=== PATIENT | female | born 1940 | race Caucasian/White ===

== ENCOUNTER 2020-02-11 06:23 | Outpatient (REF) | payer MEDICARE, SELFPAY ==
[2020-02-11 07:10] LABS: MANUAL DIFF FLAG NO
[2020-02-11 07:32] LABS: Alanine Aminotransferase 17 U/L (0-31); Albumin Level 4.1 g/dL (3.5-5.0); Alkaline Phosphatase 75 U/L (39-117); Anion Gap 13 (12-20); Aspartate Amino Transferase 16 U/L (5-31); Bilirubin Total 1.2 mg/dL (0.0-1.0); Blood Urea Nitrogen 16 mg/dL (9-16); Calcium 8.7 mg/dL (8.4-10.2); Carbon Dioxide 24 mmol/L (22-29); Chloride 104 mmol/L (96-108); Cholesterol 198 mg/dL; Estimated Glomerular Filt Rate 49; Glucose Fasting 128 mg/dL (60-99); HDL Cholesterol 39 mg/dL; LDL Cholesterol Calculated 132 mg/dl; Potassium 4.1 mmol/l (3.3-5.1); Sodium 137 mmol/L (135-145); Total Protein 7.1 g/dL (6.5-8.0); Triglycerides 139 mg/dL
[2020-02-11 07:36] LABS: Basophils Percent Auto 0.2 % (0-2); Eosinophils Absolute Auto 0.1 X10*3/uL (0.0-0.4); Eosinophils Percent Auto 0.9 % (0-4); Hematocrit 40.9 % (37-47); Hemoglobin 13.2 g/dl (12.0-16.0); Imm Gran Abs Auto 0.02 X10*3/uL (0.00-0.03); Imm Gran Pct Auto 0.2 % (0.0-0.4); Lymphocytes Absolute Auto 1.9 X10*3/uL (1.2-4.9); Lymphocytes Percent Auto 23.6 % (20-40); Mean Corpuscular HGB Conc 32.3 g/dl (31.0-35.0); Mean Corpuscular Hemoglobin 28.5 pg (27.0-33.0); Mean Corpuscular Volume 88.3 fL (80-98); Mean Platelet Volume 10.4 fL (9.4-12.3); Monocytes Absolute Auto 0.6 X10*3/uL (0.1-1.2); Monocytes Percent Auto 7.6 % (2-11); Neutrophils Absolute Auto 5.5 X10*3/uL (2.0-8.3); Neutrophils Percent Auto 67.5 % (45-73); Platelet Count 263 X10*3/uL (160-400); Red Blood Count 4.63 X10*6/uL (4.20-5.50); White Blood Count 8.2 X10*3/uL (4.8-10.8)
[2020-02-11 07:53] LABS: T4 Thyroxine 8.3 ug/dL (4.5-12.0); Thyroid Stimulating Hormone 0.67 mIU/mL (0.32-4.0); Vitamin D 25-OH Total 23.2 ng/mL (>30)
[2020-02-11 13:48] LABS: Folate 3.3 ng/mL (> or = 4.0); Vitamin B12 254 pg/mL (200-900)
== END 2020-02-11 06:24 | disposition home or self-care (01) ==
LOC: HO.LAB 06:23
PROVIDERS: PCP Internal Medicine; Visit Provider Internal Medicine
DX: E66.9 Obesity, unspecified (principal); K21.9 Gastro-esophageal reflux disease without esophagitis; I10 Essential (primary) hypertension; M91.0 Juvenile osteochondrosis of pelvis; F41.9 Anxiety disorder, unspecified
CPT/HCPCS: 36415; 80053; 80061; 82306; 82607; 82746; 84436; 84443; 85025

== ENCOUNTER 2020-04-08 07:52 | Outpatient (REF) | payer MEDICARE, SELFPAY ==
--- NOTE | 2020-04-08 10:06 | MHC.AU.P13 ---
Adult Audiological Evaluation Date of Visit: 04/08/20 Clinical Auditor Used: Not Applicable Reason for Appointment: Audiologic re-evaluation due to increasing hearing difficulties. Does patient feel they have a hearing loss?: Yes If Yes, Which Ear?: Both Ears When Was Hearing Difficulty First Noticed?: Several years ago; however, increasing difficulty over the past 2 years Has hearing been tested previously?: Yes Previous Hearing Test Results: Previous test results are not available for review today. Estephania reports hearing aids were recommended at that time; however, she was not ready to try amplification. Hearing Handicap Inventory HHIE SCORE: 22 Based on HHIE score, patient has: Mild to moderate perceived hearing handicap Ear History: Family History of Hearing Loss?: Yes: Brother Blocked/Full Sensation in Ear(s): Intermittently Medical History: Medical History: Headache High Blood Pressure Otoscopy: Right Ear: Unremarkable Left Ear: Unremarkable Tympanometry: Right Ear: Reduced Middle Ear Compliance (Type As) Left Ear: Reduced Middle Ear Compliance (Type As) Otoacoustic Emissions Right Ear Results: Not performed at today's visit. Left Ear Results: Not performed at today's visit. Hearing Evaluation: Transducer(s) Used: Insert Earphones Bone Conduction Method: Conventional Audiometry Stimuli Used: Pure Tones Right Ear: Description of Hearing: Mild sloping to moderately-severe high frequency sensorineural hearing loss Left Ear: Description of Hearing: Mild sloping to moderately-severe high frequency sensorineural hearing loss Speech Recognition Threshold (SRT): Method Used: Monitored Live Voice Stimuli Used: Spondee Words Right Ear: 35 dB HL Left Ear: 35 dB HL Word Discrimination: Method: Recorded Lists Word Lists Used: NU-6 Right Ear: 92% at 75 dB HL Left Ear: 92% at 75 dB HL QuickSIN: Binaural Score: 5 dB SNR Loss, suggesting Estephania experiences a mild degree of difficulty understanding speech with background noise present in this test environment. Comparison: Compared to the most recent evaluation: N/A Recommendations: Recommendations: Audiological re-evaluation in one year. Trial with amplification is recommended. Medical clearance from a physician is required before fitting. Hearing Aid Fitting will be scheduled when all materials arrive. See Hearing Aid Evaluation report for more information. Diagnosis: Primary Diagnosis: H90.3 Bilateral Sensorineural Hearing Loss Services Performed: Services Performed: Comprehensive Audiological Evaluation (CPT 41920) Tympanometry (CPT 72476) Signature: Provider: Ty El, JOSE-A
--- NOTE | 2020-04-08 10:16 | MHC.AU.P13 ---
Hearing Aid Evaluation- Binaural Date of Visit: 04/08/20 Resource Paraprofessional Used: Not Applicable Description of Hearing: Bilateral mild sloping to moderately-severe sensorineural hearing loss. Summary: Discussed appropriate style of hearing aids for patient's loss and the levels of technology available. Patient would like to try rechargeable [id number] ear style with basic technology. I recommend getting canal lock slim tips. Took impressions of both ears without complication Hearing Instrument Selection: Right Ear: Detective Narcotics And Vice: Phonak Model: Audeo P 50-R Battery Size: Rechargeable Color: Silver Scales Shipping Weigher: 2 Medium Type of Mold: Canal Lock Slim Tip Left Ear: Detective Narcotics And Vice: Phonak Model: Audeo P 50-R Battery Size: Rechargeable Color: Silver Scales Shipping Weigher: 2 Medium Type of Mold: Canal Lock Slim Tip Recommendations: Recommendations: Medical Clearance electronically sent to Dr. Duff Diagnosis Code(s): Primary Diagnosis: H90.3 Bilateral Sensorineural Hearing Loss Services Performed: Hearing Aid Evaluation and Earmold Impressions: Signature: Provider: Ty El, JOSE-A
--- NOTE | 2020-04-08 10:33 | MHC.AU.MED ---
Medical Clearance for Hearing Instrumentation Date: 04/08/20 Patient Name: Estephania Brito Date of : 1940 Dear Jacinda Duff MD, We have seen your patient on 04/08/20 and have determined that they are a candidate for amplification (See accompanying report). Specifically, they would benefit from: Hearing aid use in both ears There is a statute that addresses Medical Evaluation Requirements prior to fitting a patient with a hearing aid. According to [place] statute 265 CMR:6.03(1), (a) General. Except as provided in 265 CMR 6.03(1)(b), a tag clerk shall not sell a hearing aid unless the prospective user has presented to the tag clerk a written statement signed by a licensed physician that states that the patient's hearing loss has been medically evaluated and the patient may be considered a candidate for a hearing aid. The medical evaluation must have taken place within the preceding six months. Please note: Due to the [place] Statute referenced above, we cannot accept a signature other than that of a licensed physician. CAMERA MECHANIC and PA signatures cannot be accepted. I am in agreement with the above recommendation. There is no medical contraindication for hearing instrumentation. Physician Signature Date Physician Name (Printed)
== END 2020-04-08 07:53 | disposition home or self-care (01) ==
LOC: HO.SH 07:52
PROVIDERS: PCP Internal Medicine; Referring Provider Internal Medicine; Visit Provider Internal Medicine
DX: H90.3 Sensorineural hearing loss, bilateral (principal)
CPT/HCPCS: 92557; 92567

== ENCOUNTER 2020-04-27 12:29 | Outpatient (REF) | payer SELFPAY | END 2020-04-27 12:30 | disposition home or self-care (01) | LOC: HO.HAP 12:29 | PROVIDERS: Visit Provider Internal Medicine | DX: Z46.1 Encounter for fitting and adjustment of hearing aid (principal); H90.3 Sensorineural hearing loss, bilateral | CPT/HCPCS: V5261; V5299 ==

== ENCOUNTER 2020-05-11 11:38 | Outpatient (REF) | payer SELFPAY | END 2020-05-11 11:39 | disposition home or self-care (01) | LOC: HO.HAP 11:38 | PROVIDERS: Visit Provider Internal Medicine | DX: Z13.89 Encounter for screening for other disorder (principal) ==

== ENCOUNTER 2020-05-21 06:52 | Outpatient (REF) | payer MEDICARE, SELFPAY ==
[2020-05-21 07:58] LABS: MANUAL DIFF FLAG NO
[2020-05-21 08:12] LABS: Basophils Percent Auto 0.5 % (0-2); Eosinophils Absolute Auto 0.1 X10*3/uL (0.0-0.4); Eosinophils Percent Auto 1.4 % (0-4); Hematocrit 41.8 % (37-47); Hemoglobin 13.3 g/dl (12.0-16.0); Imm Gran Abs Auto 0.02 X10*3/uL (0.00-0.03); Imm Gran Pct Auto 0.3 % (0.0-0.4); Lymphocytes Absolute Auto 2.5 X10*3/uL (1.2-4.9); Lymphocytes Percent Auto 38.9 % (20-40); Mean Corpuscular HGB Conc 31.8 g/dl (31.0-35.0); Mean Corpuscular Hemoglobin 28.2 pg (27.0-33.0); Mean Corpuscular Volume 88.6 fL (80-98); Monocytes Absolute Auto 0.5 X10*3/uL (0.1-1.2); Monocytes Percent Auto 7.6 % (2-11); Neutrophils Absolute Auto 3.3 X10*3/uL (2.0-8.3); Neutrophils Percent Auto 51.3 % (45-73); Platelet Count 237 X10*3/uL (160-400); Red Blood Count 4.72 X10*6/uL (4.20-5.50); Red Cell Distribution Width 12.9 % (11.0-16.0); White Blood Count 6.4 X10*3/uL (4.8-10.8)
[2020-05-21 08:40] LABS: Alanine Aminotransferase 17 U/L (0-31); Albumin Level 4.2 g/dL (3.5-5.0); Alkaline Phosphatase 77 U/L (39-117); Anion Gap 14 (12-20); Aspartate Amino Transferase 16 U/L (5-31); Bilirubin Total 0.8 mg/dL (0.0-1.0); Blood Urea Nitrogen 24 mg/dL (9-16); Calcium 9.1 mg/dL (8.4-10.2); Carbon Dioxide 24 mmol/L (22-29); Chloride 107 mmol/L (96-108); Cholesterol 198 mg/dL; Estimated Glomerular Filt Rate 48; Glucose Random 103 mg/dL (60-115); HDL Cholesterol 39 mg/dL; LDL Cholesterol Calculated 130 mg/dl; Potassium 4.3 mmol/l (3.3-5.1); Sodium 141 mmol/L (135-145); Total Protein 7.1 g/dL (6.5-8.0); Triglycerides 149 mg/dL
[2020-05-21 08:41] LABS: Estimated Average Glucose 120 mg/dL; Hemoglobin A1c % 5.8 %
[2020-05-21 09:11] LABS: Free T4 (Free Thyroxine) 0.93 ng/dL (0.71-1.85); Thyroid Stimulating Hormone 0.47 uIU/mL (0.32-4.0); Vitamin D 25-OH Total 20.1 ng/mL (>30)
[2020-05-21 10:05] LABS: Folate 6.5 ng/mL (> or = 4.0); Vitamin B12 244 pg/mL (200-900)
== END 2020-05-21 06:53 | disposition home or self-care (01) ==
LOC: HO.LAB 06:52
PROVIDERS: Visit Provider Internal Medicine
DX: I10 Essential (primary) hypertension (principal); R73.02 Impaired glucose tolerance (oral); K21.9 Gastro-esophageal reflux disease without esophagitis; E78.00 Pure hypercholesterolemia, unspecified; E53.8 Deficiency of other specified B group vitamins
CPT/HCPCS: 36415; 80053; 80061; 82306; 82607; 82746; 83036; 84439; 84443; 85025

== ENCOUNTER 2020-07-03 12:29 | Outpatient (REF) | payer SELFPAY | END 2020-07-03 12:30 | disposition home or self-care (01) | LOC: HO.HAP 12:29 | PROVIDERS: Visit Provider Internal Medicine | DX: Z13.89 Encounter for screening for other disorder (principal) ==

== ENCOUNTER 2020-07-16 09:54 | Outpatient (REF) | payer SELFPAY | END 2020-07-16 09:55 | disposition home or self-care (01) | LOC: HO.HAP 09:54 | PROVIDERS: Visit Provider Internal Medicine | DX: Z13.89 Encounter for screening for other disorder (principal) ==

== ENCOUNTER → 2020-07-24 11:06 | Outpatient (BNVA) | payer MEDICARE, SELFPAY | PROVIDERS: PCP Internal Medicine; Visit Provider Student in an Organized Health Care Education/Training Program | DX: M81.0 Age-related osteoporosis without current pathological fracture (principal) | CPT/HCPCS: 96402; 99212; J0897 ==

== ENCOUNTER 2021-01-16 07:22 | Outpatient (REF) | payer MEDICARE, SELFPAY ==
[2021-01-16 07:51] LABS: MANUAL DIFF FLAG NO
[2021-01-16 08:02] LABS: Basophils Percent Auto 0.5 % (0-2); Eosinophils Absolute Auto 0.1 X10*3/uL (0.0-0.4); Hematocrit 41.9 % (37-47); Hemoglobin 13.9 g/dl (12.0-16.0); Imm Gran Abs Auto 0.01 X10*3/uL (0.00-0.03); Imm Gran Pct Auto 0.2 % (0.0-0.4); Lymphocytes Absolute Auto 2.2 X10*3/uL (1.2-4.9); Lymphocytes Percent Auto 37.2 % (20-40); Mean Corpuscular HGB Conc 33.2 g/dl (31.0-35.0); Mean Corpuscular Hemoglobin 28.7 pg (27.0-33.0); Mean Corpuscular Volume 86.6 fL (80-98); Mean Platelet Volume 10.5 fL (9.4-12.3); Monocytes Absolute Auto 0.5 X10*3/uL (0.1-1.2); Monocytes Percent Auto 8.2 % (2-11); Neutrophils Absolute Auto 3.1 X10*3/uL (2.0-8.3); Neutrophils Percent Auto 51.9 % (45-73); Platelet Count 236 X10*3/uL (160-400); Red Blood Count 4.84 X10*6/uL (4.20-5.50); Red Cell Distribution Width 12.7 % (11.0-16.0); White Blood Count 5.9 X10*3/uL (4.8-10.8)
[2021-01-16 08:40] LABS: Vitamin D 25-OH Total 22.3 ng/mL (>30)
[2021-01-16 10:03] LABS: Alanine Aminotransferase 18 U/L (0-31); Albumin Level 4.1 g/dL (3.5-5.0); Alkaline Phosphatase 86 U/L (39-117); Anion Gap 13 (12-20); Aspartate Amino Transferase 16 U/L (5-31); Bilirubin Total 0.5 mg/dL (0.0-1.0); Blood Urea Nitrogen 22 mg/dL (9-16); Calcium 9.2 mg/dL (8.4-10.2); Carbon Dioxide 22 mmol/L (22-29); Chloride 108 mmol/L (96-108); Cholesterol 214 mg/dL; Estimated Glomerular Filt Rate 41; Glucose Random 119 mg/dL (60-115); HDL Cholesterol 40 mg/dL; LDL Cholesterol Calculated 139 mg/dl; Potassium 4.5 mmol/L (3.3-5.1); Sodium 138 mmol/L (135-145); Triglycerides 177 mg/dL
[2021-01-18 04:38] LABS: Vitamin B12 822 pg/mL (200-900)
== END 2021-01-16 07:23 | disposition home or self-care (01) ==
LOC: HO.LAB 07:22
PROVIDERS: PCP Internal Medicine; Visit Provider Internal Medicine
DX: R73.02 Impaired glucose tolerance (oral) (principal); I10 Essential (primary) hypertension; E78.00 Pure hypercholesterolemia, unspecified
CPT/HCPCS: 36415; 80053; 80061; 82306; 82607; 82746; 85025

== ENCOUNTER → 2021-01-21 07:47 | Outpatient (BNVA) | payer MEDICARE, SELFPAY | PROVIDERS: PCP Internal Medicine; Visit Provider Nurse Practitioner Family | DX: M81.0 Age-related osteoporosis without current pathological fracture (principal) | CPT/HCPCS: 96372; 99212; J0897 ==

== ENCOUNTER 2021-02-12 09:27 | Outpatient (REF) | payer MEDICARE, SELFPAY ==
--- NOTE | ~2021-02-12 | MM_ITS ---
EXAMINATION: BONE DENSITOMETRY CLINICAL INDICATION: Age-related osteoporosis without current pathological fracture. COMPARISON: Previous BD dated 12/14/2018 and baseline BD dated 01/27/2004, lumbar spine; 06/09/2008, left hip. TECHNIQUE: Using a [employer] DXA System (software version: 13.1) manufactured by [employer], dual-energy x-ray absorptiometry was performed of the lumbar spine and left hip. The images are of good technical quality. Summary results are attached. FINDINGS: AP SPINE L2-L4 (excluding L1): The data of L1-L4 has been changed to exclude the L1 vertebral body, because degenerative changes at this level may cause overestimation of lumbar spine density. Current: BMD 1.114 g/cm2, Z-score 0.8, T-score -0.7, normal, 6.4% increase from previous, 33.1% increase from baseline (<5% change is not significant). Prior: BMD 1.047 g/cm2. Baseline: BMD 0.837 g/cm2. LEFT FEMUR, NECK: Current: BMD 0.722 g/cm2, Z-score -0.2, T-score -2.3, osteopenia. Prior: BMD 0.694 g/cm2. Baseline: BMD 0.786 g/cm2. LEFT FEMUR, TOTAL: Current: BMD 0.842 g/cm2, Z-score 0.6, T-score -1.3, osteopenia, 8.1% increase from previous, 2.2% increase from baseline (<5% change is not significant). Prior: BMD 0.779 g/cm2. Baseline: BMD 0.824 g/cm2. IDENTIFIED RISK FACTORS: Osteoporosis, height loss. Early menopause, secondary osteoporosis. HISTORY OF FRACTURE: None listed. MEDICATIONS: Calcium supplements or multivitamin, vitamin D, Prolia. MM/XR DEXA axial skeleton IMPRESSION: 1. DIAGNOSIS: Osteopenia based on the lowest T-score value of -2.3 in the femoral neck applying World Health Organization criteria. 2. 10-YEAR FRACTURE RISK PREDICTION, FRAX: Major osteoporotic fracture (clinical spine, forearm, hip or shoulder) 16.4%. Hip fracture 5.5%. 3. Treatment Recommendations: NOF guidelines recommend consideration for treatment in postmenopausal women and men age 50 and older presenting with the following: -A hip or vertebral (clinical or morphometric) fracture. -T-score less than or equal to -2.5 at the femoral neck or spine after appropriate evaluation to exclude secondary causes. -Low bone mass at the hip or spine and a 10-year fracture probability by FRAX of greater than or equal to 3% for hip fracture or greater than or equal to 20% for major osteoporotic fracture based on the [place] adapted WHO algorithm. 4. Other Recommendations: All treatment decisions require clinical judgment and consideration of individual patient factors, including patient preferences, comorbidities, previous drug use, risk factors not captured in the FRAX model (e.g. frailty, falls, vitamin D deficiency, increased bone turnover, interval significant decline in bone density) and possible under or overestimation of fracture risk by FRAX. Additional medical evaluation for secondary cause of low bone mineral density may be appropriate. FUTURE SCAN RECOMMENDATION: People with diagnosed cases of osteoporosis or at high risk for fracture should have regular bone mineral density tests. For patients eligible for Medicare, routine testing is allowed once every 2 years. The testing frequency can be increased to one year for patients who have rapidly progressing disease, those who are receiving or discontinuing medical therapy to restore bone mass, or have additional risk factors.
== END 2021-02-12 09:28 | disposition home or self-care (01) ==
LOC: HO.MAMMO 09:27
PROVIDERS: PCP Internal Medicine; Visit Provider Nurse Practitioner Family
DX: M81.0 Age-related osteoporosis without current pathological fracture (principal); Z78.0 Asymptomatic menopausal state
CPT/HCPCS: 77080

== ENCOUNTER 2021-03-19 09:45 | Outpatient (REF) | payer SELFPAY ==
--- NOTE | 2021-03-19 16:39 | MHC.AU.HFU ---
Hearing Instrument Follow-Up- Binaural Date of Visit: 03/19/21 Right Ear: Classroom Instructional Aide: Phonak Model: Audeo P 50-R Serial Number: [id number] Repair Warranty: 07/13/2023 Loss and Damage Warranty: 07/13/2023 Battery Size: Rechargeable Color: Silver Scales Sock Knitting Machine Operator: #2 Medium Type of Mold: Phonak Canal Lock, [id number], warranty 08/12/2020 Type of Wax Guard: CeruStop Dispensed By: [facility] Date of Fittin04/27/2020 Left Ear: Classroom Instructional Aide: Phonak Model: Audeo P 50-R Serial Number: [id number] Repair Warranty: 07/13/2023 Loss and Damage Warranty: 07/13/2023 Battery Size: Rechargeable Color: Silver Scales Sock Knitting Machine Operator: #2 Medium Type of Mold: Phonak Canal Lock, [id number], warranty 08/12/2020 Type of Wax Guard: CeruStop Dispensed By: [facility] Date of Fittin04/27/2020 Follow-Up Summary: Patient was seen today stating that the left slim tip is too big and hurts her ear. Advised that it is no longer under the remake warranty. Cleaned aids and molds, vacuumed microphones, replaced wax guards in molds and in receivers. Aids are working well. Tried buffing down the left earmold, and accidentally drilled a hole through the left slim tip. Ordering new one at no cost to patient. Recommendations: Recommendations: Patient will be contacted when materials have arrived. Please contact our clinic with any questions or concerns. Diagnosis Code(s): Primary Diagnosis: H90.3 Bilateral Sensorineural Hearing Loss Signature: Provider: Ty Nick, [facility]
== END 2021-03-19 09:46 | disposition home or self-care (01) ==
LOC: HO.HAP 09:45
PROVIDERS: Visit Provider Internal Medicine
DX: Z13.89 Encounter for screening for other disorder (principal)

== ENCOUNTER 2021-04-07 09:05 | Outpatient (REF) | payer SELFPAY | END 2021-04-07 09:06 | disposition home or self-care (01) | LOC: HO.HAP 09:05 | PROVIDERS: Visit Provider Internal Medicine | DX: Z13.89 Encounter for screening for other disorder (principal) ==

== ENCOUNTER 2021-05-04 07:53 | Outpatient (REF) | payer MEDICARE, SELFPAY ==
--- NOTE | 2021-05-04 13:51 | MHC.AU.HFU ---
Hearing Instrument Follow-Up- Binaural Date of Visit: 05/04/21 Right Ear: Mechanical Systems Engineer: Phonak Model: Audeo P 50-R Serial Number: [id number] Repair Warranty: 07/13/2023 Battery Size: Rechargeable Color: Silver Scales Financial Reporting Analyst: #2 Medium Type of Mold: Phonak Canal Lock [id number] warranty 08/12/2020 Type of Wax Guard: CeruStop Dispensed By: [facility] Date of Fittin04/27/2020 Left Ear: Mechanical Systems Engineer: Phonak Model: Audeo P 50-R Serial Number: [id number] Repair Warranty: 07/13/2023 Battery Size: Rechargeable Color: Silver Scales Financial Reporting Analyst: #2 Medium Type of Mold: Phonak Canal Lock [id number] Warranty 07/29/2021 Type of Wax Guard: CeruStop Dispensed By: [facility] Date of Fittin04/27/2020 Follow-Up Summary: Patient reports she tried to clip off the pull cord from the new left slim tip and now it is very sharp, ground down. Also the new left receiver setter wire is too short compared to the right so used heat to stretch to match the right. During the cleaning process, I broke the canal lock off the old right slim tip. Ground down the sharp edges so patient can continue to wear in the meantime. Faxed order for new right slim tip using scan on file. Recommendations:Call patient when remake in. NO CHARGE FOR NEW SLIM TIP IT WAS BROKEN IN OFFICE. Diagnosis Code(s): Primary Diagnosis: H90.3 Bilateral Sensorineural Hearing Loss Signature:Provider: Ty El, [facility]
--- NOTE | 2021-05-05 10:45 | MHC.AU.AHA ---
Adult Audiological Evaluation Date of Visit: 05/04/21 Missile Mechanic Used: Not Applicable Reason for Appointment: Audiologic re-evaluation due to question of change in hearing ability. Previous Hearing Test Results: 04/08/2020 [facility] Mild sloping to moderately-severe sensorineural hearing loss bilaterally with 92% speech understanding for both ears. Ear History: Family History of Hearing Loss?: Yes: Brother Medical History: Medical History: Headache, High Blood Pressure Medication List: Losartan, Metoprolol, Omeprazole. As needed medications Librax, Lorazepam, Ophelia-S Hearing Instrument History- Right Ear: Batch Or Continuous Still Operator: Phonak Model: Audeo P 50-R Serial Number: [id number] Battery Size: Rechargeable Repair Warranty: 07/13/2023 Loss and Damage Warranty: 07/13/2023 Service Plan: Repair and L&D Dispensed By: [facility] Date of Fittin04/27/2020 Hearing Instrument History- Left Ear: Batch Or Continuous Still Operator: EndPlayak Model: Inkblazerseo P 50-R Serial Number: [id number] Battery Size: Rechargeable Warranty: 07/13/2023 Loss and Damage Warranty: 07/13/2023 Service Plan: Repair and L&D Dispensed By: [facility] Date of Fittin04/27/2020 Otoscopy: Right Ear: Unremarkable Left Ear: Unremarkable Tympanometry: Not performed at today's visit as previous testing has indicated normal middle ear function for both ears. Hearing Evaluation: Transducer(s) Used: Insert Earphones Bone Conduction Method: Conventional Audiometry Stimuli Used: Pure Tones Right Ear: Description of Hearing: Mild sloping to moderately-severe sensorineural hearing loss Left Ear: Description of Hearing: Mild sloping to moderately-severe sensorineural hearing loss Speech Recognition Threshold (SRT): Method Used: Monitored Live Voice Stimuli Used: Spondee Words Right Ear: 30 dB HL Left Ear: 30 dB HL Word Discrimination: Method: Recorded Lists Word Lists Used: NU-6 Right Ear: 96% at 70 dB HL Left Ear: 92% at 70 dB HL Comparison: Compared to the most recent evaluation: Hearing is stable for both ears. Recommendations: Audiological re-evaluation in one year. Will send a reminder card. Hearing aid maintenance performed today. During today's hearing aid maintenance, the right slim tip for the hearing aid broke. Ordering a new earmold. When the mold is received, will schedule an appointment. Diagnosis: Primary Diagnosis: H90.3 Bilateral Sensorineural Hearing Loss Services Performed: Comprehensive Audiological Evaluation (CPT 59069) Signature: Provider: Ty El, JOSE-A
== END 2021-05-04 07:54 | disposition home or self-care (01) ==
LOC: HO.SH 07:53
PROVIDERS: Visit Provider Internal Medicine
DX: H90.3 Sensorineural hearing loss, bilateral (principal)
CPT/HCPCS: 92557

== ENCOUNTER 2021-05-17 12:47 | Outpatient (REF) | payer SELFPAY | END 2021-05-17 12:48 | disposition home or self-care (01) | LOC: HO.HAP 12:47 | PROVIDERS: Visit Provider Internal Medicine | DX: Z13.89 Encounter for screening for other disorder (principal) ==

== ENCOUNTER 2021-07-07 11:19 | Outpatient (REF) | payer SELFPAY | END 2021-07-07 11:20 | disposition home or self-care (01) | LOC: HO.HAP 11:19 | PROVIDERS: Visit Provider Internal Medicine | DX: Z13.89 Encounter for screening for other disorder (principal) ==

== ENCOUNTER 2021-07-12 06:53 | Outpatient (REF) | payer MEDICARE, SELFPAY ==
[2021-07-12 08:21] LABS: Alanine Aminotransferase 17 U/L (0-31); Alkaline Phosphatase 75 U/L (39-117); Anion Gap 14 (12-20); Aspartate Amino Transferase 19 U/L (5-31); Bilirubin Total 0.7 mg/dL (0.0-1.0); Blood Urea Nitrogen 27 mg/dL (9-16); Calcium 9.6 mg/dL (8.4-10.2); Carbon Dioxide 25 mmol/L (22-29); Chloride 103 mmol/L (96-108); Estimated Glomerular Filt Rate 42; Glucose Random 122 mg/dL (60-115); Potassium 4.5 mmol/L (3.3-5.1); Sodium 137 mmol/L (135-145); Total Protein 7.3 g/dL (6.5-8.0)
[2021-07-12 08:45] LABS: Vitamin D 25-OH Total 21.9 ng/mL (>30)
== END 2021-07-12 06:54 | disposition home or self-care (01) ==
LOC: HO.LAB 06:53
PROVIDERS: PCP Internal Medicine; Visit Provider Nurse Practitioner Family
DX: M81.0 Age-related osteoporosis without current pathological fracture (principal)
CPT/HCPCS: 36415; 80053; 82306

== ENCOUNTER → 2021-07-21 09:19 | Outpatient (BNVA) | payer OTHER, SELFPAY | PROVIDERS: PCP Internal Medicine; Visit Provider Nurse Practitioner Family | DX: M81.0 Age-related osteoporosis without current pathological fracture (principal) | CPT/HCPCS: 96372 ==

== ENCOUNTER 2021-07-29 13:05 | Outpatient (REF) | payer SELFPAY ==
--- NOTE | 2021-07-29 13:42 | MHC.AU.HFU ---
Hearing Instrument Follow-Up- Binaural Date of Visit: 07/29/21 Right Ear: Imaging Tech: Phonak Model: Audeo P 50-R Serial Number: [id number] Repair Warranty: 07/13/2023 Loss and Damage Warranty: 07/13/2023 Type of Mold: Phonak Canal Lock #[id number] warranty 09/07/2021 Type of Wax Guard: CeruStop Left Ear: Imaging Tech: Phonak Model: Audeo P 50-R Serial Number: [id number] Repair Warranty: 07/13/2023 Loss and Damage Warranty: 07/13/2023 Type of Mold: Phonak Canal Lock #[id number] Warranty 07/29/2021 Type of Wax Guard: CeruStop Follow-Up Summary: The remade right slim tip was placed on the right hearing aid. Patient reports it fits much better and feels secure. She also reports that this morning the left hearing aid started beeping randomly. She put it back in the charger operator helper and has not tried it since. The hearing aid was not beeping when I turned it on. Routine maintenance performed on the left instrument and it appears to be amplifying as expected. In the charger operator helper, flakes of dry skin were noted on the contacts. This may have been preventing it from getting a full charge, and she may have been hearing the low battery tones. The charger operator helper was cleaned. If the problem persists, patient will let us know. Recommendations: Hearing instrument follow-up or maintenance as needed. In the process of removing the old, broken slim tip the right disbursement clerk was damaged. A new size 2M disbursement clerk from stock was placed on the hearing aid. A replacement disbursement clerk for stock was ordered. Diagnosis Code(s): Primary Diagnosis: H90.3 Bilateral Sensorineural Hearing Loss Signature: Provider: Ty Bronson, JOSE-A
== END 2021-07-29 13:06 | disposition home or self-care (01) ==
LOC: HO.HAP 13:05
PROVIDERS: Visit Provider Internal Medicine
DX: Z13.89 Encounter for screening for other disorder (principal)

== ENCOUNTER 2021-08-04 13:14 | Outpatient (REF) | payer SELFPAY | END 2021-08-04 13:15 | disposition home or self-care (01) | LOC: HO.HAP 13:14 | PROVIDERS: Visit Provider Internal Medicine | DX: Z13.89 Encounter for screening for other disorder (principal) ==

== ENCOUNTER 2022-01-24 08:34 | Outpatient (REF) | payer OTHER, SELFPAY ==
[2022-01-24 09:49] LABS: Alanine Aminotransferase 19 U/L (0-31); Albumin Level 4.2 g/dL (3.5-5.0); Alkaline Phosphatase 77 U/L (39-117); Anion Gap 18 (12-20); Aspartate Amino Transferase 19 U/L (5-31); Bilirubin Total 0.7 mg/dL (0.0-1.0); Blood Urea Nitrogen 29 mg/dL (9-16); Calcium 9.6 mg/dL (8.4-10.2); Carbon Dioxide 22 mmol/L (22-29); Chloride 105 mmol/L (96-108); Estimated Glomerular Filt Rate 38; Glucose Random 110 mg/dL (60-115); Potassium 4.3 mmol/L (3.3-5.1); Sodium 141 mmol/L (135-145); Total Protein 7.1 g/dL (6.5-8.0)
[2022-01-24 10:00] LABS: Vitamin D 25-OH Total 23.8 ng/mL (>30)
== END 2022-01-24 08:35 | disposition home or self-care (01) ==
LOC: HO.LAB 08:34
PROVIDERS: PCP Internal Medicine; Visit Provider Nurse Practitioner Family
DX: M81.0 Age-related osteoporosis without current pathological fracture (principal); F41.9 Anxiety disorder, unspecified; Z79.899 Other long term (current) drug therapy
CPT/HCPCS: 36415; 80053; 82306; 96372; J0897

== ENCOUNTER 2022-06-13 06:42 | Outpatient (REF) | payer OTHER, SELFPAY ==
[2022-06-13 06:51] LABS: MANUAL DIFF FLAG NO
[2022-06-13 07:48] LABS: Basophils Percent Auto 0.7 % (0-2); Eosinophils Absolute Auto 0.1 X10*3/uL (0.0-0.4); Eosinophils Percent Auto 2.1 % (0-4); Hematocrit 42.3 % (37.0-47.0); Hemoglobin 13.8 g/dl (12.0-16.0); Imm Gran Abs Auto 0.01 X10*3/uL (0.00-0.03); Imm Gran Pct Auto 0.2 % (0.0-0.4); Lymphocytes Absolute Auto 2.5 X10*3/uL (1.2-4.9); Lymphocytes Percent Auto 42.1 % (20-40); Mean Corpuscular HGB Conc 32.6 g/dl (31.0-35.0); Mean Corpuscular Hemoglobin 28.8 pg (27.0-33.0); Mean Corpuscular Volume 88.1 fL (80.0-98.0); Mean Platelet Volume 10.5 fL (9.4-12.3); Monocytes Absolute Auto 0.5 X10*3/uL (0.1-1.2); Monocytes Percent Auto 8.9 % (2-11); Neutrophils Absolute Auto 2.7 x10*3/uL (2.0-8.3); Platelet Count 232 X10*3/uL (160-400); Red Cell Distribution Width 12.4 % (11.0-16.0); White Blood Count 5.8 X10*3/uL (4.8-10.8)
[2022-06-13 08:00] LABS: Estimated Average Glucose 114 mg/dL; Hemoglobin A1c % 5.6 %
[2022-06-13 08:38] LABS: Alanine Aminotransferase 18 U/L (0-31); Alkaline Phosphatase 65 U/L (39-117); Anion Gap 13 (12-20); Aspartate Amino Transferase 21 U/L (5-31); Bilirubin Total 0.9 mg/dL (0.0-1.0); Blood Urea Nitrogen 17 mg/dL (9-16); Calcium 9.2 mg/dL (8.4-10.2); Carbon Dioxide 25 mmol/L (22-29); Chloride 108 mmol/L (96-108); Cholesterol 207 mg/dL; Estimated Glomerular Filt Rate 51; Glucose Random 107 mg/dL (60-115); HDL Cholesterol 44 mg/dL; LDL Cholesterol Calculated 129 mg/dl; Potassium 4.2 mmol/L (3.3-5.1); Sodium 142 mmol/L (135-145); Total Protein 6.7 g/dL (6.5-8.0); Triglycerides 170 mg/dL
[2022-06-13 08:54] LABS: Folate 8.4 ng/mL (> or = 4.0); Free T4 (Free Thyroxine) 0.96 ng/dL (0.71-1.85); Thyroid Stimulating Hormone 0.68 uIU/mL (0.32-4.0); Vitamin B12 1235 pg/mL (200-900)
== END 2022-06-13 06:43 | disposition home or self-care (01) ==
LOC: HO.LAB 06:42
PROVIDERS: PCP Internal Medicine; Visit Provider Internal Medicine
DX: E78.00 Pure hypercholesterolemia, unspecified (principal); I10 Essential (primary) hypertension; R73.02 Impaired glucose tolerance (oral)
CPT/HCPCS: 36415; 80053; 80061; 82607; 82746; 83036; 84439; 84443; 85025

== ENCOUNTER 2022-07-19 07:34 | Outpatient (REF) | payer OTHER, SELFPAY ==
[2022-07-19 09:28] LABS: Alanine Aminotransferase 14 U/L (0-31); Albumin Level 3.8 g/dL (3.5-5.0); Alkaline Phosphatase 70 U/L (39-117); Anion Gap 12 (12-20); Aspartate Amino Transferase 16 U/L (5-31); Bilirubin Total 0.8 mg/dL (0.0-1.0); Blood Urea Nitrogen 23 mg/dL (9-16); Calcium 9.1 mg/dL (8.4-10.2); Carbon Dioxide 23 mmol/L (22-29); Chloride 108 mmol/L (96-108); Estimated Glomerular Filt Rate 43; Glucose Random 115 mg/dL (60-115); Potassium 4.1 mmol/L (3.3-5.1); Sodium 139 mmol/L (135-145); Total Protein 6.6 g/dL (6.5-8.0)
== END 2022-07-19 07:35 | disposition home or self-care (01) ==
LOC: HO.LAB 07:34
PROVIDERS: PCP Internal Medicine; Visit Provider Nurse Practitioner Family
DX: M81.0 Age-related osteoporosis without current pathological fracture (principal)
CPT/HCPCS: 36415; 80053; 82306

== ENCOUNTER → 2022-07-26 09:13 | Outpatient (BNVA) | payer OTHER, SELFPAY | PROVIDERS: PCP Internal Medicine; Visit Provider Nurse Practitioner Family | DX: M81.0 Age-related osteoporosis without current pathological fracture (principal) | CPT/HCPCS: 96372; J0897 ==

== ENCOUNTER 2022-08-24 09:33 | Outpatient (REF) | payer OTHER, SELFPAY | END 2022-08-24 09:34 | disposition home or self-care (01) | LOC: HO.SH 09:33 | PROVIDERS: Visit Provider Internal Medicine | DX: H90.3 Sensorineural hearing loss, bilateral (principal) | CPT/HCPCS: 92557; 92567 ==

== ENCOUNTER 2022-09-20 08:55 | Outpatient (REF) | payer SELFPAY | END 2022-09-20 08:56 | disposition home or self-care (01) | LOC: HO.HAP 08:55 | PROVIDERS: Visit Provider Internal Medicine | DX: Z13.89 Encounter for screening for other disorder (principal) ==

== ENCOUNTER 2022-10-17 09:55 | Outpatient (REF) | payer SELFPAY | END 2022-10-17 09:56 | disposition home or self-care (01) | LOC: HO.HAP 09:55 | PROVIDERS: Visit Provider Internal Medicine | DX: Z13.89 Encounter for screening for other disorder (principal) ==

== ENCOUNTER 2022-12-05 08:31 | Outpatient (REF) | payer SELFPAY | END 2022-12-05 08:32 | disposition home or self-care (01) | LOC: HO.HAP 08:31 | PROVIDERS: Visit Provider Internal Medicine | DX: Z13.89 Encounter for screening for other disorder (principal) ==

== ENCOUNTER 2023-01-20 08:18 | Outpatient (AMB) | payer OTHER, SELFPAY ==
--- NOTE | 2023-01-20 08:27 | MHC.PC.OV ---
Vital Signs 01/20/23 08:28 Height 5 ft Weight 156 lb BMI 30.5 BP 122/68 Blood Pressure Location Lt brachial Position Sitting Pulse 77 Pulse Source Pulse Oximeter Pulse Oximetry (%) 96 Oxygen Delivery Method Room Air Intake Visit Reasons: 3mth f/u Allergies lansoprazole [From PREVACID] Allergy (Intermediate, Verified 01/20/23 08:28) VOMITING morphine [MORPHINE] Allergy (Intermediate, Verified 01/20/23 08:28) AGITATION risedronate sodium [From ACTONEL] Allergy (Intermediate, Verified 01/20/23 08:28) DYSPNEA alendronate sodium [From Fosamax] Allergy (Mild, Verified 01/20/23 08:28) NAUSEA,SOB azithromycin [AZITHROMYCIN] Allergy (Mild, Verified 01/20/23 08:28) NAUSEA/HEADACHE Penicillins Allergy (Mild, Verified 01/20/23 08:28) RASH amlodipine Allergy (Unknown, Verified 01/20/23 08:28) Unknown Bifidobacterium infantis [Align] Allergy (Unknown, Verified 01/20/23 08:28) Unknown cetirizine [From ZYRTEC] Allergy (Unknown, Verified 01/20/23 08:28) UNKNOWN cyanocobalamin (vitamin B12) Allergy (Unknown, Verified 01/20/23 08:28) Unknown enalapril [ENALAPRIL] Allergy (Unknown, Verified 01/20/23 08:28) ABD PAIN, VERY NAUSEOUS, nausea fexofenadine [From MAC] Allergy (Unknown, Verified 01/20/23 08:28) UNKNOWN folic acid Allergy (Unknown, Verified 01/20/23 08:28) unk hydralazine Allergy (Unknown, Verified 01/20/23 08:28) nausea hydrochlorothiazide Allergy (Unknown, Verified 01/20/23 08:28) dry mouth latex [Latex] Allergy (Unknown, Verified 01/20/23 08:28) RASH loratadine [Claritin] Allergy (Unknown, Verified 01/20/23 08:28) Unknown metoclopramide [From REGLAN] Allergy (Unknown, Verified 01/20/23 08:28) JITTERY mometasone furoate [From NASONEX] Allergy (Unknown, Verified 01/20/23 08:28) UNKNOWN montelukast [Singulair] Allergy (Unknown, Verified 01/20/23 08:28) Unknown pantoprazole [From PROTONIX] Allergy (Unknown, Verified 01/20/23 08:28) UNKNOWN penicillin V Allergy (Unknown, Verified 01/20/23 08:28) Unknown polyethylene glycol 3350 [Miralax] Allergy (Unknown, Verified 01/20/23 08:28) Unknown pseudoephedrine [From SUDAFED] Allergy (Unknown, Verified 01/20/23 08:28) HYPER ranitidine [From ZANTAC] Allergy (Unknown, Verified 01/20/23 08:28) UNKNOWN thiamine (vitamin B1) Allergy (Unknown, Verified 01/20/23 08:28) Unknown ascorbic acid [From PreserVision AREDS-2] Adverse Reaction (Intermediate, Unverified 01/20/23 08:44) Constipation copper [From PreserVision AREDS-2] Adverse Reaction (Intermediate, Unverified 01/20/23 08:44) Constipation lutein [From PreserVision AREDS-2] Adverse Reaction (Intermediate, Unverified 01/20/23 08:44) Constipation vitamin E acetate (dl-alpha tocopheryl) [From PreserVision AREDS-2] Adverse Reaction (Intermediate, Unverified 01/20/23 08:44) Constipation zeaxanthin [From PreserVision AREDS-2] Adverse Reaction (Intermediate, Unverified 01/20/23 08:44) Constipation zinc oxide [From PreserVision AREDS-2] Adverse Reaction (Intermediate, Unverified 01/20/23 08:44) Constipation ergocalciferol (vitamin D2) [From CALCIUM CITRATE WITH D] Adverse Reaction (Mild, Verified 01/20/23 08:28) CONSTIPATION Mac-D 12 Hour Allergy (Unknown, Uncoded 01/20/23 08:28) Unknown Calcium Citrate + D Allergy (Unknown, Uncoded 01/20/23 08:28) Unknown Folic + B12 Allergy (Unknown, Uncoded 01/20/23 08:28) Unknown latex Allergy (Unknown, Uncoded 01/20/23 08:28) unknown From CALCIUM CITRATE WITH D Adverse Reaction (Mild, Uncoded 01/20/23 08:28) CONSTIPATION Tobacco use date assessed: 10/05/22 Fall risk assessment: No Falls in past year Last assessed Fall Risk: 01/20/23 Dental Screening Dental Screen Date: 01/20/23 Did you have a dental visit in the last 12 months?: No Did you have a dental problem in the last 6 months where you did not have access to dental care?: No Was dental information given to patient?: No HPI 3mth f/u HPI Details 82-year-old obese female with GERD hypercholesterolemia impaired glucose tolerance hypertension osteoporosis and generalized anxiety disorder last seen in September 2022. got constipated with preservision. tea causes gas for her. 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 Had a long discussion with the patient on needing to eat better. [facility] Medical History Carcinoid tumor Closed left arm fracture Degenerative disc disease, lumbar GERD (gastroesophageal reflux disease) Hypercholesterolemia Hypertension Impaired glucose tolerance Irritable bowel syndrome Obesity (BMI 30-39.9) Osteoporosis Peripheral vascular disease Tubular adenoma of colon Vitamin D deficiency Surgical History H/O ventral hernia repair History of surgical procedure on eye proper using laser Status post left breast lumpectomy Family History (Updated 01/20/23 @ 08:29 by Siobhan Valdivia CMA) Father Diabetes Stroke Mother Pancreatic cancer Social History Housing: House Alcohol intake: former Patient Tobacco Use Status: Never used Tobacco e-Cigarette/Vaping Use: Never Used Second Hand Smoke Exposure: No service: No Current occupational status: retired Cognitive needs: No Hearing needs: Yes Vision needs: Yes Questionnaire PHQ-9 Over the last 2 weeks, how often have you been bothered by any of the following problems? 1. Little interest or pleasure in doing things: not at all 2. Feeling down, depressed, or hopeless: not at all 3. Trouble falling or staying asleep, or sleeping too much: not at all 4. Feeling tired or having little energy: not at all 5. Poor appetite or overeating: not at all 6. Feeling bad about yourself - or that you are a failure or have let yourself or your family down: not at all 7. Trouble concentrating on things, such as reading the newspaper or watching television: not at all 8. Moving or speaking so slowly that other people could have noticed. Or the opposite - being so fidgety or restless that you have been moving around a lot more than usual: not at all 9. Thoughts that you would be better off or of hurting yourself in some way: not at all Total score: 0 Depression Screening Interpretation: Negative Source: Developed by Drs. Tyler Parsons, Grace Greene, David Altman and colleagues, with an educational ina from [employer]. Thrive Questionnaire Date Thrive assessed: 06/21/22 AUDIT C Alcohol Use Questionnaire (AUDIT-C) 1. How often do you have a drink containing alcohol?: Never 3. How often do you have six or more drinks on one occasion?: Never Total Score: 0 KATHIE-7 AMB Questionnaire KATHIE-7 Date KATHIE - 7 assessed: 06/21/22 Source: Developed by Drs. Tyler Parsons, Grace Greene, David Altman and colleagues, with an educational ina from [employer]. Physical exam (Primary Care) Vital Signs: Last Vital Signs Pulse 77 01/20/23 08:28 BP 122/68 01/20/23 08:28 Pulse Ox 96 01/20/23 08:28 Oxygen Delivery Method Room Air 01/20/23 08:28 BMI result Body Mass Index 30.5 Tobacco/Smoking Status: Tobacco use Status Tobacco use date assessed 10/05/22 01/20/23 08:36 Patient Tobacco Use Status Never used Tobacco 01/20/23 08:36 e-Cigarette/Vaping Use Never Used 01/20/23 08:36 PHQ-9: PHQ-9 Score PHQ-9: Total score 0 01/20/23 08:36 Depression Screening Interpretation: Negative Thrive Assessment: Date of Thrive Assessment Date Thrive assessed 06/21/22 01/20/23 08:36 Const General: alert; No acute distress Eyes Conjunctivae: conjunctivae normal Resp Auscultation: clear to auscultation bilaterally Cardio Rate: regular rate Rhythm: regular rhythm GI Inspection: Yes normal to inspection Extrem General: Yes normal to inspection and No edema Assessment and Plan Assessment & Plan (1) GERD (gastroesophageal reflux disease): Comment: Hiatal hernia Dr. Correa history of H pylori Code(s): K21.9 - Gastro-esophageal reflux disease without esophagitis Qualifiers: Esophagitis presence: without esophagitis Qualified Code(s): K21.9 - Gastro-esophageal reflux disease without esophagitis Plan: Avoid the foods that causes that usually spicy foods, tomato products, juices, coffee, soda and foods that your sensitive to. After eating do not lie down, allow 3-4 hours before in lie down. And keep the head of bed above 30 degrees to avoid the acid from going up. Presently on omeprazole. Discussed with the patient on the need to choose the foods that she is eating. She cannot be eating fast foods most of the time. (2) Hypercholesterolemia: Code(s): E78.00 - Pure hypercholesterolemia, unspecified Plan: Avoid fried foods, chicken skin, eggs, butter margarine, pastries and meat. Be it pork or beef they have a lot of cholesterol June 2022 last blood work and within normal limits (3) Impaired glucose tolerance: Code(s): R73.02 - Impaired glucose tolerance (oral) Plan: Decrease the amount of carbohydrate intake, pasta, bread, rice and potatoes are all sugar and that is aside from all the sweet stuff, remember that fruits are good but they are Sweet also. (4) Obesity (BMI 30-39.9): Code(s): E66.9 - Obesity, unspecified Plan: Diet and exercise (5) Hypertension: Code(s): I10 - Essential (primary) hypertension Qualifiers: Hypertension type: essential hypertension Qualified Code(s): I10 - Essential (primary) hypertension Plan: Continue with blood pressure medication. Decrease salt intake and exercise patient takes losartan 100 mg once a day metoprolol 12.5 mg once a day (6) Osteoporosis: Comment: Salvatore- [id number] 5 year course. Prolia- ordered October 2016-patient did not start due to her concern for side effects. Prolia started June 2019 to present. Code(s): M81.0 - Age-related osteoporosis without current pathological fracture Qualifiers: Osteoporosis type: age-related Presence of current pathological fracture: without current pathological fracture Qualified Code(s): M81.0 - Age-related osteoporosis without current pathological fracture Plan: Presently on Prolia. Due for bone density in January (7) Generalized anxiety disorder: Code(s): F41.1 - Generalized anxiety disorder Plan: Continue with present medication as needed Coding Level of Care Code Est Pt Level 4 (93395) Diagnoses Gastroesophageal reflux disease without esophagitis K21.9 Esophagitis presence: without esophagitis Hypercholesterolemia E78.00 Impaired glucose tolerance R73.02 Obesity (BMI 30-39.9) E66.9 Essential hypertension I10 Hypertension type: essential hypertension Age-related osteoporosis without current pathological fracture M81.0 Osteoporosis type: age-related Presence of current pathological fracture: without current pathological fracture Generalized anxiety disorder F41.1
[2023-01-20 08:28] VITALS: BP 122/68; PULSE 77; O2SAT 96; BMI 30.5
== END 2023-01-20 08:55 | disposition home or self-care (01) ==
PROVIDERS: PCP Internal Medicine; Visit Provider Internal Medicine
DX: K21.9 Gastro-esophageal reflux disease without esophagitis (principal); I10 Essential (primary) hypertension; Z68.30 Body mass index [BMI] 30.0-30.9, adult; E78.00 Pure hypercholesterolemia, unspecified; R73.02 Impaired glucose tolerance (oral); E66.9 Obesity, unspecified; M81.0 Age-related osteoporosis without current pathological fracture; F41.1 Generalized anxiety disorder
CPT/HCPCS: 99214

== ENCOUNTER 2023-01-25 07:11 | Outpatient (REF) | payer OTHER, SELFPAY ==
[2023-01-25 11:58] LABS: Anion Gap 12 (12-20); Blood Urea Nitrogen 20 mg/dL (9-16); Calcium 9.2 mg/dL (8.4-10.2); Carbon Dioxide 24 mmol/L (22-29); Chloride 109 mmol/L (96-108); Estimated Glomerular Filt Rate 48; Glucose Random 141 mg/dL (60-115); Potassium 3.9 mmol/L (3.3-5.1); Sodium 141 mmol/L (135-145)
[2023-01-29 15:38] LABS: Vitamin D 25-OH, D2 19 ng/mL; Vitamin D 25-OH, D3 13 ng/mL; Vitamin D 25-OH, Total 32 ng/mL (30-100)
== END 2023-01-25 07:12 | disposition home or self-care (01) ==
LOC: HO.HMGCLDS 07:11
PROVIDERS: PCP Internal Medicine; Visit Provider Student in an Organized Health Care Education/Training Program
DX: E55.9 Vitamin D deficiency, unspecified (principal); M81.0 Age-related osteoporosis without current pathological fracture
CPT/HCPCS: 36415; 80048; 82306

== ENCOUNTER 2023-01-27 08:05 | Outpatient (AMB) | payer OTHER, SELFPAY ==
[2023-01-27 08:07] VITALS: BP 110/80; PULSE 60; TEMP 36.3; O2SAT 96; BMI 30.5
--- NOTE | 2023-01-27 08:07 | MHC.OFFVIS ---
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 Allergies lansoprazole [From PREVACID] Allergy (Intermediate, Verified 01/27/23 08:07) VOMITING morphine [MORPHINE] Allergy (Intermediate, Verified 01/27/23 08:07) AGITATION risedronate sodium [From ACTONEL] Allergy (Intermediate, Verified 01/27/23 08:07) DYSPNEA alendronate sodium [From Fosamax] Allergy (Mild, Verified 01/27/23 08:07) NAUSEA,SOB azithromycin [AZITHROMYCIN] Allergy (Mild, Verified 01/27/23 08:07) NAUSEA/HEADACHE Penicillins Allergy (Mild, Verified 01/27/23 08:07) RASH amlodipine Allergy (Unknown, Verified 01/27/23 08:07) Unknown Bifidobacterium infantis [Align] Allergy (Unknown, Verified 01/27/23 08:07) Unknown cetirizine [From ZYRTEC] Allergy (Unknown, Verified 01/27/23 08:07) UNKNOWN cyanocobalamin (vitamin B12) Allergy (Unknown, Verified 01/27/23 08:07) Unknown enalapril [ENALAPRIL] Allergy (Unknown, Verified 01/27/23 08:07) ABD PAIN, VERY NAUSEOUS, nausea fexofenadine [From MAC] Allergy (Unknown, Verified 01/27/23 08:07) UNKNOWN folic acid Allergy (Unknown, Verified 01/27/23 08:07) unk hydralazine Allergy (Unknown, Verified 01/27/23 08:07) nausea hydrochlorothiazide Allergy (Unknown, Verified 01/27/23 08:07) dry mouth latex [Latex] Allergy (Unknown, Verified 01/27/23 08:07) RASH loratadine [Claritin] Allergy (Unknown, Verified 01/27/23 08:07) Unknown metoclopramide [From REGLAN] Allergy (Unknown, Verified 01/27/23 08:07) JITTERY mometasone furoate [From NASONEX] Allergy (Unknown, Verified 01/27/23 08:07) UNKNOWN montelukast [Singulair] Allergy (Unknown, Verified 01/27/23 08:07) Unknown pantoprazole [From PROTONIX] Allergy (Unknown, Verified 01/27/23 08:07) UNKNOWN penicillin V Allergy (Unknown, Verified 01/27/23 08:07) Unknown polyethylene glycol 3350 [Miralax] Allergy (Unknown, Verified 01/27/23 08:07) Unknown pseudoephedrine [From SUDAFED] Allergy (Unknown, Verified 01/27/23 08:07) HYPER ranitidine [From ZANTAC] Allergy (Unknown, Verified 01/27/23 08:07) UNKNOWN thiamine (vitamin B1) Allergy (Unknown, Verified 01/27/23 08:07) Unknown ascorbic acid [From PreserVision AREDS-2] Adverse Reaction (Intermediate, Unverified 01/27/23 08:07) Constipation copper [From PreserVision AREDS-2] Adverse Reaction (Intermediate, Unverified 01/27/23 08:07) Constipation lutein [From PreserVision AREDS-2] Adverse Reaction (Intermediate, Unverified 01/27/23 08:07) Constipation vitamin E acetate (dl-alpha tocopheryl) [From PreserVision AREDS-2] Adverse Reaction (Intermediate, Unverified 01/27/23 08:07) Constipation zeaxanthin [From PreserVision AREDS-2] Adverse Reaction (Intermediate, Unverified 01/27/23 08:07) Constipation zinc oxide [From PreserVision AREDS-2] Adverse Reaction (Intermediate, Unverified 01/27/23 08:07) Constipation ergocalciferol (vitamin D2) [From CALCIUM CITRATE WITH D] Adverse Reaction (Mild, Verified 01/27/23 08:07) CONSTIPATION Mac-D 12 Hour Allergy (Unknown, Uncoded 01/27/23 08:07) Unknown Calcium Citrate + D Allergy (Unknown, Uncoded 01/27/23 08:07) Unknown Folic + B12 Allergy (Unknown, Uncoded 01/27/23 08:07) Unknown latex Allergy (Unknown, Uncoded 01/27/23 08:07) unknown From CALCIUM CITRATE WITH D Adverse Reaction (Mild, Uncoded 01/27/23 08:07) CONSTIPATION Medication List - Last Reconciled 01/27/23 by Donald Su MD chlordiazepoxide-clidinium 5-2.5 mg (Librax (with clidinium)) 1 cap PO .QD PRN denosumab (Prolia) 60 mg subcut [id number] docusate sodium (Colace) 100 mg PO DAILY ergocalciferol (vitamin D2) 1,250 mcg PO .Qmonth lorazepam 1 mg PO DAILY PRN 90 days losartan 100 mg PO DAILY metoprolol succinate ER 12.5 mg (1/2 x 25 mg) PO DAILY omeprazole 20 mg PO DAILY promethazine 12.5 mg PO TID PRN vitamin B complex (B Complex-Vitamin B12 tablet) 1 tab PO DAILY HPI HPI Comments History of Present Illness Details [id number] presents for follow-up of Osteoporosis and Prolia injection. Last seen by Kathe Pedraza 07/21 Continues on Prolia and tolerating this without issue. Patient reports that she continues to feel well. Patient states that she has been having pain on the lateral aspect of her left foot especially when she is in her recliner, it resolves after taking a few steps. She reports slightly low vitamin D, for which she is taking vitamin-D 2 once a month. She did not tolerate daily vitamin-D supplementation due to constipation. [facility] Medical History Vitamin D deficiency Tubular adenoma of colon Closed left arm fracture Carcinoid tumor Hypertension Osteoporosis Irritable bowel syndrome Obesity (BMI 30-39.9) Impaired glucose tolerance Hypercholesterolemia GERD (gastroesophageal reflux disease) Degenerative disc disease, lumbar Peripheral vascular disease Surgical History History of surgical procedure on eye proper using laser H/O ventral hernia repair Status post left breast lumpectomy Family History Father Diabetes Stroke Mother Pancreatic cancer Social History Housing: House Alcohol intake: former Patient Tobacco Use Status: Never used Tobacco e-Cigarette/Vaping Use: Never Used Second Hand Smoke Exposure: No service: No Current occupational status: retired Cognitive needs: No Hearing needs: Yes Vision needs: Yes Review of Systems [facility] [place] Reports arthralgias Physical Exam Vital Signs: Last Vital Signs Temp 97.3 F 01/27/23 08:07 Pulse 60 01/27/23 08:07 BP 110/80 01/27/23 08:07 Pulse Ox 96 01/27/23 08:07 Oxygen Delivery Method Room Air 01/27/23 08:07 BMI result Body Mass Index 30.5 Const General: cooperative, healthy appearing and comfortable Nutritional Appearance: overweight Orientation/consciousness: patient oriented x3 Limitations: no limitations HEENT Head: Yes normocephalic and Yes atraumatic Mouth: moist mucous membranes Resp Effort & Inspection: normal respiratory effort and able to speak in complete sentences Auscultation: clear to auscultation bilaterally Cardio Rate: regular rate Rhythm: regular rhythm Heart sounds: S1 normal heart sound present GI Palpation (GI): Soft to palpation Skin General skin exam: no rashes or lesions noted Neuro General: patient oriented x3 Extrem Other: Mild osteoarthritic changes of both hands with no active synovitis No erythema, tenderness or swelling in the left foot or ankle Mild tenderness inferolateral to the right lateral malleolus normal range of motion of both feet Assessment & Plan Assessment & Plan (1) Osteoporosis: Comment: Salvatore- [id number] 5 year course. Prolia- ordered October 2016-patient did not start due to her concern for side effects. Prolia started June 2019 to present. Code(s): M81.0 - Age-related osteoporosis without current pathological fracture Qualifiers: Osteoporosis type: age-related Presence of current pathological fracture: without current pathological fracture Qualified Code(s): M81.0 - Age-related osteoporosis without current pathological fracture Plan: DEXA 02/12/2021: AP spine L2-L4 T-score -0.7, normal, 6.4% increase from previous, 33.1% increase from baseline; left femur neck T-score -2.3, osteopenia; left femur total, T-score -1.3 osteopenia, 8.1% increase from previous, 2.2% increase from baseline. Patient continues on Prolia and is tolerating this well. She received her injection in the office today which she tolerated well. Follow up in 6 months with CMP and vitamin D prior. Continue vitamin-D supplement. She is unable to tolerate daily vitamin D, she gets constipated. She takes the monthly 44254 units. Next DEXA scan is due next month. Plan I spent 15 minutes reviewing patient's chart, evaluating patient, ordering diagnostic workup, counseling patient and documenting in the chart Orders: Orders Basic Metabolic Panel 6 Months M81.0 - Age-related osteoporosis without current pathological fracture Vitamin D 25-OH (D2 and D3) 6 Months E55.9 - Vitamin D deficiency, unspecified Coding Level of Care Code Est Pt Level 3 (60280) Diagnoses Age-related osteoporosis without current pathological fracture M81.0 Osteoporosis type: age-related Presence of current pathological fracture: without current pathological fracture
== END 2023-01-27 08:36 | disposition home or self-care (01) ==
PROVIDERS: PCP Internal Medicine; Visit Provider Student in an Organized Health Care Education/Training Program
DX: M81.0 Age-related osteoporosis without current pathological fracture (principal)
CPT/HCPCS: 99213

== ENCOUNTER → 2023-01-27 08:05 | Outpatient (BNVA) | payer OTHER, SELFPAY | PROVIDERS: PCP Internal Medicine; Visit Provider Student in an Organized Health Care Education/Training Program ==

== ENCOUNTER 2023-02-21 07:51 | Outpatient (REF) | payer OTHER, SELFPAY ==
--- NOTE | ~2023-02-21 | MM_ITS ---
EXAMINATION: BONE DENSITOMETRY CLINICAL INDICATION: Age-related osteoporosis without current pathological fracture. COMPARISON: Previous BD dated 02/12/2021 and baseline BD dated 06/09/2008. TECHNIQUE: Using a [employer] DXA System (software version: 13.1) manufactured by [employer], dual-energy x-ray absorptiometry was performed of the lumbar spine and left hip. The images are of good technical quality. Summary results are attached. FINDINGS: LEFT FEMUR, NECK: Current: BMD 0.724 g/cm2, Z-score 0.0, T-score -2.3, osteopenia. Prior: BMD 0.722 g/cm2. Baseline: BMD 0.786 g/cm2. LEFT FEMUR, TOTAL: Current: BMD 0.831 g/cm2, Z-score 0.7, T-score -1.4, osteopenia, 1.3% decrease from previous, 0.8% increase from baseline (<5% change is not significant). Prior: BMD 0.842 g/cm2. Baseline: BMD 0.824 g/cm2. AP SPINE L1-L4: Current: BMD 1.200 g/cm2, Z-score 1.9, T-score 0.2, normal, 5.0% increase from previous, 39.5% increase from baseline (<5% change is not significant). Prior: BMD 1.143 g/cm2. Baseline: BMD 0.860 g/cm2. IDENTIFIED RISK FACTORS: Menopause, height loss, osteoporosis, parental hip fracture. HISTORY OF FRACTURE: Humerus. MEDICATIONS: Calcium supplements or multivitamin, vitamin D, Prolia. MM/XR DEXA axial skeleton IMPRESSION: 1. DIAGNOSIS: Osteopenia based on the lowest T-score value of -2.3 in the femoral neck applying World Health Organization criteria. 2. 10-YEAR FRACTURE RISK PREDICTION, FRAX: According to the guidelines, FRAX calculation should only be performed on patients in the osteopenia bone density category. Therefore, FRAX was not performed on this patient. 3. Treatment Recommendations: NOF guidelines recommend consideration for treatment in postmenopausal women and men age 50 and older presenting with the following: -A hip or vertebral (clinical or morphometric) fracture. -T-score less than or equal to -2.5 at the femoral neck or spine after appropriate evaluation to exclude secondary causes. -Low bone mass at the hip or spine and a 10-year fracture probability by FRAX of greater than or equal to 3% for hip fracture or greater than or equal to 20% for major osteoporotic fracture based on the [place] adapted WHO algorithm. 4. Other Recommendations: All treatment decisions require clinical judgment and consideration of individual patient factors, including patient preferences, comorbidities, previous drug use, risk factors not captured in the FRAX model (e.g. frailty, falls, vitamin D deficiency, increased bone turnover, interval significant decline in bone density) and possible under or overestimation of fracture risk by FRAX. Additional medical evaluation for secondary cause of low bone mineral density may be appropriate. FUTURE SCAN RECOMMENDATION: People with diagnosed cases of osteoporosis or at high risk for fracture should have regular bone mineral density tests. For patients eligible for Medicare, routine testing is allowed once every 2 years. The testing frequency can be increased to one year for patients who have rapidly progressing disease, those who are receiving or discontinuing medical therapy to restore bone mass, or have additional risk factors.
== END 2023-02-21 07:52 | disposition home or self-care (01) ==
LOC: HO.MAMMO 07:51
PROVIDERS: PCP Internal Medicine; Visit Provider Student in an Organized Health Care Education/Training Program
DX: Z13.820 Encounter for screening for osteoporosis (principal); Z78.0 Asymptomatic menopausal state; M81.0 Age-related osteoporosis without current pathological fracture
CPT/HCPCS: 77080

== ENCOUNTER 2023-05-04 08:22 | Outpatient (AMB) | payer MEDICARE, SELFPAY ==
--- NOTE | 2023-05-04 08:31 | MHC.PC.OV ---
Vital Signs 05/04/23 Height 5 ft Weight 160 lb 0.2 oz BMI 31.2 BP 142/80 H Blood Pressure Location Lt brachial Position Sitting Pulse 57 Pulse Source Pulse Oximeter Pulse Oximetry (%) 98 Oxygen Delivery Method Room Air Intake Visit Reasons: 3 Months F/U -HTN, gerd, Allergies lansoprazole [From PREVACID] Allergy (Intermediate, Verified 05/04/23:) VOMITING morphine [MORPHINE] Allergy (Intermediate, Verified 05/04/23) AGITATION risedronate sodium [From ACTONEL] Allergy (Intermediate, Verified 05/04/23) DYSPNEA alendronate sodium [From Fosamax] Allergy (Mild, Verified 05/04/23:) NAUSEA,SOB azithromycin [AZITHROMYCIN] Allergy (Mild, Verified 05/04/23) NAUSEA/HEADACHE Penicillins Allergy (Mild, Verified 05/04/23) RASH amlodipine Allergy (Unknown, Verified 05/04/23) Unknown Bifidobacterium infantis [Align] Allergy (Unknown, Verified 05/04/23) Unknown cetirizine [From ZYRTEC] Allergy (Unknown, Verified 05/04/23) UNKNOWN cyanocobalamin (vitamin B12) Allergy (Unknown, Verified 05/04/23) Unknown enalapril [ENALAPRIL] Allergy (Unknown, Verified 05/04/23) ABD PAIN, VERY NAUSEOUS, nausea fexofenadine [From MAC] Allergy (Unknown, Verified 05/04/23:) UNKNOWN folic acid Allergy (Unknown, Verified 05/04/23) unk hydralazine Allergy (Unknown, Verified 05/04/23) nausea hydrochlorothiazide Allergy (Unknown, Verified 05/04/23) dry mouth latex [Latex] Allergy (Unknown, Verified 05/04/23) RASH loratadine [Claritin] Allergy (Unknown, Verified 05/04/23) Unknown metoclopramide [From REGLAN] Allergy (Unknown, Verified 05/04/23) JITTERY mometasone furoate [From NASONEX] Allergy (Unknown, Verified 05/04/23) UNKNOWN montelukast [Singulair] Allergy (Unknown, Verified 05/04/23 08:33) Unknown pantoprazole [From PROTONIX] Allergy (Unknown, Verified 05/04/23 08:33) UNKNOWN penicillin V Allergy (Unknown, Verified 05/04/23 08:33) Unknown polyethylene glycol 3350 [Miralax] Allergy (Unknown, Verified 05/04/23 08:33) Unknown pseudoephedrine [From SUDAFED] Allergy (Unknown, Verified 05/04/23 08:33) HYPER ranitidine [From ZANTAC] Allergy (Unknown, Verified 05/04/23 08:33) UNKNOWN thiamine (vitamin B1) Allergy (Unknown, Verified 05/04/23 08:33) Unknown ascorbic acid [From PreserVision AREDS-2] Adverse Reaction (Intermediate, Verified 05/04/23 08:33) Constipation copper [From PreserVision AREDS-2] Adverse Reaction (Intermediate, Verified 05/04/23 08:33) Constipation lutein [From PreserVision AREDS-2] Adverse Reaction (Intermediate, Verified 05/04/23 08:33) Constipation vitamin E acetate (dl-alpha tocopheryl) [From PreserVision AREDS-2] Adverse Reaction (Intermediate, Verified 05/04/23 08:33) Constipation zeaxanthin [From PreserVision AREDS-2] Adverse Reaction (Intermediate, Verified 05/04/23 08:33) Constipation zinc oxide [From PreserVision AREDS-2] Adverse Reaction (Intermediate, Verified 05/04/23 08:33) Constipation ergocalciferol (vitamin D2) [From CALCIUM CITRATE WITH D] Adverse Reaction (Mild, Verified 05/04/23 08:33) CONSTIPATION Mac-D 12 Hour Allergy (Unknown, Uncoded 05/04/23 08:33) Unknown Calcium Citrate + D Allergy (Unknown, Uncoded 05/04/23 08:33) Unknown Folic + B12 Allergy (Unknown, Uncoded 05/04/23 08:33) Unknown latex Allergy (Unknown, Uncoded 05/04/23 08:33) unknown From CALCIUM CITRATE WITH D Adverse Reaction (Mild, Uncoded 05/04/23 08:33) CONSTIPATION Medication List - Last Reconciled 05/04/23 by Jacinda Rooney PoMD chlordiazepoxide-clidinium 5-2.5 mg (Librax (with clidinium)) 1 cap PO .QD PRN denosumab (Prolia) 60 mg subcut [id number] docusate sodium (Colace) 100 mg PO DAILY ergocalciferol (vitamin D2) 1,250 mcg PO .Qmonth lorazepam 1 mg PO DAILY PRN 90 days losartan 100 mg PO DAILY metoprolol succinate ER 12.5 mg (1/2 x 25 mg) PO DAILY omeprazole 20 mg PO DAILY promethazine 12.5 mg PO TID PRN vitamin B complex (B Complex-Vitamin B12 tablet) 1 tab PO DAILY Tobacco use date assessed: 05/04/23 Fall risk assessment: No Falls in past year Last assessed Fall Risk: 05/04/23 Dental Screening Dental Screen Date: 05/04/23 Did you have a dental visit in the last 12 months?: No Did you have a dental problem in the last 6 months where you did not have access to dental care?: No HPI 3 Months F/U -HTN, gerd, HPI Details 83-year-old obese female with history of GERD hypercholesterolemia impaired glucose tolerance hypertension and generalized anxiety disorder last seen in December 2022.. Patient just had some bone density January 2023 showing osteopenia with the left femur no significant change spine 5% increase. Patient is on Prolia and follows up with Rheumatology January 2025. still constipation but does not eat vegetables discussed about being gassy- may use simethicone. [facility] Medical History Vitamin D deficiency Tubular adenoma of colon Closed left arm fracture Carcinoid tumor Hypertension Osteoporosis Irritable bowel syndrome Obesity (BMI 30-39.9) Impaired glucose tolerance Hypercholesterolemia GERD (gastroesophageal reflux disease) Degenerative disc disease, lumbar Peripheral vascular disease Surgical History History of surgical procedure on eye proper using laser H/O ventral hernia repair Status post left breast lumpectomy Family History Father Diabetes Stroke Mother Pancreatic cancer Social History Housing: House Alcohol intake: former Patient Tobacco Use Status: Never used Tobacco e-Cigarette/Vaping Use: Never Used Second Hand Smoke Exposure: No service: No Current occupational status: retired Cognitive needs: No Hearing needs: Yes Vision needs: Yes Questionnaire PHQ-9 Over the last 2 weeks, how often have you been bothered by any of the following problems? 1. Little interest or pleasure in doing things: not at all 2. Feeling down, depressed, or hopeless: not at all 3. Trouble falling or staying asleep, or sleeping too much: not at all 4. Feeling tired or having little energy: not at all 5. Poor appetite or overeating: not at all 6. Feeling bad about yourself - or that you are a failure or have let yourself or your family down: not at all 7. Trouble concentrating on things, such as reading the newspaper or watching television: not at all 8. Moving or speaking so slowly that other people could have noticed. Or the opposite - being so fidgety or restless that you have been moving around a lot more than usual: not at all 9. Thoughts that you would be better off or of hurting yourself in some way: not at all Total score: 0 Depression Screening Interpretation: Negative Depression Screening Done: Yes Source: Developed by Drs. Tyler Parosns, Grace Greene, David Altman and colleagues, with an educational ina from [email or web address]. Thrive Questionnaire Date Thrive assessed: 06/21/22 AUDIT C Alcohol Use Questionnaire (AUDIT-C) 1. How often do you have a drink containing alcohol?: Never 3. How often do you have six or more drinks on one occasion?: Never Total Score: 0 KATHIE-7 AMB Questionnaire KATHIE-7 Date KATHIE - 7 assessed: 05/04/23 Source: Developed by Drs. Tyler Parsons, Grace Greene, David Altman and colleagues, with an educational ina from [email or web address]. Physical exam (Primary Care) Vital Signs: Last Vital Signs Pulse 57 05/04/23 08:33 BP 142/80 H 05/04/23 08:33 Pulse Ox 98 05/04/23 08:33 Oxygen Delivery Method Room Air 05/04/23 08:33 BMI result Body Mass Index 31.2 Tobacco/Smoking Status: Tobacco use Status Tobacco use date assessed 05/04/23 05/04/23 08:40 Patient Tobacco Use Status Never used Tobacco 05/04/23 08:31 e-Cigarette/Vaping Use Never Used 05/04/23 08:31 PHQ-9: PHQ-9 Score PHQ-9: Total score 0 05/04/23 08:40 Depression Screening Interpretation: Negative Thrive Assessment: Date of Thrive Assessment Date Thrive assessed 06/21/22 05/04/23 08:31 Const General: alert; No acute distress Eyes Conjunctivae: conjunctivae normal Resp Auscultation: clear to auscultation bilaterally Cardio Rate: regular rate Rhythm: regular rhythm GI Inspection: Yes normal to inspection Extrem General: Yes normal to inspection and No edema Results AMB Hemoglobin A1c AMB Hemoglobin A1c 6.5 % Last Edit by ALVARADO Roland on 05/04/23 08:45 Assessment and Plan Assessment & Plan (1) Hypercholesterolemia: Code(s): E78.00 - Pure hypercholesterolemia, unspecified Plan: Avoid fried foods, chicken skin, eggs, butter margarine, pastries and meat. Be it pork or beef they have a lot of cholesterol LDL goal of less than 130 and triglyceride of less than 150 patient on diet control (2) Impaired glucose tolerance: Code(s): R73.02 - Impaired glucose tolerance (oral) Plan: Decrease the amount of carbohydrate intake, pasta, bread, rice and potatoes are all sugar and that is aside from all the sweet stuff, remember that fruits are good but they are Sweet also. (3) Obesity (BMI 30-39.9): Code(s): E66.9 - Obesity, unspecified Plan: Diet and exercise (4) Hypertension: Code(s): I10 - Essential (primary) hypertension Qualifiers: Hypertension type: essential hypertension Qualified Code(s): I10 - Essential (primary) hypertension Plan: Continue with blood pressure medication. Decrease salt intake and exercise presently on losartan 100 mg once a day metoprolol 12.5 mg once a day (5) GERD (gastroesophageal reflux disease): Comment: Hiatal hernia Dr. Correa history of H pylori Code(s): K21.9 - Gastro-esophageal reflux disease without esophagitis Qualifiers: Esophagitis presence: without esophagitis Qualified Code(s): K21.9 - Gastro-esophageal reflux disease without esophagitis Plan: Avoid the foods that causes that usually spicy foods, tomato products, juices, coffee, soda and foods that your sensitive to. After eating do not lie down, allow 3-4 hours before in lie down. And keep the head of bed above 30 degrees to avoid the acid from going up. On omeprazole (6) Osteoporosis: Comment: Salvatore- [id number] 5 year course. Prolia- ordered October 2016-patient did not start due to her concern for side effects. Prolia started June 2019 to present. Bone density January 2023 osteopenia^ Code(s): M81.0 - Age-related osteoporosis without current pathological fracture Qualifiers: Osteoporosis type: age-related Presence of current pathological fracture: without current pathological fracture Qualified Code(s): M81.0 - Age-related osteoporosis without current pathological fracture Plan: January 2023 osteopenia on Prolia (7) Generalized anxiety disorder: Code(s): F41.1 - Generalized anxiety disorder Plan: Stable on present medication as needed (8) Constipation: Code(s): K59.00 - Constipation, unspecified Plan: Three rules for constipation 1. Diet need to have a high fiber diet less of meat 2. Increase oral fluids 3. Exercise discussed about fiber discussed about laxatives discussed about fluid (9) Type 2 diabetes mellitus with hyperglycemia: Comment: Dr. Dietrich Code(s): E11.65 - Type 2 diabetes mellitus with hyperglycemia Plan: Decrease the amount of carbohydrate intake, pasta, bread, rice and potatoes are all sugar and that is aside from all the sweet stuff, remember that fruits are good but they are Sweet also. Hemoglobin A1c goal of less than 6.5 patient is presently 6.5 discussed about the diagnosis discussed about diet. Patient has indiscriminate eating discussed about sweets discussed about carbohydrates patient will be seeing assistant store manager trainee yearly blood work requested for next month Orders: Orders Lipid Panel 1 Month E78.00 - Pure hypercholesterolemia, unspecified, R73.02 - Impaired glucose tolerance (oral) AMB Hemoglobin A1c Today Z13.9 - Encounter for screening, unspecified Hemoglobin A1c 1 Month R73.02 - Impaired glucose tolerance (oral) Complete Blood Count Auto Diff 1 Month R73.02 - Impaired glucose tolerance (oral) Comprehensive Met. Panel 1 Month R73.02 - Impaired glucose tolerance (oral) Thyroid Stimulating Hormone 1 Month R73.02 - Impaired glucose tolerance (oral) Free T4 (Free Thyroxine) 1 Month R73.02 - Impaired glucose tolerance (oral) Vitamin B12 and Folate 1 Month R73.02 - Impaired glucose tolerance (oral) Vitamin D 25-OH Total 1 Month M81.0 - Age-related osteoporosis without current pathological fracture Medications: Refilled chlordiazepoxide-clidinium 5-2.5 mg (Librax (with clidinium)) 1 cap PO .QD PRN 90 caps 1RF anxiety F41.1 - Generalized anxiety disorder lorazepam 1 mg PO DAILY 90 days PRN 90 tabs 1RF anxiety F41.9 - Anxiety disorder, unspecified Coding Level of Care Code Est Pt Level 4 (05687) Diagnoses Hypercholesterolemia E78.00 Impaired glucose tolerance R73.02 Obesity (BMI 30-39.9) E66.9 Essential hypertension I10 Hypertension type: essential hypertension Gastroesophageal reflux disease without esophagitis K21.9 Esophagitis presence: without esophagitis Age-related osteoporosis without current pathological fracture M81.0 Osteoporosis type: age-related Presence of current pathological fracture: without current pathological fracture Generalized anxiety disorder F41.1 Constipation K59.00 Type 2 diabetes mellitus with hyperglycemia E11.65
[2023-05-04 08:33] VITALS: BP 142/80; PULSE 57; O2SAT 98; BMI 31.2
== END 2023-05-04 09:06 | disposition home or self-care (01) ==
PROVIDERS: PCP Internal Medicine; Visit Provider Internal Medicine
DX: E78.00 Pure hypercholesterolemia, unspecified (principal); I10 Essential (primary) hypertension; E11.65 Type 2 diabetes mellitus with hyperglycemia; K21.9 Gastro-esophageal reflux disease without esophagitis; M81.0 Age-related osteoporosis without current pathological fracture; F41.1 Generalized anxiety disorder; K59.00 Constipation, unspecified
CPT/HCPCS: 83036; 99214

== ENCOUNTER 2023-06-02 07:51 | Outpatient (REF) | payer SELFPAY ==
--- NOTE | 2023-06-02 10:42 | MHC.AU.HA3 ---
Hearing Instrument Follow-Up- Binaural Date of Visit: 06/02/23 Right Ear: Jairon, Model, Color, Serial Number: Nilda Williamsono P 50-R SN: [id number] Color: Silver Scales Livestock Trader Repair Warranty: 07/13/2023 Livestock Trader Loss and Damage Warranty: 07/13/2023 [facility] Service Plan: 07/13/2023 Battery Size: Rechargeable Sustainability Officer/Slim Tube: 2M Earmold/Dome/CShell/SlimTip:Phonak Acrylic Canal lock slim tip SN: [id number] Rosalinda: 09/07/2021 Type of Wax Guard: CeruStop Dispensed By: [facility] Date of Fittin04/27/2020 Left Ear: Jairon, Model, Color, Serial Number: Nilda Odomeo P 50-R SN: [id number] Color: Silver Scales Livestock Trader Repair Warranty: 07/13/2023 Livestock Trader Loss and Damage Warranty: 07/13/2023 [facility] Service Plan: 07/13/2023 Battery Size: Rechargeable Sustainability Officer/Slim Tube: 2M Earmold/Dome/CShell/SlimTip: Phonak Acrylic Canal lock slim tip SN: [id number] Rosalinda: 07/29/2021 Type of Wax Guard: CeruStop Dispensed By: [facility] Date of Fittin04/27/2020 Follow-Up Summary: Estephania wanted to send her hearing aids to [email or web address] for full clean and check prior to warranty expiring as recommended at her last hearing test. Programmed loaners. Cleaned slim tip ear molds and transferred to [employer]. Sent Estephania's hearing aids to [email or web address]. Estephania reported she thought her left gauge checker was too short as the hearing aid was recently falling off her ear when she bent over. However, new, same size gauge checker (2M) on [place] fit better, per Estephania, and fit looks appropriate. Would not recommend longer gauge checker as hearing aid would not fit snuggly behind pinna. Estephania also reported a perceived change in hearing - she will request doctor's order for updated hearing test. Discussed end of warranty and that future visits will incur [id number]. Estephania purchased one package of wax guards. Provided 4 extra wax guards as Estephania reported her previous pack were missing a few. Recommendations: Patient will be contacted when materials have arrived. Recommendations (Other): Will need to schedule appointment for lemon picker to transfer ear molds back to hearing aids. Diagnosis Code(s): Primary Diagnosis: H90.3 Bilateral Sensorineural Hearing Loss Signature: Provider: Charlene Bauer, CCC-A
== END 2023-06-02 07:52 | disposition home or self-care (01) ==
LOC: HO.HAP 07:51
PROVIDERS: Visit Provider Internal Medicine
DX: Z46.1 Encounter for fitting and adjustment of hearing aid (principal); H90.3 Sensorineural hearing loss, bilateral
CPT/HCPCS: V5267

== ENCOUNTER 2023-06-15 09:05 | Outpatient (REF) | payer SELFPAY ==
--- NOTE | 2023-06-15 09:36 | MHC.AU.HA3 ---
Hearing Instrument Follow-Up- Binaural Date of Visit: 06/15/23 Right Ear: Make, Model, Color, Serial Number: Phongabby Odomeo P 50-R SN: [id number] Color: Silver Scales Flaker Tender Repair Warranty: 07/13/2023 Flaker Tender Loss and Damage Warranty: 07/13/2023 [facility] Service Plan: 07/13/2023 Battery Size: Rechargeable Air Bag Stripper/Slim Tube: 2M Earmold/Dome/CShell/SlimTip:Phonak Acrylic Canal lock slim tip SN: [id number] Rosalinda: 09/07/2021 Type of Wax Guard: CeruStop Dispensed By: [facility] Date of Fittin04/27/2020 Left Ear: Make, Model, Color, Serial Number: Nilda Odomeo P 50-R SN: [id number] Color: Silver Scales Flaker Tender Repair Warranty: 07/13/2023 Flaker Tender Loss and Damage Warranty: 07/13/2023 [facility] Service Plan: 07/13/2023 Battery Size: Rechargeable Air Bag Stripper/Slim Tube: 2M Earmold/Dome/CShell/SlimTip: Phonak Acrylic Canal lock slim tip SN: [id number] Rosalinda: 07/29/2021 Type of Wax Guard: CeruStop Dispensed By: [facility] Date of Fittin04/27/2020 Follow-Up Summary: Returned loaners and picked up her hearing aids back from [employer]. Swapped molds from loaners to her hearing aids. Listening check positive. Recommendations: Recommendations: Hearing instrument follow-up or maintenance as needed. Diagnosis Code(s): Primary Diagnosis: H90.3 Bilateral Sensorineural Hearing Loss Signature: Provider: Charlene Burns, CCC-A
== END 2023-06-15 09:06 | disposition home or self-care (01) ==
LOC: HO.HAP 09:05
PROVIDERS: Visit Provider Internal Medicine
DX: Z13.89 Encounter for screening for other disorder (principal)

== ENCOUNTER 2023-07-24 07:05 | Outpatient (REF) | payer OTHER, SELFPAY ==
[2023-07-24 11:18] LABS: MANUAL DIFF FLAG NO
[2023-07-24 11:27] LABS: Basophils Percent Auto 0.8 % (0-2); Eosinophils Absolute Auto 0.1 X10*3/uL (0.0-0.4); Eosinophils Percent Auto 1.8 % (0-4); Hemoglobin 13.6 g/dl (12.0-16.0); Imm Gran Abs Auto 0.01 X10*3/uL (0.00-0.03); Imm Gran Pct Auto 0.2 % (0.0-0.4); Lymphocytes Absolute Auto 1.9 X10*3/uL (1.2-4.9); Lymphocytes Percent Auto 37.9 % (20-40); Mean Corpuscular HGB Conc 32.4 g/dl (31.0-35.0); Mean Corpuscular Hemoglobin 29.2 pg (27.0-33.0); Mean Corpuscular Volume 90.1 fL (80.0-98.0); Mean Platelet Volume 10.9 fL (9.4-12.3); Monocytes Absolute Auto 0.4 X10*3/uL (0.1-1.2); Monocytes Percent Auto 7.4 % (2-11); Neutrophils Absolute Auto 2.5 x10*3/uL (2.0-8.3); Neutrophils Percent Auto 51.9 % (45-73); Platelet Count 224 X10*3/uL (160-400); Red Blood Count 4.66 X10*6/uL (4.20-5.50); Red Cell Distribution Width 12.8 % (11.0-16.0); White Blood Count 4.9 X10*3/uL (4.8-10.8)
[2023-07-24 11:34] LABS: Estimated Average Glucose 111 mg/dL; Hemoglobin A1C 124.6956 umol/L; Hemoglobin A1c % 5.5 % (<6.0)
[2023-07-24 13:21] LABS: Alanine Aminotransferase 15 U/L (0-31); Albumin Level 3.9 g/dL (3.5-5.0); Alkaline Phosphatase 61 U/L (39-117); Anion Gap 11 (12-20); Aspartate Amino Transferase 20 U/L (5-31); Bilirubin Total 0.7 mg/dL (0.0-1.0); Blood Urea Nitrogen 22 mg/dL (9-16); Calcium 9.3 mg/dL (8.4-10.2); Carbon Dioxide 22 mmol/L (22-29); Chloride 109 mmol/L (96-108); Cholesterol 178 mg/dL (<200); Estimated Glomerular Filt Rate 52; Free T4 (Free Thyroxine) 0.96 ng/dL (0.71-1.85); Glucose Random 101 mg/dL (60-115); HDL Cholesterol 35 mg/dL (>40); LDL Cholesterol Calculated 114 mg/dL (<100); Potassium 3.9 mmol/L (3.3-5.1); Sodium 138 mmol/L (135-145); Thyroid Stimulating Hormone 0.59 uIU/mL (0.32-4.0); Triglycerides 149 mg/dL (<150); Vitamin D 25-OH Total 26.7 ng/mL (>30)
[2023-07-24 17:22] LABS: Vitamin B12 1710 pg/mL (200-900)
[2023-07-28 11:32] LABS: Vitamin D 25-OH, D2 29 ng/mL; Vitamin D 25-OH, D3 13 ng/mL; Vitamin D 25-OH, Total 42 ng/mL (30-100)
== END 2023-07-24 07:06 | disposition home or self-care (01) ==
LOC: HO.HMGCLDS 07:05
PROVIDERS: PCP Internal Medicine; Referring Provider Student in an Organized Health Care Education/Training Program; Visit Provider Internal Medicine
DX: R73.02 Impaired glucose tolerance (oral) (principal); E78.00 Pure hypercholesterolemia, unspecified; E55.9 Vitamin D deficiency, unspecified; M81.0 Age-related osteoporosis without current pathological fracture
CPT/HCPCS: 36415; 80053; 80061; 82306; 82607; 82746; 83036; 84439; 84443; 85025

== ENCOUNTER 2023-07-27 08:00 | Outpatient (AMB) | payer OTHER, SELFPAY ==
--- NOTE | 2023-07-27 08:10 | MHC.OFFVIS ---
Intake Vital Signs 07/27/23 08:12 Height 5 ft Weight 149 lb 7.574 oz BMI 29.2 BP 122/62 Blood Pressure Location Rt brachial Position Sitting Pulse 49 L Pulse Source Pulse Oximeter Pulse Oximetry (%) 96 Oxygen Delivery Method Room Air Intake Visit Reasons: osteoporosis/Prolia/ CONFIRMED Intake Note: Patient last seen 01/27/23 presents today for follow up and Prolia injection. 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 Accompanied by: Self / Same As Patient Allergies lansoprazole [From PREVACID] Allergy (Intermediate, Verified 07/27/23 08:17) VOMITING morphine [MORPHINE] Allergy (Intermediate, Verified 07/27/23 08:17) AGITATION risedronate sodium [From ACTONEL] Allergy (Intermediate, Verified 07/27/23 08:17) DYSPNEA alendronate sodium [From Fosamax] Allergy (Mild, Verified 07/27/23 08:17) NAUSEA,SOB azithromycin [AZITHROMYCIN] Allergy (Mild, Verified 07/27/23 08:17) NAUSEA/HEADACHE Penicillins Allergy (Mild, Verified 07/27/23 08:17) RASH amlodipine Allergy (Unknown, Verified 07/27/23 08:17) Unknown Bifidobacterium infantis [Align] Allergy (Unknown, Verified 07/27/23 08:17) Unknown cetirizine [From ZYRTEC] Allergy (Unknown, Verified 07/27/23 08:17) UNKNOWN cyanocobalamin (vitamin B12) Allergy (Unknown, Verified 07/27/23 08:17) Unknown enalapril [ENALAPRIL] Allergy (Unknown, Verified 07/27/23 08:17) ABD PAIN, VERY NAUSEOUS, nausea fexofenadine [From MAC] Allergy (Unknown, Verified 07/27/23 08:17) UNKNOWN folic acid Allergy (Unknown, Verified 07/27/23 08:17) unk hydralazine Allergy (Unknown, Verified 07/27/23 08:17) nausea hydrochlorothiazide Allergy (Unknown, Verified 07/27/23 08:17) dry mouth latex [Latex] Allergy (Unknown, Verified 07/27/23 08:17) RASH loratadine [Claritin] Allergy (Unknown, Verified 07/27/23 08:17) Unknown metoclopramide [From REGLAN] Allergy (Unknown, Verified 07/27/23 08:17) JITTERY mometasone furoate [From NASONEX] Allergy (Unknown, Verified 07/27/23 08:17) UNKNOWN montelukast [Singulair] Allergy (Unknown, Verified 07/27/23 08:17) Unknown pantoprazole [From PROTONIX] Allergy (Unknown, Verified 07/27/23 08:17) UNKNOWN penicillin V Allergy (Unknown, Verified 07/27/23 08:17) Unknown polyethylene glycol 3350 [Miralax] Allergy (Unknown, Verified 07/27/23 08:17) Unknown pseudoephedrine [From SUDAFED] Allergy (Unknown, Verified 07/27/23 08:17) HYPER ranitidine [From ZANTAC] Allergy (Unknown, Verified 07/27/23 08:17) UNKNOWN thiamine (vitamin B1) Allergy (Unknown, Verified 07/27/23 08:17) Unknown ascorbic acid [From PreserVision AREDS-2] Adverse Reaction (Intermediate, Verified 07/27/23 08:17) Constipation copper [From PreserVision AREDS-2] Adverse Reaction (Intermediate, Verified 07/27/23 08:17) Constipation lutein [From PreserVision AREDS-2] Adverse Reaction (Intermediate, Verified 07/27/23 08:17) Constipation vitamin E acetate (dl-alpha tocopheryl) [From PreserVision AREDS-2] Adverse Reaction (Intermediate, Verified 07/27/23 08:17) Constipation zeaxanthin [From PreserVision AREDS-2] Adverse Reaction (Intermediate, Verified 07/27/23 08:17) Constipation zinc oxide [From PreserVision AREDS-2] Adverse Reaction (Intermediate, Verified 07/27/23 08:17) Constipation ergocalciferol (vitamin D2) [From CALCIUM CITRATE WITH D] Adverse Reaction (Mild, Verified 07/27/23 08:17) CONSTIPATION Mac-D 12 Hour Allergy (Unknown, Uncoded 07/27/23 08:17) Unknown Calcium Citrate + D Allergy (Unknown, Uncoded 07/27/23 08:17) Unknown Folic + B12 Allergy (Unknown, Uncoded 07/27/23 08:17) Unknown latex Allergy (Unknown, Uncoded 07/27/23 08:17) unknown From CALCIUM CITRATE WITH D Adverse Reaction (Mild, Uncoded 07/27/23 08:17) CONSTIPATION Medication List - Last Reconciled 07/27/23 by Donald Su MD chlordiazepoxide-clidinium 5-2.5 mg (Librax (with clidinium)) 1 cap PO .QD PRN denosumab (Prolia) 60 mg subcut [id number] docusate sodium (Colace) 100 mg PO DAILY ergocalciferol (vitamin D2) 1,250 mcg PO .Qmonth lorazepam 1 mg PO DAILY PRN 90 days losartan 100 mg PO DAILY metoprolol succinate ER 12.5 mg (1/2 x 25 mg) PO DAILY omeprazole 20 mg PO DAILY promethazine 12.5 mg PO TID PRN vitamin B complex (B Complex-Vitamin B12 tablet) 1 tab PO DAILY HPI HPI Comments History of Present Illness Details 82yoF presents for follow-up of Osteoporosis and Prolia injection. She was last seen 12/2022 Continues on Prolia and tolerating this without issue. Patient reports that she continues to feel well overall. States that she gets intermittent left knee pain with activity. As well as pain in her left leg, a pulling sensation, she gets intermittent pain in her left big toe, sometimes wakes her up from sleep. She takes 2 Tylenol as needed for her knee pain and sometimes rubs Voltaren gel [facility] Medical History (Updated 07/27/23 @ 08:36 by Donald Su MD) Macular degeneration Vitamin D deficiency Tubular adenoma of colon Closed left arm fracture Carcinoid tumor Hypertension Osteoporosis Irritable bowel syndrome Obesity (BMI 30-39.9) Impaired glucose tolerance Hypercholesterolemia GERD (gastroesophageal reflux disease) Degenerative disc disease, lumbar Peripheral vascular disease Surgical History History of surgical procedure on eye proper using laser H/O ventral hernia repair Status post left breast lumpectomy Family History Father Diabetes Stroke Mother Pancreatic cancer Social History Housing: House Alcohol intake: former Patient Tobacco Use Status: Never used Tobacco e-Cigarette/Vaping Use: Never Used Second Hand Smoke Exposure: No service: No Current occupational status: retired Cognitive needs: No Hearing needs: Yes Vision needs: Yes Review of Systems Musc Reports arthralgias and Reports stiffness Physical Exam Vital Signs: Last Vital Signs Pulse 49 L 07/27/23 08:12 BP 122/62 07/27/23 08:12 Pulse Ox 96 07/27/23 08:12 Oxygen Delivery Method Room Air 07/27/23 08:12 BMI result Body Mass Index 29.2 Const General: cooperative, healthy appearing and comfortable Nutritional Appearance: overweight Orientation/consciousness: patient oriented x3 Limitations: no limitations HEENT Head: Yes normocephalic and Yes atraumatic Mouth: moist mucous membranes Resp Effort & Inspection: normal respiratory effort and able to speak in complete sentences Cardio Rate: regular rate Rhythm: regular rhythm Skin General skin exam: no rashes or lesions noted Neuro General: patient oriented x3 Extrem Other: Mild osteoarthritic changes of both hands with no active synovitis Mild left knee warmth and pain with full flexion and extension Office Meds Prolia 60 mg/mL subcutaneous syringe Performing Provider: Donald Su MD Performing Location: [facility] [place] Rheumatology Administered by: Donald Su MD on 07/27/23 08:33 Dose Route Admin Location Dispensed Lot Number Expiration Date [facility] [employer] 60 mg subcut Left arm 1 mL [id number] 10/28/25 93670-438-95 AMGEN Assessment & Plan Assessment & Plan (1) Osteoporosis: Comment: Salvatore- [id number] 5 year course. Prolia- ordered October 2016-patient did not start due to her concern for side effects. Prolia started June 2019 to present. Bone density January 2023 osteopenia^ Code(s): M81.0 - Age-related osteoporosis without current pathological fracture Qualifiers: Osteoporosis type: age-related Presence of current pathological fracture: without current pathological fracture Qualified Code(s): M81.0 - Age-related osteoporosis without current pathological fracture Plan: DEXA 02/12/2021: AP spine L2-L4 T-score -0.7, normal, 6.4% increase from previous, 33.1% increase from baseline; left femur neck T-score -2.3, osteopenia; left femur total, T-score -1.3 osteopenia, 8.1% increase from previous, 2.2% increase from baseline. Left femur neck T-score-2.3?,Left femur total T-score minus 1.4 1.3% decrease from previous L-spine T-score 0.2 5% increase from previous Patient continues on Prolia and is tolerating this well. She received her injection in the office today which she tolerated well. Follow up in 6 months with CMP and vitamin D prior. Continue vitamin-D supplement. She is unable to tolerate daily vitamin D, she gets constipated. She takes the monthly 58051 units. Plan to repeat DEXA in the fall of 2024 (2) Osteoarthritis of left knee: Code(s): M17.12 - Unilateral primary osteoarthritis, left knee Qualifiers: Osteoarthritis type: primary Qualified Code(s): M17.12 - Unilateral primary osteoarthritis, left knee Plan: Symptoms are minimal, can continue to use Tylenol as needed or Voltaren gel Plan I spent 25 minutes reviewing patient's chart, evaluating patient, ordering diagnostic workup, counseling patient and documenting in the chart Orders: Orders AMB Denosumab Injection Practice Supplied Today M81.0 - Age-related osteoporosis without current pathological fracture Comprehensive Met. Panel 6 Months M81.0 - Age-related osteoporosis without current pathological fracture Vitamin D 25-OH (D2 and D3) 6 Months E55.9 - Vitamin D deficiency, unspecified Coding Level of Care Code Est Pt Level 4 (74355) Diagnoses Age-related osteoporosis without current pathological fracture M81.0 Osteoporosis type: age-related Presence of current pathological fracture: without current pathological fracture Primary osteoarthritis of left knee M17.12 Osteoarthritis type: primary
[2023-07-27 08:12] VITALS: BP 122/62; PULSE 49; O2SAT 96; BMI 29.2
== END 2023-07-27 08:31 | disposition home or self-care (01) ==
PROVIDERS: PCP Internal Medicine; Visit Provider Student in an Organized Health Care Education/Training Program
DX: M81.0 Age-related osteoporosis without current pathological fracture (principal); M17.12 Unilateral primary osteoarthritis, left knee
CPT/HCPCS: 99214

== ENCOUNTER → 2023-07-27 08:00 | Outpatient (BNVA) | payer OTHER, SELFPAY | PROVIDERS: PCP Internal Medicine; Visit Provider Student in an Organized Health Care Education/Training Program | DX: M81.0 Age-related osteoporosis without current pathological fracture (principal); M17.12 Unilateral primary osteoarthritis, left knee; E55.9 Vitamin D deficiency, unspecified; Z51.81 Encounter for therapeutic drug level monitoring; Z79.899 Other long term (current) drug therapy | CPT/HCPCS: 96372; J0897 ==

== ENCOUNTER 2023-08-08 08:30 | Outpatient (AMB) | payer OTHER, SELFPAY ==
--- NOTE | 2023-08-08 08:32 | MHC.PC.OV ---
Vital Signs 08/08/23 08:33 Height 5 ft Weight 149 lb BMI 29.1 BP 130/68 Blood Pressure Location Lt brachial Position Sitting Pulse 64 Pulse Source Pulse Oximeter Pulse Oximetry (%) 97 Oxygen Delivery Method Room Air Intake Visit Reasons: HTN , gerd diabetes mellitus Allergies lansoprazole [From PREVACID] Allergy (Intermediate, Verified 08/08/23 08:33) VOMITING morphine [MORPHINE] Allergy (Intermediate, Verified 08/08/23 08:33) AGITATION risedronate sodium [From ACTONEL] Allergy (Intermediate, Verified 08/08/23 08:33) DYSPNEA alendronate sodium [From Fosamax] Allergy (Mild, Verified 08/08/23 08:33) NAUSEA,SOB azithromycin [AZITHROMYCIN] Allergy (Mild, Verified 08/08/23 08:) NAUSEA/HEADACHE Penicillins Allergy (Mild, Verified 08/08/23 08:33) RASH amlodipine Allergy (Unknown, Verified 08/08/23 08:33) Unknown Bifidobacterium infantis [Align] Allergy (Unknown, Verified 08/08/23 08:) Unknown cetirizine [From ZYRTEC] Allergy (Unknown, Verified 08/08/23 08:) UNKNOWN cyanocobalamin (vitamin B12) Allergy (Unknown, Verified 08/08/23 08:33) Unknown enalapril [ENALAPRIL] Allergy (Unknown, Verified 08/08/23 08:) ABD PAIN, VERY NAUSEOUS, nausea fexofenadine [From MAC] Allergy (Unknown, Verified 08/08/23 08:33) UNKNOWN folic acid Allergy (Unknown, Verified 08/08/23 08:33) unk hydralazine Allergy (Unknown, Verified 08/08/23 08:33) nausea hydrochlorothiazide Allergy (Unknown, Verified 08/08/23 08:33) dry mouth latex [Latex] Allergy (Unknown, Verified 08/08/23 08:33) RASH loratadine [Claritin] Allergy (Unknown, Verified 08/08/23 08:) Unknown metoclopramide [From REGLAN] Allergy (Unknown, Verified 08/08/23 08:33) JITTERY mometasone furoate [From NASONEX] Allergy (Unknown, Verified 08/08/23 08:33) UNKNOWN montelukast [Singulair] Allergy (Unknown, Verified 08/08/23 08:33) Unknown pantoprazole [From PROTONIX] Allergy (Unknown, Verified 08/08/23 08:33) UNKNOWN penicillin V Allergy (Unknown, Verified 08/08/23 08:33) Unknown polyethylene glycol 3350 [Miralax] Allergy (Unknown, Verified 08/08/23 08:33) Unknown pseudoephedrine [From SUDAFED] Allergy (Unknown, Verified 08/08/23 08:33) HYPER ranitidine [From ZANTAC] Allergy (Unknown, Verified 08/08/23 08:33) UNKNOWN thiamine (vitamin B1) Allergy (Unknown, Verified 08/08/23 08:33) Unknown ascorbic acid [From PreserVision AREDS-2] Adverse Reaction (Intermediate, Verified 08/08/23 08:33) Constipation copper [From PreserVision AREDS-2] Adverse Reaction (Intermediate, Verified 08/08/23 08:33) Constipation lutein [From PreserVision AREDS-2] Adverse Reaction (Intermediate, Verified 08/08/23 08:33) Constipation vitamin E acetate (dl-alpha tocopheryl) [From PreserVision AREDS-2] Adverse Reaction (Intermediate, Verified 08/08/23 08:33) Constipation zeaxanthin [From PreserVision AREDS-2] Adverse Reaction (Intermediate, Verified 08/08/23 08:33) Constipation zinc oxide [From PreserVision AREDS-2] Adverse Reaction (Intermediate, Verified 08/08/23 08:33) Constipation ergocalciferol (vitamin D2) [From CALCIUM CITRATE WITH D] Adverse Reaction (Mild, Verified 08/08/23 08:33) CONSTIPATION Mac-D 12 Hour Allergy (Unknown, Uncoded 08/08/23 08:33) Unknown Calcium Citrate + D Allergy (Unknown, Uncoded 08/08/23 08:33) Unknown Folic + B12 Allergy (Unknown, Uncoded 08/08/23 08:33) Unknown latex Allergy (Unknown, Uncoded 08/08/23 08:33) unknown From CALCIUM CITRATE WITH D Adverse Reaction (Mild, Uncoded 08/08/23 08:33) CONSTIPATION Medication List - Last Reconciled 08/08/23 by Jacinda Duff MD chlordiazepoxide-clidinium 5-2.5 mg (Librax (with clidinium)) 1 cap PO .QD PRN denosumab (Prolia) 60 mg subcut [id number] docusate sodium (Colace) 100 mg PO DAILY ergocalciferol (vitamin D2) 1,250 mcg PO .Qmonth lorazepam 1 mg PO DAILY PRN 90 days losartan 100 mg PO DAILY metoprolol succinate ER 12.5 mg (1/2 x 25 mg) PO DAILY omeprazole 20 mg PO DAILY promethazine 12.5 mg PO TID PRN vitamin B complex (B Complex-Vitamin B12 tablet) 1 tab PO DAILY Tobacco use date assessed: 08/08/23 Fall risk assessment: No Falls in past year Last assessed Fall Risk: 08/08/23 Dental Screening Dental Screen Date: 08/08/23 Did you have a dental visit in the last 12 months?: No Did you have a dental problem in the last 6 months where you did not have access to dental care?: No Was dental information given to patient?: No HPI HTN , gerd diabetes mellitus HPI Details 83-year-old overweight female with a history of hypercholesterolemia diabetes mellitus hypertension GERD generalized anxiety disorder osteoporosis last seen in May 2023. Review of the notes has seen Rheumatology for the osteoporosis and on Prolia injection(Boniva 2008 to 2013) Prolia started 2019. Patient had blood work done in June 2023. [facility] Medical History (Updated 08/08/23 @ 09:07 by Jacinda Duff MD) Impaired glucose tolerance Macular degeneration Vitamin D deficiency Tubular adenoma of colon Closed left arm fracture Carcinoid tumor Hypertension Osteoporosis Irritable bowel syndrome Obesity (BMI 30-39.9) Hypercholesterolemia GERD (gastroesophageal reflux disease) Degenerative disc disease, lumbar Peripheral vascular disease Surgical History History of surgical procedure on eye proper using laser H/O ventral hernia repair Status post left breast lumpectomy Family History Father Diabetes Stroke Mother Pancreatic cancer Social History Housing: House Alcohol intake: former Patient Tobacco Use Status: Never used Tobacco e-Cigarette/Vaping Use: Never Used Second Hand Smoke Exposure: No service: No Current occupational status: retired Cognitive needs: No Hearing needs: Yes Vision needs: Yes Questionnaire PHQ-9 Over the last 2 weeks, how often have you been bothered by any of the following problems? 1. Little interest or pleasure in doing things: not at all 2. Feeling down, depressed, or hopeless: not at all 3. Trouble falling or staying asleep, or sleeping too much: not at all 4. Feeling tired or having little energy: not at all 5. Poor appetite or overeating: not at all 6. Feeling bad about yourself - or that you are a failure or have let yourself or your family down: not at all 7. Trouble concentrating on things, such as reading the newspaper or watching television: not at all 8. Moving or speaking so slowly that other people could have noticed. Or the opposite - being so fidgety or restless that you have been moving around a lot more than usual: not at all 9. Thoughts that you would be better off or of hurting yourself in some way: not at all Total score: 0 Depression Screening Interpretation: Negative Depression Screening Done: Yes Source: Developed by Drs. Tyler Parsons, Grace Greene, David Altman and colleagues, with an educational ina from [employer]. Thrive Questionnaire Date Thrive assessed: 08/08/23 I am a: Patient What is your living situation today?: I have a steady place to live Within the past 12 months, did the food you bought not last and you didn't have the money to get more?: Never true Within the past 12 months, did you worry whether your food would run out before you got money to buy more?: Never true Do you have trouble paying for medicines?: No Do you have trouble getting transportation to medical appointments?: No Do you have trouble paying your heating and electricity bill?: No Do you have trouble taking care of your child, family member or friend?: No Do you have trouble with day-to-day activities such as bathing, preparing meals, shopping, managing finances, etc.?: No Are you currently unemployed and looking for a job?: No Are you interested in more education?: No Currently or been in a relationship where the following occur: no concerns reported THRIVE Score: 0 AUDIT C Alcohol Use Questionnaire (AUDIT-C) 1. How often do you have a drink containing alcohol?: Never 3. How often do you have six or more drinks on one occasion?: Never Total Score: 0 KATHIE-7 AMB Questionnaire KATHIE-7 Date KATHIE - 7 assessed: 08/08/23 Feeling nervous, anxious, or on edge: 0 = Not at all Not being able to stop or control worryin = Not at all Worrying too much about different things: 0 = Not at all Trouble relaxin = Not at all Being so restless that it is hard to sit still: 0 = Not at all Becoming easily annoyed or irritable: 0 = Not at all Feeling afraid as if something awful might happen: 0 = Not at all Total KATHIE-7 score (0-4 normal; 5-9 mild; 10-14 moderate; 15-21 severe): 0 Source: Developed by Drs. Tyler Parsons, Grace Greene, David Altman and colleagues, with an educational ina from [employer]. Physical exam (Primary Care) Vital Signs: Last Vital Signs Pulse 64 08/08/23 08:33 BP 130/68 08/08/23 08:33 Pulse Ox 97 08/08/23 08:33 Oxygen Delivery Method Room Air 08/08/23 08:33 BMI result Body Mass Index 29.1 Tobacco/Smoking Status: Tobacco use Status Tobacco use date assessed 08/08/23 08/08/23 08:41 Patient Tobacco Use Status Never used Tobacco 08/08/23 08:35 e-Cigarette/Vaping Use Never Used 08/08/23 08:35 PHQ-9: PHQ-9 Score PHQ-9: Total score 0 08/08/23 08:35 Depression Screening Interpretation: Negative Thrive Assessment: Date of Thrive Assessment Date Thrive assessed 08/08/23 08/08/23 08:35 Currently or been in a relationship where the following occur: no concerns reported Const General: alert; No acute distress Eyes Conjunctivae: conjunctivae normal Resp Auscultation: clear to auscultation bilaterally Cardio Rate: regular rate Rhythm: regular rhythm GI Inspection: Yes normal to inspection Extrem General: Yes normal to inspection and No edema Assessment and Plan Assessment & Plan (1) Type 2 diabetes mellitus with hyperglycemia: Comment: Dr. iDetrich Code(s): E11.65 - Type 2 diabetes mellitus with hyperglycemia Plan: Decrease the amount of carbohydrate intake, pasta, bread, rice and potatoes are all sugar and that is aside from all the sweet stuff, remember that fruits are good but they are Sweet also. Hemoglobin A1c goal of less than 7.0. Patient on diet control. (2) Hypertension: Code(s): I10 - Essential (primary) hypertension Qualifiers: Hypertension type: essential hypertension Qualified Code(s): I10 - Essential (primary) hypertension Plan: Continue with blood pressure medication. Decrease salt intake and exercise on metoprolol 12.5 mg once a day losartan 100 mg once a day (3) Hypercholesterolemia: Code(s): E78.00 - Pure hypercholesterolemia, unspecified Plan: Avoid fried foods, chicken skin, eggs, butter margarine, pastries and meat. Be it pork or beef they have a lot of cholesterol presently not on any medication has multiple allergies LDL goal of less than 100 and triglyceride of less than 150. (4) GERD (gastroesophageal reflux disease): Comment: Hiatal hernia Dr. Correa history of H pylori Code(s): K21.9 - Gastro-esophageal reflux disease without esophagitis Qualifiers: Esophagitis presence: without esophagitis Qualified Code(s): K21.9 - Gastro-esophageal reflux disease without esophagitis Plan: Avoid the foods that causes that usually spicy foods, tomato products, juices, coffee, soda and foods that your sensitive to. After eating do not lie down, allow 3-4 hours before in lie down. And keep the head of bed above 30 degrees to avoid the acid from going up. (5) Osteoporosis: Comment: Salvatore- [id number] 5 year course. Prolia- ordered October 2016-patient did not start due to her concern for side effects. Prolia started June 2019 to present. Bone density January 2023 osteopenia^ Code(s): M81.0 - Age-related osteoporosis without current pathological fracture Qualifiers: Osteoporosis type: age-related Presence of current pathological fracture: without current pathological fracture Qualified Code(s): M81.0 - Age-related osteoporosis without current pathological fracture Plan: Patient is followed up by Rheumatology on Prolia and last bone density January 2023 better (6) Generalized anxiety disorder: Code(s): F41.1 - Generalized anxiety disorder Plan: Continue with medications on lorazepam and chlordiazepoxide p.r.n. (7) Macular degeneration: Comment: Dr. Parra Code(s): H35.30 - Unspecified macular degeneration Plan: Seeing Dr. Parra and advised a clinical trial Medications: Refilled lorazepam 1 mg PO DAILY 90 days PRN 90 tabs 1RF anxiety F41.9 - Anxiety disorder, unspecified Coding Level of Care Code Est Pt Level 4 (83455) Diagnoses Type 2 diabetes mellitus with hyperglycemia E11.65 Essential hypertension I10 Hypertension type: essential hypertension Hypercholesterolemia E78.00 Gastroesophageal reflux disease without esophagitis K21.9 Esophagitis presence: without esophagitis Age-related osteoporosis without current pathological fracture M81.0 Osteoporosis type: age-related Presence of current pathological fracture: without current pathological fracture Generalized anxiety disorder F41.1 Macular degeneration H35.30
[2023-08-08 08:33] VITALS: BP 130/68; PULSE 64; O2SAT 97; BMI 29.1
== END 2023-08-08 09:22 | disposition home or self-care (01) ==
PROVIDERS: PCP Internal Medicine; Visit Provider Internal Medicine
DX: E11.65 Type 2 diabetes mellitus with hyperglycemia (principal); I10 Essential (primary) hypertension; E78.00 Pure hypercholesterolemia, unspecified; K21.9 Gastro-esophageal reflux disease without esophagitis; M81.0 Age-related osteoporosis without current pathological fracture; F41.1 Generalized anxiety disorder; H35.30 Unspecified macular degeneration
CPT/HCPCS: 99214

== ENCOUNTER 2023-08-14 14:19 | Outpatient (AMB) | payer OTHER, SELFPAY ==
--- NOTE | 2023-08-14 14:37 | AM.OFFWIN_ITS ---
Intake Vital Signs 08/14/23 14:40 Height 5 ft Weight 149 lb BMI 29.1 BP 132/80 Blood Pressure Location Lt brachial Position Sitting Pulse 68 Pulse Source Pulse Oximeter Temp 98.4 F Temp Source Oral Pulse Oximetry (%) 97 Intake Visit Reasons: EP sinus infection (lobby) Intake Note: pt is here for c/o possible sinus infection, diarrhea Patient Tobacco Use Status: Never used Tobacco Allergies lansoprazole [From PREVACID] Allergy (Intermediate, Verified 08/14/23 14:40) VOMITING morphine [MORPHINE] Allergy (Intermediate, Verified 08/14/23 14:40) AGITATION risedronate sodium [From ACTONEL] Allergy (Intermediate, Verified 08/14/23 14:40) DYSPNEA alendronate sodium [From Fosamax] Allergy (Mild, Verified 08/14/23 14:40) NAUSEA,SOB azithromycin [AZITHROMYCIN] Allergy (Mild, Verified 08/14/23 14:40) NAUSEA/HEADACHE Penicillins Allergy (Mild, Verified 08/14/23 14:40) RASH amlodipine Allergy (Unknown, Verified 08/14/23 14:40) Unknown Bifidobacterium infantis [Align] Allergy (Unknown, Verified 08/14/23 14:40) Unknown cetirizine [From ZYRTEC] Allergy (Unknown, Verified 08/14/23 14:40) UNKNOWN cyanocobalamin (vitamin B12) Allergy (Unknown, Verified 08/14/23 14:40) Unknown enalapril [ENALAPRIL] Allergy (Unknown, Verified 08/14/23 14:40) ABD PAIN, VERY NAUSEOUS, nausea fexofenadine [From MAC] Allergy (Unknown, Verified 08/14/23 14:40) UNKNOWN folic acid Allergy (Unknown, Verified 08/14/23 14:40) unk hydralazine Allergy (Unknown, Verified 08/14/23 14:40) nausea hydrochlorothiazide Allergy (Unknown, Verified 08/14/23 14:40) dry mouth latex [Latex] Allergy (Unknown, Verified 08/14/23 14:40) RASH loratadine [Claritin] Allergy (Unknown, Verified 08/14/23 14:40) Unknown metoclopramide [From REGLAN] Allergy (Unknown, Verified 08/14/23 14:40) JITTERY mometasone furoate [From NASONEX] Allergy (Unknown, Verified 08/14/23 14:40) UNKNOWN montelukast [Singulair] Allergy (Unknown, Verified 08/14/23 14:40) Unknown pantoprazole [From PROTONIX] Allergy (Unknown, Verified 08/14/23 14:40) UNKNOWN penicillin V Allergy (Unknown, Verified 08/14/23 14:40) Unknown polyethylene glycol 3350 [Miralax] Allergy (Unknown, Verified 08/14/23 14:40) Unknown pseudoephedrine [From SUDAFED] Allergy (Unknown, Verified 08/14/23 14:40) HYPER ranitidine [From ZANTAC] Allergy (Unknown, Verified 08/14/23 14:40) UNKNOWN thiamine (vitamin B1) Allergy (Unknown, Verified 08/14/23 14:40) Unknown ascorbic acid [From PreserVision AREDS-2] Adverse Reaction (Intermediate, Verified 08/14/23 14:40) Constipation copper [From PreserVision AREDS-2] Adverse Reaction (Intermediate, Verified 08/14/23 14:40) Constipation lutein [From PreserVision AREDS-2] Adverse Reaction (Intermediate, Verified 08/14/23 14:40) Constipation vitamin E acetate (dl-alpha tocopheryl) [From PreserVision AREDS-2] Adverse Reaction (Intermediate, Verified 08/14/23 14:40) Constipation zeaxanthin [From PreserVision AREDS-2] Adverse Reaction (Intermediate, Verified 08/14/23 14:40) Constipation zinc oxide [From PreserVision AREDS-2] Adverse Reaction (Intermediate, Verified 08/14/23 14:40) Constipation ergocalciferol (vitamin D2) [From CALCIUM CITRATE WITH D] Adverse Reaction (Mild, Verified 08/14/23 14:40) CONSTIPATION Mac-D 12 Hour Allergy (Unknown, Uncoded 08/08/23 08:33) Unknown Calcium Citrate + D Allergy (Unknown, Uncoded 08/08/23 08:33) Unknown Folic + B12 Allergy (Unknown, Uncoded 08/08/23 08:33) Unknown latex Allergy (Unknown, Uncoded 08/08/23 08:33) unknown From CALCIUM CITRATE WITH D Adverse Reaction (Mild, Uncoded 08/08/23 08:33) CONSTIPATION Do you need a note to return to daycare/school/sports/work: No HPI HPI Comments History of Present Illness Details 83 y/o female patient who presents to [facility] with c/o URI symptoms that started Monday. Denies fevers, chills, nausea but endorses diarrhea. [facility] Medical History (Updated 08/08/23 @ 09:07 by Jacinda Duff MD) Impaired glucose tolerance Macular degeneration Vitamin D deficiency Tubular adenoma of colon Closed left arm fracture Carcinoid tumor Hypertension Osteoporosis Irritable bowel syndrome Obesity (BMI 30-39.9) Hypercholesterolemia GERD (gastroesophageal reflux disease) Degenerative disc disease, lumbar Peripheral vascular disease Surgical History History of surgical procedure on eye proper using laser H/O ventral hernia repair Status post left breast lumpectomy Family History Father Diabetes Stroke Mother Pancreatic cancer Social History Housing: House Alcohol intake: former Patient Tobacco Use Status: Never used Tobacco e-Cigarette/Vaping Use: Never Used Second Hand Smoke Exposure: No service: No Current occupational status: retired Cognitive needs: No Hearing needs: Yes Vision needs: Yes Review of Systems Const All systems reviewed & are unremarkable except as noted in HPI and below Physical Exam Vital Signs: Last Vital Signs Temp 98.4 F 08/14/23 14:40 Pulse 68 08/14/23 14:40 BP 132/80 08/14/23 14:40 Pulse Ox 97 08/14/23 14:40 BMI result Body Mass Index 29.1 Const General: comfortable and no acute distress Orientation/consciousness: patient oriented x3 HEENT Head: Yes normocephalic Ears: external ears normal and TM abnormal bulging and with fluid behind the TM bilateral; not bullous, not dull, not with effusion, not erythematous, not perforated and not retracted General nose exam: No nasal discharge present and Abnormal mucous membranes and turbinates present pale Face and sinus: Yes sinus tenderness Mouth: moist mucous membranes Throat: Yes posterior oropharynx normal and Yes uvula midline Resp Effort & Inspection: normal respiratory effort and able to speak in complete sentences Auscultation: clear to auscultation bilaterally, no crackles, no rales, no rhonchi and no wheezes Cardio Rate: regular rate Rhythm: regular rhythm Neuro General: patient oriented x3 Assessment & Plan Assessment & Plan (1) Cough in adult: Code(s): R05.9 - Cough, unspecified Plan: - OTC cough remedies - Warm fluids with honey (2) Upper respiratory infection: Code(s): J06.9 - Acute upper respiratory infection, unspecified Qualifiers: URI type: unspecified viral URI Qualified Code(s): J06.9 - Acute upper respiratory infection, unspecified Plan: SARs Orders: Orders SARS-CoV2/FLU/RSV Today J06.9 - Acute upper respiratory infection, unspecified, R05.9 - Cough, unspecified Coding Level of Care Code Est Pt Level 3 (41939) Diagnoses Cough in adult R05.9 Viral upper respiratory tract infection J06.9 URI type: unspecified viral URI Time Spent (min) 15
[2023-08-14 14:40] VITALS: BP 132/80; PULSE 68; TEMP 36.9; O2SAT 97; BMI 29.1
== END 2023-08-14 15:09 | disposition home or self-care (01) ==
PROVIDERS: PCP Internal Medicine; Visit Provider Nurse Practitioner Family
DX: R05.9 Cough, unspecified (principal); J06.9 Acute upper respiratory infection, unspecified
CPT/HCPCS: 99213

== ENCOUNTER 2023-08-14 15:00 | Outpatient (REF) | payer OTHER, SELFPAY ==
[2023-08-14 16:40] LABS: Influenza A PCR NEGATIVE (Negative); Influenza B PCR NEGATIVE (Negative); Resp Syncy Virus RNA Qual PCR NEGATIVE (Negative); SARS COV2 PCR INHOUSE NEGATIVE (Negative)
== END 2023-08-14 15:01 | disposition home or self-care (01) ==
LOC: HO.LAB 15:00
PROVIDERS: Visit Provider Nurse Practitioner Family
DX: Z11.52 Encounter for screening for COVID-19 (principal); J06.9 Acute upper respiratory infection, unspecified; R05.9 Cough, unspecified
CPT/HCPCS: 0241U

== ENCOUNTER 2023-10-30 09:30 | Outpatient (REF) | payer SELFPAY | END 2023-10-30 09:31 | disposition home or self-care (01) | LOC: HO.HAP 09:30 | PROVIDERS: Visit Provider Internal Medicine | DX: Z46.1 Encounter for fitting and adjustment of hearing aid (principal); H90.3 Sensorineural hearing loss, bilateral | CPT/HCPCS: V5267 ==

== ENCOUNTER 2023-12-04 06:08 | Outpatient (REF) | payer OTHER, SELFPAY ==
[2023-12-04 10:09] LABS: MANUAL DIFF FLAG NO
[2023-12-04 10:15] LABS: Basophils Percent Auto 0.8 % (0-2); Eosinophils Absolute Auto 0.1 X10*3/uL (0.0-0.4); Eosinophils Percent Auto 2.1 % (0-4); Hematocrit 42.5 % (37.0-47.0); Hemoglobin 13.9 g/dl (12.0-16.0); Imm Gran Abs Auto 0.04 X10*3/uL (0.00-0.03); Imm Gran Pct Auto 0.8 % (0.0-0.4); Lymphocytes Absolute Auto 1.9 X10*3/uL (1.2-4.9); Mean Corpuscular HGB Conc 32.7 g/dl (31.0-35.0); Mean Corpuscular Hemoglobin 28.9 pg (27.0-33.0); Mean Corpuscular Volume 88.4 fL (80.0-98.0); Mean Platelet Volume 10.9 fL (9.4-12.3); Monocytes Absolute Auto 0.5 X10*3/uL (0.1-1.2); Monocytes Percent Auto 9.2 % (2-11); Neutrophils Absolute Auto 2.3 x10*3/uL (2.0-8.3); Neutrophils Percent Auto 48.1 % (45-73); Platelet Count 212 X10*3/uL (160-400); Red Blood Count 4.81 X10*6/uL (4.20-5.50); Red Cell Distribution Width 13.1 % (11.0-16.0); White Blood Count 4.9 X10*3/uL (4.8-10.8)
[2023-12-04 10:50] LABS: Alanine Aminotransferase 14 U/L (0-31); Alkaline Phosphatase 58 U/L (39-117); Anion Gap 12 (12-20); Aspartate Amino Transferase 18 U/L (5-31); Bilirubin Total 0.8 mg/dL (0.0-1.0); Blood Urea Nitrogen 25 mg/dL (9-16); Calcium 9.7 mg/dL (8.4-10.2); Carbon Dioxide 25 mmol/L (22-29); Chloride 106 mmol/L (96-108); Cholesterol 197 mg/dL (<200); Estimated Average Glucose 108 mg/dL; Estimated Glomerular Filt Rate 46; Glucose Random 108 mg/dL (60-115); HDL Cholesterol 40 mg/dL (>40); Hemoglobin A1c % 5.4 % (<6.0); LDL Cholesterol Calculated 123 mg/dL (<100); Potassium 4.3 mmol/L (3.3-5.1); Sodium 139 mmol/L (135-145); Total Protein 7.1 g/dL (6.5-8.0); Triglycerides 173 mg/dL (<150)
== END 2023-12-04 06:09 | disposition home or self-care (01) ==
LOC: HO.HMGCLDS 06:08
PROVIDERS: PCP Internal Medicine; Visit Provider Internal Medicine
DX: E78.00 Pure hypercholesterolemia, unspecified (principal); E11.65 Type 2 diabetes mellitus with hyperglycemia
CPT/HCPCS: 36415; 80053; 80061; 83036; 85025

== ENCOUNTER 2023-12-04 08:46 | Outpatient (REF) | payer SELFPAY | END 2023-12-04 08:47 | disposition home or self-care (01) | LOC: HO.HAP 08:46 | PROVIDERS: Visit Provider Internal Medicine | DX: Z46.1 Encounter for fitting and adjustment of hearing aid (principal) | CPT/HCPCS: 92593 ==

== ENCOUNTER 2023-12-21 08:32 | Outpatient (AMB) | payer OTHER, SELFPAY ==
[2023-12-21 08:49] VITALS: BP 132/78; PULSE 59; O2SAT 97; BMI 27.9
--- NOTE | 2023-12-21 08:49 | A.OFFPC_ITS ---
Vital Signs 12/21/23 08:49 Height 5 ft Weight 143 lb BMI 27.9 BP 132/78 Blood Pressure Location Lt brachial Position Sitting Pulse 59 Pulse Source Pulse Oximeter Pulse Oximetry (%) 97 Oxygen Delivery Method Room Air Intake Visit Reasons: 3 Month F/U Allergies lansoprazole [From PREVACID] Allergy (Intermediate, Verified 12/21/23 08:49) VOMITING morphine [MORPHINE] Allergy (Intermediate, Verified 12/21/23 08:49) AGITATION risedronate sodium [From ACTONEL] Allergy (Intermediate, Verified 12/21/23 08:49) DYSPNEA alendronate sodium [From Fosamax] Allergy (Mild, Verified 12/21/23 08:49) NAUSEA,SOB azithromycin [AZITHROMYCIN] Allergy (Mild, Verified 12/21/23 08:49) NAUSEA/HEADACHE Penicillins Allergy (Mild, Verified 12/21/23 08:49) RASH amlodipine Allergy (Unknown, Verified 12/21/23 08:49) Unknown Bifidobacterium infantis [Align] Allergy (Unknown, Verified 12/21/23 08:49) Unknown cetirizine [From ZYRTEC] Allergy (Unknown, Verified 12/21/23 08:49) UNKNOWN cyanocobalamin (vitamin B12) Allergy (Unknown, Verified 12/21/23 08:49) Unknown enalapril [ENALAPRIL] Allergy (Unknown, Verified 12/21/23 08:49) ABD PAIN, VERY NAUSEOUS, nausea fexofenadine [From MAC] Allergy (Unknown, Verified 12/21/23 08:49) UNKNOWN folic acid Allergy (Unknown, Verified 12/21/23 08:49) unk hydralazine Allergy (Unknown, Verified 12/21/23 08:49) nausea hydrochlorothiazide Allergy (Unknown, Verified 12/21/23 08:49) dry mouth latex [Latex] Allergy (Unknown, Verified 12/21/23 08:49) RASH loratadine [Claritin] Allergy (Unknown, Verified 12/21/23 08:49) Unknown metoclopramide [From REGLAN] Allergy (Unknown, Verified 12/21/23 08:49) JITTERY mometasone furoate [From NASONEX] Allergy (Unknown, Verified 12/21/23 08:49) UNKNOWN montelukast [Singulair] Allergy (Unknown, Verified 12/21/23 08:49) Unknown pantoprazole [From PROTONIX] Allergy (Unknown, Verified 12/21/23 08:49) UNKNOWN penicillin V Allergy (Unknown, Verified 12/21/23 08:49) Unknown polyethylene glycol 3350 [Miralax] Allergy (Unknown, Verified 12/21/23 08:49) Unknown pseudoephedrine [From SUDAFED] Allergy (Unknown, Verified 12/21/23 08:49) HYPER ranitidine [From ZANTAC] Allergy (Unknown, Verified 12/21/23 08:49) UNKNOWN thiamine (vitamin B1) Allergy (Unknown, Verified 12/21/23 08:49) Unknown ascorbic acid [From PreserVision AREDS-2] Adverse Reaction (Intermediate, Verified 12/21/23 08:49) Constipation copper [From PreserVision AREDS-2] Adverse Reaction (Intermediate, Verified 12/21/23 08:49) Constipation lutein [From PreserVision AREDS-2] Adverse Reaction (Intermediate, Verified 12/21/23 08:49) Constipation vitamin E acetate (dl-alpha tocopheryl) [From PreserVision AREDS-2] Adverse Reaction (Intermediate, Verified 12/21/23 08:49) Constipation zeaxanthin [From PreserVision AREDS-2] Adverse Reaction (Intermediate, Verified 12/21/23 08:49) Constipation zinc oxide [From PreserVision AREDS-2] Adverse Reaction (Intermediate, Verified 12/21/23 08:49) Constipation ergocalciferol (vitamin D2) [From CALCIUM CITRATE WITH D] Adverse Reaction (Mild, Verified 12/21/23 08:49) CONSTIPATION Mac-D 12 Hour Allergy (Unknown, Uncoded 12/21/23 08:49) Unknown Calcium Citrate + D Allergy (Unknown, Uncoded 12/21/23 08:49) Unknown Folic + B12 Allergy (Unknown, Uncoded 12/21/23 08:49) Unknown latex Allergy (Unknown, Uncoded 12/21/23 08:49) unknown From CALCIUM CITRATE WITH D Adverse Reaction (Mild, Uncoded 12/21/23 08:49) CONSTIPATION Tobacco use date assessed: 08/08/23 Fall risk assessment: No Falls in past year Last assessed Fall Risk: 12/21/23 Dental Screening Dental Screen Date: 08/08/23 HPI 3 Month F/U HPI Details 83-year-old overweight female with contr olled diabetes mellitus(noted 6 lb weight loss) hypertension hypercholesterolemia GERD generalized anxiety disorder coming in for follow-up. Last seen in 08/19/2023. lost weight had diarrhea, better now but has gas [facility] Medical History (Updated 08/08/23 @ 09:07 by Jacinda Duff MD) Impaired glucose tolerance Macular degeneration Vitamin D deficiency Tubular adenoma of colon Closed left arm fracture Carcinoid tumor Hypertension Osteoporosis Irritable bowel syndrome Obesity (BMI 30-39.9) Hypercholesterolemia GERD (gastroesophageal reflux disease) Degenerative disc disease, lumbar Peripheral vascular disease Surgical History History of surgical procedure on eye proper using laser H/O ventral hernia repair Status post left breast lumpectomy Family History Father Diabetes Stroke Mother Pancreatic cancer Social History Housing: House Alcohol intake: former Patient Tobacco Use Status: Never used Tobacco Tobacco use type: Cigarette e-Cigarette/Vaping Use: Never Used Second Hand Smoke Exposure: No service: No Current occupational status: retired Cognitive needs: No Hearing needs: Yes Vision needs: Yes Questionnaire PHQ-9 Over the last 2 weeks, how often have you been bothered by any of the following problems? 1. Little interest or pleasure in doing things: not at all 2. Feeling down, depressed, or hopeless: not at all 3. Trouble falling or staying asleep, or sleeping too much: not at all 4. Feeling tired or having little energy: not at all 5. Poor appetite or overeating: not at all 6. Feeling bad about yourself - or that you are a failure or have let yourself or your family down: not at all 7. Trouble concentrating on things, such as reading the newspaper or watching television: not at all 8. Moving or speaking so slowly that other people could have noticed. Or the o pposite - being so fidgety or restless that you have been moving around a lot more than usual: not at all 9. Thoughts that you would be better off or of hurting yourself in some way: not at all Total score: 0 Depression Screening Interpretation: Negative Depression Screening Done: Yes Source: Developed by Drs. Tyler Parsons, Grace Greene, David Altman and colleagues, with an educational ina from [email or web address] Thrive Questionnaire Date Thrive assessed: 08/08/23 AUDIT C Alcohol Use Questionnaire (AUDIT-C) 1. How often do you have a drink containing alcohol?: Never 3. How often do you have six or more drinks on one occasion?: Never Total Score: 0 KATHIE-7 AMB Questionnaire KATHIE-7 Date KATHIE - 7 assessed: 08/08/23 Source: Developed by Drs. Tyler Parsons, Grace Greene, David Altman and colleagues, with an educational ina from [email or web address] Physical exam (Primary Care) Vital Signs: Last Vital Signs Pulse 59 12/21/23 08:49 BP 132/78 12/21/23 08:49 Pulse Ox 97 12/21/23 08:49 Oxygen Delivery Method Room Air 12/21/23 08:49 BMI result Body Mass Index 27.9 Tobacco/Smoking Status: Tobacco use Status Tobacco use date assessed 08/08/23 12/21/23 08:55 Patient Tobacco Use Status Never used Tobacco 12/21/23 08:55 Tobacco use type Cigarette 12/21/23 08:55 e-Cigarette/Vaping Use Never Used 12/21/23 08:55 PHQ-9: PHQ-9 Score PHQ-9: Total score 0 12/21/23 08:55 Depression Screening Interpretation: Negative Thrive Assessment: Date of Thrive Assessment Date Thrive assessed 08/08/23 12/21/23 08:55 Const General: alert; No acute distress Eyes Conjunctivae: conjunctivae normal Resp Auscultation: clear to auscultation bilaterally Cardio Rate: regular rate Rhythm: regular rhythm GI Inspection: Yes normal to inspection Extrem General: Yes normal to inspection and No edema Assessment and Plan Assessment & Plan (1) Type 2 diabetes mellitus with hyperglycemia: Comment: Dr. Dietrich Code(s): E11.65 - Type 2 diabetes mellitus with hyperglycemia Plan: Decrease the amount of carbohydrate intake, pasta, bread, rice and potatoes are all sugar and that is aside from all the sweet stuff, remember that fruits are good but they are Sweet also. Hemoglobin A1c goal of less than 7.0 patient is on diet control (2) Hypercholesterolemia: Code(s): E78.00 - Pure hypercholesterolemia, unspecified Plan: Avoid fried foods, chicken skin, eggs, butter margarine, pastries and meat. Be it pork or beef they have a lot of cholesterol LDL goal of less than 100 and triglyceride of less than 150 patient not on any cholesterol medication discussed about eggs decrease decline cholesterol med (3) Obesity (BMI 30-39.9): Code(s): E66.9 - Obesity, unspecified Plan: Diet and exercise (4) Hypertension: Code(s): I10 - Essential (primary) hypertension Qualifiers: Hypertension type: essential hypertension Qualified Code(s): I10 - Es sential (primary) hypertension Plan: Continue with blood pressure medication. Decrease salt intake and exercise on metoprolol 12.5 mg once a day losartan 100 mg once a day (5) GERD (gastroesophageal reflux disease): Comment: Hiatal hernia Dr. Correa history of H pylori Code(s): K21.9 - Gastro-esophageal reflux disease without esophagitis Qualifiers: Esophagitis presence: without esophagitis Qualified Code(s): K21.9 - Gastro-esophageal reflux disease without esophagitis Plan: Avoid the foods that causes that usually spicy foods, tomato products, juices, coffee, soda and foods that your sensitive to. After eating do not lie down, allow 3-4 hours before in lie down. And keep the head of bed above 30 degrees to avoid the acid from going up. (6) Generalized anxiety disorder: Code(s): F41.1 - Generalized anxiety disorder Plan: continue with med (7) Macular degeneration: Comment: Dr. Parra Code(s): H35.30 - Unspecified macular degeneration Plan: seeing Dr. Parra Coding Level of Care Code Est Pt Level 4 (24416) Diagnoses Type 2 diabetes mellitus with hyperglycemia E11.65 Hypercholesterolemia E78.00 Obesity (BMI 30-39.9) E66.9 Essential hypertension I10 Hypertension type: essential hypertension Gastroesophageal reflux disease without esophagitis K21.9 Esophagitis presence: without esophagitis Generalized anxiety disorder F41.1 Macular degeneration H35.30
== END 2023-12-21 09:40 | disposition home or self-care (01) ==
PROVIDERS: PCP Internal Medicine; Visit Provider Internal Medicine
DX: E11.65 Type 2 diabetes mellitus with hyperglycemia (principal); E78.00 Pure hypercholesterolemia, unspecified; E66.9 Obesity, unspecified; Z68.27 Body mass index [BMI] 27.0-27.9, adult; I10 Essential (primary) hypertension; K21.9 Gastro-esophageal reflux disease without esophagitis; F41.1 Generalized anxiety disorder; H35.30 Unspecified macular degeneration
CPT/HCPCS: 99214

== ENCOUNTER 2024-01-11 09:05 | Outpatient (REF) | payer OTHER, SELFPAY ==
[2024-01-11 10:37] LABS: Albumin Level 3.9 g/dL (3.5-5.0); Anion Gap 13 (12-20); Aspartate Amino Transferase 20 U/L (5-31); Blood Urea Nitrogen 24 mg/dL (9-16); Chloride 106 mmol/L (96-108); Glucose Random 103 mg/dL (60-115)
[2024-01-11 11:24] LABS: Alanine Aminotransferase 12 U/L (0-31); Alkaline Phosphatase 59 U/L (39-117); Bilirubin Total 0.7 mg/dL (0.0-1.0); Calcium 9.4 mg/dL (8.4-10.2); Carbon Dioxide 23 mmol/L (22-29); Estimated Glomerular Filt Rate 43; Potassium 4.1 mmol/L (3.3-5.1); Sodium 138 mmol/L (135-145); Total Protein 7.1 g/dL (6.5-8.0)
[2024-01-15 17:29] LABS: Vitamin D 25-OH, D2 22 ng/mL; Vitamin D 25-OH, D3 11 ng/mL; Vitamin D 25-OH, Total 33 ng/mL (30-100)
== END 2024-01-11 09:06 | disposition home or self-care (01) ==
LOC: HO.HMGCLDS 09:05
PROVIDERS: PCP Internal Medicine; Visit Provider Student in an Organized Health Care Education/Training Program
DX: M81.0 Age-related osteoporosis without current pathological fracture (principal); E55.9 Vitamin D deficiency, unspecified
CPT/HCPCS: 36415; 80053; 82306

== ENCOUNTER 2024-01-29 07:32 | Outpatient (AMB) | payer OTHER, SELFPAY ==
--- NOTE | 2024-01-29 07:37 | MHC.OFFVIS ---
Vital Signs 01/29/24 07:40 Height 5 ft Weight 143 lb 11.862 oz BMI 28.1 BP 120/62 Blood Pressure Location Rt brachial Position Sitting Pulse 68 Pulse Source Pulse Oximeter Pulse Oximetry (%) 96 Oxygen Delivery Method Room Air Intake Visit Reasons: Osteoporosis/prolia in Intake Note: Patient presents for Osteoporosis. Allergies lansoprazole [From PREVACID] Allergy (Intermediate, Verified 01/29/24 07:38) VOMITING morphine [MORPHINE] Allergy (Intermediate, Verified 01/29/24 07:38) AGITATION risedronate sodium [From ACTONEL] Allergy (Intermediate, Verified 01/29/24 07:38) DYSPNEA alendronate sodium [From Fosamax] Allergy (Mild, Verified 01/29/24 07:38) NAUSEA,SOB azithromycin [AZITHROMYCIN] Allergy (Mild, Verified 01/29/24 07:38) NAUSEA/HEADACHE Penicillins Allergy (Mild, Verified 01/29/24 07:38) RASH amlodipine Allergy (Unknown, Verified 01/29/24 07:38) Unknown Bifidobacterium infantis [Align] Allergy (Unknown, Verified 01/29/24 07:38) Unknown cetirizine [From ZYRTEC] Allergy (Unknown, Verified 01/29/24 07:38) UNKNOWN cyanocobalamin (vitamin B12) Allergy (Unknown, Verified 01/29/24 07:38) Unknown enalapril [ENALAPRIL] Allergy (Unknown, Verified 01/29/24 07:38) ABD PAIN, VERY NAUSEOUS, nausea fexofenadine [From MAC] Allergy (Unknown, Verified 01/29/24 07:38) UNKNOWN folic acid Allergy (Unknown, Verified 01/29/24 07:38) unk hydralazine Allergy (Unknown, Verified 01/29/24 07:38) nausea hydrochlorothiazide Allergy (Unknown, Verified 01/29/24 07:38) dry mouth latex [Latex] Allergy (Unknown, Verified 01/29/24 07:38) RASH loratadine [Claritin] Allergy (Unknown, Verified 01/29/24 07:38) Unknown metoclopramide [From REGLAN] Allergy (Unknown, Verified 01/29/24 07:38) JITTERY mometasone furoate [From NASONEX] Allergy (Unknown, Verified 01/29/24 07:38) UNKNOWN montelukast [Singulair] Allergy (Unknown, Verified 01/29/24 07:38) Unknown pantoprazole [From PROTONIX] Allergy (Unknown, Verified 01/29/24 07:38) UNKNOWN penicillin V Allergy (Unknown, Verified 01/29/24 07:38) Unknown polyethylene glycol 3350 [Miralax] Allergy (Unknown, Verified 01/29/24 07:38) Unknown pseudoephedrine [From SUDAFED] Allergy (Unknown, Verified 01/29/24 07:38) HYPER ranitidine [From ZANTAC] Allergy (Unknown, Verified 01/29/24 07:38) UNKNOWN thiamine (vitamin B1) Allergy (Unknown, Verified 01/29/24 07:38) Unknown ascorbic acid [From PreserVision AREDS-2] Adverse Reaction (Intermediate, Verified 01/29/24 07:38) Constipation copper [From PreserVision AREDS-2] Adverse Reaction (Intermediate, Verified 01/29/24 07:38) Constipation lutein [From PreserVision AREDS-2] Adverse Reaction (Intermediate, Verified 01/29/24 07:38) Constipation vitamin E acetate (dl-alpha tocopheryl) [From PreserVision AREDS-2] Adverse Reaction (Intermediate, Verified 01/29/24 07:38) Constipation zeaxanthin [From PreserVision AREDS-2] Adverse Reaction (Intermediate, Verified 01/29/24 07:38) Constipation zinc oxide [From PreserVision AREDS-2] Adverse Reaction (Intermediate, Verified 01/29/24 07:38) Constipation ergocalciferol (vitamin D2) [From CALCIUM CITRATE WITH D] Adverse Reaction (Mild, Verified 01/29/24 07:38) CONSTIPATION Mac-D 12 Hour Allergy (Unknown, Uncoded 12/21/23 08:49) Unknown Calcium Citrate + D Allergy (Unknown, Uncoded 12/21/23 08:49) Unknown Folic + B12 Allergy (Unknown, Uncoded 12/21/23 08:49) Unknown latex Allergy (Unknown, Uncoded 12/21/23 08:49) unknown From CALCIUM CITRATE WITH D Adverse Reaction (Mild, Uncoded 12/21/23 08:49) CONSTIPATION HPI Comments Details: 83yoF presents for follow-up of Osteoporosis and Prolia injection. She was last seen 06/2023 Continues on Prolia and tolerating this without issue. Patient reports that she continues to feel well overall. She was having pain on the outside of her right hip a few days ago and she took Tylenol, the pain went away. Has not had any falls. She walks [employer] twice a week [facility] Medical History Impaired glucose tolerance Macular degeneration Vitamin D deficiency Tubular adenoma of colon Closed left arm fracture Carcinoid tumor Hypertension Osteoporosis Irritable bowel syndrome Obesity (BMI 30-39.9) Hypercholesterolemia GERD (gastroesophageal reflux disease) Degenerative disc disease, lumbar Peripheral vascular disease Surgical History History of surgical procedure on eye proper using laser H/O ventral hernia repair Status post left breast lumpectomy Family History Father Diabetes Stroke Mother Pancreatic cancer Brother Dementia Social History Housing: House Alcohol intake: former Patient Tobacco Use Status: Never used Tobacco Tobacco use type: Cigarette e-Cigarette/Vaping Use: Never Used Second Hand Smoke Exposure: No service: No Current occupational status: retired Cognitive needs: No Hearing needs: Yes Vision needs: Yes Review of Systems Musc Reports arthralgias Physical Exam Vital Signs: Last Vital Signs Pulse 68 01/29/24 07:40 BP 120/62 01/29/24 07:40 Pulse Ox 96 01/29/24 07:40 Oxygen Delivery Method Room Air 01/29/24 07:40 BMI result Body Mass Index 28.1 Const General: cooperative, healthy appearing and comfortable Nutritional Appearance: overweight Orientation/consciousness: patient oriented x3 Limitations: no limitations HEENT Head: Yes normocephalic and Yes atraumatic Resp Effort & Inspection: normal respiratory effort and able to speak in complete sentences Cardio Rate: regular rate Rhythm: regular rhythm Skin General skin exam: no rashes or lesions noted Neuro General: patient oriented x3 Extrem Other: Mild osteoarthritic changes of both hands with no active synovitis Office Meds Prolia 60 mg/mL subcutaneous syringe Performing Provider: Donald Su MD Performing Location: [facility] Administered by: Donald Su MD on 01/29/24 08:03 Dose Route Admin Location Dispensed Lot Number Expiration Date [employer] 60 mg subcut 1 mL [id number] 03/30/26 69561-123-62 [facility] Assessment & Plan Assessment & Plan (1) Osteoporosis: Comment: [facility]- [id number] 5 year course. Prolia- ordered October 2016-patient did not start due to her concern for side effects. Prolia started June 2019 to present. Bone density January 2023 osteopenia Code(s): M81.0 - Age-related osteoporosis without current pathological fracture Category: Medical Qualifiers: Osteoporosis type: age-related Presence of current pathological fracture: without current pathological fracture Qualified Code(s): M81.0 - Age-related osteoporosis without current pathological fracture Plan: Patient continues on Prolia and is tolerating this well. Most recent DEXA showed some improvement in bone density. She received her injection in the office today which she tolerated well. Follow up in 6 months with BMP and vitamin D prior. Her vitamin-D level is suboptimal. The [place] way [place] [address] units once monthly. She gets constipated with any different dosing. Labs before next visit and Prolia injection in 6 months. Plan to repeat DEXA in fall of 2024 Plan I spent 15 minutes reviewing patient's chart, evaluating patient, ordering diagnostic workup, counseling patient and documenting in the chart Orders: Orders Vitamin D 25-OH (D2 and D3) 6 Months Z13.21 - Encounter for screening for nutritional disorder Basic Metabolic Panel 6 Months M81.0 - Age-related osteoporosis without current pathological fracture AMB Denosumab Injection Patient Supplied Today M81.0 - Age-related osteoporosis without current pathological fracture Medications: New Prolia (denosumab) 60 mg subcut ONCE 1 mL 0RF NS M81.0 - Age-related osteoporosis without current pathological fracture Coding Level of Care Code Est Pt Level 3 (60777) Diagnoses Age-related osteoporosis without current pathological fracture M81.0 Osteoporosis type: age-related Presence of current pathological fracture: without current pathological fracture
[2024-01-29 07:40] VITALS: BP 120/62; PULSE 68; O2SAT 96; BMI 28.1
== END 2024-01-29 08:01 | disposition home or self-care (01) ==
PROVIDERS: PCP Internal Medicine; Visit Provider Student in an Organized Health Care Education/Training Program
DX: M81.0 Age-related osteoporosis without current pathological fracture (principal)
CPT/HCPCS: 99213

== ENCOUNTER → 2024-01-29 07:32 | Outpatient (BNVA) | payer OTHER, SELFPAY | PROVIDERS: PCP Internal Medicine; Visit Provider Student in an Organized Health Care Education/Training Program | DX: M81.0 Age-related osteoporosis without current pathological fracture (principal) | CPT/HCPCS: 96372; J0897 ==

== ENCOUNTER 2024-02-23 09:40 | Outpatient (REF) | payer SELFPAY | END 2024-02-23 09:41 | disposition home or self-care (01) | LOC: HO.HAP 09:40 | PROVIDERS: Visit Provider Internal Medicine | DX: Z46.1 Encounter for fitting and adjustment of hearing aid (principal); H90.3 Sensorineural hearing loss, bilateral | CPT/HCPCS: V5267 ==

== ENCOUNTER 2024-03-26 11:16 | Outpatient (AMB) | payer OTHER, SELFPAY ==
[2024-03-26 11:20] VITALS: BP 144/80; PULSE 74; O2SAT 98; BMI 27.5
--- NOTE | 2024-03-26 11:20 | MHC.PC.OV ---
Vital Signs 03/26/24 11:20 03/26/24 11:39 Height 5 ft Weight 141 lb BMI 27.5 BP 144/80 H 130/70 Blood Pressure Location Lt brachial Lt brachial Position Sitting Sitting Pulse 74 Pulse Source Pulse Oximeter Pulse Oximetry (%) 98 Oxygen Delivery Method Room Air Intake Visit Reasons: Annual PE/ follow up 12/21/2023 Allergies lansoprazole [From PREVACID] Allergy (Intermediate, Verified 03/26/24 11:21) VOMITING morphine [MORPHINE] Allergy (Intermediate, Verified 03/26/24 11:21) AGITATION risedronate sodium [From ACTONEL] Allergy (Intermediate, Verified 03/26/24 11:21) DYSPNEA alendronate sodium [From Fosamax] Allergy (Mild, Verified 03/26/24 11:21) NAUSEA,SOB azithromycin [AZITHROMYCIN] Allergy (Mild, Verified 03/26/24 11:21) NAUSEA/HEADACHE Penicillins Allergy (Mild, Verified 03/26/24 11:21) RASH amlodipine Allergy (Unknown, Verified 03/26/24 11:21) Unknown Bifidobacterium infantis [Align] Allergy (Unknown, Verified 03/26/24 11:21) Unknown cetirizine [From ZYRTEC] Allergy (Unknown, Verified 03/26/24 11:21) UNKNOWN cyanocobalamin (vitamin B12) Allergy (Unknown, Verified 03/26/24 11:21) Unknown enalapril [ENALAPRIL] Allergy (Unknown, Verified 03/26/24 11:21) ABD PAIN, VERY NAUSEOUS, nausea fexofenadine [From MAC] Allergy (Unknown, Verified 03/26/24 11:21) UNKNOWN folic acid Allergy (Unknown, Verified 03/26/24 11:21) unk hydralazine Allergy (Unknown, Verified 03/26/24 11:21) nausea hydrochlorothiazide Allergy (Unknown, Verified 03/26/24 11:21) dry mouth latex [Latex] Allergy (Unknown, Verified 03/26/24 11:21) RASH loratadine [Claritin] Allergy (Unknown, Verified 03/26/24 11:21) Unknown metoclopramide [From REGLAN] Allergy (Unknown, Verified 03/26/24 11:21) JITTERY mometasone furoate [From NASONEX] Allergy (Unknown, Verified 03/26/24 11:21) UNKNOWN montelukast [Singulair] Allergy (Unknown, Verified 03/26/24 11:21) Unknown pantoprazole [From PROTONIX] Allergy (Unknown, Verified 03/26/24 11:21) UNKNOWN penicillin V Allergy (Unknown, Verified 03/26/24 11:21) Unknown polyethylene glycol 3350 [Miralax] Allergy (Unknown, Verified 03/26/24 11:21) Unknown pseudoephedrine [From SUDAFED] Allergy (Unknown, Verified 03/26/24 11:21) HYPER ranitidine [From ZANTAC] Allergy (Unknown, Verified 03/26/24 11:21) UNKNOWN thiamine (vitamin B1) Allergy (Unknown, Verified 03/26/24 11:21) Unknown ascorbic acid [From PreserVision AREDS-2] Adverse Reaction (Intermediate, Verified 03/26/24 11:21) Constipation copper [From PreserVision AREDS-2] Adverse Reaction (Intermediate, Verified 03/26/24 11:21) Constipation lutein [From PreserVision AREDS-2] Adverse Reaction (Intermediate, Verified 03/26/24 11:21) Constipation vitamin E acetate (dl-alpha tocopheryl) [From PreserVision AREDS-2] Adverse Reaction (Intermediate, Verified 03/26/24 11:21) Constipation zeaxanthin [From PreserVision AREDS-2] Adverse Reaction (Intermediate, Verified 03/26/24 11:21) Constipation zinc oxide [From PreserVision AREDS-2] Adverse Reaction (Intermediate, Verified 03/26/24 11:21) Constipation ergocalciferol (vitamin D2) [From CALCIUM CITRATE WITH D] Adverse Reaction (Mild, Verified 03/26/24 11:21) CONSTIPATION Mac-D 12 Hour Allergy (Unknown, Uncoded 03/26/24 11:21) Unknown Calcium Citrate + D Allergy (Unknown, Uncoded 03/26/24 11:21) Unknown Folic + B12 Allergy (Unknown, Uncoded 03/26/24 11:21) Unknown latex Allergy (Unknown, Uncoded 03/26/24 11:21) unknown From CALCIUM CITRATE WITH D Adverse Reaction (Mild, Uncoded 03/26/24 11:21) CONSTIPATION Medication List - Last Reconciled 03/26/24 by Jacinda Duff MD chlordiazepoxide-clidinium 5-2.5 mg (Librax (with clidinium)) 1 cap PO .QD PRN denosumab (Prolia) 60 mg subcut [id number] ergocalciferol (vitamin D2) 1,250 mcg PO .Qmonth lorazepam 1 mg PO DAILY PRN 90 days losartan 100 mg PO DAILY metoprolol succinate ER 12.5 mg (1/2 x 25 mg) PO DAILY omeprazole 20 mg PO DAILY promethazine 12.5 mg PO TID PRN sennosides (senna) 8.6 mg PO BEDTIME vitamin B complex (B Complex-Vitamin B12 tablet) 1 tab PO .Q month Tobacco use date assessed: 08/08/23 Fall risk assessment: No Falls in past year Last assessed Fall Risk: 03/26/24 Dental Screening Dental Screen Date: 08/08/23 HPI Annual PE/ follow up 12/21/2023 HPI Details 83-year-old overweight female with controlled diabetes mellitus hypercholesterolemia hypertension GERD generalized anxiety disorder coming in for physical exam last seen in 12/19/2023. Patient is up-to-date with bone density 02/17/2023 and is on Prolia shot. [facility] Medical History Impaired glucose tolerance Macular degeneration Vitamin D deficiency Tubular adenoma of colon Closed left arm fracture Carcinoid tumor Hypertension Osteoporosis Irritable bowel syndrome Obesity (BMI 30-39.9) Hypercholesterolemia GERD (gastroesophageal reflux disease) Degenerative disc disease, lumbar Peripheral vascular disease Surgical History History of surgical procedure on eye proper using laser H/O ventral hernia repair Status post left breast lumpectomy Family History Father Diabetes Stroke Mother Pancreatic cancer Brother Dementia Social History Housing: House Alcohol intake: former Patient Tobacco Use Status: Never used Tobacco Tobacco use type: Cigarette e-Cigarette/Vaping Use: Never Used Second Hand Smoke Exposure: No service: No Current occupational status: retired Cognitive needs: No Hearing needs: Yes Vision needs: Yes Questionnaire PHQ-9 Over the last 2 weeks, how often have you been bothered by any of the following problems? 1. Little interest or pleasure in doing things: not at all 2. Feeling down, depressed, or hopeless: not at all 3. Trouble falling or staying asleep, or sleeping too much: not at all 4. Feeling tired or having little energy: not at all 5. Poor appetite or overeating: not at all 6. Feeling bad about yourself - or that you are a failure or have let yourself or your family down: not at all 7. Trouble concentrating on things, such as reading the newspaper or watching television: not at all 8. Moving or speaking so slowly that other people could have noticed. Or the opposite - being so fidgety or restless that you have been moving around a lot more than usual: not at all 9. Thoughts that you would be better off or of hurting yourself in some way: not at all Total score: 0 Source: Developed by Drs. Tyler Parsons, Grace Greene, David Altman and colleagues, with an educational ina from [employer] Thrive Questionnaire Date Thrive assessed: 08/08/23 I am a: Patient What is your living situation today?: I have a steady place to live Within the past 12 months, did the food you bought not last and you didn't have the money to get more?: Never true Within the past 12 months, did you worry whether your food would run out before you got money to buy more?: Never true Do you have trouble paying for medicines?: No Do you have trouble getting transportation to medical appointments?: No Do you have trouble paying your heating and electricity bill?: No Do you have trouble taking care of your child, family member or friend?: No Do you have trouble with day-to-day activities such as bathing, preparing meals, shopping, managing finances, etc.?: No Are you currently unemployed and looking for a job?: No Are you interested in more education?: No Please select the resources that you would like help with: None Currently or been in a relationship where the following occur: I choose not to answer THRIVE Score: 0 AUDIT C Alcohol Use Questionnaire (AUDIT-C) 1. How often do you have a drink containing alcohol?: Never Total Score: 0 KATHIE-7 AMB Questionnaire KATHIE-7 Date KATHIE - 7 assessed: 08/08/23 Feeling nervous, anxious, or on edge: 0 = Not at all Not being able to stop or control worryin = Not at all Worrying too much about different things: 0 = Not at all Trouble relaxin = Not at all Being so restless that it is hard to sit still: 0 = Not at all Becoming easily annoyed or irritable: 0 = Not at all Feeling afraid as if something awful might happen: 0 = Not at all Total KATHIE-7 score (0-4 normal; 5-9 mild; 10-14 moderate; 15-21 severe): 0 Source: Developed by Drs. Tyler Parsons, Grace Greene, David Altman and colleagues, with an educational ina from [employer] Review of Systems Const Denies poor appetite and Denies weakness Eyes Denies no additional complaints ENT Reports Normal hearing present, Denies dizziness, Denies nasal congestion, Denies tinnitus and Denies sore throat Card Denies chest pain, Denies syncope, Denies rapid heart rate and Denies dyspnea Resp Denies cough and Denies dyspnea GI Denies change in stool character, Reports constipation, Denies diarrhea, Denies nausea and Denies vomiting Denies urinary frequency, Denies difficulty voiding and Denies dysuria Neuro Reports Normal hearing present, Denies confusion, Denies dizziness, Denies syncope and Denies weakness Psych Denies confusion Physical exam (Primary Care) Vital Signs: Last Vital Signs Pulse 74 03/26/24 11:20 BP 130/70 03/26/24 11:39 Pulse Ox 98 03/26/24 11:20 Oxygen Delivery Method Room Air 03/26/24 11:20 BMI result Body Mass Index 27.5 Tobacco/Smoking Status: Tobacco use Status Tobacco use date assessed 08/08/23 03/26/24 11:28 Patient Tobacco Use Status Never used Tobacco 03/26/24 11:28 Tobacco use type Cigarette 03/26/24 11:28 e-Cigarette/Vaping Use Never Used 03/26/24 11:28 PHQ-9: PHQ-9 Score PHQ-9: Total score 0 03/26/24 12:03 Thrive Assessment: Date of Thrive Assessment Date Thrive assessed 08/08/23 03/26/24 11:28 Currently or been in a relationship where the following occur: I choose not to answer Const General: No confusion Orientation/consciousness: No confusion HENMT Head: Yes normocephalic Ears: external ears normal and TM's normal bilaterally Face and sinus: Yes normal facial exam Mouth: moist mucous membranes Throat: Yes tonsils normal Eyes Conjunctivae: conjunctivae normal Pupils: Equal, round and reactive pupils present and Pupil accommodation reflex normal Direct Ophthalmoscopy: normal light reflex Neck Neck: No lymphadenopathy Thyroid: Thyroid normal Chest Chest palpation & inspection: normal inspection of the chest Resp Effort & Inspection: normal respiratory effort and no audible wheezes Auscultation: clear to auscultation bilaterally, no crackles, no wheezes and lung sounds not diminished Cardio Rate: regular rate Rhythm: regular rhythm Peripheral pulses: radial pulses present and dorsalis pedis present GI Palpation (GI): no masses Auscultation: normal bowel sounds and normoactive bowel sounds Rectal Exam - Female: deferred Skin General skin exam: no rashes or lesions noted Rashes: no rashes Neuro General: No confusion Cranial nerves: Yes Equal, round and reactive pupils present and Yes Normal hearing present Cognition (Neuro): normal cognition Gait exam (Neuro): Normal gait present Motor exam (neuro): 5/5 motor strength present throughout Deep tendon reflexes (DTR's): Right brachioradialis reflex intensity grade: 2+, Left brachioradialis reflex intensity grade: 2+, Right patellar reflex intensity grade: 2+ and Left patellar reflex intensity grade: 2+ Extrem General: No edema Results AMB Hemoglobin A1c AMB Hemoglobin A1c 5.5 % Last Edit by Siobhan Valdivia CMA on 03/26/24 11:48 Immunizations tetanus-diphtheria toxoids-Td 2 Lf unit-2 Lf unit/0.5 mL IM suspension Performing Provider: Jacinda Duff MD [facility] Administered by: Siobhan Valdivia CMA on 03/26/24 12:03 Dose Route Admin Location Dispensed Lot Number Expiration Date [employer] 0.5 mL IM Left Deltoid 0.5 mL [id number] 06/10/24 [address]-6 [employer] VIS Given Date VIS Provided VIS Publication Date 03/26/24 Single Vaccine 20 Eligibility Eligibility Date Funding Source Not [facility] Eligible 03/26/24 State funds Results Reviewed Results Reviewed: Laboratory Last Values Hgb A1c (Clinic) 5.5 % (4.0-6.0) 03/26/24 11:48 Coding Level of Care Code Est Pt Prev Care >65y(89803) Diagnoses Annual physical exam Z00.00 Type 2 diabetes mellitus with hyperglycemia, without long-term current use of insulin E11.65 Diabetes mellitus terminal operator insulin use: without alf use Hypercholesterolemia E78.00 Gastroesophageal reflux disease without esophagitis K21.9 Esophagitis presence: without esophagitis Essential hypertension I10 Hypertension type: essential hypertension Age-related osteoporosis without current pathological fracture M81.0 Osteoporosis type: age-related Presence of current pathological fracture: without current pathological fracture Generalized anxiety disorder F41.1 Slow transit constipation K59.01 Constipation type: slow transit constipation Assessment & Plan Assessment & Plan (1) Annual physical exam: Code(s): Z00.00 - Encounter for general adult medical examination without abnormal findings Category: Medical Plan: Patient is advised to eat healthy, keep well hydrated, keep active and have adequate sleep. (2) Type 2 diabetes mellitus with hyperglycemia: Comment: Dr. Dietrich Code(s): E11.65 - Type 2 diabetes mellitus with hyperglycemia Category: Medical Qualifiers: Diabetes mellitus terminal operator insulin use: without terminal operator use Qualified Code(s): E11.65 - Type 2 diabetes mellitus with hyperglycemia Plan: Decrease the amount of carbohydrate intake, pasta, bread, rice and potatoes are all sugar and that is aside from all the sweet stuff, remember that fruits are good but they are Sweet also. Hemoglobin A1c goal of less than 7.0 diet controlled (3) Hypercholesterolemia: Code(s): E78.00 - Pure hypercholesterolemia, unspecified Category: Medical Plan: Avoid fried foods, chicken skin, eggs, butter margarine, pastries and meat. Be it pork or beef they have a lot of cholesterol LDL goal of less than 100 and triglyceride of less than 150. Patient is diet controlled (4) GERD (gastroesophageal reflux disease): Comment: Hiatal hernia Dr. Correa history of H pylori Code(s): K21.9 - Gastro-esophageal reflux disease without esophagitis Category: Medical Qualifiers: Esophagitis presence: without esophagitis Qualified Code(s): K21.9 - Gastro-esophageal reflux disease without esophagitis Plan: Avoid the foods that causes that usually spicy foods, tomato products, juices, coffee, soda and foods that your sensitive to. After eating do not lie down, allow 3-4 hours before in lie down. And keep the head of bed above 30 degrees to avoid the acid from going up. (5) Hypertension: Code(s): I10 - Essential (primary) hypertension Category: Medical Qualifiers: Hypertension type: essential hypertension Qualified Code(s): I10 - Essential (primary) hypertension Plan: Continue with blood pressure medication. Decrease salt intake and exercise on losartan 100 mg once a day metoprolol 12.5 mg once a day (6) Osteoporosis: Comment: Salvatore- [id number] 5 year course. Prolia- ordered October 2016-patient did not start due to her concern for side effects. Prolia started June 2019 to present. Bone density January 2023 osteopenia Code(s): M81.0 - Age-related osteoporosis without current pathological fracture Category: Medical Qualifiers: Osteoporosis type: age-related Presence of current pathological fracture: without current pathological fracture Qualified Code(s): M81.0 - Age-related osteoporosis without current pathological fracture Plan: Patient on Prolia shot follows up with Rheumatology. Up-to-date with bone density. (7) Generalized anxiety disorder: Code(s): F41.1 - Generalized anxiety disorder Category: Medical Plan: Continue with present medication of lorazepam and Librax. (8) Constipation: Code(s): K59.00 - Constipation, unspecified Category: Medical Qualifiers: Constipation type: slow transit constipation Qualified Code(s): K59.01 - Slow transit constipation Plan: Three rules for constipation 1. Diet need to have a high fiber diet less of meat 2. Increase oral fluids 3. Exercise Orders: Orders Comprehensive Met. Panel 6 Months E11.65 - Type 2 diabetes mellitus with hyperglycemia Hemoglobin A1c 6 Months E11.65 - Type 2 diabetes mellitus with hyperglycemia Free T4 (Free Thyroxine) 6 Months E11.65 - Type 2 diabetes mellitus with hyperglycemia Thyroid Stimulating Hormone 6 Months E11.65 - Type 2 diabetes mellitus with hyperglycemia Complete Blood Count Auto Diff 6 Months E11.65 - Type 2 diabetes mellitus with hyperglycemia Creatinine Urine 6 Months E11.65 - Type 2 diabetes mellitus with hyperglycemia Microalbumin, Random (w Creat) 6 Months E11.65 - Type 2 diabetes mellitus with hyperglycemia Vitamin B12 and Folate 6 Months E11.65 - Type 2 diabetes mellitus with hyperglycemia Vitamin D 25-OH Total 6 Months E11.65 - Type 2 diabetes mellitus with hyperglycemia Td State Immunization Today Z23 - Encounter for immunization Medications: Refilled lorazepam 1 mg PO DAILY PRN 90 tabs 1RF anxiety 90 days F41.9 - Anxiety disorder, unspecified
[2024-03-26 11:39] VITALS: BP 130/70
== END 2024-03-26 12:09 | disposition home or self-care (01) ==
PROVIDERS: PCP Internal Medicine; Visit Provider Internal Medicine
DX: Z00.00 Encounter for general adult medical examination without abnormal findings (principal); E11.65 Type 2 diabetes mellitus with hyperglycemia; E78.00 Pure hypercholesterolemia, unspecified; K21.9 Gastro-esophageal reflux disease without esophagitis; I10 Essential (primary) hypertension; M81.0 Age-related osteoporosis without current pathological fracture; F41.1 Generalized anxiety disorder; K59.01 Slow transit constipation; R73.02 Impaired glucose tolerance (oral); Z23 Encounter for immunization

== ENCOUNTER → 2024-03-26 11:16 | Outpatient (BNVA) | payer OTHER, SELFPAY | PROVIDERS: PCP Internal Medicine; Visit Provider Internal Medicine | DX: Z00.00 Encounter for general adult medical examination without abnormal findings (principal); Z23 Encounter for immunization; E11.65 Type 2 diabetes mellitus with hyperglycemia; E78.00 Pure hypercholesterolemia, unspecified; K21.9 Gastro-esophageal reflux disease without esophagitis; I10 Essential (primary) hypertension; M81.0 Age-related osteoporosis without current pathological fracture; F41.1 Generalized anxiety disorder; K59.01 Slow transit constipation; Z79.899 Other long term (current) drug therapy | CPT/HCPCS: 83036; 90471; 90714; 96127 ==

== ENCOUNTER 2024-03-31 08:26 | Emergency (ER) | payer OTHER, SELFPAY ==
--- NOTE | ~2024-03-31 | CT_ITS ---
EXAMINATION: CT HEAD WITHOUT CONTRAST CT CERVICAL SPINE WITHOUT CONTRAST CT FACIAL BONES WITHOUT CONTRAST CLINICAL INFORMATION: Status post fall with head strike. Facial trauma. COMPARISON: CT head 11/23/2018, CT facial bones 07/13/2014 TECHNIQUE: Contiguous axial images are obtained from the skull base to the vertex without intravenous contrast administration. Multidetector volumetric CT imaging of the cervical spine and facial bones is acquired without intravenous contrast administration. Postprocessing is performed at a dedicated workstation. Multiplanar reformatted images are submitted. This CT scan was performed using dose optimization techniques as appropriate to a performed exam including the following: *Automated exposure control *Adjustment of mA and/or kV according to patient size (this includes techniques or standardized protocols for targeted exams were dose is matched to indication/reason for exam; i.e. extremities or head) *Use of iterative reconstruction technique. DLP: 1056 mGy-cm (CT head, CT cervical spine and CT facial bones). FINDINGS: CT HEAD AND FACIAL BONES: There is no evidence of acute intracranial hemorrhage, midline shift or mass effect. Scales to white matter differentiation is well preserved. Moderate size area of low-attenuation is noted in the cortical and subcortical white matter in the right occipital lobe, has appearance of chronic encephalomalacia, likely related to prior vascular insult. The finding is new compared to previous CT scan of 2019. No interval previous head CT scan are available for direct comparison. Recommend clinical correlation and correlation with history of prior infarct. There is moderate cerebral volume loss with proportionate dilatation of the ventricles and cortical sulci. Bilateral periventricular white matter patchy low attenuation changes are noted, likely of chronic microangiopathy. A few small punctate calcifications are again noted in the brainstem. No abnormal extra-axial fluid collection is noted. The patient is status post bilateral lens extraction. The osseous calvarium is intact. Hyperostosis frontalis is noted. Orbital rims, zygomatic arches, nasal bones, nasal septum, maxilla and mandible are intact without evidence of acute fracture. Temporomandibular joint alignments are maintained. Bilateral mastoid air cells and middle ear cavities are well-aerated. Sphenoid sinuses are clear. Mild mucosal thickening is noted in the frontal sinuses. Moderate mucosal thickening is noted in the ethmoid air cells. Mild to moderate mucosal thickening in the right-sided Santos sinus and mild mucosal thickening in the left maxillary sinus. Streaking artifacts from dental amalgam limits evaluation of the surrounding structures. The globes are intact. Patient is status post bilateral lens extraction. Retrobulbar fat is clear. Supraorbital soft tissue swelling/hematoma is noted on the left with mild soft tissue swelling/hematoma over the left nasal region. CT CERVICAL SPINE: The vertebral body heights are maintained. Atlantoaxial and atlantooccipital alignments are maintained. Posterior elements are intact and in normal alignment. There is minimal anterior subluxation at C6-C7 and C7-T1 otherwise vertebral body alignment are maintained. Degenerative changes are noted at the atlantoaxial articulation. Multilevel small anterior endplate osteophytes are noted. There is no evidence of tight central canal or neural foraminal stenosis. No evidence of prevertebral soft tissue swelling. Airway is patent. The visualized lung apices are unremarkable. Asymmetrical enlargement of the right thyroid lobe is noted with a hypodense nodule measuring 1.7 cm anteriorly in the right mid thyroid anteriorly. Additional smaller hypodense right thyroid nodules are suspected as well. CT/CT cervical spine wo IV con IMPRESSION: 1. No evidence of acute intracranial abnormality. Specifically, there is no evidence of acute intracranial hemorrhage or acute fracture of the osseous calvarium. 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 2. No evidence of acute facial bone fracture. Left supraorbital frontal and left nasal soft tissue swelling/hematoma. 3. No evidence of acute fracture or traumatic subluxation in the cervical spine. 4. Asymmetrical enlargement of the right thyroid lobe with a 1.7 cm hypodense nodule in the right mid thyroid anteriorly. Ultrasound correlation may be considered. Electronically signed by: Soin Pastor MD 03/31/2024 10:01 AM PRABHU AREVALO
[2024-03-31 08:33] VITALS: BP 170/96; BP 187/90; PULSE 55; PULSE 60; RESP 16; TEMP 37.1; O2SAT 96; O2SAT 97; BMI 27.5
--- NOTE | 2024-03-31 08:41 | ED.FALL ---
HPI - Fall General Chief Complaint: Fall Stated Complaint: Breana SERRA LAC,TRIP ON STEPS PER EMS Time Seen by Provider: 03/31/24 08:28 Source: patient and EMS Mode of arrival: EMS Limitations: no limitations History of Present Illness ED Provider: Kal Nixon PA-C HPI Narrative: 83 yo female with history of HTN, HLD, anxiety, DM2, osteoporosis, GERD who presents to the ER via EMS for evaluation of trip and fall this morning. She was on her way into a restaurant when she tripped on the stair, fell and hit her face on the cement. No LOC. She is not on anticoagulation. She sustained a laceration over her left eyebrow. Bleeding controlled prior to arrival. No other injuries. She denies chest pain, lightheadedness, dizziness prior to the fall. she denies current headache, neck pain or facial pain. no other injuries. MD complaint: fall Onset (ago): minute(s) Fall from: standing Fall witnessed: yes, by family Place fall occurred: street Loss of consciousness: none Prolonged down time: no Symptoms prior to fall: none Context: tripped/slipped Location of injury: face Associated symptoms (after fall): denies Related Data Home Medications ?Medication ?Instructions ?Recorded ?Confirmed denosumab 60 mg/mL subcutaneous 60 mg subcut [id number] 03/03/20 03/26/24 syringe (Prolia) sennosides 8.6 mg tablet (senna) 8.6 mg PO BEDTIME 12/21/23 03/26/24 vitamin B complex (B 1 tab PO .Q month 03/26/24 03/26/24 Complex-Vitamin B12 tablet) Previous Rx's ?Medication ?Instructions ?Recorded promethazine 12.5 mg tablet 12.5 mg PO TID PRN nausea and 01/04/22 vomiting #20 tabs chlordiazepoxide-clidinium 5 1 cap PO .QD PRN anxiety #90 caps 05/04/23 mg-2.5 mg capsule (Librax (with clidinium)) losartan 100 mg tablet 100 mg PO DAILY #90 tabs 06/26/23 metoprolol succinate 25 mg 12.5 mg (1/2 x 25 mg) PO DAILY #45 08/28/23 tablet,extended release 24 hr tabs omeprazole 20 mg capsule,delayed 20 mg PO DAILY #90 caps 09/11/23 release ergocalciferol (vitamin D2) 1,250 1,250 mcg PO .Qmonth #3 caps 02/26/24 mcg (50,000 unit) capsule lorazepam 1 mg tablet 1 mg PO DAILY PRN anxiety 90 days 03/26/24 #90 tabs Allergies Allergy/AdvReac Type Severity Reaction Status Date / Time lansoprazole [From PREVACID] Allergy Intermediate VOMITING Verified 03/31/24 08:37 morphine [MORPHINE] Allergy Intermediate AGITATION Verified 03/31/24 08:37 risedronate sodium Allergy Intermediate DYSPNEA Verified 03/31/24 08:37 [From ACTONEL] alendronate sodium Allergy Mild NAUSEA,SOB Verified 03/31/24 08:37 [From Fosamax] azithromycin [AZITHROMYCIN] Allergy Mild NAUSEA/HEAD Verified 03/31/24 08:37 ACHE Penicillins Allergy Mild RASH Verified 03/31/24 08:37 amlodipine Allergy Unknown Unknown Verified 03/31/24 08:37 Bifidobacterium infantis Allergy Unknown Unknown Verified 03/31/24 08:37 [Align] cetirizine [From ZYRTEC] Allergy Unknown UNKNOWN Verified 03/31/24 08:37 cyanocobalamin (vitamin B12) Allergy Unknown Unknown Verified 03/31/24 08:37 enalapril [ENALAPRIL] Allergy Unknown ABD PAIN, Verified 03/31/24 08:37 VERY NAUSEOUS, nausea fexofenadine [From MAC] Allergy Unknown UNKNOWN Verified 03/31/24 08:37 folic acid Allergy Unknown unk Verified 03/31/24 08:37 hydralazine Allergy Unknown nausea Verified 03/31/24 08:37 hydrochlorothiazide Allergy Unknown dry mouth Verified 03/31/24 08:37 latex [Latex] Allergy Unknown RASH Verified 03/31/24 08:37 loratadine [Claritin] Allergy Unknown Unknown Verified 03/31/24 08:37 metoclopramide [From REGLAN] Allergy Unknown JITTERY Verified 03/31/24 08:37 mometasone furoate Allergy Unknown UNKNOWN Verified 03/31/24 08:37 [From NASONEX] montelukast [Singulair] Allergy Unknown Unknown Verified 03/31/24 08:37 pantoprazole [From PROTONIX] Allergy Unknown UNKNOWN Verified 03/31/24 08:37 penicillin V Allergy Unknown Unknown Verified 03/31/24 08:37 polyethylene glycol 3350 Allergy Unknown Unknown Verified 03/31/24 08:37 [Miralax] pseudoephedrine Allergy Unknown HYPER Verified 03/31/24 08:37 [From SUDAFED] ranitidine [From ZANTAC] Allergy Unknown UNKNOWN Verified 03/31/24 08:37 thiamine (vitamin B1) Allergy Unknown Unknown Verified 03/31/24 08:37 ascorbic acid AdvReac Intermediate Constipatio Verified 03/31/24 08:37 [From PreserVision AREDS-2] n copper AdvReac Intermediate Constipatio Verified 03/31/24 08:37 [From PreserVision AREDS-2] n lutein AdvReac Intermediate Constipatio Verified 03/31/24 08:37 [From PreserVision AREDS-2] n vitamin E acetate (dl-alpha AdvReac Intermediate Constipatio Verified 03/31/24 08:37 tocopheryl) n [From PreserVision AREDS-2] zeaxanthin AdvReac Intermediate Constipatio Verified 03/31/24 08:37 [From PreserVision AREDS-2] n zinc oxide AdvReac Intermediate Constipatio Verified 03/31/24 08:37 [From PreserVision AREDS-2] n ergocalciferol (vitamin D2) AdvReac Mild CONSTIPATIO Verified 03/31/24 08:37 [From CALCIUM CITRATE WITH D] N Mac-D 12 Hour Allergy Unknown Unknown Uncoded 03/31/24 08:37 Calcium Citrate + D Allergy Unknown Unknown Uncoded 03/31/24 08:37 Folic + B12 Allergy Unknown Unknown Uncoded 03/31/24 08:37 latex Allergy Unknown unknown Uncoded 03/31/24 08:37 From CALCIUM CITRATE WITH D AdvReac Mild CONSTIPATIO Uncoded 03/31/24 08:37 N Review of Systems Review of Systems: Yes all other systems are reviewed and are negative PMFSH Past Medical History Medical History Impaired glucose tolerance Macular degeneration Vitamin D deficiency Tubular adenoma of colon Closed left arm fracture Carcinoid tumor Hypertension Osteoporosis Irritable bowel syndrome Obesity (BMI 30-39.9) Hypercholesterolemia GERD (gastroesophageal reflux disease) Degenerative disc disease, lumbar Peripheral vascular disease Surgical History History of surgical procedure on eye proper using laser H/O ventral hernia repair Status post left breast lumpectomy Family History Family History Father Diabetes Stroke Mother Pancreatic cancer Brother Dementia Social History Social History Housing: House Alcohol intake: former Patient Tobacco Use Status: Never used Tobacco Tobacco use type: Cigarette Smoked in Last 30 Days: No e-Cigarette/Vaping Use: Never Used Second Hand Smoke Exposure: No Use of substances other than those prescribed or required for medical reasons: No Advance Directives: No Advance Directives Information Provided: Yes Do you have a plan to hurt others: No Plan service: No Current occupational status: retired Cognitive needs: No Hearing needs: Yes Vision needs: Yes Physical Exam Vital Signs: Vital Signs: Last Vital Signs Temp 97.8 F 03/31/24 10:33 Pulse 63 03/31/24 10:33 Resp 16 03/31/24 10:33 BP 197/89 H 03/31/24 10:33 Pulse Ox 97 03/31/24 10:33 O2 Del Method Room Air 03/31/24 10:33 BMI result Body Mass Index 27.5 Appearance: Alert. Oriented X3. No acute distress. Head/face: 4cm linear laceration above the left eyebrow with associated swelling, ecchymosis. mild tenderness of the superior orbit Eyes: Pupils equal, round and reactive to light. EOMI, no nystagmus ENT: superficial abrasion to the bridge of the nose. no septal hemataoma.Pharynx normal. No tonsillar swelling or exudate. Neck: Normal inspection. Neck supple. CVS: Normal heart rate and rhythm. Pulses normal. Respiratory: No respiratory distress. Breath sounds normal. Abdomen: Soft and nontender. +BS x4 Skin: Skin warm and dry. Normal skin color. Normal skin turgor. No rashes. Extremities: No lower extremity edema. No joint swelling. Neuro/psych: Oriented X 3. No motor deficit. No sensory deficit. CN II-XII intact. Normal speech and cognition. Medications Administered Discontinued Medications Generic Name Dose Route Start Last Admin Trade Name Freq PRN Reason Stop Dose Admin Lidocaine HCl 5 ml 03/31/24 08:47 03/31/24 09:43 Lidocaine Hcl 1 % Mpf 5 Ml Vial INFILTRATI 03/31/24 08:48 5 ml ONCE ONE Administration Procedures Laceration Laceration 1: Site: face Side (If applicable): left Size (cm): 4 Description: linear Depth: simple, single layer Local Anesthetic: lidocaine 1% Amount of anesthesia used (mL): 3 Pre-repair: wound explored, irrigated extensively and deep structures intact Skin layer closed with: other (prolene) Size (cm): 6-0 Number of sutures: 5 Technique: simple, interrupted Medical Decision Making Medical Decision Making MDM Narrative: 83-year-old female presents to the ER for evaluation of a trip and fall with face strike on cement prior to arrival. No loss of consciousness. She is on anticoagulation. She refused to C-collar. She has no pain. She has a 4 cm laceration above her left eyebrow the or require suture repair. CT scans of her head, facial bones and cervical spine were performed that did show any acute injuries, no head bleed, no facial bone fractures. Five sutures were placed in the laceration with adequate wound approximation. Wound care was discussed with the patient. We discussed head injury precautions. Stable for discharge home with her . Differential Diagnosis Differential Diagnoses: The differential diagnosis associated with the presentation includes Superficial laceration, deep laceration, orbital fracture, subarachnoid hemorrhage/intracranial hemorrhage, skull fracture Admission/Observation Consideration of admission/observation: Escalation of care including admission/observation considered Elderly female with facial trauma, considered observation/admission however workup was unremarkable Independent Interpretation I performed an independent interpretation of an: CT Scan Interpretation: No obvious intracranial bleed Radiology Impression Discussion of test interpretation with radiology: I have reviewed the radiologist's reading. External Record Review External record reviewed: Prior outpatient labs and Prior outpatient radiology Prescription Management I considered prescription management with: Pain Medication Chronic Conditions Patient?s care impacted by: Diabetes Discharge Plan Discharge Clinical Impression: Facial laceration Qualifiers: Encounter type: initial encounter Qualified Code(s): S01.81XA - Laceration without foreign body of other part of head, initial encounter Patient Disposition: Home, Self-Care Instructions: Laceration (DC) Additional Instructions: Your CT scans today did not show any acute injuries. 5 stitches were used to close your wound today You will need your stitches out in 5-7 days. See you doctor for this or come back to the ER and we will remove them. Do not get wet for 24 hours, after that you can briefly wash with soap and water then pat dry. Keep wound clean and dry. If you develop signs of infection including increased pain, swelling, redness or drainage of pus come back to the ER for further evaluation. Prescriptions: No Action promethazine 12.5 mg tablet 12.5 mg PO TID PRN (Reason: nausea and vomiting) Qty: 20 0RF losartan 100 mg tablet 100 mg PO DAILY Qty: 90 2RF metoprolol succinate 25 mg tablet extended release 24 hr 12.5 mg PO DAILY Qty: 45 3RF omeprazole 20 mg capsule,delayed release(DR/EC) 20 mg PO DAILY Qty: 90 3RF ergocalciferol (vitamin D2) 1,250 mcg (50,000 unit) capsule 1,250 mcg PO .Qmonth Qty: 3 3RF Prolia 60 mg/mL syringe 60 mg subcut [id number] chlordiazepoxide-clidinium [Librax (with clidinium)] 5-2.5 mg capsule 1 cap PO .QD PRN (Reason: anxiety) Qty: 90 1RF sennosides [senna] 8.6 mg tablet 8.6 mg PO BEDTIME vitamin B complex [B Complex-Vitamin B12] Tablet 1 tab PO .Q month lorazepam 1 mg tablet 1 mg PO DAILY PRN (Reason: anxiety) 90 Days Qty: 90 1RF Referrals: Po,Jacinda Rooney MD [Primary Care Provider] - Interventions: ED Discharge Assessment Last Done: 03/31/24 10:33 Discharge Date/Time: 03/31/24 10:34 Print Language: Kinyarwanda
[2024-03-31] MEDS: Lidocaine HCl 1 % MPF 5 ML VIAL INFILTRATI (09:43)
[2024-03-31 10:33] VITALS: BP 197/89; PULSE 63; RESP 16; TEMP 36.6; O2SAT 97
== END 2024-03-31 10:34 | disposition home or self-care (01) ==
PROVIDERS: Emergency Provider Emergency Medicine; PCP Internal Medicine
DX: S01.91XA Laceration without foreign body of unspecified part of head, initial encounter (principal); R51.9 Headache, unspecified; I10 Essential (primary) hypertension; E11.9 Type 2 diabetes mellitus without complications; W10.9XXA Fall (on) (from) unspecified stairs and steps, initial encounter; Y93.89 Activity, other specified; Y92.511 Restaurant or cafe as the place of occurrence of the external cause; Y99.8 Other external cause status; Z79.899 Other long term (current) drug therapy
CPT/HCPCS: 12052; 70450; 70486; 72125; 99283; 99284; J2003

== ENCOUNTER 2024-04-09 09:44 | Outpatient (AMB) | payer OTHER, SELFPAY ==
--- NOTE | 2024-04-09 09:45 | MHC.PC.OV ---
Vital Signs 04/09/24 09:47 Height 5 ft Weight 142 lb 6 oz BMI 27.8 BP 134/70 Blood Pressure Location Lt brachial Position Sitting Pulse 55 Pulse Source Pulse Oximeter Pulse Oximetry (%) 98 Oxygen Delivery Method Room Air Intake Visit Reasons: [facility] [place] [facility] 03/31 fall/ stich removal with Aarti Intake Note: Patient is here to follow-up after a visit the emergency department at [facility] [place] on 03/31/24 Senior Staff Accountant Required: No Branch Office Administrator: Not Required per policy Accompanied by: Self / Same As Patient Allergies lansoprazole [From PREVACID] Allergy (Intermediate, Verified 04/09/24 09:47) VOMITING morphine [MORPHINE] Allergy (Intermediate, Verified 04/09/24 09:47) AGITATION risedronate sodium [From ACTONEL] Allergy (Intermediate, Verified 04/09/24 09:47) DYSPNEA alendronate sodium [From Fosamax] Allergy (Mild, Verified 04/09/24 09:47) NAUSEA,SOB azithromycin [AZITHROMYCIN] Allergy (Mild, Verified 04/09/24 09:47) NAUSEA/HEADACHE Penicillins Allergy (Mild, Verified 04/09/24 09:47) RASH amlodipine Allergy (Unknown, Verified 04/09/24 09:47) Unknown Bifidobacterium infantis [Align] Allergy (Unknown, Verified 04/09/24 09:47) Unknown cetirizine [From ZYRTEC] Allergy (Unknown, Verified 04/09/24 09:47) UNKNOWN cyanocobalamin (vitamin B12) Allergy (Unknown, Verified 04/09/24 09:47) Unknown enalapril [ENALAPRIL] Allergy (Unknown, Verified 04/09/24 09:47) ABD PAIN, VERY NAUSEOUS, nausea fexofenadine [From MAC] Allergy (Unknown, Verified 04/09/24 09:47) UNKNOWN folic acid Allergy (Unknown, Verified 04/09/24 09:47) unk hydralazine Allergy (Unknown, Verified 04/09/24:47) nausea hydrochlorothiazide Allergy (Unknown, Verified 04/09/24 09:47) dry mouth latex [Latex] Allergy (Unknown, Verified 04/09/24 09:47) RASH loratadine [Claritin] Allergy (Unknown, Verified 04/09/24 09:47) Unknown metoclopramide [From REGLAN] Allergy (Unknown, Verified 04/09/24 09:47) JITTERY mometasone furoate [From NASONEX] Allergy (Unknown, Verified 04/09/24 09:47) UNKNOWN montelukast [Singulair] Allergy (Unknown, Verified 04/09/24 09:47) Unknown pantoprazole [From PROTONIX] Allergy (Unknown, Verified 04/09/24 09:47) UNKNOWN penicillin V Allergy (Unknown, Verified 04/09/24 09:47) Unknown polyethylene glycol 3350 [Miralax] Allergy (Unknown, Verified 04/09/24 09:47) Unknown pseudoephedrine [From SUDAFED] Allergy (Unknown, Verified 04/09/24 09:47) HYPER ranitidine [From ZANTAC] Allergy (Unknown, Verified 04/09/24:47) UNKNOWN thiamine (vitamin B1) Allergy (Unknown, Verified 04/09/24 09:47) Unknown ascorbic acid [From PreserVision AREDS-2] Adverse Reaction (Intermediate, Verified 04/09/24 09:47) Constipation copper [From PreserVision AREDS-2] Adverse Reaction (Intermediate, Verified 04/09/24 09:47) Constipation lutein [From PreserVision AREDS-2] Adverse Reaction (Intermediate, Verified 04/09/24 09:47) Constipation vitamin E acetate (dl-alpha tocopheryl) [From PreserVision AREDS-2] Adverse Reaction (Intermediate, Verified 04/09/24 09:47) Constipation zeaxanthin [From PreserVision AREDS-2] Adverse Reaction (Intermediate, Verified 04/09/24 09:47) Constipation zinc oxide [From PreserVision AREDS-2] Adverse Reaction (Intermediate, Verified 04/09/24 09:47) Constipation ergocalciferol (vitamin D2) [From CALCIUM CITRATE WITH D] Adverse Reaction (Mild, Verified 04/09/24 09:47) CONSTIPATION Mac-D 12 Hour Allergy (Unknown, Uncoded 04/09/24 09:47) Unknown Calcium Citrate + D Allergy (Unknown, Uncoded 04/09/24 09:47) Unknown Folic + B12 Allergy (Unknown, Uncoded 04/09/24 09:47) Unknown latex Allergy (Unknown, Uncoded 04/09/24 09:47) unknown From CALCIUM CITRATE WITH D Adverse Reaction (Mild, Uncoded 04/09/24 09:47) CONSTIPATION Tobacco use date assessed: 04/09/24 Fall risk assessment: 1 Fall in past year (03/31/24) Last assessed Fall Risk: 04/09/24 Dental Screening Dental Screen Date: 08/08/23 [facility] 03/31 fall/ stich removal with Aarti WALLIS Details 83-year-old female with past medical history uncontrolled diabetes mellitus, hypercholesterolemia, hypertension, GERD, generalized anxiety disorder last seen by Dr. Duff March 2024 coming in for hospital discharge follow up.?In review of the notes, patient was seen in [facility] [place] ED 03/31/2024 after a fall without loss of consciousness.?Patient was found to have 4 cm laceration above her left eyebrow which was repaired with [address] scans of the head, facial bones and cervical spine were normal and patient was discharged home. Patient states she has been doing well since the fall. She denies any headaches, fevers, drainage or redness around the laceration. She does have pain about 4 days after the fall but the pain has subsided. She has no acute concerns today. [facility] Medical History Impaired glucose tolerance Macular degeneration Vitamin D deficiency Tubular adenoma of colon Closed left arm fracture Carcinoid tumor Hypertension Osteoporosis Irritable bowel syndrome Obesity (BMI 30-39.9) Hypercholesterolemia GERD (gastroesophageal reflux disease) Degenerative disc disease, lumbar Peripheral vascular disease Surgical History History of surgical procedure on eye proper using laser H/O ventral hernia repair Status post left breast lumpectomy Family History Father Diabetes Stroke Mother Pancreatic cancer Brother Dementia Social History Housing: House Alcohol intake: former Patient Tobacco Use Status: Never used Tobacco Tobacco use type: Cigarette e-Cigarette/Vaping Use: Never Used Second Hand Smoke Exposure: No service: No Current occupational status: retired Cognitive needs: No Hearing needs: Yes Vision needs: Yes Questionnaire Thrive Questionnaire Date Thrive assessed: 03/26/24 I am a: Patient What is your living situation today?: I have a steady place to live Within the past 12 months, did the food you bought not last and you didn't have the money to get more?: Never true Within the past 12 months, did you worry whether your food would run out before you got money to buy more?: Never true Do you have trouble paying for medicines?: No Do you have trouble getting transportation to medical appointments?: No Do you have trouble paying your heating and electricity bill?: No Do you have trouble taking care of your child, family member or friend?: No Do you have trouble with day-to-day activities such as bathing, preparing meals, shopping, managing finances, etc.?: No Are you currently unemployed and looking for a job?: No Are you interested in more education?: No Please select the resources that you would like help with: None Currently or been in a relationship where the following occur: I choose not to answer THRIVE Score: 0 KATHIE-7 AMB Questionnaire KATHIE-7 Date KATHIE - 7 assessed: 08/08/23 Source: Developed by Drs. Tyler Parsons, Grace Greene, David Altman and colleagues, with an educational ina from [employer]. Review of Systems Const Denies body aches, Denies chills, Denies fever(s), Denies headache(s) and Denies poor appetite Eyes Reports no additional complaints ENT Denies dizziness and Denies headache(s) Card Denies chest pain, Denies lightheadedness and Denies dyspnea Resp Denies cough and Denies dyspnea GI Reports no additional complaints Reports no additional complaints Musc Reports no additional complaints and Denies abnormal gait Skin/Breast Reports system reviewed and no additional complaints, except as documented Neuro Denies abnormal gait, Denies dizziness and Denies headache(s) Psych Reports no additional complaints Physical exam (Primary Care) Tobacco/Smoking Status: Tobacco use Status Tobacco use date assessed 08/08/23 03/26/24 11:28 Patient Tobacco Use Status Never used Tobacco 03/31/24 08:37 Tobacco use type Cigarette 03/26/24 11:28 e-Cigarette/Vaping Use Never Used 03/26/24 11:28 Thrive Assessment: Date of Thrive Assessment Date Thrive assessed 03/26/24 04/09/24 09:44 Currently or been in a relationship where the following occur: I choose not to answer Const General: cooperative, healthy appearing, comfortable and no acute distress Orientation/consciousness: patient oriented x3 HENMT Other: Laceration above the left eyebrow with 5 sutures intact without erythema, drainage or warmth Head: Yes normocephalic Ears: hearing grossly normal bilaterally General nose exam: Normal external nose present Eyes General: appearance normal, both eyes and all related structures Conjunctivae: conjunctivae normal Neck Neck: Yes full ROM and Yes no lymphadenopathy Resp Effort & Inspection: normal respiratory effort Auscultation: clear to auscultation bilaterally, no crackles, no rales, no rhonchi and no wheezes Cardio Rate: regular rate Rhythm: regular rhythm Skin General skin exam: no rashes or lesions noted Neuro General: patient oriented x3 Gait exam (Neuro): Normal gait present Extrem General: Yes normal to inspection, Yes full ROM and No edema Psych Affect: normal affect Attitude: cooperative Insight: Good insight present (Psych) Judgement: Good judgement present (Psych) Coding Level of Care Code Est Pt Level 3 (00099) Diagnoses Facial laceration S01.81XA Encounter type: initial encounter Assessment & Plan Assessment & Plan (1) Facial laceration: Code(s): S01.81XA - Laceration without foreign body of other part of head, initial encounter Category: Medical Qualifiers: Encounter type: initial encounter Qualified Code(s): S01.81XA - Laceration without foreign body of other part of head, initial encounter Plan: Face laceration is well healed at this time edges are well approximated and no evidence of dehiscence. All 5 sutures were removed without complication and patient tolerated the procedure well. She denies any pain at this time. Advised to keep the area clean and if she begins to have itching may use Vaseline sparingly. Reviewed red flag symptoms of infection and when to present for re-evaluation. Plan This note was constructed using voice recognition software. While every effort has been made to ensure accuracy and presser and shaper knitted goods, still areas may have been included sometimes these areas may affect the content or meeting of the given symptoms. Total time spent caring for the patient today was 25 minutes. This includes time spent before the visit reviewing the chart, time spent during the visit, and time spent after the visit and documentation.
[2024-04-09 09:47] VITALS: BP 134/70; PULSE 55; O2SAT 98; BMI 27.8
== END 2024-04-09 10:33 | disposition home or self-care (01) ==
PROVIDERS: PCP Internal Medicine
DX: S01.81XA Laceration without foreign body of other part of head, initial encounter (principal)

== ENCOUNTER 2024-05-09 08:03 | Outpatient (AMB) | payer OTHER, SELFPAY ==
--- NOTE | 2024-05-09 08:14 | MHC.PC.OV ---
Vital Signs 05/09/24 08:15 Height 5 ft Weight 144 lb BMI 28.1 BP 136/72 Blood Pressure Location Lt brachial Position Sitting Pulse 76 Pulse Source Pulse Oximeter Pulse Oximetry (%) 97 Oxygen Delivery Method Room Air Intake Visit Reasons: Tremers Allergies lansoprazole [From PREVACID] Allergy (Intermediate, Verified 05/09/24 08:15) VOMITING morphine [MORPHINE] Allergy (Intermediate, Verified 05/09/24 08:15) AGITATION risedronate sodium [From ACTONEL] Allergy (Intermediate, Verified 05/09/24 08:15) DYSPNEA alendronate sodium [From Fosamax] Allergy (Mild, Verified 05/09/24 08:15) NAUSEA,SOB azithromycin [AZITHROMYCIN] Allergy (Mild, Verified 05/09/24 08:15) NAUSEA/HEADACHE Penicillins Allergy (Mild, Verified 05/09/24 08:15) RASH amlodipine Allergy (Unknown, Verified 05/09/24 08:15) Unknown Bifidobacterium infantis [Align] Allergy (Unknown, Verified 05/09/24 08:15) Unknown cetirizine [From ZYRTEC] Allergy (Unknown, Verified 05/09/24 08:15) UNKNOWN cyanocobalamin (vitamin B12) Allergy (Unknown, Verified 05/09/24 08:15) Unknown enalapril [ENALAPRIL] Allergy (Unknown, Verified 05/09/24 08:15) ABD PAIN, VERY NAUSEOUS, nausea fexofenadine [From MAC] Allergy (Unknown, Verified 05/09/24 08:15) UNKNOWN folic acid Allergy (Unknown, Verified 05/09/24 08:15) unk hydralazine Allergy (Unknown, Verified 05/09/24 08:15) nausea hydrochlorothiazide Allergy (Unknown, Verified 05/09/24 08:15) dry mouth latex [Latex] Allergy (Unknown, Verified 05/09/24 08:15) RASH loratadine [Claritin] Allergy (Unknown, Verified 05/09/24 08:15) Unknown metoclopramide [From REGLAN] Allergy (Unknown, Verified 05/09/24 08:15) JITTERY mometasone furoate [From NASONEX] Allergy (Unknown, Verified 05/09/24 08:15) UNKNOWN montelukast [Singulair] Allergy (Unknown, Verified 05/09/24 08:15) Unknown pantoprazole [From PROTONIX] Allergy (Unknown, Verified 05/09/24 08:15) UNKNOWN penicillin V Allergy (Unknown, Verified 05/09/24 08:15) Unknown polyethylene glycol 3350 [Miralax] Allergy (Unknown, Verified 05/09/24 08:15) Unknown pseudoephedrine [From SUDAFED] Allergy (Unknown, Verified 05/09/24 08:15) HYPER ranitidine [From ZANTAC] Allergy (Unknown, Verified 05/09/24 08:15) UNKNOWN thiamine (vitamin B1) Allergy (Unknown, Verified 05/09/24 08:15) Unknown ascorbic acid [From PreserVision AREDS-2] Adverse Reaction (Intermediate, Verified 05/09/24 08:15) Constipation copper [From PreserVision AREDS-2] Adverse Reaction (Intermediate, Verified 05/09/24 08:15) Constipation lutein [From PreserVision AREDS-2] Adverse Reaction (Intermediate, Verified 05/09/24 08:15) Constipation vitamin E acetate (dl-alpha tocopheryl) [From PreserVision AREDS-2] Adverse Reaction (Intermediate, Verified 05/09/24 08:15) Constipation zeaxanthin [From PreserVision AREDS-2] Adverse Reaction (Intermediate, Verified 05/09/24 08:15) Constipation zinc oxide [From PreserVision AREDS-2] Adverse Reaction (Intermediate, Verified 05/09/24 08:15) Constipation ergocalciferol (vitamin D2) [From CALCIUM CITRATE WITH D] Adverse Reaction (Mild, Verified 05/09/24 08:15) CONSTIPATION Mac-D 12 Hour Allergy (Unknown, Uncoded 05/09/24 08:15) Unknown Calcium Citrate + D Allergy (Unknown, Uncoded 05/09/24 08:15) Unknown Folic + B12 Allergy (Unknown, Uncoded 05/09/24 08:15) Unknown latex Allergy (Unknown, Uncoded 05/09/24 08:15) unknown From CALCIUM CITRATE WITH D Adverse Reaction (Mild, Uncoded 05/09/24 08:15) CONSTIPATION Tobacco use date assessed: 05/09/24 Fall risk assessment: 1 Fall in past year Last assessed Fall Risk: 05/09/24 Dental Screening Dental Screen Date: 05/09/24 Did you have a dental visit in the last 12 months?: Yes Did you have a dental problem in the last 6 months where you did not have access to dental care?: No Was dental information given to patient?: Patient has dentist KADI Lind HPI Details The patient is an 84-year-old female presenting with new-onset tremors and concern about a thyroid nodule. The tremors began towards the end of March, primarily involving the face, including the chin, lips, and jaw. She also experiences tremors in the hands while eating. The patient recalls a fall incident in March at a restaurant where she sustained a laceration on the forehead and received five sutures. She notes shaking that started around that time, which her [id number] observed during lunch. There is a family history of Parkinson?s disease in her grandmother, but the tremors have been identified as essential tremors. She reports a CT scan and bone density test were conducted recently. There is no personal history of prior falls. She questions whether her current Prolia injection for osteoporosis could contribute to symptoms, but this was clarified as unlikely. Her glucose levels have been stable with an A1c of 5.5 in March. She also reports anxiety, which she attributes to her medication schedule and recent family issues. A thyroid nodule was noted on recent imaging, prompting consideration for an ultrasound examination for further evaluation. She has experienced gastrointestinal upset recently, possibly related to diet choices, but not associated with blood in stools. [facility] Medical History Impaired glucose tolerance Macular degeneration Vitamin D deficiency Tubular adenoma of colon Closed left arm fracture Carcinoid tumor Hypertension Osteoporosis Irritable bowel syndrome Obesity (BMI 30-39.9) Hypercholesterolemia GERD (gastroesophageal reflux disease) Degenerative disc disease, lumbar Peripheral vascular disease Surgical History History of surgical procedure on eye proper using laser H/O ventral hernia repair Status post left breast lumpectomy Family History Father Diabetes Stroke Mother Pancreatic cancer Brother Dementia Social History Housing: House Alcohol intake: former Patient Tobacco Use Status: Never used Tobacco Tobacco use type: Cigarette e-Cigarette/Vaping Use: Never Used Second Hand Smoke Exposure: No service: No Current occupational status: retired Cognitive needs: No Hearing needs: Yes Vision needs: Yes Questionnaire PHQ-9 Over the last 2 weeks, how often have you been bothered by any of the following problems? 1. Little interest or pleasure in doing things: not at all 2. Feeling down, depressed, or hopeless: not at all 3. Trouble falling or staying asleep, or sleeping too much: not at all 4. Feeling tired or having little energy: not at all 5. Poor appetite or overeating: not at all 6. Feeling bad about yourself - or that you are a failure or have let yourself or your family down: not at all 7. Trouble concentrating on things, such as reading the newspaper or watching television: not at all 8. Moving or speaking so slowly that other people could have noticed. Or the opposite - being so fidgety or restless that you have been moving around a lot more than usual: not at all 9. Thoughts that you would be better off or of hurting yourself in some way: not at all Total score: 0 Depression Screening Interpretation: Negative Depression Screening Done: Yes [id number] - PHQ-9 Billing: Yes Source: Developed by Drs. Tyler Parsons, Grace Greene, David Altman and colleagues, with an educational ina from [employer]. Thrive Questionnaire Date Thrive assessed: 05/09/24 I am a: Patient What is your living situation today?: I have a steady place to live Within the past 12 months, did the food you bought not last and you didn't have the money to get more?: Never true Within the past 12 months, did you worry whether your food would run out before you got money to buy more?: Never true Do you have trouble paying for medicines?: No Do you have trouble getting transportation to medical appointments?: No Do you have trouble paying your heating and electricity bill?: No Do you have trouble taking care of your child, family member or friend?: No Do you have trouble with day-to-day activities such as bathing, preparing meals, shopping, managing finances, etc.?: No Are you currently unemployed and looking for a job?: No Are you interested in more education?: No Please select the resources that you would like help with: None Currently or been in a relationship where the following occur: I choose not to answer THRIVE Score: 0 AUDIT C Alcohol Use Questionnaire (AUDIT-C) 1. How often do you have a drink containing alcohol?: Never Total Score: 0 KATHIE-7 AMB Questionnaire KATHIE-7 Date KATHIE - 7 assessed: 05/09/24 Feeling nervous, anxious, or on edge: 0 = Not at all Not being able to stop or control worryin = Not at all Worrying too much about different things: 0 = Not at all Trouble relaxin = Not at all Being so restless that it is hard to sit still: 0 = Not at all Becoming easily annoyed or irritable: 0 = Not at all Feeling afraid as if something awful might happen: 0 = Not at all Total KATHIE-7 score (0-4 normal; 5-9 mild; 10-14 moderate; 15-21 severe): 0 Source: Developed by Drs. Tyler Parsosn, Grace Greene, David Altman and colleagues, with an educational ina from [employer]. Physical exam (Primary Care) Vital Signs: Last Vital Signs Pulse 76 05/09/24 08:15 BP 136/72 05/09/24 08:15 Pulse Ox 97 05/09/24 08:15 Oxygen Delivery Method Room Air 05/09/24 08:15 BMI result Body Mass Index 28.1 Tobacco/Smoking Status: Tobacco use Status Tobacco use date assessed 05/09/24 05/09/24 08:29 Patient Tobacco Use Status Never used Tobacco 05/09/24 08:29 Tobacco use type Cigarette 05/09/24 08:29 e-Cigarette/Vaping Use Never Used 05/09/24 08:29 PHQ-9: PHQ-9 Score PHQ-9: Total score 0 05/09/24 08:41 Depression Screening Interpretation: Negative Thrive Assessment: Date of Thrive Assessment Date Thrive assessed 05/09/24 05/09/24 08:29 Currently or been in a relationship where the following occur: I choose not to answer Const General: alert; No acute distress Eyes Conjunctivae: conjunctivae normal Resp Auscultation: clear to auscultation bilaterally Cardio Rate: regular rate Rhythm: regular rhythm GI Inspection: Yes normal to inspection Neuro Other: noted low amplitude tremors cheek , l jaw and hands bilateral, no cogwheeling noted Extrem General: Yes normal to inspection and No edema Coding Level of Care Code Est Pt Level 4 (73695) Complex EM visit Add On G2211 Diagnoses Type 2 diabetes mellitus with hyperglycemia, without long-term current use of insulin E11.65 Diabetes mellitus terminal operations manager insulin use: without senior care use Hypercholesterolemia E78.00 Gastroesophageal reflux disease without esophagitis K21.9 Esophagitis presence: without esophagitis Essential hypertension I10 Hypertension type: essential hypertension Generalized anxiety disorder F41.1 Essential tremor G25.0 Right thyroid nodule E04.1 Additional Codes PHQ-9 - 48877 - PHQ-9 Billing: Yes ([id number]) Assessment & Plan Assessment & Plan (1) Type 2 diabetes mellitus with hyperglycemia: Comment: Dr. iDetrich Code(s): E11.65 - Type 2 diabetes mellitus with hyperglycemia Category: Medical Qualifiers: Diabetes mellitus terminal operations manager insulin use: without terminal operations manager use Qualified Code(s): E11.65 - Type 2 diabetes mellitus with hyperglycemia (2) Hypercholesterolemia: Code(s): E78.00 - Pure hypercholesterolemia, unspecified Category: Medical (3) GERD (gastroesophageal reflux disease): Comment: Hiatal hernia Dr. Correa history of H pylori Code(s): K21.9 - Gastro-esophageal reflux disease without esophagitis Category: Medical Qualifiers: Esophagitis presence: without esophagitis Qualified Code(s): K21.9 - Gastro-esophageal reflux disease without esophagitis (4) Hypertension: Code(s): I10 - Essential (primary) hypertension Category: Medical Qualifiers: Hypertension type: essential hypertension Qualified Code(s): I10 - Essential (primary) hypertension (5) Generalized anxiety disorder: Code(s): F41.1 - Generalized anxiety disorder Category: Medical (6) Essential tremor: Code(s): G25.0 - Essential tremor Category: Medical Plan: no treatment for now (7) Right thyroid nodule: Comment: incidental finding 03/2024 CT scan Code(s): E04.1 - Nontoxic single thyroid nodule Category: Medical Plan: will do US Plan - Continue monitoring essential tremors; consider medication if symptoms become bothersome. - Conduct ultrasound of the thyroid to evaluate the identified nodule for any suspicious features that may require further investigation. - Reinforce adherence to current osteoporosis management with Prolia, ensuring bone density remains monitored. - Manage hyperlipidemia through lifestyle modifications and monitor cholesterol levels; consider pharmacotherapy if levels remain elevated. - Address anxiety with possible modification of current medication regimen; refill or alter prescriptions as appropriate to ensure medication adherence. - Promote hydration and dietary measures to alleviate intestinal discomfort. - encourage maintenance of current A1c levels through balanced diet and regular monitoring of glucose. - Advise caution to prevent further falls, particularly in navigating stairs and using railings when necessary. - Schedule follow-up to reassess tremor management, thyroid evaluation results, and continued care for chronic conditions. Orders: Orders US thyroid Today E04.1 - Nontoxic single thyroid nodule
[2024-05-09 08:15] VITALS: BP 136/72; PULSE 76; O2SAT 97; BMI 28.1
== END 2024-05-09 09:03 | disposition home or self-care (01) ==
PROVIDERS: PCP Internal Medicine; Visit Provider Internal Medicine
DX: E11.65 Type 2 diabetes mellitus with hyperglycemia (principal); E78.00 Pure hypercholesterolemia, unspecified; K21.9 Gastro-esophageal reflux disease without esophagitis; I10 Essential (primary) hypertension; F41.1 Generalized anxiety disorder; G25.0 Essential tremor; E04.1 Nontoxic single thyroid nodule

== ENCOUNTER → 2024-05-09 08:03 | Outpatient (BNVA) | payer OTHER, SELFPAY | PROVIDERS: PCP Internal Medicine; Visit Provider Internal Medicine | DX: E11.65 Type 2 diabetes mellitus with hyperglycemia (principal); E78.00 Pure hypercholesterolemia, unspecified; K21.9 Gastro-esophageal reflux disease without esophagitis; I10 Essential (primary) hypertension; F41.1 Generalized anxiety disorder; G25.0 Essential tremor; E04.1 Nontoxic single thyroid nodule; M81.0 Age-related osteoporosis without current pathological fracture | CPT/HCPCS: 96127 ==

== ENCOUNTER 2024-06-03 07:34 | Outpatient (REF) | payer MEDICARE, SELFPAY | END 2024-06-03 07:35 | disposition home or self-care (01) | LOC: HO.US 07:34 | PROVIDERS: PCP Internal Medicine; Visit Provider Internal Medicine | DX: E04.1 Nontoxic single thyroid nodule (principal) | CPT/HCPCS: 76536 ==

== ENCOUNTER → 2024-06-03 07:36 | Outpatient (BNV) | payer MEDICARE, SELFPAY | PROVIDERS: PCP Internal Medicine; Visit Provider Radiology Diagnostic Radiology | DX: E04.1 Nontoxic single thyroid nodule (principal) | CPT/HCPCS: 76536 ==

== ENCOUNTER 2024-07-22 08:40 | Outpatient (REF) | payer MEDICARE, SELFPAY ==
[2024-07-22 10:42] LABS: Anion Gap 13 (12-20); Blood Urea Nitrogen 22 mg/dL (9-16); Calcium 9.4 mg/dL (8.4-10.2); Carbon Dioxide 22 mmol/L (22-29); Chloride 106 mmol/L (96-108); Estimated Glomerular Filt Rate 41; Glucose Random 100 mg/dL (60-115); Potassium 4.4 mmol/L (3.3-5.1); Sodium 137 mmol/L (135-145)
== END 2024-07-22 08:41 | disposition home or self-care (01) ==
LOC: HO.HMGCLDS 08:40
PROVIDERS: Student in an Organized Health Care Education/Training Program; PCP Internal Medicine; Visit Provider Internal Medicine
DX: Z13.21 Encounter for screening for nutritional disorder (principal); M81.0 Age-related osteoporosis without current pathological fracture
CPT/HCPCS: 36415; 80048; 82306

== ENCOUNTER 2024-07-23 09:39 | Outpatient (REF) | payer SELFPAY | END 2024-07-23 09:40 | disposition home or self-care (01) | LOC: HO.HAP 09:39 | PROVIDERS: Visit Provider Internal Medicine | DX: Z46.1 Encounter for fitting and adjustment of hearing aid (principal) | CPT/HCPCS: V5267 ==

== ENCOUNTER 2024-08-01 07:25 | Outpatient (AMB) | payer MEDICARE, SELFPAY ==
--- NOTE | 2024-08-01 07:34 | A.OFFVIS_ITS ---
Vital Signs 08/01/24 07:40 Height 5 ft Weight 143 lb 8.335 oz BMI 28.0 BP 120/72 Blood Pressure Location Lt brachial Position Sitting Respiration 16 Pulse 54 Pulse Source Pulse Oximeter Pulse Oximetry (%) 98 Oxygen Delivery Method Room Air Intake Visit Reasons: Osteoporosis follow up & Prolia Intake Note: Patient presents today for Osteoporosis and Prolia injection. Allergies lansoprazole [From PREVACID] Allergy (Intermediate, Verified 08/01/24 07:39) VOMITING morphine [MORPHINE] Allergy (Intermediate, Verified 08/01/24 07:39) AGITATION risedronate sodium [From ACTONEL] Allergy (Intermediate, Verified 08/01/24 07:39) DYSPNEA alendronate sodium [From Fosamax] Allergy (Mild, Verified 08/01/24 07:39) NAUSEA,SOB azithromycin [AZITHROMYCIN] Allergy (Mild, Verified 08/01/24 07:39) NAUSEA/HEADACHE Penicillins Allergy (Mild, Verified 08/01/24 07:39) RASH amlodipine Allergy (Unknown, Verified 08/01/24 07:39) Unknown Bifidobacterium infantis [Align] Allergy (Unknown, Verified 08/01/24 07:39) Unknown cetirizine [From ZYRTEC] Allergy (Unknown, Verified 08/01/24 07:39) UNKNOWN cyanocobalamin (vitamin B12) Allergy (Unknown, Verified 08/01/24 07:39) Unknown enalapril [ENALAPRIL] Allergy (Unknown, Verified 08/01/24 07:39) ABD PAIN, VERY NAUSEOUS, nausea fexofenadine [From MAC] Allergy (Unknown, Verified 08/01/24 07:39) UNKNOWN folic acid Allergy (Unknown, Verified 08/01/24 07:39) unk hydralazine Allergy (Unknown, Verified 08/01/24 07:39) nausea hydrochlorothiazide Allergy (Unknown, Verified 08/01/24 07:39) dry mouth latex [Latex] Allergy (Unknown, Verified 08/01/24 07:39) RASH loratadine [Claritin] Allergy (Unknown, Verified 08/01/24 07:39) Unknown metoclopramide [From REGLAN] Allergy (Unknown, Verified 08/01/24 07:39) JITTERY mometasone furoate [From NASONEX] Allergy (Unknown, Verified 08/01/24 07:39) UNKNOWN montelukast [Singulair] Allergy (Unknown, Verified 08/01/24 07:39) Unknown pantoprazole [From PROTONIX] Allergy (Unknown, Verified 08/01/24 07:39) UNKNOWN penicillin V Allergy (Unknown, Verified 08/01/24 07:39) Unknown polyethylene glycol 3350 [Miralax] Allergy (Unknown, Verified 08/01/24 07:39) Unknown pseudoephedrine [From SUDAFED] Allergy (Unknown, Verified 08/01/24 07:39) HYPER ranitidine [From ZANTAC] Allergy (Unknown, Verified 08/01/24 07:39) UNKNOWN thiamine (vitamin B1) Allergy (Unknown, Verified 08/01/24 07:39) Unknown ascorbic acid [From PreserVision AREDS-2] Adverse Reaction (Intermediate, Verified 08/01/24 07:39) Constipation copper [From PreserVision AREDS-2] Adverse Reaction (Intermediate, Verified 08/01/24 07:39) Constipation lutein [From PreserVision AREDS-2] Adverse Reaction (Intermediate, Verified 08/01/24 07:39) Constipation vitamin E acetate (dl-alpha tocopheryl) [From PreserVision AREDS-2] Adverse Reaction (Intermediate, Verified 08/01/24 07:39) Constipation zeaxanthin [From PreserVision AREDS-2] Adverse Reaction (Intermediate, Verified 08/01/24 07:39) Constipation zinc oxide [From PreserVision AREDS-2] Adverse Reaction (Intermediate, Verified 08/01/24 07:39) Constipation ergocalciferol (vitamin D2) [From CALCIUM CITRATE WITH D] Adverse Reaction (Mild, Verified 08/01/24 07:39) CONSTIPATION Mac-D 12 Hour Allergy (Unknown, Uncoded 05/09/24 08:15) Unknown Calcium Citrate + D Allergy (Unknown, Uncoded 05/09/24 08:15) Unknown Folic + B12 Allergy (Unknown, Uncoded 05/09/24 08:15) Unknown latex Allergy (Unknown, Uncoded 05/09/24 08:15) unknown From CALCIUM CITRATE WITH D Adverse Reaction (Mild, Uncoded 05/09/24 08:15) CONSTIPATION Medication List - Last Reconciled 08/01/24 by Melissa Cannon MD chlordiazepoxide-clidinium 5-2.5 mg (Librax (with clidinium)) 1 cap PO .QD PRN denosumab (Prolia) 60 mg subcut [id number] ergocalciferol (vitamin D2) 1,250 mcg PO .Qmonth lorazepam 1 mg PO DAILY PRN 90 days losartan 100 mg PO DAILY metoprolol succinate ER 12.5 mg (1/2 x 25 mg) PO DAILY omeprazole 20 mg PO DAILY promethazine 12.5 mg PO TID PRN sennosides (senna) 8.6 mg PO BEDTIME vitamin B complex (B Complex-Vitamin B12 tablet) 1 tab PO .Q month HPI Comments Details: Patient is an 83 y.o. female with hypertension, diabetes, generalized anxiety disorder, hyperlipidemia, GERD, polyarticular OA and osteoporosis here today for follow up Interval History: Patient last seen 01/29/[address] Su. At that time she received her Prolia injection without issue and was doing well overall despite having some hip pain. Today, She is here for her Prolia injection Doing well overall Her hip pain that she had at the last visit improved on its own Had a mechanical fall with trauma to her head on the stairs requiring 5 stitches but no loss of consciousness Rheumatologic History: Boniva- [id number] 5 year course. Prolia- ordered October 2016-patient did not start due to her concern for side effects. Prolia started June 2019 to present. Bone density January 2023 osteopenia Current Rheumatology Medication(s): Prolia 60mg SC every 6 months Vitamin D 1250mcg every month [facility] Medical History Impaired glucose tolerance Macular degeneration Vitamin D deficiency Tubular adenoma of colon Closed left arm fracture Carcinoid tumor Hypertension Osteoporosis Irritable bowel syndrome Obesity (BMI 30-39.9) Hypercholesterolemia GERD (gastroesophageal reflux disease) Degenerative disc disease, lumbar Peripheral vascular disease Surgical History History of surgical procedure on eye proper using laser H/O ventral hernia repair Status post left breast lumpectomy Family History Father Diabetes Stroke Mother Pancreatic cancer Brother Dementia Social History Housing: House Alcohol intake: former Patient Tobacco Use Status: Never used Tobacco Tobacco use type: Cigarette e-Cigarette/Vaping Use: Never Used Second Hand Smoke Exposure: No service: No Current occupational status: retired Cognitive needs: No Hearing needs: Yes Vision needs: Yes Review of Systems Const Details: Review of Systems Constitutional: Denies fever, chills, weight loss ENT: Denies vision changes, eye pain or eye redness, dental caries, dry mouth GI: Denies nausea, vomiting, diarrhea, abdominal pain, change in BM Pulm: Denies SOB, IVY, hemoptysis, wheezing Cards: Denies chest pain, palpitations Skin: Denies Raynaud's, rash, nail changes, photosensitivity, [employer]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 Well appearing and in no apparent painful distress HEENT Conjunctiva and sclera clear. ?Pupils equal round and reactive to light. ?No lymphadenopathy. ? CHEST/RESPIRATORY SYSTEM Normal respiratory effort and able to speak in complete sentences. ?Clear to auscultation bilaterally. ?No crackles, rales, rhonchi, wheezes heard. CARDIAC SYSTEM Regular rate and rhythm. ?S1 and S2 heard no murmurs. ?Radial pulses intact bilaterally MSK Hands: ?Good environmental health officer strength bilaterally. No deformities noted. ?No synovitis noted to the MCPs, PIPs or DIPs. ?No tenderness to palpation of these joints. Prominent herbeden nodes Wrists: ?Full range of motion at the wrists without pain. ?No tenderness to palpation or synovitis noted to the wrists. Elbows: Full range of motion without pain. No tenderness, weakness, swelling, increased warmth or erythema. Shoulders: Full range of motion without pain. No tenderness, weakness, swelling, increased warmth or erythema. Knees: ?Full range of motion. ?No tenderness, swelling, increased warmth or erythema.?No effusion or crepitations Ankles: Full range of motion. ?bilateral ankle swelling Feet: ?Negative squeeze test. ?No tenderness to palpation or swelling of the MTPs. Tender points:?No tenderness to palpation of the bilateral trapezius, supraspinatus, greater trochanters, anterior costochondral junctions, bilateral gluteal areas, bilateral suboccipital muscle insertions Spine hyperkyphosis SKIN Skin intact without rashes. Results Reviewed Results Reviewed: Laboratory Tests 07/22/24 08:45 Sodium 137 Potassium 4.4 Chloride 106 Carbon Dioxide 22 BUN 22 H Creatinine 1.24 Estimated GFR 41 Calcium 9.4 25-OH Vitamin D Total 44 DEXA 01/2023 FINDINGS: LEFT FEMUR, NECK: Current: BMD 0.724 g/cm2, Z-score 0.0, T-score -2.3, osteopenia. Prior: BMD 0.722 g/cm2. Baseline: BMD 0.786 g/cm2. LEFT FEMUR, TOTAL: Current: BMD 0.831 g/cm2, Z-score 0.7, T-score -1.4, osteopenia, 1.3% decrease from previous, 0.8% increase from baseline (<5% change is not significant). Prior: BMD 0.842 g/cm2. Baseline: BMD 0.824 g/cm2. AP SPINE L1-L4: Current: BMD 1.200 g/cm2, Z-score 1.9, T-score 0.2, normal, 5.0% increase from previous, 39.5% increase from baseline (<5% change is not significant). Prior: BMD 1.143 g/cm2. Baseline: BMD 0.860 g/cm2. Assessment & Plan Assessment & Plan (1) Osteoporosis: Comment: DEXA 01/2023: AP Spine 0.2, Left femur neck -2.3, Left femur total -1.4 DEXA 01/2021: AP Spine -0.7, Left femur neck -2.3, Left femur total -1.3 Boniva- [id number] 5 year course. Prolia- ordered October 2016-patient did not start due to her concern for side effects. Prolia started June 2019 to present. Bone density January 2023 osteopenia Code(s): M81.0 - Age-related osteoporosis without current pathological fracture Category: Medical Qualifiers: Osteoporosis type: age-related Presence of current pathological fracture: without current pathological fracture Qualified Code(s): M81.0 - Age- related osteoporosis without current pathological fracture Plan: #Osteoporosis Patient is an 84 y.o. female with osteoporosis here today for her prolia injection Vitamin D at goal Plan - s/p Prolia injection today - DEXA 01/2025 - RTC 6 months - Labs before visit: CBC, CMP, Vit D (2) Polyarticular osteoarthritis: Code(s): M15.9 - Polyosteoarthritis, unspecified Plan: #Polyarticular OA Patient with ployarticular OA currently stable (3) Encounter for monitoring denosumab therapy: Code(s): Z51.81 - Encounter for therapeutic drug level monitoring; Z79.620 - retirement (current) use of immunosuppressive biologic Plan: #Long-term use of Denosumab Discussed with patient the risks and benefits of denosumab (Prolia) for the management of their osteoporosis Benefits include improved bone density, decreased fracture risk Risks include rapid bone loss if denosumab stopped, osteonecrosis of the jaw especially in patients with poor oral hygiene/diabetes/use of glucocorticoids/age greater than 65 years, atypical femoral fractures, injection site reactions. Mild increased risk of infections due to RANKL on T helper cells, increased risk of hypocalcemia especially in CKD patients Keep vitamin-D at least 35 ng/mL Advised to delay non emergent dental procedures to toward the end of the 6 month cycle and if they plan to stop denosumab would need to continue antiresorptive to maintain the effects of denosumabe Plan I spent 20 minutes reviewing the record and labs, taking a history, examining the patient, discussing the treatment plan, ordering diagnostic work up and documenting in the medical record Orders: Orders Comprehensive Met. Panel 6 Months E55.9 - Vitamin D deficiency, unspecified, M81.0 - Age-related osteoporosis without current pathological fracture XR DEXA axial skeleton 01/29/25 M81.0 - Age-related osteoporosis without current pathological fracture Vitamin D 25-OH Total 6 Months E55.9 - Vitamin D deficiency, unspecified, M81.0 - Age-related osteoporosis without current pathological fracture Coding Level of Care Code Est Pt Level 3 (07364) Complex EM visit Add On G2211 Diagnoses Age-related osteoporosis without current pathological fracture M81.0 Osteoporosis type: age-related Presence of current pathological fracture: without current pathological fracture Polyarticular osteoarthritis M15.9 Encounter for monitoring denosumab therapy Z51.81; Z79.620
[2024-08-01 07:40] VITALS: BP 120/72; PULSE 54; RESP 16; O2SAT 98; BMI 28.0
== END 2024-08-01 07:54 | disposition home or self-care (01) ==
LOC: HO.RHE 07:25
PROVIDERS: PCP Internal Medicine; Visit Provider Student in an Organized Health Care Education/Training Program
DX: M81.0 Age-related osteoporosis without current pathological fracture (principal); M15.9 Polyosteoarthritis, unspecified; Z51.81 Encounter for therapeutic drug level monitoring; Z79.620 Long term (current) use of immunosuppressive biologic
CPT/HCPCS: 99213; G2211

== ENCOUNTER → 2024-08-01 07:25 | Outpatient (BNVA) | payer MEDICARE, SELFPAY | PROVIDERS: PCP Internal Medicine; Visit Provider Student in an Organized Health Care Education/Training Program | DX: M81.0 Age-related osteoporosis without current pathological fracture (principal); M15.9 Polyosteoarthritis, unspecified; E55.9 Vitamin D deficiency, unspecified; Z51.81 Encounter for therapeutic drug level monitoring; Z79.620 Long term (current) use of immunosuppressive biologic | CPT/HCPCS: 99212 ==

== ENCOUNTER 2024-09-16 07:04 | Outpatient (REF) | payer MEDICARE, SELFPAY ==
[2024-09-16 10:14] LABS: MANUAL DIFF FLAG NO
[2024-09-16 10:33] LABS: Basophils Percent Auto 0.6 % (0-2); Eosinophils Absolute Auto 0.1 X10*3/uL (0.0-0.4); Eosinophils Percent Auto 1.3 % (0-4); Hematocrit 40.6 % (37.0-47.0); Hemoglobin 13.1 g/dl (12.0-16.0); Imm Gran Abs Auto 0.01 X10*3/uL (0.00-0.03); Imm Gran Pct Auto 0.2 % (0.0-0.4); Lymphocytes Absolute Auto 1.7 X10*3/uL (1.2-4.9); Mean Corpuscular HGB Conc 32.3 g/dl (31.0-35.0); Mean Corpuscular Hemoglobin 28.9 pg (27.0-33.0); Mean Corpuscular Volume 89.6 fL (80.0-98.0); Monocytes Absolute Auto 0.4 X10*3/uL (0.1-1.2); Monocytes Percent Auto 9.1 % (2-11); Neutrophils Absolute Auto 2.5 x10*3/uL (2.0-8.3); Neutrophils Percent Auto 53.8 % (45-73); Platelet Count 227 X10*3/uL (160-400); Red Blood Count 4.53 X10*6/uL (4.20-5.50); Red Cell Distribution Width 12.5 % (11.0-16.0); White Blood Count 4.7 X10*3/uL (4.8-10.8)
[2024-09-16 10:40] LABS: Estimated Average Glucose 111 mg/dL; Hemoglobin A1C 124.9555 umol/L; Hemoglobin A1c % 5.5 % (<6.0); Total Hemoglobin (HGBA1C) 3461.5224 umol/L
[2024-09-16 11:17] LABS: Folate 8.5 ng/mL (> or = 4.0); Vitamin B12 381 pg/mL (200-900)
[2024-09-16 11:18] LABS: Alanine Aminotransferase 15 U/L (0-31); Albumin Level 3.8 g/dL (3.5-5.0); Alkaline Phosphatase 64 U/L (39-117); Anion Gap 10 (12-20); Aspartate Amino Transferase 24 U/L (5-31); Bilirubin Total 0.7 mg/dL (0.0-1.0); Blood Urea Nitrogen 21 mg/dL (9-16); Calcium 8.7 mg/dL (8.4-10.2); Carbon Dioxide 22 mmol/L (22-29); Chloride 109 mmol/L (96-108); Estimated Glomerular Filt Rate 44; Glucose Random 111 mg/dL (60-115); Sodium 137 mmol/L (135-145); Total Protein 6.7 g/dL (6.5-8.0)
[2024-09-16 11:18] LABS: Creatinine Urine 144.35 mg/dL; Microalbum/Creatinine Ratio Ur 9.6 ug/mg cr (<30)
[2024-09-16 11:22] LABS: Free T4 (Free Thyroxine) 1.03 ng/dL (0.71-1.85); Thyroid Stimulating Hormone 0.61 uIU/mL (0.32-4.0); Vitamin D 25-OH Total 28.8 ng/mL (>30)
== END 2024-09-16 07:05 | disposition home or self-care (01) ==
LOC: HO.HMGCLDS 07:04
PROVIDERS: PCP Internal Medicine; Visit Provider Internal Medicine
DX: E11.65 Type 2 diabetes mellitus with hyperglycemia (principal)
CPT/HCPCS: 36415; 80053; 82043; 82306; 82570; 82607; 82746; 83036; 84439; 84443; 85025

== ENCOUNTER 2024-10-02 08:43 | Outpatient (AMB) | payer MEDICARE, SELFPAY ==
--- NOTE | 2024-10-02 08:47 | A.OFFPC_ITS ---
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 Operator Required: No Accompanied by: Self / Same As Patient Allergies lansoprazole [From PREVACID] Allergy (Intermediate, Verified 10/02/24 09:01) VOMITING morphine [MORPHINE] Allergy (Intermediate, Verified 10/02/24 09:) AGITATION risedronate sodium [From ACTONEL] Allergy (Intermediate, Verified 10/02/24 09:) DYSPNEA alendronate sodium [From Fosamax] Allergy (Mild, Verified 10/02/24 09:01) NAUSEA,SOB azithromycin [AZITHROMYCIN] Allergy (Mild, Verified 10/02/24 09:) NAUSEA/HEADACHE Penicillins Allergy (Mild, Verified 10/02/24 09:01) RASH amlodipine Allergy (Unknown, Verified 10/02/24 09:) Unknown Bifidobacterium infantis [Align] Allergy (Unknown, Verified 10/02/24:) Unknown cetirizine [From ZYRTEC] Allergy (Unknown, Verified 10/02/24 09:) UNKNOWN cyanocobalamin (vitamin B12) Allergy (Unknown, Verified 10/02/24 09:) Unknown enalapril [ENALAPRIL] Allergy (Unknown, Verified 10/02/24 09:01) ABD PAIN, VERY NAUSEOUS, nausea fexofenadine [From MAC] Allergy (Unknown, Verified 10/02/24 09:) UNKNOWN folic acid Allergy (Unknown, Verified 10/02/24 09:) unk hydralazine Allergy (Unknown, Verified 10/02/24 09:) nausea hydrochlorothiazide Allergy (Unknown, Verified 10/02/24 09:01) dry mouth latex [Latex] Allergy (Unknown, Verified 10/02/24 09:) RASH loratadine [Claritin] Allergy (Unknown, Verified 10/02/24 09:) Unknown metoclopramide [From REGLAN] Allergy (Unknown, Verified 10/02/24 09:01) JITTERY mometasone furoate [From NASONEX] Allergy (Unknown, Verified 10/02/24 09:01) UNKNOWN montelukast [Singulair] Allergy (Unknown, Verified 10/02/24 09:01) Unknown pantoprazole [From PROTONIX] Allergy (Unknown, Verified 10/02/24 09:01) UNKNOWN penicillin V Allergy (Unknown, Verified 10/02/24 09:01) Unknown polyethylene glycol 3350 [Miralax] Allergy (Unknown, Verified 10/02/24 09:01) Unknown pseudoephedrine [From SUDAFED] Allergy (Unknown, Verified 10/02/24 09:01) HYPER ranitidine [From ZANTAC] Allergy (Unknown, Verified 10/02/24 09:01) UNKNOWN thiamine (vitamin B1) Allergy (Unknown, Verified 10/02/24 09:01) Unknown ascorbic acid [From PreserVision AREDS-2] Adverse Reaction (Intermediate, Verified 10/02/24 09:01) Constipation copper [From PreserVision AREDS-2] Adverse Reaction (Intermediate, Verified 10/02/24 09:01) Constipation lutein [From PreserVision AREDS-2] Adverse Reaction (Intermediate, Verified 10/02/24 09:01) Constipation vitamin E acetate (dl-alpha tocopheryl) [From PreserVision AREDS-2] Adverse Reaction (Intermediate, Verified 10/02/24 09:01) Constipation zeaxanthin [From PreserVision AREDS-2] Adverse Reaction (Intermediate, Verified 10/02/24 09:01) Constipation zinc oxide [From PreserVision AREDS-2] Adverse Reaction (Intermediate, Verified 10/02/24 09:01) Constipation ergocalciferol (vitamin D2) [From CALCIUM CITRATE WITH D] Adverse Reaction (Mild, Verified 10/02/24 09:01) CONSTIPATION Mac-D 12 Hour Allergy (Unknown, Uncoded 10/02/24 09:01) Unknown Calcium Citrate + D Allergy (Unknown, Uncoded 10/02/24 09:01) Unknown Folic + B12 Allergy (Unknown, Uncoded 10/02/24 09:01) Unknown latex Allergy (Unknown, Uncoded 10/02/24 09:01) unknown From CALCIUM CITRATE WITH D Adverse Reaction (Mild, Uncoded 10/02/24 09:01) CONSTIPATION Medication List - Last Reconciled 10/02/24 by Beatriz Macias PA-C chlordiazepoxide-clidinium 5-2.5 mg (Librax (with clidinium)) 1 cap PO .QD PRN denosumab (Prolia) 60 mg subcut [id number] ergocalciferol (vitamin D2) 1,250 mcg PO .Qmonth lorazepam 1 mg PO DAILY PRN 90 days losartan 100 mg PO DAILY metoprolol succinate ER 12.5 mg (1/2 x 25 mg) PO DAILY omeprazole 20 mg PO DAILY promethazine 12.5 mg PO TID PRN sennosides (senna) 8.6 mg PO BEDTIME Tobacco use date assessed: 10/02/24 Fall risk assessment: 1 Fall in past year Last assessed Fall Risk: 10/02/24 Dental Screening Dental Screen Date: 10/02/24 Did you have a dental visit in the last 12 months?: No Did you have a dental problem in the last 6 months where you did not have access to dental care?: No Was dental information given to patient?: No HPI DM HPI Details 84-year-old female with past medical fatemeh betes mellitus GERD, hypercholesterolemia, osteoporosis, generalized anxiety disorder and essential tremor last seen by Dr. Duff coming in for follow up on diabetes. In review of the notes, patient was seen by Rheumatology 07/2024 Prolia injection for treatment for osteoporosis. Presenting for follow-up management of osteoporosis, blood pressure, and allergies. She reports good tolerance and efficacy with Prolia therapy for osteoporosis and is scheduled for another injection in December. Constipation was initially concerning but has improved with changes in bread type, following advice to avoid certain additives. Despite trying several systemic antihistamines for her allergic rhinitis, she experiences adverse effects and favors nasal saline sprays and Vicks for relief. Her recent blood work shows well-controlled glucose with an A1c of 5.5%, and kidney and liver functions within normal limits. While her cholesterol was elevated, follow-up labs have been planned. Hypertension is adequately managed with prescribed medications, though the dosage of metoprolol had been adjusted previously due to low heart rate. [facility] Medical History Impaired glucose tolerance Macular degeneration Vitamin D deficiency Tubular adenoma of colon Closed left arm fracture Carcinoid tumor Hypertension Osteoporosis Irritable bowel syndrome Obesity (BMI 30-39.9) Hypercholesterolemia GERD (gastroesophageal reflux disease) Degenerative disc disease, lumbar Peripheral vascular disease Surgical History History of surgical procedure on eye proper using laser H/O ventral hernia repair Status post left breast lumpectomy Family History Father Diabetes Stroke Mother Pancreatic cancer Brother Dementia Social History Housing: House Alcohol intake: former Patient Tobacco Use Status: Never used Tobacco Tobacco use type: Cigarette e-Cigarette/Vaping Use: Never Used Second Hand Smoke Exposure: No service: No Current occupational status: retired Cognitive needs: No Hearing needs: Yes Vision needs: Yes Questionnaire PHQ-9 Over the last 2 weeks, how often have you been bothered by any of the following problems? 1. Little interest or pleasure in doing things: not at all 2. Feeling down, depressed, or hopeless: not at all 3. Trouble falling or staying asleep, or sleeping too much: not at all 4. Feeling tired or having little energy: not at all 5. Poor appetite or overeating: not at all 6. Feeling bad about yourself - or that you are a failure or have let yourself or your family down: not at all 7. Trouble concentrating on things, such as reading the newspaper or watching television: not at all 8. Moving or speaking so slowly that other people could have noticed. Or the opposite - being so fidgety or restless that you have been moving around a lot more than usual: not at all 9. Thoughts that you would be better off or of hurting yourself in some way: not at all Total score: 0 Depression Screening Interpretation: Negative Depression Screening Done: Yes 83837 - PHQ-9 Billing: Yes Source: Developed by Drs. Tyler Parsons, Grace Greene, David Altman and colleagues, with an educational ina from [employer]. Thrive Questionnaire Date Thrive assessed: 10/02/24 I am a: Patient What is your living situation today?: I have a steady place to live Within the past 12 months, did the food you bought not last and you didn't have the money to get more?: Never true Within the past 12 months, did you worry whether your food would run out before you got money to buy more?: Never true Do you have trouble paying for medicines?: No Do you have trouble getting transportation to medical appointments?: No Do you have trouble paying your heating and electricity bill?: No Do you have trouble taking care of your child, family member or friend?: No Do you have trouble with day-to-day activities such as bathing, preparing meals, shopping, managing finances, etc.?: No Are you currently unemployed and looking for a job?: No Are you interested in more education?: No Please select the resources that you would like help with: None Currently or been in a relationship where the following occur: I choose not to answer THRIVE Score: 0 AUDIT C Alcohol Use Questionnaire (AUDIT-C) 1. How often do you have a drink containing alcohol?: Never Total Score: 0 KATHIE-7 AMB Questionnaire KATHIE-7 Date KATHIE - 7 assessed: 10/02/24 Feeling nervous, anxious, or on edge: 0 = Not at all Not being able to stop or control worryin = Not at all Worrying too much about different things: 0 = Not at all Trouble relaxin = Not at all Being so restless that it is hard to sit still: 0 = Not at all Becoming easily annoyed or irritable: 0 = Not at all Feeling afraid as if something awful might happen: 0 = Not at all Total KATHIE-7 score (0-4 normal; 5-9 mild; 10-14 moderate; 15-21 severe): 0 Source: Developed by Drs. Tyler Parsons, Grace Greene, David Altman and colleagues, with an educational ina from [employer]. Review of Systems Const Denies body aches, Denies chills, Denies fever(s) and Denies poor appetite Eyes Reports no additional complaints ENT Denies dizziness Card Denies chest pain, Denies syncope, Denies lightheadedness and Denies dyspnea Resp Denies dyspnea GI Denies nausea and Denies vomiting Reports no additional complaints Musc Reports no additional complaints and Denies abnormal gait Skin/Breast Reports system reviewed and no additional complaints, except as documented Neuro Denies abnormal gait, Denies dizziness and Denies syncope Psych Reports no additional complaints Physical exam (Primary Care) Vital Signs: Last Vital Signs Pulse 56 10/02/24 08:48 BP 120/50 L 10/02/24 08:48 Pulse Ox 98 10/02/24 08:48 Oxygen Delivery Method Room Air 10/02/24 08:48 BMI result Body Mass Index 27.7 Tobacco/Smoking Status: Tobacco use Status Tobacco use date assessed 10/02/24 10/02/24 08:52 Patient Tobacco Use Status Never used Tobacco 10/02/24 08:52 Tobacco use type Cigarette 10/02/24 08:52 e-Cigarette/Vaping Use Never Used 10/02/24 08:52 PHQ-9: PHQ-9 Score PHQ-9: Total score 0 10/02/24 08:52 Depression Screening Interpretation: Negative Thrive Assessment: Date of Thrive Assessment Date Thrive assessed 10/02/24 10/02/24 08:52 Currently or been in a relationship where the following occur: I choose not to answer Const General: cooperative, healthy appearing, comfortable and no acute distress Orientation/consciousness: patient oriented x3 HENMT Head: Yes normocephalic Ears: hearing grossly normal bilaterally General nose exam: Normal external nose present Eyes General: appearance normal, both eyes and all related structures Conjunctivae: conjunctivae normal Neck Neck: Yes full ROM and Yes no lymphadenopathy Resp Effort & Inspection: normal respiratory effort Auscultation: clear to auscultation bilaterally, no crackles, no rales, no rhonchi and no wheezes Cardio Rate: regular rate Rhythm: regular rhythm Skin General skin exam: no rashes or lesions noted Neuro General: patient oriented x3 Gait exam (Neuro): Normal gait present Extrem General: Yes normal to inspection, Yes full ROM and No edema Psych Affect: normal affect Attitude: cooperative Insight: Good insight present (Psych) Judgement: Good judgement present (Psych) Coding Level of Care Code Est Pt Level 3 (83504) Diagnoses Type 2 diabetes mellitus with hyperglycemia, without long-term current use of insulin E11.65 Diabetes mellitus oil heaterman insulin use: without care home use Essential hypertension I10 Hypertension type: essential hypertension Obesity (BMI 30-39.9) E66.9 Hypercholesterolemia E78.00 Gastroesophageal reflux disease without esophagitis K21.9 Esophagitis presence: without esophagitis Right thyroid nodule E04.1 Seasonal allergies J30.2 Additional Codes PHQ-9 - 21305 - PHQ-9 Billing: Yes ([id number]) Assessment & Plan Assessment & Plan (1) Type 2 diabetes mellitus with hyperglycemia: Comment: Dr. Dietrich Code(s): E11.65 - Type 2 diabetes mellitus with hyperglycemia Category: Medical Qualifiers: Diabetes mellitus oil heaterman insulin use: without oil heaterman use Qualified Code(s): E11.65 - Type 2 diabetes mellitus with hyperglycemia Plan: Decrease the amount of carbohydrates such as pasta, bread, rice, and potatoes and limit the amount of sweets. Although fruits are generally healthy they should be eaten in moderation as they are still high in sugar. Hemoglobin A1c goal of less than 7%. A1c 5.5% on last blood work and not currently on medication. (2) Hypertension: Code(s): I10 - Essential (primary) hypertension Category: Medical Qualifiers: Hypertension type: essential hypertension Qualified Code(s): I10 - Essential (primary) hypertension Plan: Continue on current blood pressure medication. Avoid salt intake and encourage healthy diet and regular exercise. (3) Obesity (BMI 30-39.9): Code(s): E66.9 - Obesity, unspecified Category: Medical Plan: Healthy diet and regular exercise is encouraged. weight has been stable. (4) Hypercholesterolemia: Code(s): E78.00 - Pure hypercholesterolemia, unspecified Category: Medical Plan: Avoid foods that are high in cholesterol such as red meat, fried foods, eggs and baked goods. Triglyceride goal of less than 150 and LDL goal of less than 100. Not on medication management. Last LDL above goal at 123. Ordered for updated blood work (5) GERD (gastroesophageal reflux disease): Comment: Hiatal hernia Dr. Correa history of H pylori Code(s): K21.9 - Gastro-esophageal reflux disease without esophagitis Category: Medical Qualifiers: Esophagitis presence: without esophagitis Qualified Code(s): K21.9 - Gastro-esophageal reflux disease without esophagitis Plan: Avoid trigger foods such as citrus, tomato products, soda, caffeine, spicy foods and other foods that may be irritating to your stomach. Avoid laying flat 3-4 hours after eating and elevate the head of the bed 30 degrees to prevent acid from moving into the esophagus. Continue on omeprazole 20 (6) Right thyroid nodule: Comment: incidental finding 03/2024 CT scan [id number] TI-RADS category: 3. Upper right thyroid lobe. Code(s): E04.1 - Nontoxic single thyroid nodule Category: Medical Plan: Patient Discussed with Dr. Duff previously plan to order ultrasound in 1 year to monitor. (7) Seasonal allergies: Code(s): J30.2 - Other seasonal allergic rhinitis Category: Medical Plan: Patient has side effects to may different allergy medications making oral antihistamines difficult for the patient to handle. Prescription sent for Astelin as she has not had an issue with this in the past. Plan Continue Prolia for osteoporosis, follow up with injection in December. Current antihypertensive regimen appears effective; advised monitoring doses of metoprolol to avoid bradycardia while maintaining blood pressure control. Dietary changes for constipation show benefit; continue avoidance of specific bread additives. Prescribed Azelastine nasal spray for allergic symptoms, supplement with saline spray for symptomatic relief, and reassess efficacy at follow-up. Plan cholesterol follow-up to align with periodic physical exam, emphasizing dietary adjustments in reducing egg and butter intake. Encourage lifestyle modifications to bolster overall health, monitoring vitamin D status due to regional deficiencies. This note was constructed using voice recognition software. While every effort has been made to ensure accuracy and home health care case manager, still areas may have been included sometimes these areas may affect the content or meeting of the given symptoms. Total time spent caring for the patient today was 20 minutes. This includes time spent before the visit reviewing the chart, time spent during the visit, and time spent after the visit and documentation. Patient was informed and verbally consented to the use of an ambient scribe for clinic note documentation during this visit. Orders: Orders Lipid Panel Today E78.00 - Pure hypercholesterolemia, unspecified Medications: New azelastine administer into each nostril 1 spray intranasal BID 30 mL 0RF
[2024-10-02 08:48] VITALS: BP 120/50; PULSE 56; O2SAT 98; BMI 27.7
== END 2024-10-02 09:24 | disposition home or self-care (01) ==
LOC: HO.HMCH 08:47
PROVIDERS: PCP Internal Medicine
DX: E11.65 Type 2 diabetes mellitus with hyperglycemia (principal); I10 Essential (primary) hypertension; E66.9 Obesity, unspecified; Z68.27 Body mass index [BMI] 27.0-27.9, adult; E78.00 Pure hypercholesterolemia, unspecified; K21.9 Gastro-esophageal reflux disease without esophagitis; E04.1 Nontoxic single thyroid nodule; J30.2 Other seasonal allergic rhinitis

== ENCOUNTER → 2024-10-02 08:43 | Outpatient (BNVA) | payer MEDICARE, SELFPAY | PROVIDERS: PCP Internal Medicine | DX: E11.65 Type 2 diabetes mellitus with hyperglycemia (principal); E66.9 Obesity, unspecified; Z68.27 Body mass index [BMI] 27.0-27.9, adult; E78.00 Pure hypercholesterolemia, unspecified; I10 Essential (primary) hypertension; K21.9 Gastro-esophageal reflux disease without esophagitis; E04.1 Nontoxic single thyroid nodule; J30.2 Other seasonal allergic rhinitis; Z71.3 Dietary counseling and surveillance | CPT/HCPCS: 96127; 99212 ==

== ENCOUNTER 2024-11-07 15:06 | Inpatient (IN) | payer MEDICARE, SELFPAY ==
--- NOTE | ~2024-11-07 | FL_ITS ---
EXAMINATION: FL GUIDANCE ONLY HISTORY: left IM femoral nail COMPARISON: Correlation is made with plain films of the left hip dated 11/07/2024. TECHNIQUE: Fluoroscopy time: 0.6 minutes. Cumulative Dose: 8.71 mGy. DAP: 0.139 mGym2 Images: 5. FINDINGS: Fluoroscopic spot films of the left hip demonstrate internal fixation of the previously seen comminuted intertrochanteric fracture with a compression screw and intramedullary werner. FL/FL guidance in OR IMPRESSION: Fluoroscopy during procedure. Please see procedure report for additional information. Electronically signed by: Tyler Smallwood MD 11/11/2024 06:59 AM EDT
--- NOTE | ~2024-11-07 | XR_ITS ---
CLINICAL HISTORY: hip fract Single view of the chest. Findings: Heart size is upper limits of normal. No focal consolidation or pleural effusion is seen. Impression: No acute injury is identified. There is mild pulmonary vascular congestion most likely related to supine positioning. Mild CHF considered less likely follow-up as clinically warranted. This document has been electronically signed by: Akash Sosa MD on 11/07/2024 18:14:59
--- NOTE | ~2024-11-07 | XR_ITS ---
CLINICAL HISTORY: fall, l upper leg pain Pelvis and left hip. Findings: There is an intertrochanteric fracture of the left femur with significant displacement and angulation. There is no dislocation. 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 Impression: Intertrochanteric fracture left femur. This document has been electronically signed by: Akash Sosa MD on 11/07/2024 18:14:13
[2024-11-07 15:11] VITALS: BP 180/124; PULSE 72; O2SAT 96
[2024-11-07 15:12] VITALS: BP 180/82; PULSE 69; RESP 19; TEMP 37.1; O2SAT 98; BMI 29.7
--- NOTE | 2024-11-07 15:58 | ED_ITS ---
HPI - General Adult General Chief complaint: Fall Stated complaint: FALL,HIP PAIN PER EMS Time Seen by Provider: 11/07/24 15:57 Source: patient and family Mode of arrival: EMS Limitations: no limitations History of Present Illness ED Provider: HPI narrative: Patient was getting into her car tripped and fell on her buttocks presenting complaining of pelvic pain, left hip pain, she did not have any chest pain or shortness of breath or palpitations prior to the fall, did not injure her head and neck, she is not on blood thinners. Related Data Home Medications ?Medication ?Instructions ?Recorded ?Confirmed denosumab 60 mg/mL subcutaneous 60 mg subcut [id number] 03/03/20 10/02/24 syringe (Prolia) sennosides 8.6 mg tablet (senna) 8.6 mg PO BEDTIME 10/02/24 Previous Rx's ?Medication ?Instructions ?Recorded promethazine 12.5 mg tablet 12.5 mg PO TID PRN nausea and 01/04/22 vomiting #20 tabs ergocalciferol (vitamin D2) 1,250 1,250 mcg PO .Qmonth #3 caps 02/26/24 mcg (50,000 unit) capsule losartan 100 mg tablet 100 mg PO DAILY #90 tabs 07/23 lorazepam 1 mg tablet 1 mg PO DAILY PRN anxiety 90 days 05/06/24 #90 tabs chlordiazepoxide-clidinium 5 1 cap PO .QD PRN anxiety #90 caps 06/03/24 mg-2.5 mg capsule (Librax (with clidinium)) metoprolol succinate 25 mg 12.5 mg (1/2 x 25 mg) PO DA JENNIFER #45 07/27/24 tablet,extended release 24 hr tabs omeprazole 20 mg capsule,delayed 20 mg PO DAILY #90 ca ps 09/01/24 release azelastine 137 mcg (0.1 %) nasal 1 spray intranasal BI D #30 mL 10/25/24 spray Allergies Allergy/AdvReac Type Severity Reaction Status Date / Time lansoprazole (From PREVACID) Allergy Intermediate VOMITING Verified 11/07/24 15:13 morphine (MORPHINE) Allergy Intermediate AGITATION Verified 11/07/24 15:13 risedronate sodium (From Allergy Intermediate DYSPNEA Verified 11/07/24 15:13 ACTONEL) alendronate sodium (From Allergy Mild NAUSEA,SOB Verified 11/07/24 15:13 Fosamax) azithromycin (AZITHROMYCIN) Allergy Mild NAUSEA/HEAD Verified 11/07/24 15:13 ACHE Penicillins Allergy Mild RASH Verified 11/07/24 15:13 amlodipine Allergy Unknown Unknown Verified 11/07/24 15:13 Bifidobacterium infantis Allergy Unknown Unknown Verified 11/07/24 15:13 (Align) cetirizine (From ZYRTEC) Allergy Unknown UNKNOWN Verified 11/07/24 15:13 cyanocobalamin (vitamin B12) Allergy Unknown Unknown Verified 11/07/24 15:13 enalapril (ENALAPRIL) Allergy Unknown ABD PAIN, Verified 11/07/24 15:13 VERY NAUSEOUS, nausea fexofenadine (From MAC) Allergy Unknown UNKNOWN Verified 11/07/24 15:13 folic acid Allergy Unknown unk Verified 11/07/24 15:13 hydralazine Allergy Unknown nausea Verified 11/07/24 15:13 hydrochlorothiazide Allergy Unknown dry mouth Verified 11/07/24 15:13 latex (Latex) Allergy Unknown RASH Verified 11/07/24 15:13 loratadine (Claritin) Allergy Unknown Unknown Verified 11/07/24 15:13 metoclopramide (From REGLAN) Allergy Unknown JITTERY Verified 11/07/24 15:13 mometasone furoate (From Allergy Unknown UNKNOWN Verified 11/07/24 15:13 NASONEX) montelukast (Singulair) Allergy Unknown Unknown Verified 11/07/24 15:13 pantoprazole (From PROTONIX) Allergy Unknown UNKNOWN Verified 11/07/24 15:13 penicillin V Allergy Unknown Unknown Verified 11/07/24 15:13 polyethylene glycol 3350 Allergy Unknown Unknown Verified 11/07/24 15:13 (Miralax) pseudoephedrine (From Allergy Unknown HYPER Verified 11/07/24 15:13 SUDAFED) ranitidine (From ZANTAC) Allergy Unknown UNKNOWN Verified 11/07/24 15:13 thiamine (vitamin B1) Allergy Unknown Unknown Verified 11/07/24 15:13 ascorbic acid (From AdvReac Intermediate Constipatio Verified 11/07/24 15:13 PreserVision AREDS-2) n copper (From PreserVision AdvReac Intermediate Constipatio Verified 11/07/24 15:13 AREDS-2) n lutein (From PreserVision AdvReac Intermediate Constipatio Verified 11/07/24 15:13 AREDS-2) n vitamin E acetate (dl-alpha AdvReac Intermediate Constipatio Verified 11/07/24 15:13 tocopheryl) (From n PreserVision AREDS-2) zeaxanthin (From AdvReac Intermediate Constipatio Verified 11/07/24 15:13 PreserVision AREDS-2) n zinc oxide (From AdvReac Intermediate Constipatio Verified 11/07/24 15:13 PreserVision AREDS-2) n ergocalciferol (vitamin D2) AdvReac Mild CONSTIPATIO Verified 11/07/24 15:13 (From CALCIUM CITRATE WITH D) N Mac-D 12 Hour Allergy Unknown Unknown Uncoded 11/07/24 15:13 Calcium Citrate + D Allergy Unknown Unknown Uncoded 11/07/24 15:13 Folic + B12 Allergy Unknown Unknown Uncoded 11/07/24 15:13 latex Allergy Unknown unknown Uncoded 11/07/24 15:13 From CALCIUM CITRATE WITH D AdvReac Mild CONSTIPATIO Uncoded 11/07/24 15:13 N Review of Systems Constitutional: Constitutional: Reports as per [facility] Past Medical History Medical History Impaired glucose tolerance Macular degeneration Vitamin D deficiency Tubular adenoma of colon Closed left arm fracture Carcinoid tumor Hypertension Osteoporosis Irritable bowel syndrome Obesity (BMI 30-39.9) Hypercholesterolemia GERD (gastroesophageal reflux disease) Degenerative disc disease, lumbar Peripheral vascular disease Surgical History History of surgical procedure on eye proper using laser H/O ventral hernia repair Status post left breast lumpectomy Family History Family History Father Diabetes Stroke Mother Pancreatic cancer Brother Dementia Social History Social History Housing: House Alcohol intake: former Patient Tobacco Use Status: Never used Tobacco Tobacco use type: Cigarette e-Cigarette/Vaping Use: Never Used Second Hand Smoke Exposure: No Advance Directives: No Advance Directives Information Provided: No Do you have a plan to hurt others: No Plan service: No Current occupational status: retired Cognitive needs: No Hearing needs: Yes Vision needs: Yes Physical Exam ED Vital Signs: Vital Signs - 24 hr 11/07/24 15:12 Temperature 98.8 F Pulse Rate 69 Respiratory Rate 19 Blood Pressure 180/82 H Pulse Oximetry 98 Oxygen Delivery Method Room Air BMI result Body Mass Index 29.7 Const Other: * Gen: ?Overall well-appearing patient * HEENT: No facial trauma, no scalp trauma * Neck: Supple, no LAD * CV: S1-S2 RR * Resp: ?No wheezing rales rhonchi no stridor moving air well * Abd: ?Bowel sounds are present, no tenderness no rebound no rigidity * MSK: Tenderness along her left proximal hip, distal pulses intact, decreased range of motion left hip secondary to pain, internal rotation and shortening present as well * Skin: Warm, dry, intact, * Neuro: ?Alert and oriented x3, moving upper and lower extremities symmetrically, no obvious facial asymmetry noted Medical Decision Making Medical Decision Making [facility] Narrative: Patient presented after nonsyncopal fall, x-rays revealed left-sided intertrochanteric fracture without any other trauma to the head neck area, contacted Dr. 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 Bowles from Orthopedics) Lab Data [facility] Lab Attestation statement: I reviewed the patient's lab results. Independent Interpretation I performed an independent interpretation of an: Plain X-Ray (Left intertrochanteric fracture with angulation, chest x-ray without rib fractures, pneumothorax) Radiology Impression Discussion of test interpretation with radiology: I have reviewed the radiologist's reading. Discharge Plan Discharge Clinical Impression: Closed intertrochanteric fracture Qualifiers: Encounter type: initial encounter Fracture alignment: displaced Laterality: left Qualified Code(s): S72.142A - Displaced intertrochanteric fracture of left femur, initial encounter for closed fracture Prescriptions: No Action promethazine 12.5 mg tablet 12.5 mg PO TID PRN (Reason: nausea and vomiting) Qty: 20 0RF ergocalciferol (vitamin D2) 1,250 mcg (50,000 unit) capsule 1,250 mcg PO .Qmonth Qty: 3 3RF losartan 100 mg tablet 100 mg PO DAILY Qty: 90 2RF lorazepam 1 mg tablet 1 mg PO DAILY PRN (Reason: anxiety) 90 Days Qty: 90 1RF chlordiazepoxide-clidinium [Librax (with clidinium)] 5-2.5 mg capsule 1 cap PO .QD PRN (Reason: anxiety) Qty: 90 1RF metoprolol succinate 25 mg tablet extended release 24 hr 12.5 mg PO DAILY Qty: 45 3RF omeprazole 20 mg capsule,delayed release(DR/EC) 20 mg PO DAILY Qty: 90 3RF azelastine 137 mcg (0.1 %) spray,non-aerosol 1 spray intranasal BID Qty: 30 1RF Prolia 60 mg/mL syringe 60 mg subcut [id number] sennosides [senna] 8.6 mg tablet 8.6 mg PO BEDTIME Print Language: Sinhala
--- NOTE | 2024-11-07 16:19 | ECG_ITS ---
Test Reason : FALL Blood Pressure : */* mmHG Vent. Rate : 81 BPM Atrial Rate : 81 BPM P-R Int : 194 ms QRS Dur : 88 ms QT Int : 382 ms P-R-T Axes : 46 -39 33 degrees QTcB Int : 443 ms Normal sinus rhythm Left axis deviation Minimal voltage criteria for LVH, may be normal variant ( Mark product ) Abnormal ECG When compared with ECG of 25-Sep-2013 09:04, QRS axis Shifted left Borderline criteria for Inferior infarct are no longer Present Referred By: Vladimir Nuñez Electronically Signed By: Jimi Lubin
--- NOTE | 2024-11-07 16:57 | PM.IMHP ---
History of Present Illness Date of Service: 11/07/24 Attending physician on admission: Cristobal Rodriguez Chief Complaint: Hip pain Maria Victoria Judd is an 86 years old woman with past medical history significant for essential hypertension and impaired glucose tolerance presents to the ED presented after sustaining a mechanical fall. She fell after tripping with her shoes. She will admit in her left hip. Denied head trauma. She denied any symptoms dizziness, loss of consciousness, palpitation, chest pain or shortness on breath prior to falling down. She also denied any acute gastrointestinal or genitourinary symptoms. Denies tobacco smoking, ethanol abuse or illicit drug use. He had a left arm fracture in the past. In the ED she was found to with stable vital signs. Blood workup was remarkable for leukocytosis of 11.8. Hemoglobin is 13.6 and platelets 198. INR is 1.0. There are no significant electrolyte imbalances except for minimal hyperkalemia. BUN is 26 and creatinine 1.30. CO2 is 20 with a normal anion gap. Glucose is 145. CXR showed no acute cardiopulmonary findings. Hip/pelvis x-rays showed left intertrochanteric fracture. ECG showed normal sinus rhythm and no acute ischemic changes. ED tx: Dilaudid 0.5 mg IV, Zofran 4 mg IV and NS 1L bolus. Review of Systems Review of Systems: All 12 systems were reviewed and normal except as noted in HPI. [facility] Medical History Impaired glucose tolerance Macular degeneration Vitamin D deficiency Tubular adenoma of colon Closed left arm fracture Carcinoid tumor Hypertension Osteoporosis Irritable bowel syndrome Obesity (BMI 30-39.9) Hypercholesterolemia GERD (gastroesophageal reflux disease) Degenerative disc disease, lumbar Peripheral vascular disease Family History Father Diabetes Stroke Mother Pancreatic cancer Brother Dementia Surgical History History of surgical procedure on eye proper using laser H/O ventral hernia repair Status post left breast lumpectomy Social History Housing: House Alcohol intake: former Patient Tobacco Use Status: Never used Tobacco Tobacco use type: Cigarette e-Cigarette/Vaping Use: Never Used Second Hand Smoke Exposure: No Advance Directives: No Advance Directives Information Provided: No Do you have a plan to hurt others: No Plan service: No Current occupational status: retired Cognitive needs: No Hearing needs: Yes Vision needs: Yes Meds Allergies Allergy/AdvReac Type Severity Reaction Status Date / Time lansoprazole (From PREVACID) Allergy Intermediate VOMITING Verified 11/07/24 15:13 morphine (MORPHINE) Allergy Intermediate AGITATION Verified 11/07/24 15:13 risedronate sodium (From Allergy Intermediate DYSPNEA Verified 11/07/24 15:13 ACTONEL) alendronate sodium (From Allergy Mild NAUSEA,SOB Verified 11/07/24 15:13 Fosamax) azithromycin (AZITHROMYCIN) Allergy Mild NAUSEA/HEAD Verified 11/07/24 15:13 ACHE Penicillins Allergy Mild RASH Verified 11/07/24 15:13 amlodipine Allergy Unknown Unknown Verified 11/07/24 15:13 Bifidobacterium infantis Allergy Unknown Unknown Verified 11/07/24 15:13 (Align) cetirizine (From ZYRTEC) Allergy Unknown UNKNOWN Verified 11/07/24 15:13 cyanocobalamin (vitamin B12) Allergy Unknown Unknown Verified 11/07/24 15:13 enalapril (ENALAPRIL) Allergy Unknown ABD PAIN, Verified 11/07/24 15:13 VERY NAUSEOUS, nausea fexofenadine (From MAC) Allergy Unknown UNKNOWN Verified 11/07/24 15:13 folic acid Allergy Unknown unk Verified 11/07/24 15:13 hydralazine Allergy Unknown nausea Verified 11/07/24 15:13 hydrochlorothiazide Allergy Unknown dry mouth Verified 11/07/24 15:13 latex (Latex) Allergy Unknown RASH Verified 11/07/24 15:13 loratadine (Claritin) Allergy Unknown Unknown Verified 11/07/24 15:13 metoclopramide (From REGLAN) Allergy Unknown JITTERY Verified 11/07/24 15:13 mometasone furoate (From Allergy Unknown UNKNOWN Verified 11/07/24 15:13 NASONEX) montelukast (Singulair) Allergy Unknown Unknown Verified 11/07/24 15:13 pantoprazole (From PROTONIX) Allergy Unknown UNKNOWN Verified 11/07/24 15:13 penicillin V Allergy Unknown Unknown Verified 11/07/24 15:13 polyethylene glycol 3350 Allergy Unknown Unknown Verified 11/07/24 15:13 (Miralax) pseudoephedrine (From Allergy Unknown HYPER Verified 11/07/24 15:13 SUDAFED) ranitidine (From ZANTAC) Allergy Unknown UNKNOWN Verified 11/07/24 15:13 thiamine (vitamin B1) Allergy Unknown Unknown Verified 11/07/24 15:13 ascorbic acid (From AdvReac Intermediate Constipatio Verified 11/07/24 15:13 PreserVision AREDS-2) n copper (From PreserVision AdvReac Intermediate Constipatio Verified 11/07/24 15:13 AREDS-2) n lutein (From PreserVision AdvReac Intermediate Constipatio Verified 11/07/24 15:13 AREDS-2) n vitamin E acetate (dl-alpha AdvReac Intermediate Constipatio Verified 11/07/24 15:13 tocopheryl) (From n PreserVision AREDS-2) zeaxanthin (From AdvReac Intermediate Constipatio Verified 11/07/24 15:13 PreserVision AREDS-2) n zinc oxide (From AdvReac Intermediate Constipatio Verified 11/07/24 15:13 PreserVision AREDS-2) n ergocalciferol (vitamin D2) AdvReac Mild CONSTIPATIO Verified 11/07/24 15:13 (From CALCIUM CITRATE WITH D) N Mac-D 12 Hour Allergy Unknown Unknown Uncoded 11/07/24 15:13 Calcium Citrate + D Allergy Unknown Unknown Uncoded 11/07/24 15:13 Folic + B12 Allergy Unknown Unknown Uncoded 11/07/24 15:13 latex Allergy Unknown unknown Uncoded 11/07/24 15:13 From CALCIUM CITRATE WITH D AdvReac Mild CONSTIPATIO Uncoded 11/07/24 15:13 N Active Medications: Current Medications Sodium Chloride (Ns) 1,000 mls @ 999 mls/hr IV .Q1H1M INDRA Stop: 11/07/24 17:30 Home Medications ?Medication ?Instructions ?Recorded ?Confirmed ?Last Taken ?Type denosumab 60 mg/mL subcutaneous 60 mg subcut [id number] 03/03/20 10/02/24 Unknown History syringe (Prolia) sennosides 8.6 mg tablet (senna) 8.6 mg PO BEDTIME 12/21/23 10/02/24 Unknown History ergocalciferol (vitamin D2) 1,250 1,250 mcg PO QMONTH 11/07/24 Unknown History mcg (50,000 unit) capsule Physical Exam Vital Signs and Narrative: Vital Signs: Last Vital Signs Temp 98.8 F 11/07/24 15:12 Pulse 69 11/07/24 15:12 Resp 19 11/07/24 15:12 BP 180/82 H 11/07/24 15:12 Pulse Ox 98 11/07/24 15:12 O2 Del Method Room Air 11/07/24 15:12 BMI result Body Mass Index 29.7 Constitutional - Awake and Alert, No apparent distress HEENT - PER, EOMI Heart - RRR, No murmur. Lungs - Normal lung expansion, Normal respiratory effort, No respiratory distress. No tachypnea. Abdomen - NT / ND; +BS; No rebound or guarding - No CVA tenderness Extremities - no calf tenderness bilaterally, no swelling. Left hip: tenderness to palpation, no open wound, no hematomas. Distal pulses 2+ bilaterally. Musculoskeletal - Normal inspection, normal ROM Skin - Warm/Dry Neurological - Alert & oriented x3. No focal weakness. No facial droop. Normal speech. Psychological - Appropriate affect Results Labs 11/07/24 17:00 11/07/24 17:00 Assessment and Plan (1) Hip fracture, left: Qualifiers: Encounter type: initial encounter Fracture type: closed Qualified Code(s): S72.002A - Fracture of unspecified part of neck of left femur, initial encounter for closed fracture Status: Acute (2) Hypertension: Qualifiers: Hypertension type: essential hypertension Qualified Code(s): I10 - Essential (primary) hypertension Status: Acute Plan Maria Victoria Judd is an 84 y/o admitted with: Left intertrochanteric fracture, closed. Admit to the hospitalist service. NPO after midnight. Orthopedic surgery consult. Pain control with dilaudid IV. Essential hypertension. Continue metoprolol. Hold losartan. GERD. Continue omeprazole. Anxiety. Ativan prn. DVT prophylaxis: Heparin Code status: Full Patient will need hospitalization for at least midnights for hip fracture management surgical procedure and pain control with IV meds. Quality Stroke Does the patient have a stroke diagnosis?: No VTE Prior VTE?: No VTE Risk Level:: Medical - moderate - high VTE Device Contraindication: Treatment Not Indicated VTE Drug Contraindication: N/A - Med Ordered
[2024-11-07 17:08] VITALS: RESP 16
[2024-11-07 17:08] LABS: MANUAL DIFF FLAG NO
[2024-11-07 17:15] LABS: Hematocrit 39.2 % (37.0-47.0); Hemoglobin 13.6 g/dl (12.0-16.0); Imm Gran Abs Auto 0.06 X10*3/uL (0.00-0.03); Imm Gran Pct Auto 0.5 % (0.0-0.4); Lymphocytes Absolute Auto 1.3 X10*3/uL (1.2-4.9); Mean Corpuscular HGB Conc 34.7 g/dl (31.0-35.0); Mean Corpuscular Hemoglobin 29.2 pg (27.0-33.0); Mean Corpuscular Volume 84.1 fL (80.0-98.0); NRBC Abs Auto 0.000 X10*3/uL (0.0-0.012); NRBC Pct Auto 0.0 /100WBC (0.0-0.2); Platelet Count 198 X10*3/uL (160-400); Red Blood Count 4.66 X10*6/uL (4.20-5.50); White Blood Count 11.8 X10*3/uL (4.8-10.8)
[2024-11-07 17:24] LABS: Anion Gap 12 (12-20); Blood Urea Nitrogen 26 mg/dL (9-16); Calcium 9.5 mg/dL (8.4-10.2); Carbon Dioxide 20 mmol/L (22-29); Chloride 109 mmol/L (96-108); Creatinine Clr Calc Pharmacy 26.9; Estimated Glomerular Filt Rate 39; Potassium 3.9 mmol/L (3.3-5.1); Sodium 137 mmol/L (135-145)
[2024-11-07 17:30] LABS: INTERNATIONAL NORM RATIO 1.0 (0.9-1.1); Prothrombin Time 12.0 SEC (10.9-12.4)
[2024-11-07 18:16] LABS: Resp Syncy Virus RNA Qual PCR NEGATIVE (Negative); SARS COV2 PCR INHOUSE NEGATIVE (Negative)
[2024-11-07 18:25] VITALS: BP 176/72; PULSE 67; RESP 16; TEMP 37.1; O2SAT 99
--- NOTE | 2024-11-07 19:09 | PHA.MEDREC ---
Addendum entered by Edwin Feliciano PharmD 11/07/24 19:56: reviewed Original Note: Pharmacy Consult ? Medication Reconciliation Pharmacy has completed the medication reconciliation. Spoke to patient to confirm med list. Patient was able to confirm all her medications. Patient states she is no longer taking Azelastine 137 mcg nasal spray, Promethazine 12.5 mg, and Senna 8.6 mg. Patient confirmed Prolia 60mg/ml every 6 months, last dose was in July, next dose is due in January 2025, Vitamin D2 50,000 unit every month. last dose was 10/29/24, next dose 11/29/24. Patient had all her morning medications today.
--- NOTE | 2024-11-07 20:14 | PC.NURSE ---
Moved to ED Overflow
[2024-11-07 22:00] VITALS: BP 157/88; PULSE 90; RESP 16; TEMP 36.7; O2SAT 96
--- NOTE | 2024-11-08 03:42 | PC.NURSE ---
Pt asking if she had urinated. Purewick in place with no urine in canister. Pt bladder scanned for approx 475ml. Notified Dr. Kennedy and received order to place indwelling mitchell catheter.
[2024-11-08 05:52] VITALS: BP 109/55; PULSE 87; RESP 16; TEMP 37.1; O2SAT 95
[2024-11-08 06:44] LABS: MANUAL DIFF FLAG NO
[2024-11-08 06:57] LABS: Hematocrit 32.9 % (37.0-47.0); Hemoglobin 11.4 g/dl (12.0-16.0); Imm Gran Abs Auto 0.04 X10*3/uL (0.00-0.03); Imm Gran Pct Auto 0.4 % (0.0-0.4); Lymphocytes Absolute Auto 1.7 X10*3/uL (1.2-4.9); Mean Corpuscular HGB Conc 34.7 g/dl (31.0-35.0); Mean Corpuscular Hemoglobin 29.5 pg (27.0-33.0); Mean Corpuscular Volume 85.0 fL (80.0-98.0); NRBC Abs Auto 0.000 X10*3/uL (0.0-0.012); NRBC Pct Auto 0.0 /100WBC (0.0-0.2); Platelet Count 198 X10*3/uL (160-400); Red Blood Count 3.87 X10*6/uL (4.20-5.50); White Blood Count 9.8 X10*3/uL (4.8-10.8)
[2024-11-08 07:05] LABS: Hemoglobin A1C 111.9113 umol/L; Total Hemoglobin (HGBA1C) 3011.8351 umol/L
[2024-11-08 07:22] LABS: Anion Gap 12 (12-20); Blood Urea Nitrogen 22 mg/dL (9-16); Carbon Dioxide 19 mmol/L (22-29); Chloride 110 mmol/L (96-108); Creatinine Clr Calc Pharmacy 33.2; Estimated Glomerular Filt Rate 50; Magnesium 1.8 mg/dL (1.6-2.6); Potassium 4.1 mmol/L (3.3-5.1); Sodium 137 mmol/L (135-145)
[2024-11-08 07:30] LABS: Calcium 8.7 mg/dL (8.4-10.2)
--- NOTE | 2024-11-08 07:59 | HO.PM.IMPN ---
Subjective Subjective Date of Service: 11/08/24 Interval History: Patient is supposed to be NPO from midnight for surgical management in the a.m. Review of Systems Review of Systems: Yes all other systems are reviewed and are negative Physical Exam Vital Signs: Vital Signs: Last Vital Signs Temp 98.7 F 11/08/24 05:52 Pulse 87 11/08/24 05:52 Resp 16 11/08/24 05:52 BP 109/55 L 11/08/24 05:52 Pulse Ox 95 11/08/24 05:52 O2 Del Method Room Air 11/08/24 05:52 BMI result Body Mass Index 29.7 Const: General: cooperative Nutritional Appearance: well nourished Orientation/consciousness: patient oriented x3 Limitations: no limitations Neuro: General: patient oriented x3 Extrem: Other: Patient's left lower extremity shortened, no evidence of external rotation No evidence of surrounding erythema, ecchymosis No evidence of infection Patient is able to flex and extend the digits of the left foot without difficulty Compartments soft, nontender Distal sensation intact Capillary refill brisk Objective Data Active Medications Acetaminophen (Acetaminophen 325 Mg Tablet) 975 mg PO Q6H PRN PRN Reason: Pain, Mild 1-3,fever,headache Calcium Carbonate (Calcium Carbonate 750 Mg Tab.Chew) 750 mg PO Q4H PRN PRN Reason: Heartburn Heparin Sodium (Porcine) (Heparin Sodium,Porcine 5,000 Unit/Ml Vial) 5,000 unit SUBCUT Q12H INDRA Hydromorphone HCl (Hydromorphone Hcl 0.5 Mg/0.5 Ml Syringe) 0.5 mg IVPUSH Q4H PRN; Protocol PRN Reason: Pain, Severe (Pain Scale 7-10) Last Admin: 11/08/24 06:17 Dose: 0.5 mg Documented By: AMRIT Magnesium Hydroxide (Milk Of Magnesia 30 Ml Oral.Susp) 30 ml PO DAILY PRN PRN Reason: Constipation Melatonin (Melatonin 3 Mg Tablet) 6 mg PO BEDTIME PRN PRN Reason: Insomnia Ondansetron HCl (Ondansetron Hcl 4 Mg/2 Ml Vial) 4 mg IVPUSH Q6H PRN PRN Reason: Nausea and Vomiting Last Admin: 11/08/24 05:09 Dose: 4 mg Documented By: AMRIT Sodium Chloride (0.9 % Sodium Chloride Flush 3 Ml Syringe) 3 ml IVFLUSH QSHIFT INDRA Last Admin: 11/07/24 23:37 Dose: Not Given Documented By: AMRIT Non-Admin Reason: Patient Asleep Labs 11/08/24 06:39 11/08/24 06:39 Labs: Laboratory Results - last 24 hr 11/07/24 11/07/24 11/08/24 17:00 17:31 06:39 MCV 84.1 85.0 MCH 29.2 29.5 MCHC 34.7 34.7 RDW 12.5 12.7 Plt Count 198 198 MPV 10.3 10.4 Immature Gran % (Auto) 0.5 H 0.4 Neut % (Auto) 81.9 H 69.9 Lymph % (Auto) 11.0 L 17.7 L Wright % (Auto) 6.1 11.7 H Eos % (Auto) 0.3 0.1 Baso % (Auto) 0.2 0.2 Lymph # (Auto) 1.3 1.7 Wright # (Auto) 0.7 1.1 Eos # (Auto) 0.0 0.0 Baso # (Auto) 0.0 0.0 Abs Immat Gran (auto) 0.06 H 0.04 H Absolute Neuts (auto) 9.7 H 6.8 Absolute Nucleated RBC 0.000 0.000 Nucleated RBC % (auto) 0.0 0.0 PT 12.0 INR 1.0 Anion Gap 12 12 Estim Creat Clear Calc 26.9 33.2 Estimated GFR 39 50 Random Glucose 145 H 136 H Estimat Average Glucose 114 Hemoglobin A1c % 5.6 Calcium 9.5 D 8.7 D Magnesium 1.8 Influenza Type A (PCR) NEGATIVE Influenza Type B (PCR) NEGATIVE RSV RNA Qual (PCR) NEGATIVE SARS-CoV-2 RNA (RT-PCR) NEGATIVE Blood Type O Positive Antibody Screen NEGATIVE Assessment and Plan (1) Hip fracture, left: Status: Acute (2) Intertrochanteric fracture of left hip: Status: Acute Plan Estephania is an 84 years old woman with past medical history significant for essential hypertension and type 2 DM presents to the ED presented after sustaining a traumatic mechanical fall sustaining a left closed intertrochanteric fracture. Surgical management has been planned for the a.m. Ortho consulted Patient to undergo ORIF in the a.m. Left intertrochanteric fracture, closed. Surgical management has been planned for the a.m. Ortho consulted Patient to undergo ORIF in the a.m. Pain mx Bowel mx DVT with SCD until postop NPO after midnight. Essential hypertension. Patient is normotensive and not tachycardic without home medications, given the risk of anesthesia effect, we will hold home antihypertensives today and based on hemodynamics, we will resume in the a.m. post surgery GERD. Continue omeprazole. Anxiety. Ativan prn. Had the pleasure of speaking to the patient's brother and sister at the time of this encounter .This note is constructed using voice recognition software. While every effort has been made to ensure accuracy, printing table worker errors may have been included. Total time managing care of this patient today: 35 minutes. Quality Stroke Does the patient have a stroke diagnosis?: No VTE Prior VTE?: No VTE Risk Level:: Medical - moderate - high VTE Device Contraindication: Treatment Not Indicated VTE Drug Contraindication: N/A - Med Ordered
[2024-11-08] MEDS: 0.9 % Sodium Chloride Flush 3 ML SYRINGE IVFLUSH ×3 (08:12→20:24)
--- NOTE | 2024-11-08 08:17 | PC.NURSE ---
Addendum entered by Mallika Luevano RN 11/08/24 08:21: Patient is a 84 yo female with past medical history significant for essential hypertension and impaired glucose tolerance presents to the ED presented after sustaining a mechanical fall and was found to have a left intertrochanteric fx of the femur. Patient is alert and oriented. Lungs clear bilat. Respirations even and non-labored. Abdomen soft, non-tender with positive bowel sounds. Bui patent and draining yellow urine. Positive pedal pulses with LE edema noted. Plan for surgery tomorrow. Original Note: Medical History Impaired glucose tolerance Macular degeneration Vitamin D deficiency Tubular adenoma of colon Closed left arm fracture Carcinoid tumor Hypertension Osteoporosis Irritable bowel syndrome Obesity (BMI 30-39.9) Hypercholesterolemia GERD (gastroesophageal reflux disease) Degenerative disc disease, lumbar Peripheral vascular disease
--- NOTE | 2024-11-08 08:36 | P.CONOP_ITS ---
History of Present Illness HPI Consult date: 11/08/24 Chief complaint: Left hip fracture Narrative: 84-year-old female presented to the emergency department after a fall Patient reports that she fell onto concrete and was unable to bear weight on the left lower extremity at that time X-rays taken in the emergency department reveal intertrochanteric fracture of the left hip Today, the patient reports that she is in pain, but it has improved since she arrived to the hospital No acute events overnight No other acute complaints or concerns at this time Review of Systems 2 Review of Systems: Yes all other systems are reviewed and are negative [facility]LY [facility] Past Medical History Medical History Impaired glucose tolerance Macular degeneration Vitamin D deficiency Tubular adenoma of colon Closed left arm fracture Carcinoid tumor Hypertension Osteoporosis Irritable bowel syndrome Obesity (BMI 30-39.9) Hypercholesterolemia GERD (gastroesophageal reflux disease) Degenerative disc disease, lumbar Peripheral vascular disease Family History Family History Father Diabetes Stroke Mother Pancreatic cancer Brother Dementia Surgical History Surgical History History of surgical procedure on eye proper using laser H/O ventral hernia repair Status post left breast lumpectomy Social History Social History Housing: House Alcohol intake: former Patient Tobacco Use Status: Never used Tobacco Tobacco use type: Cigarette e-Cigarette/Vaping Use: Never Used Second Hand Smoke Exposure: No Advance Directives: No Advance Directives Information Provided: No Do you have a plan to hurt others: No Plan Nutrition Risks: No Nutritional Risk service: No Current occupational status: retired Cognitive needs: No Hearing needs: Yes Vision needs: Yes Meds Allergies Allergy/AdvReac Type Severity Reaction Status Date / Time lansoprazole (From PREVACID) Allergy Intermediate VOMITING Verified 11/07/24 15:13 morphine (MORPHINE) Allergy Intermediate AGITATION Verified 11/07/24 15:13 risedronate sodium (From Allergy Intermediate DYSPNEA Verified 11/07/24 15:13 ACTONEL) alendronate sodium (From Allergy Mild NAUSEA,SOB Verified 11/07/24 15:13 Fosamax) azithromycin (AZITHROMYCIN) Allergy Mild NAUSEA/HEAD Verified 11/07/24 15:13 ACHE Penicillins Allergy Mild RASH Verified 11/07/24 15:13 amlodipine Allergy Unknown Unknown Verified 11/07/24 15:13 Bifidobacterium infantis Allergy Unknown Unknown Verified 11/07/24 15:13 (Align) cetirizine (From ZYRTEC) Allergy Unknown UNKNOWN Verified 11/07/24 15:13 cyanocobalamin (vitamin B12) Allergy Unknown Unknown Verified 11/07/24 15:13 enalapril (ENALAPRIL) Allergy Unknown ABD PAIN, Verified 11/07/24 15:13 VERY NAUSEOUS, nausea fexofenadine (From MAC) Allergy Unknown UNKNOWN Verified 11/07/24 15:13 folic acid Allergy Unknown unk Verified 11/07/24 15:13 hydralazine Allergy Unknown nausea Verified 11/07/24 15:13 hydrochlorothiazide Allergy Unknown dry mouth Verified 11/07/24 15:13 latex (Latex) Allergy Unknown RASH Verified 11/07/24 15:13 loratadine (Claritin) Allergy Unknown Unknown Verified 11/07/24 15:13 metoclopramide (From REGLAN) Allergy Unknown JITTERY Verified 11/07/24 15:13 mometasone furoate (From Allergy Unknown UNKNOWN Verified 11/07/24 15:13 NASONEX) montelukast (Singulair) Allergy Unknown Unknown Verified 11/07/24 15:13 pantoprazole (From PROTONIX) Allergy Unknown UNKNOWN Verified 11/07/24 15:13 penicillin V Allergy Unknown Unknown Verified 11/07/24 15:13 polyethylene glycol 3350 Allergy Unknown Unknown Verified 11/07/24 15:13 (Miralax) pseudoephedrine (From Allergy Unknown HYPER Verified 11/07/24 15:13 SUDAFED) ranitidine (From ZANTAC) Allergy Unknown UNKNOWN Verified 11/07/24 15:13 thiamine (vitamin B1) Allergy Unknown Unknown Verified 11/07/24 15:13 ascorbic acid (From AdvReac Intermediate Constipatio Verified 11/07/24 15:13 PreserVision AREDS-2) n copper (From PreserVision AdvReac Intermediate Constipatio Verified 11/07/24 15:13 AREDS-2) n lutein (From PreserVision AdvReac Intermediate Constipatio Verified 11/07/24 15:13 AREDS-2) n vitamin E acetate (dl-alpha AdvReac Intermediate Constipatio Verified 11/07/24 15:13 tocopheryl) (From n PreserVision AREDS-2) zeaxanthin (From AdvReac Intermediate Constipatio Verified 11/07/24 15:13 PreserVision AREDS-2) n zinc oxide (From AdvReac Intermediate Constipatio Verified 11/07/24 15:13 PreserVision AREDS-2) n ergocalciferol (vitamin D2) AdvReac Mild CONSTIPATIO Verified 11/07/24 15:13 (From CALCIUM CITRATE WITH D) N Mac-D 12 Hour Allergy Unknown Unknown Uncoded 11/07/24 15:13 Calcium Citrate + D Allergy Unknown Unknown Uncoded 11/07/24 15:13 Folic + B12 Allergy Unknown Unknown Uncoded 11/07/24 15:13 latex Allergy Unknown unknown Uncoded 11/07/24 15:13 From CALCIUM CITRATE WITH D AdvReac Mild CONSTIPATIO Uncoded 11/07/24 15:13 N Active Medications: Current Medications Acetaminophen (Acetaminophen 325 Mg Tablet) 975 mg PO Q6H PRN PRN Reason: Pain, Mild 1-3,fever,headache Calcium Carbonate (Calcium Carbonate 750 Mg Tab.Chew) 750 mg PO Q4H PRN PRN Reason: Heartburn Heparin Sodium (Porcine) (Heparin Sodium,Porcine 5,000 Unit/Ml Vial) 5,000 unit SUBCUT Q12H INDRA Hydromorphone HCl (Hydromorphone Hcl 0.5 Mg/0.5 Ml Syringe) 0.5 mg IVPUSH Q4H PRN; Protocol PRN Reason: Pain, Severe (Pain Scale 7-10) Last Admin: 11/08/24 06:17 Dose: 0.5 mg Magnesium Hydroxide (Milk Of Magnesia 30 Ml Oral.Susp) 30 ml PO DAILY PRN PRN Reason: Constipation Melatonin (Melatonin 3 Mg Tablet) 6 mg PO BEDTIME PRN PRN Reason: Insomnia Ondansetron HCl (Ondansetron Hcl 4 Mg/2 Ml Vial) 4 mg IVPUSH Q6H PRN PRN Reason: Nausea and Vomiting Last Admin: 11/08/24 05:09 Dose: 4 mg Sodium Chloride (0.9 % Sodium Chloride Flush 3 Ml Syringe) 3 ml IVFLUSH QSHIFT INDRA Last Admin: 11/08/24 08:12 Dose: 3 ml Home Medications ?Medication ?Instructions ?Recorded ?Confirmed ?Last Taken ?Type denosumab 60 mg/mL subcutaneous 60 mg subcut [id number] 03/03/20 11/07/24 07/30/24 History syringe (Prolia) chlordiazepoxide-clidinium 5 1 cap PO DAILY PRN anxiet y 11/07/24 11/07/24 Unknown History mg-2.5 mg capsule (Librax (with clidinium)) ergocalciferol (vitamin D2) 1,250 1,250 mcg PO QMONTH 11/07/24 11/07/24 10/29/24 History mcg (50,000 unit) capsule omeprazole 20 mg capsule,delayed 20 mg PO DAILY@0630 0 11/07/24 11/07/24 11/07/24 History release carboxymethylcellulose sodium 1 % 1 drp ophthalmic (ey e) NEEDED 11/08/24 11/08/24 Unknown History eye liquid gel drops PRN Dry Eye(S) eucalyptus oil-aloe See Rx Instructions .Route 0 11/08/24 11/08/24 Unknown History extr-lavender,abdifatah .COMPLEX PRN Congestion oil-petrolatum top ointment (Vicks Babyrub topical ointment) white petrolatum-mineral oil 94 1 appl ophthalmic (eye ) BEDTIME 11/08/24 11/08/24 Unknown History %-3 % eye ointment (Systane Nighttime) Physical Exam 2 Vital Signs: Vital Signs: Last Vital Signs Temp 98.7 F 11/08/24 05:52 Pulse 87 11/08/24 05:52 Resp 16 11/08/24 05:52 BP 109/55 L 11/08/24 05:52 Pulse Ox 95 11/08/24 05:52 O2 Del Method Room Air 11/08/24 05:52 BMI result Body Mass Index 29.7 Extrem: Other: Patient's left lower extremity shortened, no evidence of external rotation No evidence of surrounding erythema, ecchymosis No evidence of infection Patient is able to flex and extend the digits of the left foot without difficulty Compartments soft, nontender Distal sensation intact Capillary refill brisk Results Labs 11/08/24 06:39 11/08/24 06:39 Labs: Abnormal lab results 11/07/24 11/08/24 Range/Units 17:00 06:39 WBC 11.8 H (4.8-10.8) X10*3/uL RBC 3.87 L (4.20-5.50) X10*6/uL Hgb 11.4 L (12.0-16.0) g/dl Hct 32.9 L (37.0-47.0) % Immature Gran % (Auto) 0.5 H (0.0-0.4) % Neut % (Auto) 81.9 H (45-73) % Lymph % (Auto) 11.0 L 17.7 L (20-40) % Gaines % (Auto) 11.7 H (2-11) % Abs Immat Gran (auto) 0.06 H 0.04 H (0.00-0.03) X10*3/uL Absolute Neuts (auto) 9.7 H (2.0-8.3) x10*3/uL Chloride 109 H 110 H (96-108) mmol/L Carbon Dioxide 20 L 19 L (22-29) mmol/L BUN 26 H 22 H (9-16) mg/dL Random Glucose 145 H 136 H (60-115) mg/dL H & H 11/07/24 11/08/24 Range/Units 17:00 06:39 Hgb 13.6 11.4 L (12.0-16.0) g/dl Hct 39.2 32.9 L (37.0-47.0) % Coagulation 11/07/24 Range/Units 17:00 INR 1.0 (0.9-1.1) All other labs normal. Diagnostic results Hip x-ray: report reviewed and image reviewed Assessment and Plan (1) Intertrochanteric fracture of left hip: Status: Acute Plan 1. Intertrochanteric fracture of the left hip Date of injury 11/07/2024 Patient is educated about this injury Patient is educated about the typical recovery course I educated the patient about the condition. I discussed both operative and nonoperative treatment options. The patient would like to proceed with surgery. The risks and benefits of operative treatment were discussed with the patient and the patient wishes to proceed with surgery. These risks include, but are not limited to, risk of damage to blood vessels, nerves, tendons, infection, recurrence, incomplete relief of preoperative symptoms, persistent pain, possible need for further surgery, and the risks associated with regional blocks and/or anesthesia. Plan is to take the patient to the operating room on 11/09/2024 for the following procedures: 1. Left hip IM nail NPO at midnight for surgery tomorrow Continue pain management Continue with all other recommendations per Medicine Procedures Date of Service Date of Service: 11/08/24
[2024-11-08 09:42] VITALS: BMI 29.7
[2024-11-08 10:04] VITALS: BP 112/67; PULSE 79; RESP 17; TEMP 36.2; O2SAT 97
--- NOTE | 2024-11-08 14:32 | MHC.CM.PN ---
PT REPORTS SHE LIVES ALONE AND IS INDEPENDENT WITH CARE HER NIECE AND NEPHEW LIVE DOWNSTAIRS ALONG WITH THEIR TWO CHILDREN SHE USES NO DME AND HAS NO SERVICES COPY OF HCP REQUESTED PCP: DORIS JERONIMO IMM DELIVERED PT WILL LIKELY NEED STR SHE REPORTS [facility], ONE OF HER NEPHEWS WORKS THERE REFERRAL OUT
[2024-11-08 15:32] VITALS: BP 122/68; PULSE 92; RESP 18; TEMP 36.4; O2SAT 95
[2024-11-08 19:03] VITALS: BP 112/61; PULSE 89; RESP 18; TEMP 36.4; O2SAT 94
[2024-11-09] VITALS (10 sets, daily range): BP systolic 100–126; BP diastolic 59–75; PULSE 79–101; RESP 16–20; TEMP 36.1–36.5; O2SAT 95–98
[2024-11-09 05:36] LABS: Hematocrit 29.2 % (37.0-47.0); Hemoglobin 10.1 g/dl (12.0-16.0); Mean Corpuscular HGB Conc 34.6 g/dl (31.0-35.0); Mean Corpuscular Hemoglobin 29.7 pg (27.0-33.0); Mean Corpuscular Volume 85.9 fL (80.0-98.0); NRBC Abs Auto 0.000 X10*3/uL (0.0-0.012); NRBC Pct Auto 0.0 /100WBC (0.0-0.2); Platelet Count 160 X10*3/uL (160-400); Red Blood Count 3.40 X10*6/uL (4.20-5.50); White Blood Count 9.9 X10*3/uL (4.8-10.8)
[2024-11-09 05:41] LABS: INTERNATIONAL NORM RATIO 1.1 (0.9-1.1); Prothrombin Time 12.7 SEC (10.9-12.4)
[2024-11-09 05:50] LABS: Alanine Aminotransferase 12 U/L (0-31); Albumin Level 3.6 g/dL (3.5-5.0); Alkaline Phosphatase 48 U/L (39-117); Anion Gap 11 (12-20); Aspartate Amino Transferase 31 U/L (5-31); Blood Urea Nitrogen 25 mg/dL (9-16); Calcium 8.4 mg/dL (8.4-10.2); Carbon Dioxide 22 mmol/L (22-29); Chloride 105 mmol/L (96-108); Creatinine Clr Calc Pharmacy 27.3; Estimated Glomerular Filt Rate 40; Potassium 4.4 mmol/L (3.3-5.1); Sodium 134 mmol/L (135-145); Total Protein 6.1 g/dL (6.5-8.0)
--- NOTE | 2024-11-09 10:36 | P.CONAN_ITS ---
HPI - Anesthesia Eval Consult details Narrative: Left hip fracturew PMFSH Active Problems Active Problems: All Active Problems Intertrochanteric fracture of left hip (Acute) Hip fracture, left (Acute) Closed intertrochanteric fracture (Acute) Seasonal allergies (Acute) Right thyroid nodule (Acute) Essential tremor (Acute) Annual physical exam (Acute) Macular degeneration (Acute) Osteoarthritis of left knee (Acute) Type 2 diabetes mellitus with hyperglycemia (Acute) Vitamin D deficiency (Acute) Constipation (Acute) Medicare annual wellness visit, initial (Acute) COVID-19 virus infection (Acute) Acute maxillary sinusitis (Acute) Generalized anxiety disorder (Acute) Osteoporosis (Acute) Hearing impairment (Acute) Vitamin B12 deficiency (Acute) Folic acid deficiency (Acute) Hypertension (Acute) Obesity (BMI 30-39.9) (Acute) Hypercholesterolemia (Acute) GERD (gastroesophageal reflux disease) (Acute) Past Medical History Medical History Impaired glucose tolerance Macular degeneration Vitamin D deficiency Tubular adenoma of colon Closed left arm fracture Carcinoid tumor Hypertension Osteoporosis Irritable bowel syndrome Obesity (BMI 30-39.9) Hypercholesterolemia GERD (gastroesophageal reflux disease) Degenerative disc disease, lumbar Peripheral vascular disease Family History Family History Father Diabetes Stroke Mother Pancreatic cancer Brother Dementia Family history of problems with anesthesia: No Surgical History Surgical History History of surgical procedure on eye proper using laser H/O ventral hernia repair Status post left breast lumpectomy History of Problems with Anesthesia: No Social History Social History Household Members Other:: family member lives downstairs Housing: House Housing Other:: two family house Do you presently have visiting nurse or other home services: No Alcohol intake: former Patient Tobacco Use Status: Never used Tobacco Tobacco use type: Cigarette e-Cigarette/Vaping Use: Never Used Second Hand Smoke Exposure: No service: No Current occupational status: retired Cognitive needs: No Hearing needs: Yes Vision needs: Yes Meds Allergies Allergy/AdvReac Type Severity Reaction Status Date / Time lansoprazole (From PREVACID) Allergy Intermediate VOMITING Verified 11/07/24 15:13 morphine (MORPHINE) Allergy Intermediate AGITATION Verified 11/07/24 15:13 risedronate sodium (From Allergy Intermediate DYSPNEA Verified 11/07/24 15:13 ACTONEL) alendronate sodium (From Allergy Mild NAUSEA,SOB Verified 11/07/24 15:13 Fosamax) azithromycin (AZITHROMYCIN) Allergy Mild NAUSEA/HEAD Verified 11/07/24 15:13 ACHE Penicillins Allergy Mild RASH Verified 11/07/24 15:13 amlodipine Allergy Unknown Unknown Verified 11/07/24 15:13 Bifidobacterium infantis Allergy Unknown Unknown Verified 11/07/24 15:13 (Align) cetirizine (From ZYRTEC) Allergy Unknown UNKNOWN Verified 11/07/24 15:13 cyanocobalamin (vitamin B12) Allergy Unknown Unknown Verified 11/07/24 15:13 enalapril (ENALAPRIL) Allergy Unknown ABD PAIN, Verified 11/07/24 15:13 VERY NAUSEOUS, nausea fexofenadine (From MAC) Allergy Unknown UNKNOWN Verified 11/07/24 15:13 folic acid Allergy Unknown unk Verified 11/07/24 15:13 hydralazine Allergy Unknown nausea Verified 11/07/24 15:13 hydrochlorothiazide Allergy Unknown dry mouth Verified 11/07/24 15:13 latex (Latex) Allergy Unknown RASH Verified 11/07/24 15:13 loratadine (Claritin) Allergy Unknown Unknown Verified 11/07/24 15:13 metoclopramide (From REGLAN) Allergy Unknown JITTERY Verified 11/07/24 15:13 mometasone furoate (From Allergy Unknown UNKNOWN Verified 11/07/24 15:13 NASONEX) montelukast (Singulair) Allergy Unknown Unknown Verified 11/07/24 15:13 pantoprazole (From PROTONIX) Allergy Unknown UNKNOWN Verified 11/07/24 15:13 penicillin V Allergy Unknown Unknown Verified 11/07/24 15:13 polyethylene glycol 3350 Allergy Unknown Unknown Verified 11/07/24 15:13 (Miralax) pseudoephedrine (From Allergy Unknown HYPER Verified 11/07/24 15:13 SUDAFED) ranitidine (From ZANTAC) Allergy Unknown UNKNOWN Verified 11/07/24 15:13 thiamine (vitamin B1) Allergy Unknown Unknown Verified 11/07/24 15:13 ascorbic acid (From AdvReac Intermediate Constipatio Verified 11/07/24 15:13 PreserVision AREDS-2) n copper (From PreserVision AdvReac Intermediate Constipatio Verified 11/07/24 15:13 AREDS-2) n lutein (From PreserVision AdvReac Intermediate Constipatio Verified 11/07/24 15:13 AREDS-2) n vitamin E acetate (dl-alpha AdvReac Intermediate Constipatio Verified 11/07/24 15:13 tocopheryl) (From n PreserVision AREDS-2) zeaxanthin (From AdvReac Intermediate Constipatio Verified 11/07/24 15:13 PreserVision AREDS-2) n zinc oxide (From AdvReac Intermediate Constipatio Verified 11/07/24 15:13 PreserVision AREDS-2) n ergocalciferol (vitamin D2) AdvReac Mild CONSTIPATIO Verified 11/07/24 15:13 (From CALCIUM CITRATE WITH D) N Mac-D 12 Hour Allergy Unknown Unknown Uncoded 11/07/24 15:13 Calcium Citrate + D Allergy Unknown Unknown Uncoded 11/07/24 15:13 Folic + B12 Allergy Unknown Unknown Uncoded 11/07/24 15:13 latex Allergy Unknown unknown Uncoded 11/07/24 15:13 From CALCIUM CITRATE WITH D AdvReac Mild CONSTIPATIO Uncoded 11/07/24 15:13 N Active Medications: Current Medications Acetaminophen (Acetaminophen 325 Mg Tablet) 975 mg PO Q6H PRN PRN Reason: Pain, Mild 1-3,fever,headache Last Admin: 11/08/24 15:37 Dose: 975 mg Calcium Carbonate (Calcium Carbonate 750 Mg Tab.Chew) 750 mg PO Q4H PRN PRN Reason: Heartburn Heparin Sodium (Porcine) (Heparin Sodium,Porcine 5,000 Unit/Ml Vial) 5,000 unit SUBCUT Q12H INDRA On Hold: 11/09/24 02:00 Last Admin: 11/08/24 21:49 Dose: 5,000 unit Hydromorphone HCl (Hydromorphone Hcl 0.5 Mg/0.5 Ml Syringe) 0.5 mg IVPUSH Q4H PRN; Protocol PRN Reason: Pain, Severe (Pain Scale 7-10) Last Admin: 11/09/24 01:31 Dose: 0.5 mg Lorazepam (Lorazepam 1 Mg Tablet) 1 mg PO DAILY PRN PRN Reason: Anxiety Last Admin: 11/08/24 20:21 Dose: 1 mg Magnesium Hydroxide (Milk Of Magnesia 30 Ml Oral.Susp) 30 ml PO DAILY PRN PRN Reason: Constipation Melatonin (Melatonin 3 Mg Tablet) 6 mg PO BEDTIME PRN PRN Reason: Insomnia Metoclopramide HCl (Metoclopramide Hcl 10 Mg/2 Ml Vial) 5 mg IVPUSH Q6H PRN PRN Reason: Nausea and Vomiting Multi-Ingred Cream/Lotion/Oil/Oint (Artificial Tears Ophth Oint 3.5 Gm Tube) 1 appl EYE-BOTH BEDTIME INDRA Last Admin: 11/08/24 20:21 Dose: 1 appl Pt Owned Med ( Chlordiazepoxide/Clinidium 5 Mg - 2.5 Mg) 1 each PO DAILY PRN PRN Reason: Anxiety Simethicone (Simethicone 80 Mg Tab.Chew) 80 mg PO QIDWMHS PRN PRN Reason: abdominal dicomfort Last Admin: 11/08/24 11:19 Dose: 80 mg Sodium Chloride (0.9 % Sodium Chloride Flush 3 Ml Syringe) 3 ml IVFLUSH QSHIFT [facility] Last Admin: 11/09/24 09:21 Dose: Not Given Home Medications ?Medication ?Instructions ?Recorded ?Confirmed ?Last Taken ?Type denosumab 60 mg/mL subcutaneous 60 mg subcut [id number] 03/03/20 11/07/24 07/30/24 History syringe (Prolia) chlordiazepoxide-clidinium 5 1 cap PO DAILY PRN anxiet y 11/07/24 11/07/24 Unknown History mg-2.5 mg capsule (Librax (with clidinium)) ergocalciferol (vitamin D2) 1,250 1,250 mcg PO QMONTH 11/07/24 11/07/24 10/29/24 History mcg (50,000 unit) capsule omeprazole 20 mg capsule,delayed 20 mg PO DAILY@0630 0 11/07/24 11/07/24 11/07/24 History release carboxymethylcellulose sodium 1 % 1 drp ophthalmic (ey e) NEEDED 11/08/24 11/08/24 Unknown History eye liquid gel drops PRN Dry Eye(S) eucalyptus oil-aloe See Rx Instructions .Route 0 11/08/24 11/08/24 Unknown History extr-lavender,abdifatah .COMPLEX PRN Congestion oil-petrolatum top ointment (Vicks Babyrub topical ointment) white petrolatum-mineral oil 94 1 appl ophthalmic (eye ) BEDTIME 11/08/24 11/08/24 Unknown History %-3 % eye ointment (Systane Nighttime) Exam Height,Weight and Vital Signs: Height 5 ft Weight 68.9 kg Last Vital Signs Temp 97.2 F 11/09/24 07:25 Pulse 96 11/09/24 07:25 Resp 18 11/09/24 07:25 BP 123/62 11/09/24 07:25 Pulse Ox 95 11/09/24 07:25 O2 Del Method Room Air 11/09/24 07:25 Pertinent Lab Results Pertinent Lab Results: Laboratory Tests 11/07/24 11/07/24 11/08/24 17:00 17:31 06:39 WBC 11.8 H 9.8 RBC 4.66 3.87 L Hgb 13.6 11.4 L Hct 39.2 32.9 L MCV 84.1 85.0 MCH 29.2 29.5 MCHC 34.7 34.7 RDW 12.5 12.7 Plt Count 198 198 MPV 10.3 10.4 Immature Gran % (Auto) 0.5 H 0.4 Neut % (Auto) 81.9 H 69.9 Lymph % (Auto) 11.0 L 17.7 L Stevens % (Auto) 6.1 11.7 H Eos % (Auto) 0.3 0.1 Baso % (Auto) 0.2 0.2 Lymph # (Auto) 1.3 1.7 Stevens # (Auto) 0.7 1.1 Eos # (Auto) 0.0 0.0 Baso # (Auto) 0.0 0.0 Abs Immat Gran (auto) 0.06 H 0.04 H Absolute Neuts (auto) 9.7 H 6.8 Absolute Nucleated RBC 0.000 0.000 Nucleated RBC % (auto) 0.0 0.0 PT 12.0 INR 1.0 Sodium 137 137 Potassium 3.9 4.1 Chloride 109 H 110 H Carbon Dioxide 20 L 19 L Anion Gap 12 12 BUN 26 H 22 H Creatinine 1.30 1.05 Estim Creat Clear Calc 26.9 33.2 Estimated GFR 39 50 Random Glucose 145 H 136 H Estimat Average Glucose 114 Hemoglobin A1c % 5.6 Calcium 9.5 D 8.7 D Magnesium 1.8 Total Bilirubin AST ALT Alkaline Phosphatase Total Protein Albumin Influenza Type A (PCR) NEGATIVE Influenza Type B (PCR) NEGATIVE RSV RNA Qual (PCR) NEGATIVE SARS-CoV-2 RNA (RT-PCR) NEGATIVE Blood Type O Positive Antibody Screen NEGATIVE 11/09/24 05:24 WBC 9.9 RBC 3.40 L Hgb 10.1 L Hct 29.2 L MCV 85.9 MCH 29.7 MCHC 34.6 RDW 12.9 Plt Count 160 MPV 10.1 Immature Gran % (Auto) Neut % (Auto) Lymph % (Auto) Stevens % (Auto) Eos % (Auto) Baso % (Auto) Lymph # (Auto) Stevens # (Auto) Eos # (Auto) Baso # (Auto) Abs Immat Gran (auto) Absolute Neuts (auto) Absolute Nucleated RBC 0.000 Nucleated RBC % (auto) 0.0 PT 12.7 H INR 1.1 Sodium 134 L Potassium 4.4 Chloride 105 Carbon Dioxide 22 Anion Gap 11 L BUN 25 H Creatinine 1.28 Estim Creat Clear Calc 27.3 Estimated GFR 40 Random Glucose 131 H Estimat Average Glucose Hemoglobin A1c % Calcium 8.4 Magnesium Total Bilirubin 0.9 AST 31 ALT 12 Alkaline Phosphatase 48 Total Protein 6.1 L Albumin 3.6 Influenza Type A (PCR) Influenza Type B (PCR) RSV RNA Qual (PCR) SARS-CoV-2 RNA (RT-PCR) Blood Type Antibody Screen Airway Mallampati Class: II TM Dist: >3cm Neck ROM: Full Loose/Missing/Broken Teeth: No Heart: RRR Lungs: CTAB Assessment and Plan Assessment Anesthesia Assessment: Anesthesia Plan Discussed and Chart Reviewed Final Anesthetic Review Family History of Problems with Anesthesia: No History of Problems with Anesthesia: No NPO: Yes ASA Class: III Final Preanesthetic Review: No Changes in Pt Med Stat, Meds/Allgs Chart Reviewed, Consent Obtained/Reviewed and Anes Risks/Benef Reviewed Patient Risk: High Procedure Risk: Intermediate Anesthetic Plan Anesthetic Plan: GA Disposition: Standard PACU
--- NOTE | 2024-11-09 11:03 | P.PNIM_ITS ---
Subjective Subjective Date of Service: 11/09/24 Interval History: seen and evaluated pain under fair control plan for surgery today no other events Review of Systems Review of Systems: Yes all other systems are reviewed and are negative Physical Exam 2 Vital Signs: Vital Signs: Last Vital Signs Temp 97.2 F 11/09/24 07:25 Pulse 96 11/09/24 07:25 Resp 18 11/09/24 07:25 BP 123/62 11/09/24 07:25 Pulse Ox 95 11/09/24 07:25 O2 Del Method Room Air 11/09/24 07:25 BMI result Body Mass Index 29.7 Const: Other: Constitutional : interactive, not in distress Cardiovascular : no JVP, no lower extremity edema Respiratory : bilateral chest movement, not in resp distress Gastrointestinal: soft, lax, Non tender Skin : Warm, Dry Extremities: Left leg shorted and rotated Neurological : Alert & oriented to self and place , No focal deficit Objective Data Active Medications Acetaminophen (Acetaminophen 325 Mg Tablet) 975 mg PO Q6H PRN PRN Reason: Pain, Mild 1-3,fever,headache Last Admin: 11/08/24 15:37 Dose: 975 mg Documented By: BRANDEN Calcium Carbonate (Calcium Carbonate 750 Mg Tab.Chew) 750 mg PO Q4H PRN PRN Reason: Heartburn Fentanyl (Fentanyl Citrate/Pf 100 Mcg/2 Ml Vial) 25 mcg IVPUSH Q5M PRN PRN Reason: Pain, Severe (Pain Scale 7-10) Stop: 11/09/24 16:42 Heparin Sodium (Porcine) (Heparin Sodium,Porcine 5,000 Unit/Ml Vial) 5,000 unit SUBCUT Q12H INDRA On Hold: 11/09/24 02:00 Last Admin: 11/08/24 21:49 Dose: 5,000 unit Documented By: CLAY Hydromorphone HCl (Hydromorphone Hcl 0.5 Mg/0.5 Ml Syringe) 0.5 mg IVPUSH Q4H PRN; Protocol PRN Reason: Pain, Severe (Pain Scale 7-10) Last Admin: 11/09/24 01:31 Dose: 0.5 mg Documented By: LYSSari Hydromorphone HCl (Hydromorphone Hcl 0.5 Mg/0.5 Ml Syringe) 0.25 mg IVPUSH Q5M PRN PRN Reason: Pain, Moderate to Severe (Pain Scale 4-10) Stop: 11/09/24 16:42 Acetaminophen (Ofirmev) 1,000 mg in 100 mls @ 400 mls/hr IV ONCE PRN PRN Reason: Pain, Mild (Pain Scale 1-3) Stop: 11/09/24 16:43 Lactated Ringer's (Lr) 1,000 mls @ 80 mls/hr IVCONT .[id number] [facility] Lorazepam (Lorazepam 1 Mg Tablet) 1 mg PO BEDTIME PRN PRN Reason: Anxiety Magnesium Hydroxide (Milk Of Magnesia 30 Ml Oral.Susp) 30 ml PO DAILY PRN PRN Reason: Constipation Melatonin (Melatonin 3 Mg Tablet) 6 mg PO BEDTIME PRN PRN Reason: Insomnia Metoclopramide HCl (Metoclopramide Hcl 10 Mg/2 Ml Vial) 5 mg IVPUSH Q6H PRN PRN Reason: Nausea and Vomiting Multi-Ingred Cream/Lotion/Oil/Oint (Artificial Tears Ophth Oint 3.5 Gm Tube) 1 appl EYE-BOTH BEDTIME [facility] Last Admin: 11/08/24 20:21 Dose: 1 appl Documented By: CLAY Naloxone HCl (Naloxone Hcl 0.4 Mg/Ml Vial) 0.04 mg IVPUSH Q5M PRN PRN Reason: Excessive sedation or RR < 8 Pt Owned Med ( Chlordiazepoxide/Clinidium 5 Mg - 2.5 Mg) 1 each PO DAILY PRN PRN Reason: Anxiety Ondansetron HCl (Ondansetron Hcl 4 Mg/2 Ml Vial) 4 mg IVPUSH ONCE PRN PRN Reason: Nausea and Vomiting Stop: 11/09/24 16:43 Simethicone (Simethicone 80 Mg Tab.Chew) 80 mg PO QIDWMHS PRN PRN Reason: abdominal dicomfort Last Admin: 11/08/24 11:19 Dose: 80 mg Documented By: BRANDEN Sodium Chloride (0.9 % Sodium Chloride Flush 3 Ml Syringe) [facility] Last Admin: 11/09/24 09:21 Dose: Not Given Documented By: ODIN Non-Admin Reason: Patient Asleep Labs 11/09/24 05:24 11/09/24 05:24 Labs: Laboratory Results - last 24 hr 11/09/24 05:24 MCV 85.9 MCH 29.7 MCHC 34.6 RDW 12.9 Plt Count 160 MPV 10.1 Absolute Nucleated RBC 0.000 Nucleated RBC % (auto) 0.0 PT 12.7 H INR 1.1 Anion Gap 11 L Estim Creat Clear Calc 27.3 Estimated GFR 40 Random Glucose 131 H Calcium 8.4 Total Bilirubin 0.9 AST 31 ALT 12 Alkaline Phosphatase 48 Total Protein 6.1 L Albumin 3.6 Assessment and Plan (1) Intertrochanteric fracture of left hip: Status: Acute (2) Closed intertrochanteric fracture: Status: Acute Plan Estephania is an 84 years old woman with past medical history significant for essential hypertension and type 2 DM presents to the ED presented after sustaining a traumatic mechanical fall sustaining a left closed intertrochanteric fracture. Left intertrochanteric fracture, closed. Surgical management has been planned for today Ortho following Patient to undergo ORIF Pain mx Bowel mx DVT with SCD until postop IVF maintenance Essential hypertension. will hold home antihypertensives today and based on hemodynamics, we will resume in the a.m. post surgery GERD. Continue omeprazole. Anxiety. Ativan prn. DVT PPx SCDs Quality Stroke Does the patient have a stroke diagnosis?: No VTE Prior VTE?: No VTE Risk Level:: Medical - moderate - high VTE Device Contraindication: Treatment Not Indicated VTE Drug Contraindication: N/A - Med Ordered
--- NOTE | 2024-11-09 11:26 | MHC.SHP ---
Pre-Procedural Eval Section A - 24 Hr Update-Section A only Date of Service: 11/09/24 The patient is an INPATIENT: Yes Changes since office visit: No Cold of Flu in the past 2 weeks, No New Medical Problems, No Changes in Medication and No Patient answered all questions The patient has been examined within 24 hours of the surgical procedure. The History & Physical has been completed within 30 days and I have reviewed it.: Yes Section B - Complete if H&P > 30 days Chief Complaint: Left hip fracture Allergies: Allergies Allergy/AdvReac Type Severity Reaction Status Date / Time lansoprazole (From PREVACID) Allergy Intermediate VOMITING Verified 11/07/24 15:13 morphine (MORPHINE) Allergy Intermediate AGITATION Verified 11/07/24 15:13 risedronate sodium (From Allergy Intermediate DYSPNEA Verified 11/07/24 15:13 ACTONEL) alendronate sodium (From Allergy Mild NAUSEA,SOB Verified 11/07/24 15:13 Fosamax) azithromycin (AZITHROMYCIN) Allergy Mild NAUSEA/HEAD Verified 11/07/24 15:13 ACHE Penicillins Allergy Mild RASH Verified 11/07/24 15:13 amlodipine Allergy Unknown Unknown Verified 11/07/24 15:13 Bifidobacterium infantis Allergy Unknown Unknown Verified 11/07/24 15:13 (Align) cetirizine (From ZYRTEC) Allergy Unknown UNKNOWN Verified 11/07/24 15:13 cyanocobalamin (vitamin B12) Allergy Unknown Unknown Verified 11/07/24 15:13 enalapril (ENALAPRIL) Allergy Unknown ABD PAIN, Verified 11/07/24 15:13 VERY NAUSEOUS, nausea fexofenadine (From MAC) Allergy Unknown UNKNOWN Verified 11/07/24 15:13 folic acid Allergy Unknown unk Verified 11/07/24 15:13 hydralazine Allergy Unknown nausea Verified 11/07/24 15:13 hydrochlorothiazide Allergy Unknown dry mouth Verified 11/07/24 15:13 latex (Latex) Allergy Unknown RASH Verified 11/07/24 15:13 loratadine (Claritin) Allergy Unknown Unknown Verified 11/07/24 15:13 metoclopramide (From REGLAN) Allergy Unknown JITTERY Verified 11/07/24 15:13 mometasone furoate (From Allergy Unknown UNKNOWN Verified 11/07/24 15:13 NASONEX) montelukast (Singulair) Allergy Unknown Unknown Verified 11/07/24 15:13 pantoprazole (From PROTONIX) Allergy Unknown UNKNOWN Verified 11/07/24 15:13 penicillin V Allergy Unknown Unknown Verified 11/07/24 15:13 polyethylene glycol 3350 Allergy Unknown Unknown Verified 11/07/24 15:13 (Miralax) pseudoephedrine (From Allergy Unknown HYPER Verified 11/07/24 15:13 SUDAFED) ranitidine (From ZANTAC) Allergy Unknown UNKNOWN Verified 11/07/24 15:13 thiamine (vitamin B1) Allergy Unknown Unknown Verified 11/07/24 15:13 ascorbic acid (From AdvReac Intermediate Constipatio Verified 11/07/24 15:13 PreserVision AREDS-2) n copper (From PreserVision AdvReac Intermediate Constipatio Verified 11/07/24 15:13 AREDS-2) n lutein (From PreserVision AdvReac Intermediate Constipatio Verified 11/07/24 15:13 AREDS-2) n vitamin E acetate (dl-alpha AdvReac Intermediate Constipatio Verified 11/07/24 15:13 tocopheryl) (From n PreserVision AREDS-2) zeaxanthin (From AdvReac Intermediate Constipatio Verified 11/07/24 15:13 PreserVision AREDS-2) n zinc oxide (From AdvReac Intermediate Constipatio Verified 11/07/24 15:13 PreserVision AREDS-2) n ergocalciferol (vitamin D2) AdvReac Mild CONSTIPATIO Verified 11/07/24 15:13 (From CALCIUM CITRATE WITH D) N Mac-D 12 Hour Allergy Unknown Unknown Uncoded 11/07/24 15:13 Calcium Citrate + D Allergy Unknown Unknown Uncoded 11/07/24 15:13 Folic + B12 Allergy Unknown Unknown Uncoded 11/07/24 15:13 latex Allergy Unknown unknown Uncoded 11/07/24 15:13 From CALCIUM CITRATE WITH D AdvReac Mild CONSTIPATIO Uncoded 11/07/24 15:13 N Plan I have reviewed the history and physical and performed a pertinent physical examination on my patient. No changes have occurred unless specified. Time Spent With Patient Time: Total time managing care of this patient today ____ minutes.
--- NOTE | 2024-11-09 12:35 | P.BOP_ITS ---
Brief Operative Note Date of Service: 11/09/24 Pre-op diagnosis: Left hip fracture Post-op diagnosis: same Procedure: IMN left hip Implants: [place] [id number] deg with 100 mm hip screw and 50 mm distal interlock Surgeon: Adan Navarro MD Anesthesia: GLMA and local Was an [employer] used for this Procedure?: No Estimated blood loss (mL): 150 IV fluids (mL): 500 Pathology: none sent Condition: stable Disposition: PACU
--- NOTE | 2024-11-09 12:37 | P.OP_ITS ---
Operative Note Operative Note Date of Service: 11/09/24 Narrative: Date of Service: 11/09/24 Pre-op diagnosis: Left hip fracture Post-op diagnosis: same Procedure: IMN left hip Implants: [place] [id number] deg with 100 mm hip screw and 50 mm distal interlock Surgeon: Adan Navarro MD Anesthesia: GLMA and local Was an Ship Captain used for this Procedure?: No Estimated blood loss (mL): 150 IV fluids (mL): 500 Pathology: none sent Condition: stable Disposition: PACU Procedure in detail: Patient was brought to the operating room and prepped and draped in standard sterile fashion. Time-out was called to identify proper site procedure proper surgeon and IV antibiotics per weight were administered. She was positioned on the fracture table and a traction and slight internal rotation were performed and biplanar fluoroscopy confirmed initial fracture reduction. This was a comminuted intertroch. I then made a stab incision proximal to the greater trochanter in using a guidewire made a entry point just lateral to the tip of the greater trochanter and placed a guidewire into the femoral metadiaphysis. I then over-reamed with 15 mm Reamer placed my ball-tip guidewire down distally in the femur and measured my length. I selected a 340 x 11 nail and reamed up to a 13. I then inserted the nail. I then turned my attention to the hip screw where I used a guidewire and a tip apex distance of less than 1.5 measured a 100 mm hip screw. I then pre drilled and placed a hip screw using biplanar fluoroscopy. Once I was satisfied with the position of the hip screw I turned my attention to the distal aspect of the nail. Using perfect moapa technique I placed 1 static distal interlocking screw (50mm ) using standard AO technique. I then removed all I tightened my set screw proximally and removed all extraneous instrumentation. Final biplanar radiographs were taken. I was satisfied with the position of the hardware and the fracture reduction. I think copiously irrigated closed with absorbable sutures jason and injected 30 mL of into the area of the incisions. Traction was let down patient was placed in sterile dressing awakened from anesthesia brought to recovery room stable condition there were no known complications.
[2024-11-09] MEDS: Lactated Ringers 1,000 ML 100 ML IVCONT ×2 (13:22→23:32)
[2024-11-10] VITALS (8 sets, daily range): BP systolic 113–145; BP diastolic 56–79; PULSE 77–88; RESP 16–18; TEMP 36.1–36.9; O2SAT 96–99
[2024-11-10 06:09] LABS: MANUAL DIFF FLAG NO
[2024-11-10 06:30] LABS: Anion Gap 11 (12-20); Blood Urea Nitrogen 23 mg/dL (9-16); Calcium 7.6 mg/dL (8.4-10.2); Carbon Dioxide 22 mmol/L (22-29); Chloride 106 mmol/L (96-108); Creatinine Clr Calc Pharmacy 28.0; Estimated Glomerular Filt Rate 41; Potassium 4.3 mmol/L (3.3-5.1); Sodium 135 mmol/L (135-145)
[2024-11-10 06:55] LABS: Hematocrit 24.0 % (37.0-47.0); Hemoglobin 8.3 g/dl (12.0-16.0); Imm Gran Abs Auto 0.05 X10*3/uL (0.00-0.03); Imm Gran Pct Auto 0.5 % (0.0-0.4); Lymphocytes Absolute Auto 2.4 X10*3/uL (1.2-4.9); Mean Corpuscular HGB Conc 34.6 g/dl (31.0-35.0); Mean Corpuscular Hemoglobin 29.7 pg (27.0-33.0); Mean Corpuscular Volume 86.0 fL (80.0-98.0); NRBC Abs Auto 0.000 X10*3/uL (0.0-0.012); NRBC Pct Auto 0.0 /100WBC (0.0-0.2); Platelet Count 146 X10*3/uL (160-400); Red Blood Count 2.79 X10*6/uL (4.20-5.50); White Blood Count 9.1 X10*3/uL (4.8-10.8)
[2024-11-10] MEDS: 0.9 % Sodium Chloride Flush 3 ML SYRINGE IVFLUSH ×3 (07:48→20:21)
--- NOTE | 2024-11-10 10:14 | PM.PNORT ---
Subjective Subjective Date of Service: 11/10/24 Interval history: Patient is an 84-year-old female who is postop day 1 status post left hip IM nail Patient resting comfortably in bed this morning Patient reports that her hip ?aches?, but her pain is significantly improved from prior to surgery No acute events overnight No other acute complaints or concerns at this time Physical Exam Vital Signs: Vital Signs: Last Vital Signs Temp 97.6 F 11/10/24 07:29 Pulse 86 11/10/24 07:29 Resp 18 11/10/24 07:29 BP 145/61 H 11/10/24 07:29 Pulse Ox 96 11/10/24 07:29 O2 Del Method Room Air 11/10/24 07:29 BMI result Body Mass Index 29.7 Extrem: Other: Proximal Dressing on left hip clean, dry, intact Distal dressing has lifted slightly overnight No evidence of surrounding erythema, ecchymosis No evidence of infection Patient is able to flex and extend the digits of the left foot without difficulty Compartments soft, nontender Distal sensation intact Capillary refill brisk Procedures Date of Service Date of Service: 11/10/24 Progress Note: A&P Assessment and plan (1) Intertrochanteric fracture of left hip: Status: Acute Plan 1. Status post left hip IM nail DOS 11/09/2024 Continue pain management Most distal dressing is changed without issue Weight-bearing as tolerated on left lower extremity PT/OT eval pending Dispo planning-PT/OT eval, case management, medical clearance Time Spent With Patient Time: Total time managing care of this patient today ____ minutes. Quality Stroke Does the patient have a stroke diagnosis?: No VTE Prior VTE?: No VTE Risk Level:: Medical - moderate - high VTE Device Contraindication: Treatment Not Indicated VTE Drug Contraindication: N/A - Med Ordered
--- NOTE | 2024-11-10 10:34 | HO.PM.IMPN ---
Subjective Subjective Date of Service: 11/10/24 Interval History: seen and evaluated pain under fair control POD 1 drop in Hb, wound site clean no other events Review of Systems Review of Systems: Yes all other systems are reviewed and are negative Physical Exam Vital Signs: Vital Signs: Last Vital Signs Temp 97.6 F 11/10/24 07:29 Pulse 86 11/10/24 07:29 Resp 18 11/10/24 07:29 BP 145/61 H 11/10/24 07:29 Pulse Ox 96 11/10/24 07:29 O2 Del Method Room Air 11/10/24 07:29 BMI result Body Mass Index 29.7 Const: Other: Constitutional : interactive, not in distress Cardiovascular : no JVP, no lower extremity edema Respiratory : bilateral chest movement, not in resp distress Gastrointestinal: soft, lax, Non tender Skin : Warm, Dry Extremities: Left leg surgical wound clean , no erythema or bleeding Neurological : Alert & oriented to self and place , No focal deficit Objective Data Active Medications Acetaminophen (Acetaminophen 325 Mg Tablet) 975 mg PO Q6H PRN PRN Reason: Pain, Mild 1-3,fever,headache Last Admin: 11/08/24 15:37 Dose: 975 mg Documented By: BRANDEN Acetaminophen (Acetaminophen 325 Mg Tablet) 650 mg PO QSHIFT [facility] Aspirin (Aspirin 325 Mg Tablet) 325 mg PO BID [facility] Last Admin: 11/10/24 10:11 Dose: 325 mg Documented By: ODIN Calcium Carbonate (Calcium Carbonate 750 Mg Tab.Chew) 750 mg PO Q4H PRN PRN Reason: Heartburn Hydromorphone HCl (Hydromorphone Hcl 0.5 Mg/0.5 Ml Syringe) 0.5 mg IVPUSH Q4H PRN; Protocol PRN Reason: Pain, Severe (Pain Scale 7-10) Last Admin: 11/10/24 10:13 Dose: 0.5 mg Documented By: ODIN Lorazepam (Lorazepam 1 Mg Tablet) 1 mg PO BEDTIME PRN PRN Reason: Anxiety Last Admin: 11/09/24 19:20 Dose: 1 mg Documented By: ZION Magnesium Hydroxide (Milk Of Magnesia 30 Ml Oral.Susp) 30 ml PO DAILY PRN PRN Reason: Constipation Magnesium Hydroxide (Milk Of Magnesia 30 Ml Oral.Susp) 30 ml PO DAILY PRN PRN Reason: Constipation Magnesium Hydroxide (Milk Of Magnesia 30 Ml Oral.Susp) 30 ml PO DAILY [facility] Melatonin (Melatonin 3 Mg Tablet) 6 mg PO BEDTIME PRN PRN Reason: Insomnia Metoclopramide HCl (Metoclopramide Hcl 10 Mg/2 Ml Vial) 5 mg IVPUSH Q6H PRN PRN Reason: Nausea and Vomiting Multi-Ingred Cream/Lotion/Oil/Oint (Artificial Tears Ophth Oint 3.5 Gm Tube) 1 appl EYE-BOTH BEDTIME [facility] Last Admin: 11/09/24 20:27 Dose: Not Given Documented By: ZION Non-Admin Reason: Patient Refused Pt Owned Med ( Chlordiazepoxide/Clinidium 5 Mg - 2.5 Mg) 1 each PO DAILY PRN PRN Reason: Anxiety Oxycodone HCl (Oxycodone Hcl Immed Release 5 Mg Tablet) 5 mg PO Q6H PRN PRN Reason: Pain, Moderate(Pain Scale 4-6) Simethicone (Simethicone 80 Mg Tab.Chew) 80 mg PO QIDWMHS PRN PRN Reason: abdominal dicomfort Last Admin: 11/08/24 11:19 Dose: 80 mg Documented By: BRANDEN Sodium Chloride (0.9 % Sodium Chloride Flush 3 Ml Syringe) 3 ml IVFLUSH QSHIFT [facility] Last Admin: 11/10/24 07:48 Dose: 3 ml Documented By: CLAUDENM Labs 11/10/24 05:56 11/10/24 05:56 Labs: Laboratory Results - last 24 hr 11/10/24 05:56 MCV 86.0 MCH 29.7 MCHC 34.6 RDW 12.6 Plt Count 146 L MPV 10.7 Immature Gran % (Auto) 0.5 H Neut % (Auto) 60.3 Lymph % (Auto) 26.8 [place] % (Auto) 11.9 H Eos % (Auto) 0.2 Baso % (Auto) 0.3 Lymph # (Auto) 2.4 [place] # (Auto) 1.1 Eos # (Auto) 0.0 Baso # (Auto) 0.0 Abs Immat Gran (auto) 0.05 H Absolute Neuts (auto) 5.5 Absolute Nucleated RBC 0.000 Nucleated RBC % (auto) 0.0 Anion Gap 11 L Estim Creat Clear Calc 28.0 Estimated GFR 41 Fasting Glucose 124 H Calcium 7.6 L D Assessment and Plan (1) Intertrochanteric fracture of left hip: Status: Acute (2) Hip fracture, left: Status: Acute (3) Acute anemia: Status: Acute Plan Estephania is an 84 years old woman with past medical history significant for essential hypertension and type 2 DM presents to the ED presented after sustaining a traumatic mechanical fall sustaining a left closed intertrochanteric fracture. Left intertrochanteric fracture, closed. POD1 Ortho following Pain mx Bowel mx DVT with bid ASA 325 mg IVF to dc start OT\PT Acute anemia asymptomatic Hb dropped from 10.1 to 8.3 post op likely dilutional and blood loss from intervention no need to transfusion, monitor H&H Essential hypertension. hold home antihypertensives today and resume in the a.m. GERD. Continue omeprazole. Anxiety. Ativan prn. DVT PPx ASA Quality Stroke Does the patient have a stroke diagnosis?: No VTE Prior VTE?: No VTE Risk Level:: Medical - moderate - high VTE Device Contraindication: Treatment Not Indicated VTE Drug Contraindication: N/A - Med Ordered
--- NOTE | 2024-11-10 10:49 | PC.NURSE ---
Pt had a vasovagal episode with getting up to the chair for first time . pt placed in recumbent position in the recliner intial BP 119/58 pt came to and subsequent BP was 137/59 . Md Rojas notifed. will monitor . Pt had just been medicated with Iv Dilaudid about 15 min prior to consolidation accountant getting pt up to the chair , see MAR
[2024-11-10 12:56] LABS: Hematocrit 23.3 % (37.0-47.0); Hemoglobin 8.1 g/dl (12.0-16.0); Mean Corpuscular HGB Conc 34.8 g/dl (31.0-35.0); Mean Corpuscular Hemoglobin 29.8 pg (27.0-33.0); Mean Corpuscular Volume 85.7 fL (80.0-98.0); NRBC Abs Auto 0.000 X10*3/uL (0.0-0.012); NRBC Pct Auto 0.0 /100WBC (0.0-0.2); Platelet Count 147 X10*3/uL (160-400); Red Blood Count 2.72 X10*6/uL (4.20-5.50); White Blood Count 10.9 X10*3/uL (4.8-10.8)
--- NOTE | 2024-11-10 15:52 | HO.POSTANES ---
Post Anesthesia Evaluation Post Anesthesia Evaluation Date of Service: 11/10/24 Vital Signs: Vital Signs Temp Pulse Resp BP Pulse Ox O2 Del Method 11/10/24 15:17 98 F 81 16 126/60 97 Room Air 11/10/24 12:00 97.8 F 88 18 127/60 96 Room Air 11/10/24 10:50 131/59 L 11/10/24 10:49 119/58 L 11/10/24 07:29 97.6 F 86 18 145/61 H 96 Room Air Anesthesia: General LMA Mental Status: Awake Pain Control: Satisfactory Nausea/Vomiting: None Hydration: Adequate Anesthesia-Related Issues: No Anes. Related Issues
[2024-11-11] VITALS (7 sets, daily range): BP systolic 120–154; BP diastolic 58–70; PULSE 68–100; RESP 16–18; TEMP 36.2–36.8; O2SAT 95–98
[2024-11-11 06:03] LABS: MANUAL DIFF FLAG NO
[2024-11-11 06:13] LABS: Hematocrit 23.2 % (37.0-47.0); Hemoglobin 7.6 g/dl (12.0-16.0); Imm Gran Abs Auto 0.05 X10*3/uL (0.00-0.03); Imm Gran Pct Auto 0.6 % (0.0-0.4); Lymphocytes Absolute Auto 1.7 X10*3/uL (1.2-4.9); Mean Corpuscular HGB Conc 32.8 g/dl (31.0-35.0); Mean Corpuscular Hemoglobin 29.0 pg (27.0-33.0); Mean Corpuscular Volume 88.5 fL (80.0-98.0); NRBC Abs Auto 0.000 X10*3/uL (0.0-0.012); NRBC Pct Auto 0.0 /100WBC (0.0-0.2); Platelet Count 150 X10*3/uL (160-400); Red Blood Count 2.62 X10*6/uL (4.20-5.50); White Blood Count 8.6 X10*3/uL (4.8-10.8)
[2024-11-11 06:27] LABS: Anion Gap 12 (12-20); Blood Urea Nitrogen 22 mg/dL (9-16); Calcium 8.0 mg/dL (8.4-10.2); Carbon Dioxide 23 mmol/L (22-29); Chloride 104 mmol/L (96-108); Creatinine Clr Calc Pharmacy 34.3; Estimated Glomerular Filt Rate 51; Potassium 4.3 mmol/L (3.3-5.1); Sodium 135 mmol/L (135-145)
[2024-11-11] MEDS: Milk of Magnesia 30 ML ORAL.SUSP PO (06:37)
--- NOTE | 2024-11-11 07:09 | PM.PNORT ---
Subjective Subjective Date of Service: 11/11/24 Interval history: Patient is an 84-year-old female who is postop day 2 status post left hip IM nail Patient resting comfortably in bed this morning Patient reports that her hip ?aches?, but her pain is significantly improved from prior to surgery Was unable to ambulate yesterday due to pain No acute events overnight No other acute complaints or concerns at this time Physical Exam Vital Signs: Vital Signs: Last Vital Signs Temp 97.4 F 11/11/24 03:38 Pulse 77 11/11/24 03:38 Resp 18 11/11/24 03:38 BP 125/59 L 11/11/24 03:38 Pulse Ox 97 11/11/24 03:38 O2 Del Method Room Air 11/11/24 03:38 BMI result Body Mass Index 29.7 Extrem: Other: Proximal Dressing on left hip clean, dry, intact Distal dressing has lifted slightly overnight No evidence of surrounding erythema, ecchymosis No evidence of infection Patient is able to flex and extend the digits of the left foot without difficulty Compartments soft, nontender Distal sensation intact Capillary refill brisk Procedures Date of Service Date of Service: 11/11/24 Progress Note: A&P Assessment and plan (1) Intertrochanteric fracture of left hip: Status: Acute Plan 1. Status post left hip IM nail DOS 11/09/2024 Continue pain management Most distal dressing is changed without issue Weight-bearing as tolerated on left lower extremity PT/OT eval pending Dispo planning-PT/OT eval, case management, medical clearance Time Spent With Patient Time: Total time managing care of this patient today ____ minutes. Quality Stroke Does the patient have a stroke diagnosis?: No VTE Prior VTE?: No VTE Risk Level:: Medical - moderate - high VTE Device Contraindication: Treatment Not Indicated VTE Drug Contraindication: N/A - Med Ordered
[2024-11-11] MEDS: oxyCODONE HCl Immed Release 5 MG TABLET PO (13:50)
--- NOTE | 2024-11-11 16:06 | MHC.CM.PN ---
per rounds pt not ready for dc pt receommnding str referrals made
[2024-11-11] MEDS: 0.9 % Sodium Chloride Flush 3 ML SYRINGE IVFLUSH ×2 (16:27→21:19)
--- NOTE | 2024-11-11 17:03 | HO.PM.IMPN ---
Subjective Subjective Date of Service: 11/11/24 Interval History: POD 2 s/p left hip IM nail No acute events overnight Pt reports was in too much pain yesterday for PT evaluation; has not been up and out of bed yet Pain relatively well-controlled at rest, worsens with movement Resting comfortably in bed Denies SOB, difficulty breathing No chest pain/pressure, palpitations Review of Systems Review of Systems: Yes all other systems are reviewed and are negative Physical Exam Vital Signs: Vital Signs: Last Vital Signs Temp 98.3 F 11/11/24 15:37 Pulse 94 11/11/24 15:37 Resp 16 11/11/24 15:37 BP 136/64 11/11/24 15:37 Pulse Ox 96 11/11/24 15:37 O2 Del Method Room Air 11/11/24 15:37 BMI result Body Mass Index 29.7 General: AOx3, no acute distress Resp: CTA bilaterally CVS: S1, S2, RRR GI: +BS, NT, no distention Skin: Warm, dry Neuro: Cranial nerves II-XII grossly intact bilaterally. Motor grossly intact bilaterally Extremities: No edema. Left hip with clean dressings in tact. Sensation to light touch intact. DP 2+. Capillary refill brisk. No significant swelling, erythema, or ecchymosis. Psych: Appropriate affect Objective Data Active Medications Acetaminophen (Acetaminophen 325 Mg Tablet) 975 mg PO Q6H PRN PRN Reason: Pain, Mild 1-3,fever,headache Last Admin: 11/08/24 15:37 Dose: 975 mg Documented By: BRANDEN Acetaminophen (Acetaminophen 325 Mg Tablet) [facility] Last Admin: 11/11/24 16:27 Dose: 650 mg Documented By: GABE Aspirin (Aspirin 325 Mg Tablet) 325 mg PO BID [facility] Last Admin: 11/11/24 08:33 Dose: 325 mg Documented By: GABE Calcium Carbonate (Calcium Carbonate 750 Mg Tab.Chew) 750 mg PO Q4H PRN PRN Reason: Heartburn Last Admin: 11/10/24 11:27 Dose: 750 mg Documented By: ODIN Docusate Sodium (Docusate Sodium 100 Mg Capsule) 100 mg PO BID [facility] Last Admin: 11/11/24 10:04 Dose: 100 mg Documented By: GABE Hydromorphone HCl (Hydromorphone Hcl 0.5 Mg/0.5 Ml Syringe) 0.5 mg IVPUSH Q4H PRN; Protocol PRN Reason: Pain, Severe (Pain Scale 7-10) Last Admin: 11/11/24 09:39 Dose: 0.5 mg Documented By: GABE Lorazepam (Lorazepam 1 Mg Tablet) 1 mg PO BEDTIME PRN PRN Reason: Anxiety Last Admin: 11/10/24 20:24 Dose: 1 mg Documented By: ALEXA Magnesium Hydroxide (Milk Of Magnesia 30 Ml Oral.Susp) 30 ml PO DAILY PRN PRN Reason: Constipation Magnesium Hydroxide (Milk Of Magnesia 30 Ml Oral.Susp) 30 ml PO DAILY [facility] Last Admin: 11/11/24 06:37 Dose: 30 ml Documented By: ALXEA Comments: pt requested now Melatonin (Melatonin 3 Mg Tablet) 6 mg PO BEDTIME PRN PRN Reason: Insomnia Metoclopramide HCl (Metoclopramide Hcl 10 Mg/2 Ml Vial) 5 mg IVPUSH Q6H PRN PRN Reason: Nausea and Vomiting Multi-Ingred Cream/Lotion/Oil/Oint (Artificial Tears Ophth Oint 3.5 Gm Tube) 1 appl EYE-BOTH BEDTIME [facility] Last Admin: 11/10/24 22:35 Dose: Not Given Documented By: ALEXA Non-Admin Reason: pt stated does not need Pt Owned Med ( Chlordiazepoxide/Clinidium 5 Mg - 2.5 Mg) 1 each PO DAILY PRN PRN Reason: Anxiety Ondansetron HCl (Ondansetron Hcl 4 Mg/2 Ml Vial) 4 mg IVPUSH Q8H PRN PRN Reason: Nausea and Vomiting Last Admin: 11/10/24 13:33 Dose: 4 mg Documented By: ODIN Oxycodone HCl (Oxycodone Hcl Immed Release 5 Mg Tablet) 5 mg PO Q6H PRN PRN Reason: Pain, Moderate(Pain Scale 4-6) Last Admin: 11/11/24 13:50 Dose: 5 mg Documented By: GABE Simethicone (Simethicone 80 Mg Tab.Chew) 80 mg PO QIDWMHS PRN PRN Reason: abdominal dicomfort Last Admin: 11/08/24 11:19 Dose: 80 mg Documented By: BRANDEN Sodium Chloride (0.9 % Sodium Chloride Flush 3 Ml Syringe) 3 ml IVFLUSH QSHIFT [facility] Last Admin: 11/11/24 16:27 Dose: 3 ml Documented By: GABE Labs 11/11/24 05:47 11/11/24 05:47 Labs: Laboratory Results - last 24 hr 11/11/24 05:47 MCV 88.5 MCH 29.0 MCHC 32.8 RDW 12.6 Plt Count 150 L MPV 10.6 Immature Gran % (Auto) 0.6 H Neut % (Auto) 68.0 Lymph % (Auto) 19.8 L [place] % (Auto) 10.8 Eos % (Auto) 0.6 Baso % (Auto) 0.2 Lymph # (Auto) 1.7 [place] # (Auto) 0.9 Eos # (Auto) 0.1 Baso # (Auto) 0.0 Abs Immat Gran (auto) 0.05 H Absolute Neuts (auto) 5.8 Absolute Nucleated RBC 0.000 Nucleated RBC % (auto) 0.0 Anion Gap 12 Estim Creat Clear Calc 34.3 Estimated GFR 51 Fasting Glucose 124 H Calcium 8.0 L Assessment and Plan (1) Hip fracture, left: Status: Acute Plan Estephania is an 84 years old woman with past medical history significant for essential hypertension and type 2 DM presents to the ED presented after sustaining a traumatic mechanical fall sustaining a left closed intertrochanteric fracture. Left Intertrochanteric fracture, closed. POD 2 Ortho following Could not tolerate PT yesterday due to pain; not yet OOB Pain mx Bowel mx DVT with bid ASA 325 mg Tolerating PO Continue OT\PT Acute anemia Asymptomatic Hb dropped from 10.1--> 8.3 post op, currently 7.6 Likely dilutional and blood loss from intervention No need to transfusion now, monitor H&H Essential hypertension. hold home antihypertensives today and resume in the a.m. GERD. Continue omeprazole Anxiety Ativan prn DVT PPx ASA Pt requires continued hospitalization due to need for PT/OT evaluation prior to STR placement. Quality Stroke Does the patient have a stroke diagnosis?: No VTE Prior VTE?: No VTE Risk Level:: Medical - moderate - high VTE Device Contraindication: Treatment Not Indicated VTE Drug Contraindication: N/A - Med Ordered
[2024-11-12] VITALS (8 sets, daily range): BP systolic 113–143; BP diastolic 56–65; PULSE 74–88; RESP 16–20; TEMP 36.2–37.5; O2SAT 94–97
[2024-11-12 06:56] LABS: MANUAL DIFF FLAG NO
[2024-11-12 06:59] LABS: Imm Gran Abs Auto 0.05 X10*3/uL (0.00-0.03); Imm Gran Pct Auto 0.7 % (0.0-0.4); Lymphocytes Absolute Auto 1.4 X10*3/uL (1.2-4.9); Mean Corpuscular HGB Conc 33.7 g/dl (31.0-35.0); Mean Corpuscular Hemoglobin 29.2 pg (27.0-33.0); Mean Corpuscular Volume 86.9 fL (80.0-98.0); NRBC Abs Auto 0.000 X10*3/uL (0.0-0.012); NRBC Pct Auto 0.0 /100WBC (0.0-0.2); Platelet Count 172 X10*3/uL (160-400); Red Blood Count 2.36 X10*6/uL (4.20-5.50); White Blood Count 7.1 X10*3/uL (4.8-10.8)
[2024-11-12 07:15] LABS: Anion Gap 10 (12-20); Blood Urea Nitrogen 23 mg/dL (9-16); Calcium 7.9 mg/dL (8.4-10.2); Carbon Dioxide 25 mmol/L (22-29); Chloride 105 mmol/L (96-108); Creatinine Clr Calc Pharmacy 38.4; Estimated Glomerular Filt Rate 59; Potassium 4.4 mmol/L (3.3-5.1); Sodium 136 mmol/L (135-145)
[2024-11-12 07:20] LABS: Hematocrit 20.5 % (37.0-47.0); Hemoglobin 6.9 g/dl (12.0-16.0)
--- NOTE | 2024-11-12 07:35 | HO.PM.IMPN ---
Subjective Subjective Date of Service: 11/12/24 Interval History: H&H continued to drop 7.6--> 6.9 Reports pain controlled at rest, though not well-controlled with movement Was ambulated four steps yesterday by PT Reports has been moving her bowels No lightheadedness or dizziness No signs of active bleeding Review of Systems Review of Systems: Yes all other systems are reviewed and are negative Physical Exam Vital Signs: Vital Signs: Last Vital Signs Temp 98.3 F 11/12/24 07:32 Pulse 82 11/12/24 07:32 Resp 17 11/12/24 07:32 BP 128/59 L 11/12/24 07:32 Pulse Ox 97 11/12/24 07:32 O2 Del Method Room Air 11/12/24 07:32 BMI result Body Mass Index 29.7 General: AOx3, no acute distress Resp: CTA bilaterally CVS: S1, S2, RRR GI: +BS, NT, no distention Skin: Warm, dry Neuro: Cranial nerves II-XII grossly intact bilaterally. Motor grossly intact bilaterally Extremities: No edema. Left hip with clean dressings in tact. Slight area of ecchymosis surrounding surgical sites. Sensation to light touch intact. DP 2+. Capillary refill brisk. No significant swelling, erythema, or ecchymosis. Psych: Appropriate affect Objective Data Active Medications Acetaminophen (Acetaminophen 325 Mg Tablet) 975 mg PO Q6H PRN PRN Reason: Pain, Mild 1-3,fever,headache Last Admin: 11/08/24 15:37 Dose: 975 mg Documented By: BRANDEN Acetaminophen (Acetaminophen 325 Mg Tablet) [facility] Last Admin: 11/12/24 01:22 Dose: Not Given Documented By: ALEXA Non-Admin Reason: Patient Refused Aspirin (Aspirin 325 Mg Tablet) 325 mg PO BID [facility] Last Admin: 11/11/24 21:17 Dose: 325 mg Documented By: ALEXA Calcium Carbonate (Calcium Carbonate 750 Mg Tab.Chew) 750 mg PO Q4H PRN PRN Reason: Heartburn Last Admin: 11/11/24 21:19 Dose: 750 mg Documented By: ALEXA Docusate Sodium (Docusate Sodium 100 Mg Capsule) 100 mg PO BID [facility] Last Admin: 11/11/24 21:19 Dose: 100 mg Documented By: ALEXA Hydromorphone HCl (Hydromorphone Hcl 0.5 Mg/0.5 Ml Syringe) 0.5 mg IVPUSH Q4H PRN; Protocol PRN Reason: Pain, Severe (Pain Scale 7-10) Last Admin: 11/11/24 09:39 Dose: 0.5 mg Documented By: GABE Lorazepam (Lorazepam 1 Mg Tablet) 1 mg PO BEDTIME PRN PRN Reason: Anxiety Last Admin: 11/11/24 21:19 Dose: 1 mg Documented By: ALEXA Magnesium Hydroxide (Milk Of Magnesia 30 Ml Oral.Susp) 30 ml PO DAILY PRN PRN Reason: Constipation Magnesium Hydroxide (Milk Of Magnesia 30 Ml Oral.Susp) 30 ml PO DAILY [facility] Last Admin: 11/11/24 06:37 Dose: 30 ml Documented By: ALEXA Comments: pt requested now Melatonin (Melatonin 3 Mg Tablet) 6 mg PO BEDTIME PRN PRN Reason: Insomnia Metoclopramide HCl (Metoclopramide Hcl 10 Mg/2 Ml Vial) 5 mg IVPUSH Q6H PRN PRN Reason: Nausea and Vomiting Last Admin: 11/11/24 21:29 Dose: 5 mg Documented By: ALEXA Multi-Ingred Cream/Lotion/Oil/Oint (Artificial Tears Ophth Oint 3.5 Gm Tube) 1 appl EYE-BOTH BEDTIME [facility] Last Admin: 11/11/24 21:21 Dose: 1 appl Documented By: ALEXA Pt Owned Med ( Chlordiazepoxide/Clinidium 5 Mg - 2.5 Mg) 1 each PO DAILY PRN PRN Reason: Anxiety Ondansetron HCl (Ondansetron Hcl 4 Mg/2 Ml Vial) 4 mg IVPUSH Q8H PRN PRN Reason: Nausea and Vomiting Last Admin: 11/10/24 13:33 Dose: 4 mg Documented By: ODIN Oxycodone HCl (Oxycodone Hcl Immed Release 5 Mg Tablet) 5 mg PO Q6H PRN PRN Reason: Pain, Moderate(Pain Scale 4-6) Last Admin: 11/11/24 13:50 Dose: 5 mg Documented By: GABE Simethicone (Simethicone 80 Mg Tab.Chew) 80 mg PO QIDWMHS PRN PRN Reason: abdominal dicomfort Last Admin: 11/08/24 11:19 Dose: 80 mg Documented By: BRANDEN Sodium Chloride (0.9 % Sodium Chloride Flush 3 Ml Syringe) 3 ml IVFLUSH QSHIFT [facility] Last Admin: 11/11/24 21:19 Dose: 3 ml Documented By: ALEXA Labs 11/12/24 06:18 11/12/24 06:18 Labs: Laboratory Results - last 24 hr 11/12/24 06:18 MCV 86.9 MCH 29.2 MCHC 33.7 RDW 12.8 Plt Count 172 MPV 10.1 Immature Gran % (Auto) 0.7 H Neut % (Auto) 70.4 Lymph % (Auto) 19.5 L [place] % (Auto) 8.4 Eos % (Auto) 0.7 Baso % (Auto) 0.3 Lymph # (Auto) 1.4 [place] # (Auto) 0.6 Eos # (Auto) 0.1 Baso # (Auto) 0.0 Abs Immat Gran (auto) 0.05 H Absolute Neuts (auto) 5.0 Absolute Nucleated RBC 0.000 Nucleated RBC % (auto) 0.0 Anion Gap 10 L Estim Creat Clear Calc 38.4 Estimated GFR 59 Fasting Glucose 126 H Calcium 7.9 L Assessment and Plan (1) Intertrochanteric fracture of left hip: Status: Acute Plan Pt is an 84 years old woman with past medical history significant for essential hypertension and type 2 DM presents to the ED presented after sustaining a traumatic mechanical fall sustaining a left closed intertrochanteric fracture. Left Intertrochanteric fracture, closed. POD 3 Ortho following OOB with PT yesterday, pain has been difficult to manage Continue with pain management, bowel regimen DVT with bid ASA 325 mg Tolerating PO Continue OT\PT Acute anemia Asymptomatic Hb dropped from 10.1--> 8.3 post op, currently 6.9 Likely dilutional and blood loss from intervention Will type and screen and then transfuse 1 unit PRBCs Follow H&H Essential hypertension. Continue metoprolol GERD Continue omeprazole Anxiety Ativan prn DVT PPx: ASA Full code Pt requires continued hospitalization due to need for PT/OT evaluation prior to STR placement, as well as H&H monitoring post-transfusion. Quality Stroke Does the patient have a stroke diagnosis?: No VTE Prior VTE?: No VTE Risk Level:: Medical - moderate - high VTE Device Contraindication: Treatment Not Indicated VTE Drug Contraindication: N/A - Med Ordered
[2024-11-12] MEDS: 0.9 % Sodium Chloride Flush 3 ML SYRINGE IVFLUSH (20:05)
[2024-11-13] VITALS: BP 133/66; PULSE 76; RESP 20; TEMP 36.7; O2SAT 96
[2024-11-13 03:30] VITALS: TEMP 36.8
[2024-11-13 05:47] LABS: MANUAL DIFF FLAG NO
[2024-11-13 05:50] LABS: Hematocrit 25.4 % (37.0-47.0); Hemoglobin 8.5 g/dl (12.0-16.0); Imm Gran Abs Auto 0.04 X10*3/uL (0.00-0.03); Imm Gran Pct Auto 0.6 % (0.0-0.4); Lymphocytes Absolute Auto 1.5 X10*3/uL (1.2-4.9); Mean Corpuscular HGB Conc 33.5 g/dl (31.0-35.0); Mean Corpuscular Hemoglobin 29.4 pg (27.0-33.0); Mean Corpuscular Volume 87.9 fL (80.0-98.0); NRBC Abs Auto 0.000 X10*3/uL (0.0-0.012); NRBC Pct Auto 0.0 /100WBC (0.0-0.2); Platelet Count 193 X10*3/uL (160-400); Red Blood Count 2.89 X10*6/uL (4.20-5.50); White Blood Count 7.0 X10*3/uL (4.8-10.8)
[2024-11-13 06:04] LABS: Anion Gap 10 (12-20); Blood Urea Nitrogen 22 mg/dL (9-16); Calcium 8.0 mg/dL (8.4-10.2); Carbon Dioxide 25 mmol/L (22-29); Chloride 105 mmol/L (96-108); Creatinine Clr Calc Pharmacy 38.0; Estimated Glomerular Filt Rate 58; Potassium 4.2 mmol/L (3.3-5.1); Sodium 136 mmol/L (135-145)
[2024-11-13 07:43] VITALS: BP 141/71; PULSE 75; RESP 18; TEMP 37.2; O2SAT 97
[2024-11-13] MEDS: Metoprolol Succinate ER 12.5 MG HALFTAB.ER.24H PO (08:06)
[2024-11-13] MEDS: Milk of Magnesia 30 ML ORAL.SUSP PO (08:07)
[2024-11-13] MEDS: 0.9 % Sodium Chloride Flush 3 ML SYRINGE IVFLUSH (08:07)
--- NOTE | 2024-11-13 11:04 | P.DS_ITS ---
DS: Providers Provider Date of Service: 11/13/24 Date of admission: 11/07/24 16:54 Date of discharge: 11/13/24 Primary care physician: Jacinda Duff MD Consults: 11/07/24 16:55 Consult to Orthopedics Routine Consulting Provider: [facility] Reason for consultation: Left hip fracture Has provider been notified: Yes DS: Diagnosis Discharge Diagnosis (1) Intertrochanteric fracture of left hip: Status: Acute DS: Summary Hospital Course Hospital Course: From admitting HPI: Date of Service: 11/07/24 Attending physician on admission: Cristobal Rodriguez Chief Complaint: Hip pain Estephania Brito is an 84 years old woman with past medical history significant for essential hypertension and impaired glucose tolerance presents to the ED presented after sustaining a mechanical fall. She fell after tripping with her shoes. She will admit in her left hip. Denied head trauma. She denied any symptoms dizziness, loss of consciousness, palpitation, chest pain or shortness on breath prior to falling down. She also denied any acute gastrointestinal or genitourinary symptoms. Denies tobacco smoking, ethanol abuse or illicit drug use. He had a left arm fracture in the past. In the ED she was found to with stable vital signs. Blood workup was remarkable for leukocytosis of 11.8. Hemoglobin is 13.6 and platelets 198. INR is 1.0. There are no significant electrolyte imbalances except for minimal hyperkalemia. BUN is 26 and creatinine 1.30. CO2 is 20 with a normal anion gap. Glucose is 145. CXR showed no acute cardiopulmonary findings. Hip/pelvis x-rays showed left intertrochanteric fracture. ECG showed normal sinus rhythm and no acute ischemic changes. ED tx: Dilaudid 0.5 mg IV, Zofran 4 mg IV and NS 1L bolus. Hospital course: Pt was admitted to the hospital for close left intertrochanteric fracture sustained after mechanical fall at home. Pt underwent left hip IM nail on 11/09/2024 without significant surgical complications. Pt was slow to respond to PT, and experienced vasovagal episode during 1st PT session when she attempted to stand. Pt subsequently has been able to ambulate with PT, and pain has been reasonably well-controlled. Currently not experiencing pain at rest, though some with movement and ambulation. Pt had a slow but steady drop in H&H, with hemoglobin declining from 10.1--> 8.3 post op, and eventually as low as 6.9. Pt was asymptomatic throughout, and was transfused 1 unit PRBCs to good effect, and hemoglobin is currently 8.5. No other significant lab abnormalities, and pt is hemodynamically stable. Pt will be discharged to SNF for rehabilitation and strengthening. For pain management, pt will be discharged on a short course of Dilaudid 2 mg q8h to be taken as needed for severe pain. Pt should take docusate 100 mg b.i.d. while on opioids. Take aspirin 325 mg b.i.d. x6 weeks for DVT prevention. Follow up with [facility] Orth[facility] in 2 weeks. For hypertension, continue metoprolol. For GERD continue omeprazole For anxiety continue Ativan p.r.n. Time Attestation Discharge Coordination Time (in mins): 25 Quality: Safe Use of Opioids Does Pt have an Active Cancer Diagnosis on the Problem List?: No Quality: Stroke Does the patient have a stroke diagnosis?: No Physical Exam Vital Signs: Vital Signs: Last Vital Signs Temp 98.9 F 11/13/24 07:43 Pulse 75 11/13/24 07:43 Resp 18 11/13/24 07:43 BP 141/71 H 11/13/24 07:43 Pulse Ox 97 11/13/24 07:43 O2 Del Method Room Air 11/13/24 07:43 BMI result Body Mass Index 29.7 General: AOx3, no acute distress Resp: CTA bilaterally CVS: S1, S2, RRR GI: +BS, NT, no distention Skin: Warm, dry Neuro: Cranial nerves II-XII grossly intact bilaterally. Motor grossly intact bilaterally Extremities: No edema. Left hip with clean dressings in tact. Slight area of ecchymosis surrounding surgical sites. Sensation to light touch intact. DP 2+. Capillary refill brisk. No significant swelling, erythema, or ecchymosis. Psych: Appropriate affect DS: Data Data Completed and Pending Labs on day of discharge: Laboratory Results - last 24 hr 11/12/24 11/13/24 07:58 05:39 WBC 7.0 RBC 2.89 L D Hgb 8.5 L D Hct 25.4 L D MCV 87.9 MCH 29.4 MCHC 33.5 RDW 13.4 Plt Count 193 MPV 9.7 Immature Gran % (Auto) 0.6 H Neut % (Auto) 68.7 Lymph % (Auto) 21.6 Garza % (Auto) 7.5 Eos % (Auto) 1.3 Baso % (Auto) 0.3 Lymph # (Auto) 1.5 Garza # (Auto) 0.5 Eos # (Auto) 0.1 Baso # (Auto) 0.0 Abs Immat Gran (auto) 0.04 H Absolute Neuts (auto) 4.8 Absolute Nucleated RBC 0.000 Nucleated RBC % (auto) 0.0 Sodium 136 Potassium 4.2 Chloride 105 Carbon Dioxide 25 Anion Gap 10 L BUN 22 H Creatinine 0.92 Estim Creat Clear Calc 38.0 Estimated GFR 58 Fasting Glucose 118 H Calcium 8.0 L Blood Type O Positive Antibody Screen NEGATIVE Crossmatch See Detail Discharge Plan Discharge Anticipated Discharge Date/Time: 11/13/24 12:00 Patient Disposition: Xfer SNF Discharge Diagnosis: Closed left intertrochanteric fracture [facility] 1 Week Romero Newton PA [Physician Textile Engineer, Hand Surgery] - 1 Week Referral Note: 11/27/24 14:15 [facility] Romero Newton PA Po,Jacinda Rooney MD [Primary Care Provider, Internal Medicine] - 1 Week Discharge Medications: New docusate sodium 100 mg capsule 100 mg PO BID Qty: 30 0RF Rx Instructions: Take one capsule twice a day while taking opioids. Take one capsule up to twice daily after that as needed for constipation. aspirin 325 mg capsule 325 mg PO BID Qty: 84 0RF Rx Instructions: Take one capsule twice a day for the next 6 weeks for DVT prevention hydromorphone [Dilaudid] 2 mg tablet 2 mg PO Q8H PRN (Reason: pain, severe) Qty: 15 0RF Rx Instructions: Partial Fill upon patient request. Take one tablet daily up to three times a day for severe pain Continued metoprolol succinate 25 mg tablet extended release 24 hr 12.5 mg PO DAILY Qty: 45 3RF losartan 100 mg tablet 100 mg PO DAILY Qty: 90 2RF lorazepam 1 mg tablet 1 mg PO DAILY PRN (Reason: anxiety) 90 Days Qty: 90 1RF ergocalciferol (vitamin D2) 1,250 mcg (50,000 unit) capsule 1,250 mcg PO QMONTH omeprazole 20 mg capsule,delayed release(DR/EC) 20 mg PO DAILY@0630 chlordiazepoxide-clidinium [Librax (with clidinium)] 5-2.5 mg capsule 1 cap PO DAILY PRN (Reason: anxiety) carboxymethylcellulose sodium 1 % Drops, Liquid Gel 1 drp ophthalmic (eye) NEEDED PRN (Reason: Dry Eye(S)) Rx Instructions: both eyes Vicks Babyrub Ointment See Rx Instructions .ROUTE .COMPLEX PRN (Reason: Congestion) Rx Instructions: apply as needed under nares Systane Nighttime 94-3 % Ointment 1 appl OPHTHALMIC (EYE) BEDTIME Rx Instructions: to both eyes Prolia 60 mg/mL syringe 60 mg subcut [id number] Discharge Orders: Discharge Order (Routine); Ordered 11/13/24 Ordered By: Jennie Albright Activity on Discharge: As tolerated Stand Alone Forms: Patient Portal Discharge page Print Language: Hungarian Activity Restrictions/Additional Instructions: Gait training, strengthening, ADLs Continue ASA for dvt ppx x6 weeks Keep dressing clean, dry and intact-no showering or tub baths Follow up with Orthopedics in 2 weeks Care Plan Goals: See below Health Concerns: Close left intertrochanteric fracture Acute anemia Plan of Treatment: You were admitted to the hospital for a closed left hip fracture after falling at home. You underwent surgical repair and are being discharged to a [facility] facility for rehabilitation and strengthening. Take Dilaudid 2 mg p.o. every 8 hours as needed for severe pain Take Colace 100 mg twice a day while taking opioids; subsequently can take 100 mg up to twice a day as needed for constipation Take aspirin 325 mg twice a day for the next 6 weeks for DVT prevention Follow up with [facility] orthopedics in 2 weeks Assessment: See discharge summary Discharge Date/Time: 11/13/24 15:10
[2024-11-13 12:00] VITALS: BP 134/63; PULSE 70; RESP 17; TEMP 37; O2SAT 96
--- NOTE | 2024-11-13 12:28 | MHC.CM.PN ---
pt leaving at 3 to go [facility]
--- NOTE | 2024-11-13 12:36 | MHC.CM.PN ---
pt being dcd at 3 to [facility]
--- NOTE | 2024-11-13 14:27 | PC.NURSE ---
Went to bring PRN Oxycodone to patient for preparation for discharge. Patient reported that I can't take oxycodone, it makes me sick . Reached out to provider Shonda Albright via [employer] to see if there is an alternative stronger pain medication.
[2024-11-13 15:03] VITALS: BP 161/71; PULSE 74; RESP 17; TEMP 36.6; O2SAT 97
== END 2024-11-13 15:10 | disposition skilled nursing facility (03) | DRG 481 ==
LOC: HO.ED 15:57 → HO.EDOVER 18:56 → HO.S3 11-08 08:15
PROVIDERS: Orthopaedic Surgery; Student in an Organized Health Care Education/Training Program; Admitting Provider Internal Medicine; Emergency Provider Emergency Medicine; PCP Internal Medicine; Visit Provider Student in an Organized Health Care Education/Training Program
PROC: 0QS736Z Reposition Left Upper Femur with Intramedullary Internal Fixation Device, Percutaneous Approach (ICD-10-PCS; principal; 2024-11-09 11:00)
DX: S72.142A Displaced intertrochanteric fracture of left femur, initial encounter for closed fracture (principal); D62 Acute posthemorrhagic anemia; I10 Essential (primary) hypertension; E11.9 Type 2 diabetes mellitus without complications; K21.9 Gastro-esophageal reflux disease without esophagitis; F41.9 Anxiety disorder, unspecified; Z20.822 Contact with and (suspected) exposure to COVID-19; Z79.82 Long term (current) use of aspirin; Z79.899 Other long term (current) drug therapy
CPT/HCPCS: 36415; 71045; 73502; 80048; 80053; 83036; 83735; 85025; 85027; 85610; 86850; 86900; 86901; 86923; 87637; 93005; 97161; 97166; 97530; 99285; C1713; J0131; J0690; J1171; J1644; J2003; J2405; J2704; J2765; J2795; J3010; J7120; P9016

== ENCOUNTER → 2024-11-07 15:25 | Outpatient (BNV) | payer MEDICARE, SELFPAY | PROVIDERS: Emergency Provider Emergency Medicine; PCP Internal Medicine; Visit Provider Internal Medicine | DX: S72.142A Displaced intertrochanteric fracture of left femur, initial encounter for closed fracture (principal) | CPT/HCPCS: 99223; 99232 ==

== ENCOUNTER → 2024-11-07 15:40 | Outpatient (BNV) | payer MEDICARE, SELFPAY | PROVIDERS: Admitting Provider Internal Medicine; Emergency Provider Emergency Medicine; PCP Internal Medicine; Visit Provider Radiology Diagnostic Radiology | DX: S72.142A Displaced intertrochanteric fracture of left femur, initial encounter for closed fracture (principal); M25.552 Pain in left hip; W19.XXXA Unspecified fall, initial encounter | CPT/HCPCS: 71045; 73502 ==

== ENCOUNTER → 2024-11-07 16:19 | Outpatient (BNV) | payer MEDICARE, SELFPAY | PROVIDERS: Admitting Provider Internal Medicine; Emergency Provider Emergency Medicine; PCP Internal Medicine; Visit Provider Internal Medicine Cardiovascular Disease | DX: R94.31 Abnormal electrocardiogram [ECG] [EKG] (principal); W19.XXXA Unspecified fall, initial encounter | CPT/HCPCS: 93010 ==

== ENCOUNTER → 2024-11-07 16:54 | Outpatient (BNV) | payer MEDICARE, SELFPAY | PROVIDERS: Admitting Provider Internal Medicine; Emergency Provider Emergency Medicine; PCP Internal Medicine | DX: S72.142A Displaced intertrochanteric fracture of left femur, initial encounter for closed fracture (principal) | CPT/HCPCS: 99223 ==

== ENCOUNTER 2024-11-27 13:05 | Outpatient (REF) | payer MEDICARE, SELFPAY ==
--- OUTSIDE RECORDS SUMMARY | 2024-11-27 13:41 | XMS_ITS | Patient Health Record ---
Author Organization [facility] Address [address] [place] [address] Care Team Providers Care Sound Installation Worker Name Role Phone Po Jacinda RAMIRES Primary Care Provider [place] Unavailable [phone] Allergies Allergen (clinical drug ingredient) Drug/Non Drug Allergy documented on EMR Reaction Allergy Type Onset Date Status Zyrtec Allergy Unknown Drug Allergy Ac tive Zantac Unknown Drug Allergy Active Sudafed Unknown Drug Allergy Active metoclopramide Reglan Unknown Drug Allergy Ac tive pantoprazole Protonix Unknown Drug Allergy Acti ve lansoprazole Prevacid Unknown Drug Allergy Acti ve mometasone Nasonex Unknown Drug Allergy Active alendronate Fosamax Unknown Drug Allergy Activ e Caltrate 600 Unknown Drug Allergy Acti ve Calcium Citrate Unknown Drug Allergy A ctive Brianna Unknown Drug Allergy Active risedronate Actonel Unknown Drug Allergy Activ e clariden (uncoded) Unknown Allergy A ctive azithromycin ZPack (uncoded) Unknown Allergy A ctive Latex Latex (uncoded) Unknown Allergy Acti ve Penicillin Unknown Drug Allergy Active Reason For Referral No Information Medications Medication SIG (Take, Route, Fr equency, Duration) Notes Start Date End Date Status Aspir-81 81mg Active Omeprazole 20 MG 1 capsule Orally 1 c apsule 30-60 minutes before breakfast and supper Active LORazepam 1mg QHS Active Vitamin D 5000 Activ e Librax prn Active Promethazine HCl Act mariza Simethicone-80 Activ e Stool Softener Activ e Problems Problem Type SNOMED Code ICD Code Onset Dates Problem Status W/U Status Risk Notes Problem Esophageal reflux (074835264) Esophageal reflux (530.81) Active confirmed Problem Irritable bowel syndrome (09432375) Irritable bowel syndrome (564.1) Active confirmed Problem Anorexia (88257421) Anorexia (783.0) Active confirmed Problem History of polyp of colon (situation) (605484655) Personal history of colonic polyps (V12.72) Active confirmed Problem Constipation (28511122) Constipation (564.00) Active confirmed Problem Colon cancer screening (338295016) Colon cancer screening (V76.51) Active confirmed Problem Gastroesophageal reflux disease (203443545) GERD (gastroesophage al reflux disease) (530.81) Active confirmed Problem History of adenomatous polyp of colon (264549871) History of adenomatous polyp of colon (V12.72) Active confirmed Problem Weight loss (708186912) Weight loss (783.21) Active confirmed Problem Nausea (488101847) Nausea (787.02) Active confi rmed Plan Of Treatment Future Test Test Name Order Date COLONOSCOPY 01/14/2014 Insurance Providers Payer Name Payer Address Payer Phone Subscriber Number Group Number Insured Name Patient Relationship to Insured Coverage Start Date Coverage End Date MEDICARE OF [place] [address] [place] [address] [id number] MALIHAELENO Self - patient is the insured [facility] [address] [place], [place] [id number] MALIHAELENO STEIN Self - patient is the insured Medical (General) History Medical History History ICD Code last colonoscopy 03-18-2009- negative for polyps, but incomplete--also had complete colonoscopies in 2002 and 2005-1 small tubular adenoma removed in 2005 Colon polyps-tubluar adenoma with high grade dysplasia removed from asc colon with right colectomy by Dr. 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 Burgos in 2001 for a flat tubular adenoma, and a carcinoid tumor of the ileum Abdominal wall hernias x 3 Benign breast biopsies cataract-lens implants-bilateral cyst removal-elbow
== END 2024-11-27 13:06 | disposition home or self-care (01) ==
LOC: HO.HOSX 13:05
DX: Z13.89 Encounter for screening for other disorder (principal)

== ENCOUNTER 2024-11-29 12:04 | Outpatient (REF) | payer MEDICARE, SELFPAY ==
--- NOTE | ~2024-11-29 | XR_ITS ---
EXAMINATION: XR HIP, LEFT CLINICAL INFORMATION: M25.552 - Pain in left hip COMPARISON: November 07, 2024 TECHNIQUE: AP upright, AP supine, and frog-leg lateral views of the left hip. FINDINGS: An intramedullary nail and lax. Have been placed across the left femur fracture since prior examination. There is medial distraction of the lesser trochanter. The distal end of the hardware is not imaged. There are no other changes XR/XR hip LT min 2V IMPRESSION: ORIF left intertrochanteric fracture with medial distraction of the lesser trochanter. Electronically signed by: Isaac Bishop MD 11/29/2024 01:17 PM EDT
== END 2024-11-29 12:05 | disposition home or self-care (01) ==
LOC: HO.HOSX 12:04
DX: S72.142A Displaced intertrochanteric fracture of left femur, initial encounter for closed fracture (principal); M25.552 Pain in left hip; Z96.698 Presence of other orthopedic joint implants
CPT/HCPCS: 73502; 99212

== ENCOUNTER 2024-11-29 13:00 | Outpatient (AMB) | payer MEDICARE, SELFPAY ==
[2024-11-29 13:08] VITALS: BMI 29.5
--- NOTE | 2024-11-29 13:08 | MHC.OFFVIS ---
Vital Signs 11/29/24 13:08 Height 5 ft Weight 151 lb BMI 29.5 Intake Visit Reasons: PO-left hip IM nail-DOS 11/09/24 NE Intake Note: Estephania is an 84 year old female who presents today post-operatively with her brother and [id number] after undergoing a left hip IM nail, DOS: 11/09/[address] Navarro. Patient [place] [facility] on [place]07[place]24 after tripping and falling on to her left hip while trying to get into her car. Patient reports she does not have much pain. She has been staying at [facility]. She shares she has not been walking much. She is only taking Aspirin 325 for pain with relief. Allergies lansoprazole (From PREVACID) Allergy (Intermediate, Verified 11/29/24 13:10) VOMITING morphine (MORPHINE) Allergy (Intermediate, Verified 11/29/24 13:10) AGITATION risedronate sodium (From ACTONEL) Allergy (Intermediate, Verified 11/29/24 13:10) DYSPNEA alendronate sodium (From Fosamax) Allergy (Mild, Verified 11/29/24 13:10) NAUSEA,SOB azithromycin (AZITHROMYCIN) Allergy (Mild, Verified 11/29/24 13:10) NAUSEA/HEADACHE Penicillins Allergy (Mild, Verified 11/29/24 13:10) RASH amlodipine Allergy (Unknown, Verified 11/29/24 13:10) Unknown Bifidobacterium infantis (Align) Allergy (Unknown, Verified 11/29/24 13:10) Unknown cetirizine (From ZYRTEC) Allergy (Unknown, Verified 11/29/24 13:10) UNKNOWN cyanocobalamin (vitamin B12) Allergy (Unknown, Verified 11/29/24 13:10) Unknown enalapril (ENALAPRIL) Allergy (Unknown, Verified 11/29/24 13:10) ABD PAIN, VERY NAUSEOUS, nausea fexofenadine (From MAC) Allergy (Unknown, Verified 11/29/24 13:10) UNKNOWN folic acid Allergy (Unknown, Verified 11/29/24 13:10) unk hydralazine Allergy (Unknown, Verified 11/29/24 13:10) nausea hydrochlorothiazide Allergy (Unknown, Verified 11/29/24 13:10) dry mouth latex (Latex) Allergy (Unknown, Verified 11/29/24 13:10) RASH loratadine (Claritin) Allergy (Unknown, Verified 11/29/24 13:10) Unknown metoclopramide (From REGLAN) Allergy (Unknown, Verified 11/29/24 13:10) JITTERY mometasone furoate (From NASONEX) Allergy (Unknown, Verified 11/29/24 13:10) UNKNOWN montelukast (Singulair) Allergy (Unknown, Verified 11/29/24 13:10) Unknown pantoprazole (From PROTONIX) Allergy (Unknown, Verified 11/29/24 13:10) UNKNOWN penicillin V Allergy (Unknown, Verified 11/29/24 13:10) Unknown polyethylene glycol 3350 (Miralax) Allergy (Unknown, Verified 11/29/24 13:10) Unknown pseudoephedrine (From SUDAFED) Allergy (Unknown, Verified 11/29/24 13:10) HYPER ranitidine (From ZANTAC) Allergy (Unknown, Verified 11/29/24 13:10) UNKNOWN thiamine (vitamin B1) Allergy (Unknown, Verified 11/29/24 13:10) Unknown ascorbic acid (From PreserVision AREDS-2) Adverse Reaction (Intermediate, Verified 11/29/24 13:10) Constipation copper (From PreserVision AREDS-2) Adverse Reaction (Intermediate, Verified 11/29/24 13:10) Constipation lutein (From PreserVision AREDS-2) Adverse Reaction (Intermediate, Verified 11/29/24 13:10) Constipation vitamin E acetate (dl-alpha tocopheryl) (From PreserVision AREDS-2) Adverse Reaction (Intermediate, Verified 11/29/24 13:10) Constipation zeaxanthin (From PreserVision AREDS-2) Adverse Reaction (Intermediate, Verified 11/29/24 13:10) Constipation zinc oxide (From PreserVision AREDS-2) Adverse Reaction (Intermediate, Verified 11/29/24 13:10) Constipation ergocalciferol (vitamin D2) (From CALCIUM CITRATE WITH D) Adverse Reaction (Mild, Verified 11/29/24 13:10) CONSTIPATION Mac-D 12 Hour Allergy (Unknown, Uncoded 11/29/24 13:10) Unknown Calcium Citrate + D Allergy (Unknown, Uncoded 11/29/24 13:10) Unknown Folic + B12 Allergy (Unknown, Uncoded 11/29/24 13:10) Unknown latex Allergy (Unknown, Uncoded 11/29/24 13:10) unknown From CALCIUM CITRATE WITH D Adverse Reaction (Mild, Uncoded 11/29/24 13:10) CONSTIPATION HPI HPI PO-left hip IM nail-DOS 11/09/24 NE: Details: Estephania is an 84 year old female who presents today post-operatively with her brother and [id number] after undergoing a left hip IM nail, DOS: 11/09/[address] Navarro. Patient presented [place] [facility] on 11/07/24 after tripping and falling on to her left hip while trying to get into her car. Patient reports she does not have much pain. She has been staying at [facility]. She shares she has not been walking much, as she is apprehensive to walk. She is only taking Aspirin 325 b.i.d. for DVT prophylaxis, reports this is also helpful for controlling her pain. [facility] Medical History Impaired glucose tolerance Macular degeneration Vitamin D deficiency Tubular adenoma of colon Closed left arm fracture Carcinoid tumor Hypertension Osteoporosis Irritable bowel syndrome Obesity (BMI 30-39.9) Hypercholesterolemia GERD (gastroesophageal reflux disease) Degenerative disc disease, lumbar Peripheral vascular disease Surgical History History of surgical procedure on eye proper using laser H/O ventral hernia repair Status post left breast lumpectomy Family History Father Diabetes Stroke Mother Pancreatic cancer Brother Dementia Social History Household Members Other:: family member lives downstairs Housing: House Housing Other:: two family house Do you presently have visiting nurse or other home services: No Alcohol intake: former Patient Tobacco Use Status: Never used Tobacco Tobacco use type: Cigarette e-Cigarette/Vaping Use: Never Used Second Hand Smoke Exposure: No service: No Current occupational status: retired Cognitive needs: No Hearing needs: Yes Vision needs: Yes Review of Systems Const All systems reviewed & are unremarkable except as noted in HPI and below Physical Exam Vital Signs: BMI result Body Mass Index 29.5 Extrem Other: Dressing on left hip clean, dry, intact, but has been changed since discharge from the hospital Kavin in place No evidence of surrounding erythema, ecchymosis No evidence of infection Patient is able to flex and extend the digits of the left foot without difficulty Patient is able to stand and ambulate with a walker Compartments soft, nontender Distal sensation intact Capillary refill brisk Results Reviewed Results Reviewed: X-rays obtained in the office today and independently reviewed by me, Romero Newton PA-C, demonstrate intertrochanteric fracture of the left hip status post left hip IM nail with all orthopedic hardware in place and in satisfactory clinical alignment. Assessment & Plan Assessment & Plan (1) Intertrochanteric fracture of left hip: Code(s): S72.142A - Displaced intertrochanteric fracture of left femur, initial encounter for closed fracture Category: Medical Plan 1. Status post IM nail of the left hip DOS 11/09/2024 Patient appears to be recovering well postoperatively Patient is educated about the typical recovery course Saragosa removed in the office today without issue Patient may not take a shower Continue working with physical therapy for gait training, strengthening, range of motion of the left hip Patient is told that she should be ambulating as much as possible in order to regain as much function as possible Patient understands this in his amenable to this plan Follow-up in 4 weeks with repeat x-rays for reassessment, sooner with any acute concerns Orders: Orders XR hip LT min 2V 11/29/24 M25.552 - Pain in left hip Coding Level of Care Code Global (17601) Diagnoses Intertrochanteric fracture of left hip S72.142A
== END 2024-11-29 13:48 | disposition home or self-care (01) ==
LOC: HO.HOS 13:01
PROVIDERS: PCP Internal Medicine
DX: S72.142A Displaced intertrochanteric fracture of left femur, initial encounter for closed fracture (principal)
CPT/HCPCS: 99024

== ENCOUNTER → 2024-11-29 13:03 | Outpatient (BNV) | payer MEDICARE, SELFPAY | PROVIDERS: Visit Provider Radiology Diagnostic Radiology | DX: M25.552 Pain in left hip (principal); S72.142A Displaced intertrochanteric fracture of left femur, initial encounter for closed fracture | CPT/HCPCS: 73502 ==

== ENCOUNTER 2024-12-18 13:40 | Outpatient (AMB) | payer MEDICARE, SELFPAY ==
--- NOTE | 2024-12-18 13:43 | A.OFFPC_ITS ---
Vital Signs 12/18/24 13:45 Height 5 ft 1 in Weight 138 lb 6 oz BMI 26.1 BP 120/72 Blood Pressure Location Lt brachial Position Sitting Pulse 76 Pulse Source Pulse Oximeter Pulse Oximetry (%) 97 Oxygen Delivery Method Room Air Intake Visit Reasons: [facility] 12/16 Pharmacognosist Required: No Accompanied by: Self / Same As Patient Allergies lansoprazole (From PREVACID) Allergy (Intermediate, Verified 12/18/24 13:44) VOMITING morphine (MORPHINE) Allergy (Intermediate, Verified 12/18/24 13:44) AGITATION risedronate sodium (From ACTONEL) Allergy (Intermediate, Verified 12/18/24 13:44) DYSPNEA alendronate sodium (From Fosamax) Allergy (Mild, Verified 12/18/24 13:44) NAUSEA,SOB azithromycin (AZITHROMYCIN) Allergy (Mild, Verified 12/18/24 13:44) NAUSEA/HEADACHE Penicillins Allergy (Mild, Verified 12/18/24 13:44) RASH amlodipine Allergy (Unknown, Verified 12/18/24 13:44) Unknown Bifidobacterium infantis (Align) Allergy (Unknown, Verified 12/18/24 13:44) Unknown cetirizine (From ZYRTEC) Allergy (Unknown, Verified 12/18/24 13:44) UNKNOWN cyanocobalamin (vitamin B12) Allergy (Unknown, Verified 12/18/24 13:44) Unknown enalapril (ENALAPRIL) Allergy (Unknown, Verified 12/18/24 13:44) ABD PAIN, VERY NAUSEOUS, nausea fexofenadine (From MAC) Allergy (Unknown, Verified 12/18/24 13:44) UNKNOWN folic acid Allergy (Unknown, Verified 12/18/24 13:44) unk hydralazine Allergy (Unknown, Verified 12/18/24 13:44) nausea hydrochlorothiazide Allergy (Unknown, Verified 12/18/24 13:44) dry mouth latex (Latex) Allergy (Unknown, Verified 12/18/24 13:44) RASH loratadine (Claritin) Allergy (Unknown, Verified 12/18/24 13:44) Unknown metoclopramide (From REGLAN) Allergy (Unknown, Verified 12/18/24 13:44) JITTERY mometasone furoate (From NASONEX) Allergy (Unknown, Verified 12/18/24 13:44) UNKNOWN montelukast (Singulair) Allergy (Unknown, Verified 12/18/24 13:44) Unknown pantoprazole (From PROTONIX) Allergy (Unknown, Verified 12/18/24 13:44) UNKNOWN penicillin V Allergy (Unknown, Verified 12/18/24 13:44) Unknown polyethylene glycol 3350 (Miralax) Allergy (Unknown, Verified 12/18/24 13:44) Unknown pseudoephedrine (From SUDAFED) Allergy (Unknown, Verified 12/18/24 13:44) HYPER ranitidine (From ZANTAC) Allergy (Unknown, Verified 12/18/24 13:44) UNKNOWN thiamine (vitamin B1) Allergy (Unknown, Verified 12/18/24 13:44) Unknown oxycodone Allergy (Verified 12/18/24 13:51) throwing ascorbic acid (From PreserVision AREDS-2) Adverse Reaction (Intermediate, Verified 12/18/24 13:44) Constipation copper (From PreserVision AREDS-2) Adverse Reaction (Intermediate, Verified 12/18/24 13:44) Constipation lutein (From PreserVision AREDS-2) Adverse Reaction (Intermediate, Verified 12/18/24 13:44) Constipation vitamin E acetate (dl-alpha tocopheryl) (From PreserVision AREDS-2) Adverse Reaction (Intermediate, Verified 12/18/24 13:44) Constipation zeaxanthin (From PreserVision AREDS-2) Adverse Reaction (Intermediate, Verified 12/18/24 13:44) Constipation zinc oxide (From PreserVision AREDS-2) Adverse Reaction (Intermediate, Verified 12/18/24 13:44) Constipation ergocalciferol (vitamin D2) (From CALCIUM CITRATE WITH D) Adverse Reaction (Mild, Verified 12/18/24 13:44) CONSTIPATION Mac-D 12 Hour Allergy (Unknown, Uncoded 11/29/24 13:10) Unknown Calcium Citrate + D Allergy (Unknown, Uncoded 11/29/24 13:10) Unknown Folic + B12 Allergy (Unknown, Uncoded 11/29/24 13:10) Unknown latex Allergy (Unknown, Uncoded 11/29/24 13:10) unknown From CALCIUM CITRATE WITH D Adverse Reaction (Mild, Uncoded 11/29/24 13:10) CONSTIPATION Medication List - Last Reconciled 12/18/24 by Beatriz Macias PA-C aspirin 325 mg PO BID carboxymethylcellulose sodium 1% 1 drp ophthalmic (eye) NEEDED PRN chlordiazepoxide-clidinium 5-2.5 mg (Librax (with clidinium)) 1 cap PO DAILY PRN denosumab (Prolia) 60 mg subcut [id number] docusate sodium 100 mg PO BID ergocalciferol (vitamin D2) 1,250 mcg PO QMONTH euc cxz-ptym-cnw,rosem oils-pt (Vicks Babyrub topical ointment) apply as needed under nares hydromorphone (Dilaudid) 2 mg PO Q8H PRN lorazepam 1 mg PO DAILY PRN 90 days losartan 100 mg PO DAILY [Medical grabber tool As directed] metoprolol succinate ER 12.5 mg (1/2 x 25 mg) PO DAILY omeprazole 20 mg PO BID [rollator walker As directed] white petrolatum-mineral oil 94-3 % (Systane Nighttime) 1 appl ophthalmic (eye) BEDTIME Tobacco use date assessed: 12/18/24 Fall risk assessment: No Falls in past year Last assessed Fall Risk: 12/18/24 Dental Screening Dental Screen Date: 12/18/24 Did you have a dental visit in the last 12 months?: No Did you have a dental problem in the last 6 months where you did not have access to dental care?: No Was dental information given to patient?: No HPI [facility] 12/16 HPI Details 84-year-old female with past medical fatemeh betes mellitus GERD, hypercholesterolemia, osteoporosis, generalized anxiety disorder and essential tremor last seen 09/2024 coming in for hospital discharge follow up. In review of the notes, patient was seen in [facility] ED 11/07/2024 after mechanical fall found to have left intertrochanteric fracture underwent IM nail 11/09/2024 without complication.?She did become anemic postoperatively with hemoglobin of 6.9 and transfused 1 unit PRBCs hemoglobin improving.?She was discharged to long-term facility for rehab 11/13/2024.? She was seen by Orthopedics 2 weeks postop 11/2224 advised to continue to follow with physical therapy and follow up in 4 weeks. The patient experienced a fall while wearing flip-flops, resulting in a hip fracture. Post-fall, the patient has been experiencing significant leg swelling, which has worsened recently. An x-ray was performed to assess the injury, but no ultrasound was conducted to rule out a blood clot. She is currently on aspirin b.i.d. and has not missed any doses. She denies any pain that leg but does have significant swelling that began today and has resulted in inability to wear shoes. The patient recently returned from a rehabilitation facility and is scheduled to receive home health services including nursing, occupational therapy, and physical therapy. [facility] Medical History Impaired glucose tolerance Macular degeneration Vitamin D deficiency Tubular adenoma of colon Closed left arm fracture Carcinoid tumor Hypertension Osteoporosis Irritable bowel syndrome Obesity (BMI 30-39.9) Hypercholesterolemia GERD (gastroesophageal reflux disease) Degenerative disc disease, lumbar Peripheral vascular disease Surgical History History of surgical procedure on eye proper using laser H/O ventral hernia repair Status post left breast lumpectomy Family History Father Diabetes Stroke Mother Pancreatic cancer Brother Dementia Social History Household Members Other:: family member lives downstairs Housing: House Housing Other:: two family house Do you presently have visiting nurse or other home services: No Alcohol intake: former Patient Tobacco Use Status: Never used Tobacco Tobacco use type: Cigarette e-Cigarette/Vaping Use: Never Used Second Hand Smoke Exposure: No service: No Current occupational status: retired Cognitive needs: No Hearing needs: Yes Vision needs: Yes Questionnaire PHQ-9 Over the last 2 weeks, how often have you been bothered by any of the following problems? 1. Little interest or pleasure in doing things: several days 2. Feeling down, depressed, or hopeless: several days 3. Trouble falling or staying asleep, or sleeping too much: several days 4. Feeling tired or having little energy: several days 5. Poor appetite or overeating: several days 6. Feeling bad about yourself - or that you are a failure or have let yourself or your family down: not at all 7. Trouble concentrating on things, such as reading the newspaper or watching television: not at all 8. Moving or speaking so slowly that other people could have noticed. Or the opposite - being so fidgety or restless that you have been moving around a lot more than usual: not at all 9. Thoughts that you would be better off or of hurting yourself in some way: not at all Total score: 5 29033 - PHQ-9 Billing: Yes Source: Developed by Drs. Tyler Parsons, Grace Greene, David Altman and colleagues, with an educational ina from [employer]. Thrive Questionnaire Date Thrive assessed: 12/18/24 I am a: Parent/Caregiver What is your living situation today?: I have a steady place to live Within the past 12 months, did the food you bought not last and you didn't have the money to get more?: Never true Within the past 12 months, did you worry whether your food would run out before you got money to buy more?: Never true Do you have trouble paying for medicines?: No Do you have trouble getting transportation to medical appointments?: No Do you have trouble paying your heating and electricity bill?: No Do you have trouble taking care of your child, family member or friend?: No Do you have trouble with day-to-day activities such as bathing, preparing meals, shopping, managing finances, etc.?: Yes Are you currently unemployed and looking for a job?: No Are you interested in more education?: No Please select the resources that you would like help with: Food and None Currently or been in a relationship where the following occur: No concerns reported THRIVE Score: 0 AUDIT C Alcohol Use Questionnaire (AUDIT-C) 1. How often do you have a drink containing alcohol?: Never Total Score: 0 KATHIE-7 AMB Questionnaire KATHIE-7 Date KATHIE - 7 assessed: 12/18/24 Feeling nervous, anxious, or on edge: 1 = Several days Not being able to stop or control worryin = Several days Worrying too much about different things: 1 = Several days Trouble relaxin = Several days Being so restless that it is hard to sit still: 0 = Not at all Becoming easily annoyed or irritable: 0 = Not at all Feeling afraid as if something awful might happen: 0 = Not at all Total KATHIE-7 score (0-4 normal; 5-9 mild; 10-14 moderate; 15-21 severe): 4 Source: Developed by Drs. Tyler Parsons, Grace Greene, David Altman and colleagues, with an educational ina from [employer]. KATHIE-7 Assessment Billing KATHIE-7 Assessment Tool: KATHIE-7 Assessment 86309 Review of Systems Const Denies body aches, Denies chills, Denies fever(s), Denies headache(s) and Denies poor appetite Eyes Reports no additional complaints ENT Denies dizziness and Denies headache(s) Card Denies chest pain, Denies edema, Denies lightheadedness and Denies dyspnea Resp Denies dyspnea GI Denies nausea and Denies vomiting Reports no additional complaints Musc Reports as per HPI and Reports abnormal gait Skin/Breast Reports system reviewed and no additional complaints, except as documented Neuro Reports abnormal gait, Denies dizziness and Denies headache(s) Psych Reports no additional complaints Physical exam (Primary Care) Vital Signs: Last Vital Signs Pulse 76 12/18/24 13:45 BP 120/72 12/18/24 13:45 Pulse Ox 97 12/18/24 13:45 Oxygen Delivery Method Room Air 12/18/24 13:45 BMI result Body Mass Index 26.1 Tobacco/Smoking Status: Tobacco use Status Tobacco use date assessed 12/18/24 12/18/24 13:51 Patient Tobacco Use Status Never used Tobacco 12/18/24 13:51 Tobacco use type Cigarette 12/18/24 13:51 e-Cigarette/Vaping Use Never Used 12/18/24 13:51 PHQ-9: PHQ-9 Score PHQ-9: Total score 5 12/18/24 14:15 Thrive Assessment: Date of Thrive Assessment Date Thrive assessed 12/18/24 12/18/24 13:51 Currently or been in a relationship where the following occur: No concerns reported Const General: cooperative, healthy appearing, comfortable and no acute distress Orientation/consciousness: patient oriented x3 HENMT Head: Yes normocephalic Ears: hearing grossly normal bilaterally General nose exam: Normal external nose present Eyes General: appearance normal, both eyes and all related structures Conjunctivae: conjunctivae normal Neck Neck: Yes full ROM and Yes no lymphadenopathy Resp Effort & Inspection: normal respiratory effort Auscultation: clear to auscultation bilaterally, no crackles, no rales, no rhonchi and no wheezes Cardio Rate: regular rate Rhythm: regular rhythm Skin General skin exam: no rashes or lesions noted Neuro General: patient oriented x3 Gait exam (Neuro): Normal gait present Extrem Other: Significant left lower extremity nonpitting edema and pedal edema with intact pulses and sensation. There is no calf tenderness, warmth, or redness bilaterally. Mild Right lower extremity nonpitting edema and pedal edema General: Yes normal to inspection and Yes full ROM Psych Affect: normal affect Attitude: cooperative Insight: Good insight present (Psych) Judgement: Good judgement present (Psych) Coding Level of Care Code Est Pt Level 4 (35574) Diagnoses Left leg swelling M79.89 Closed intertrochanteric fracture S72.142A Encounter type: initial encounter Fracture alignment: displaced Laterality: left Type 2 diabetes mellitus with hyperglycemia, without long-term current use of insulin E11.65 Diabetes mellitus tank terminal gauger insulin use: without correction use Gastroesophageal reflux disease without esophagitis K21.9 Esophagitis presence: without esophagitis Anemia D64.9 Additional Codes KATHIE-7 Assessment Billing - KATHIE-7 Assessment Tool: KATHIE-7 Assessment 69449 ([id number]) PHQ-9 - 92548 - PHQ-9 Billing: Yes ([id number]) Assessment & Plan Assessment & Plan (1) Left leg swelling: Code(s): M79.89 - Other specified soft tissue disorders Category: Medical Plan: Patient having bilateral lower extremity swelling left significantly worse than the right. There is concern for DVT given the postoperative status and limited mobility. Plan for stat DVT rule out ultrasound. If ultrasound is negative plan for compression stockings and Cotton compression stockings prescription was sent to pharmacy today. I also advised the patient to elevate the legs when possible to prevent further swelling. (2) Closed intertrochanteric fracture: Comment: 10/[address] Navarro Code(s): S72.143A - Displaced intertrochanteric fracture of unspecified femur, initial encounter for closed fracture Category: Medical Qualifiers: Encounter type: initial encounter Fracture alignment: displaced Laterality: left Qualified Code(s): S72.142A - Displaced intertrochanteric fracture of left femur, initial encounter for closed fracture Plan: Patient having a left hip fracture approximately 1 month ago which resulted in an IM nail and subsequent discharge to rehab facility. She has been working with physical therapy and does mentioned improvement in pain and mobility. She does still require the use of a walker and is requesting a Rollator walker at this time. I do believe it Rollator walker would be helpful for this patient given her limited mobility status. Prescription has been sent to pharmacy along with a Grabber Sherin prescription as she was advised to avoid certain bending motions after the hip surgery. I did also fill out paperwork for a handicap placard given her limited mobility status. She will continue to follow with orthopedics for this concern. She has at home services including OT/PT/HEALTH INSURANCE SPECIALIST services. (3) Type 2 diabetes mellitus with hyperglycemia: Comment: Dr. Dietrich Code(s): E11.65 - Type 2 diabetes mellitus with hyperglycemia Category: Medical Qualifiers: Diabetes mellitus correction insulin use: without tank terminal gauger use Qualified Code(s): E11.65 - Type 2 diabetes mellitus with hyperglycemia Plan: Decrease the amount of carbohydrates such as pasta, bread, rice, and potatoes and limit the amount of sweets. Although fruits are generally healthy they should be eaten in moderation as they are still high in sugar. Hemoglobin A1c goal of less than 7%. Last A1c 5.6%. (4) GERD (gastroesophageal reflux disease): Comment: Hiatal hernia Dr. Correa history of H pylori Code(s): K21.9 - Gastro-esophageal reflux disease without esophagitis Category: Medical Qualifiers: Esophagitis presence: without esophagitis Qualified Code(s): K21.9 - Gastro-esophageal reflux disease without esophagitis Plan: Avoid trigger foods such as citrus, tomato products, soda, caffeine, spicy foods and other foods that may be irritating to your stomach. Avoid laying flat 3-4 hours after eating and elevate the head of the bed 30 degrees to prevent acid from moving into the esophagus. Recently increased omeprazole b.i.d. (5) Anemia: Code(s): D64.9 - Anemia, unspecified Category: Medical Plan: Plan to repeat blood work for further evaluation. Plan The patient will continue with her current medication regimen, including losartan, metoprolol, omeprazole, lorazepam, and aspirin. Tylenol will be used for pain management, with a recommendation to monitor liver function due to the high dosage. The patient is advised to try reducing the Tylenol dosage if possible. An ultrasound is scheduled to rule out deep vein thrombosis due to the leg swelling. The patient is instructed to keep her legs elevated to help reduce swelling and is provided with cotton support stockings to be used with the assistance of visiting nurses. The patient will receive home health services, including nursing, occupational therapy, and physical therapy, to aid in her recovery. Blood work is planned to monitor cholesterol levels and blood count post-surgery. This note was constructed using voice recognition software. While every effort has been made to ensure accuracy and paper gluing operator, still areas may have been included sometimes these areas may affect the content or meeting of the given symptoms. Total time spent caring for the patient today was 30 minutes. This includes time spent before the visit reviewing the chart, time spent during the visit, and time spent after the visit and documentation. Patient was informed and verbally consented to the use of an ambient scribe for clinic note documentation during this visit. Orders: Orders US venous duplex LE LT Today M79.89 - Other specified soft tissue disorders Complete Blood Count Auto Diff Today D64.9 - Anemia, unspecified Medications: New [rollator walker] As directed 1 ea 0RF S72.142A - Displaced intertrochanteric fracture of left femur, initial encounter for closed fracture [Medical grabber tool] As directed 1 ea 0RF G25.0 - Essential tremor, S72.142A - Displaced intertrochanteric fracture of left femur, initial encounter for closed fracture [Cotton Compression Stocking] As directed; 15-20 mmHg allergy to latex/non cotton material 1 ea 0RF M79.89 - Other specified soft tissue disorders
[2024-12-18 13:45] VITALS: BP 120/72; PULSE 76; O2SAT 97; BMI 26.1
--- OUTSIDE RECORDS SUMMARY | 2024-12-18 14:36 | XMS_ITS | Patient Health Record ---
Author Organization [facility] Address [address] [place] [address] Care Team Providers Care Claim Rep Name Role Phone Po Jacinda RAMIRES Primary Care Provider [place] Unavailable [phone] Allergies Allergen (clinical drug ingredient) Drug/Non Drug Allergy documented on EMR Reaction Allergy Type Onset Date Status risedronate Actonel Unknown Drug Allergy Activ e clariden (uncoded) Unknown Allergy A ctive azithromycin ZPack (uncoded) Unknown Allergy A ctive Latex Latex (uncoded) Unknown Allergy Acti ve Penicillin Unknown Drug Allergy Active Zyrtec Allergy Unknown Drug Allergy Ac tive [...] A ctive Brianna Unknown Drug Allergy Active Reason For Referral [...] W/U Status Risk Notes Problem Esophageal reflux (972890887) Esophageal reflux (530.81) Active confirmed Problem Irritable bowel syndrome (28429437) Irritable bowel syndrome (564.1) Active confirmed Problem Anorexia (38591403) Anorexia (783.0) Active confirmed Problem History of polyp of colon (situation) (728067581) Personal history of colonic polyps (V12.72) Active confirmed Problem Constipation (12180415) Constipation (564.00) Active confirmed Problem Colon cancer screening (133345003) Colon cancer screening (V76.51) Active confirmed Problem Gastroesophageal reflux disease (654448432) GERD (gastroesophage al reflux disease) (530.81) Active confirmed Problem History of adenomatous polyp of colon (024265631) History of adenomatous polyp of colon (V12.72) Active confirmed Problem Weight loss (464020930) Weight loss (783.21) Active confirmed Problem Nausea (308037425) Nausea (787.02) Active confi rmed Plan Of Treatment Future Test Test Name Order Date COLONOSCOPY 01/14/2014 Insurance Providers Payer Name Payer Address Payer Phone Subscriber Number Group Number Insured Name Patient Relationship to Insured Coverage Start Date Coverage End Date MEDICARE OF [place] [address] [place] [address] [id number] MALIHAELENO Self - patient is the insured [facility] [address] [place], [place] [id number] MALIHAELENO STEIN Self - patient is [...] hypertension Carcinoid tumor of the ileum-resected Denies [place],DM,CVA,Lung disease,renal dise ase Negative hemoccults x 3 [...]
== END 2024-12-18 16:18 | disposition home or self-care (01) ==
LOC: HO.HMCH 13:40
PROVIDERS: PCP Internal Medicine
DX: M79.89 Other specified soft tissue disorders (principal); S72.142A Displaced intertrochanteric fracture of left femur, initial encounter for closed fracture; E11.65 Type 2 diabetes mellitus with hyperglycemia; K21.9 Gastro-esophageal reflux disease without esophagitis; D64.9 Anemia, unspecified

== ENCOUNTER 2024-12-18 15:21 | Outpatient (REF) | payer MEDICARE, SELFPAY ==
--- NOTE | ~2024-12-18 | US_ITS ---
EXAMINATION: US TRIPLEX LOWER EXTREMITY, LEFT CLINICAL INFORMATION: Left lower extremity edema. COMPARISON: None available. TECHNIQUE: Color-flow triplex imaging with spectral analysis and compression Doppler were performed on the left lower extremity. FINDINGS: There is positive occlusive thrombus in the left popliteal vein and posterior tibial vein. Remainder the deep venous structures appear patent. There is no Hope's cyst. US/US venous duplex LE LT IMPRESSION: Positive left lower extremity DVT in the left popliteal vein and posterior tibial vein. Findings communicated by the dye lab technician to Beatriz Macias PA-C via secure messaging system at 4:04 PM, 12/18/2024. The patient was recommended to proceed to the Emergency Department. Electronically signed by: Jase Banda MD 12/18/2024 04:14 PM EDT
== END 2024-12-18 15:22 | disposition home or self-care (01) ==
LOC: HO.US 15:21
PROVIDERS: PCP Internal Medicine
DX: R60.0 Localized edema (principal)
CPT/HCPCS: 93971

== ENCOUNTER → 2024-12-18 15:26 | Outpatient (BNV) | payer MEDICARE, SELFPAY | PROVIDERS: PCP Internal Medicine; Visit Provider Radiology Diagnostic Radiology | DX: I82.432 Acute embolism and thrombosis of left popliteal vein (principal); R06.02 Shortness of breath | CPT/HCPCS: 71046; 93971 ==

== ENCOUNTER 2024-12-18 16:14 | Emergency (ER) | payer MEDICARE, SELFPAY ==
--- NOTE | ~2024-12-18 | XR_ITS ---
CLINICAL HISTORY: shortness of breath 2 view chest x-ray Comparison: None provided Findings: The lungs are clear. Prominent cardiac silhouette. No acute fracture. IMPRESSION: 1. No acute findings. This document has been electronically signed by: Haroon Ayala MD on 12/18/2024 18:22:19
--- NOTE | 2024-12-18 16:55 | ED.GENADULT ---
HPI - General Adult General Chief complaint: General Medical Stated complaint: positive blood clot in lt leg Time Seen by Provider: 12/18/24 21:17 Source: patient Mode of arrival: ambulatory Limitations: no limitations History of Present Illness ED Provider: Dr. Promise Bosch HPI narrative: Patient comes to the emergency room stating that her PCP has just informed her at her lower extremity ultrasound was positive for DVT. According to the patient, about a week ago she came out from rehab. Patient had a fractured leg. Patient states that over last few days, she has noted that her left lower extremity and foot has become more swollen, a bit tender. Patient denies any chest pain or shortness of breath, no palpitations. Patient went to see her PCP who ordered an ultrasound. Related Data Home Medications ?Medication ?Instructions ?Recorded ?Confirmed denosumab 60 mg/mL subcutaneous 60 mg subcut [id number] 03/03/20 12/18/24 syringe (Prolia) chlordiazepoxide-clidinium 5 1 cap PO DAILY PRN anxiety 11/07/24 11/07/24 mg-2.5 mg capsule (Librax (with clidinium)) ergocalciferol (vitamin D2) 1,250 1,250 mcg PO QMONTH 11/07/24 12/18/24 mcg (50,000 unit) capsule carboxymethylcellulose sodium 1 % 1 drp ophthalmic (eye) NEEDED 11/08/24 12/18/24 eye liquid gel drops PRN Dry Eye(S) eucalyptus oil-aloe See Rx Instructions .Route 11/08/24 12/18/24 extr-lavender,abdifatah .COMPLEX PRN Congestion oil-petrolatum top ointment (Vicks Babyrub topical ointment) white petrolatum-mineral oil 94 1 appl ophthalmic (eye) BEDTIME 11/08/24 12/18/24 %-3 % eye ointment (Systane Nighttime) omeprazole 20 mg capsule,delayed 20 mg PO BID 12/18/24 12/18/24 release Previous Rx's ?Medication ?Instructions ?Recorded metoprolol succinate 25 mg 12.5 mg (1/2 x 25 mg) PO DAILY #45 07/27/24 tablet,extended release 24 hr tabs lorazepam 1 mg tablet 1 mg PO DAILY PRN anxiety 90 days 07/11/25 #90 tabs losartan 100 mg tablet 100 mg PO DAILY #90 tabs 11/08/24 aspirin 325 mg capsule 325 mg PO BID #84 caps 11/13/24 docusate sodium 100 mg capsule 100 mg PO BID #30 caps 11/13/24 hydromorphone 2 mg tablet 2 mg PO Q8H PRN pain, severe #15 11/13/24 (Dilaudid) tabs Cotton Compression Stocking #1 ea 12/18/24 Medical grabber tool #1 ea 12/18/24 apixaban 5 mg (74 tabs) tablets in 5 mg PO BID #74 ea 12/18/24 a dose pack (Eliquis DVT-PE Treat 30D Start) rollator walker #1 ea 12/18/24 Allergies Allergy/AdvReac Type Severity Reaction Status Date / Time lansoprazole (From PREVACID) Allergy Intermediate VOMITING Verified 12/18/24 16:57 morphine (MORPHINE) Allergy Intermediate AGITATION Verified 12/18/24 16:57 risedronate sodium (From Allergy Intermediate DYSPNEA Verified 12/18/24 16:57 ACTONEL) alendronate sodium (From Allergy Mild NAUSEA,SOB Verified 12/18/24 16:57 Fosamax) azithromycin (AZITHROMYCIN) Allergy Mild NAUSEA/HEAD Verified 12/18/24 16:57 ACHE Penicillins Allergy Mild RASH Verified 12/18/24 16:57 amlodipine Allergy Unknown Unknown Verified 12/18/24 16:57 Bifidobacterium infantis Allergy Unknown Unknown Verified 12/18/24 16:57 (Align) cetirizine (From ZYRTEC) Allergy Unknown UNKNOWN Verified 12/18/24 16:57 cyanocobalamin (vitamin B12) Allergy Unknown Unknown Verified 12/18/24 16:57 enalapril (ENALAPRIL) Allergy Unknown ABD PAIN, Verified 12/18/24 16:57 VERY NAUSEOUS, nausea fexofenadine (From MAC) Allergy Unknown UNKNOWN Verified 12/18/24 16:57 folic acid Allergy Unknown unk Verified 12/18/24 16:57 hydralazine Allergy Unknown nausea Verified 12/18/24 16:57 hydrochlorothiazide Allergy Unknown dry mouth Verified 12/18/24 16:57 latex (Latex) Allergy Unknown RASH Verified 12/18/24 16:57 loratadine (Claritin) Allergy Unknown Unknown Verified 12/18/24 16:57 metoclopramide (From REGLAN) Allergy Unknown JITTERY Verified 12/18/24 16:57 mometasone furoate (From Allergy Unknown UNKNOWN Verified 12/18/24 16:57 NASONEX) montelukast (Singulair) Allergy Unknown Unknown Verified 12/18/24 16:57 pantoprazole (From PROTONIX) Allergy Unknown UNKNOWN Verified 12/18/24 16:57 penicillin V Allergy Unknown Unknown Verified 12/18/24 16:57 polyethylene glycol 3350 Allergy Unknown Unknown Verified 12/18/24 16:57 (Miralax) pseudoephedrine (From Allergy Unknown HYPER Verified 12/18/24 16:57 SUDAFED) ranitidine (From ZANTAC) Allergy Unknown UNKNOWN Verified 12/18/24 16:57 thiamine (vitamin B1) Allergy Unknown Unknown Verified 12/18/24 16:57 oxycodone Allergy throwing Verified 12/18/24 16:57 ascorbic acid (From AdvReac Intermediate Constipatio Verified 12/18/24 16:57 PreserVision AREDS-2) n copper (From PreserVision AdvReac Intermediate Constipatio Verified 12/18/24 16:57 AREDS-2) n lutein (From PreserVision AdvReac Intermediate Constipatio Verified 12/18/24 16:57 AREDS-2) n vitamin E acetate (dl-alpha AdvReac Intermediate Constipatio Verified 12/18/24 16:57 tocopheryl) (From n PreserVision AREDS-2) zeaxanthin (From AdvReac Intermediate Constipatio Verified 12/18/24 16:57 PreserVision AREDS-2) n zinc oxide (From AdvReac Intermediate Constipatio Verified 12/18/24 16:57 PreserVision AREDS-2) n ergocalciferol (vitamin D2) AdvReac Mild CONSTIPATIO Verified 12/18/24 16:57 (From CALCIUM CITRATE WITH D) N Mac-D 12 Hour Allergy Unknown Unknown Uncoded 11/29/24 13:10 Calcium Citrate + D Allergy Unknown Unknown Uncoded 11/29/24 13:10 Folic + B12 Allergy Unknown Unknown Uncoded 11/29/24 13:10 latex Allergy Unknown unknown Uncoded 11/29/24 13:10 From CALCIUM CITRATE WITH D AdvReac Mild CONSTIPATIO Uncoded 08/01/25 13:10 N Review of Systems Review of Systems: Constitutional : No Weight loss, No Fever, No Chills, No Night Sweats, No Fatigue, No Malaise ENT/Mouth : No Hearing loss, No Ear Pain, No Nasal Congestion, No Sinus Pain, No Hoarseness, No sore throat, No Rhinorrhea, No Swallowing Difficulty Eyes: No Eye Pain, No Swelling, No Redness, No Foreign Body, No Discharge, No Vision Changes Cardiovascular : No Chest Pain, No SOB, No Dyspnea on Exertion, No Orthopnea, No Edema, No Palpitations Respiratory : No Cough, No Sputum, No Wheezing, No Smoke Exposure, No Dyspnea Gastrointestinal : No Nausea, No Vomiting, No Diarrhea, No Constipation, No abdominal Pain, No Hematochezia, No Melena Genitourinary : no irregular bleeding, No Dysuria, No Urinary Frequency, No Hematuria, No Urinary Incontinence, No Urgency, No Flank Pain, No Urinary Flow Changes, No Hesitancy Musculoskeletal : Complaining of left lower extremity swelling and some pain Skin : No Skin Lesions, No rash Neuro : No Weakness, No Numbness, No Paresthesias, No Loss of Consciousness, No Dizziness, No Headache Psych : No Anxiety/Panic, No Depression, No SI/HI/AH/VH, No Social Issues, Heme/Lymph: No Bruising, No Bleeding,No Lymphadenopathy Endocrine : No Polyuria, No Polydipsia, No Temperature Intolerance [facility] Past Medical History Medical History Impaired glucose tolerance Macular degeneration Vitamin D deficiency Tubular adenoma of colon Closed left arm fracture Carcinoid tumor Hypertension Osteoporosis Irritable bowel syndrome Obesity (BMI 30-39.9) Hypercholesterolemia GERD (gastroesophageal reflux disease) Degenerative disc disease, lumbar Peripheral vascular disease Surgical History History of surgical procedure on eye proper using laser H/O ventral hernia repair Status post left breast lumpectomy Family History Family History Father Diabetes Stroke Mother Pancreatic cancer Brother Dementia Social History Social History Household Members Other:: family member lives downstairs Housing: House Housing Other:: two family house Do you presently have visiting nurse or other home services: No Alcohol intake: former Patient Tobacco Use Status: Never used Tobacco Tobacco use type: Cigarette Smoked in Last 30 Days: No e-Cigarette/Vaping Use: Never Used Second Hand Smoke Exposure: No Use of substances other than those prescribed or required for medical reasons: No Advance Directives: Yes Advance Directives on File: Yes Advance Directives Date on File: 11/14/24 service: No Current occupational status: retired Cognitive needs: No Hearing needs: Yes Vision needs: Yes Physical Exam ED Exam Exam: Appearance: Alert. Oriented X3. No acute distress. Eyes: Pupils equal, round and reactive to light. ENT: Pharynx normal. Neck: Normal inspection. Neck supple. No lymph nodes noted. No crepitus CVS: Normal heart rate and rhythm. Pulses normal. Normal S1 and S2 Respiratory: No respiratory distress. Breath sounds normal. No Wheezing. No rales Abdomen: Soft and nontender. No rigidity. No distention. Skin: Skin warm and dry. Normal skin color. Normal skin turgor. Extremities: Left lower extremity is notoriously swollen compared to the right leg, foot has +3 pitting edema. Some pain to palpation in the calf. Neuro: Oriented X 3. No motor deficit. No sensory deficit. Moving all extremities. No slurred speech. CN 2 through 12 grossly intact Psych: calm, cooperative, normal affect Vital Signs: Vital Signs - 24 hr 12/18/24 16:56 12/18/24 20:07 Temperature 98.3 F 98.3 F Pulse Rate 62 72 Respiratory Rate 18 16 Blood Pressure 140/87 H 184/71 H Pulse Oximetry 96 92 Oxygen Delivery Method Room Air BMI result Body Mass Index 26.9 Course Course Course Narrative: RME, this is a rapid medical exam performed by Perry Plata please refer to primary provider for complete H&P- 84-year-old female presents for evaluation of leg swelling. She is found to have a blood clot in her left leg earlier today on ultrasound. Plan for basic labs, INR and chest x-ray. Medical Decision Making Medical Decision Making [facility] Narrative: My interpretation of EKG: Normal sinus rhythm, heart rate 70, no ST segment depression or elevation, no T-wave inversion, QTC 449 My interpretation of labs: No significant abnormality in patient's hematology and chemistry. Ultrasound is positive for left lower extremity DVT in the left popliteal and posterior tibial vein I discussed with the patient and her family the risks versus benefits of being on a blood thinner. Patient aware that if she has any head injury/falls, she needs to come to the emergency room to be evaluated even if she is asymptomatic. Patient understands and agrees with plan. Patient decided to proceed with a blood thinners. Today, patient received the 1st dose of Eliquis. Patient provided with a free 30 day trial card in a good Rx card. Discussed with the patient that in her next follow-up with her PCP, ideally they should check blood levels to make sure that she is not having an occult GI bleed Differential Diagnosis Differential Diagnoses: The differential diagnosis associated with the presentation includes (Thrombophlebitis, DVT, superficial thrombosis) Admission/Observation Consideration of admission/observation: Escalation of care including admission/observation considered (Given patient's age and presentation, observation was considered) Lab Data MDM Lab Attestation statement: I reviewed the patient's lab results. 12/18/24 17:12 12/18/24 17:12 Labs: Lab Results 12/18/24 Range/Units 17:12 WBC 7.0 (4.8-10.8) X10*3/uL RBC 3.91 L D (4.20-5.50) X10*6/uL Hgb 11.5 L D (12.0-16.0) g/dl Hct 35.8 L D (37.0-47.0) % MCV 91.6 (80.0-98.0) fL MCH 29.4 (27.0-33.0) pg MCHC 32.1 (31.0-35.0) g/dl RDW 14.8 (11.0-16.0) % Plt Count 255 D (160-400) X10*3/uL MPV 9.3 L (9.4-12.3) fL Immature Gran % (Auto) 0.1 (0.0-0.4) % Neut % (Auto) 63.8 (45-73) % Lymph % (Auto) 28.1 (20-40) % [place] % (Auto) 7.3 (2-11) % Eos % (Auto) 0.4 (0-4) % Baso % (Auto) 0.3 (0-2) % Lymph # (Auto) 2.0 (1.2-4.9) X10*3/uL [place] # (Auto) 0.5 (0.1-1.2) X10*3/uL Eos # (Auto) 0.0 (0.0-0.4) X10*3/uL Baso # (Auto) 0.0 (0.0-0.2) X10*3/uL Abs Immat Gran (auto) 0.01 (0.00-0.03) X10*3/uL Absolute Neuts (auto) 4.4 (2.0-8.3) x10*3/uL Absolute Nucleated RBC 0.000 (0.0-0.012) X10*3/uL Nucleated RBC % (auto) 0.0 (0.0-0.2) /100WBC PT 12.2 (10.9-12.4) SEC INR 1.1 (0.9-1.1) Sodium 140 (135-145) mmol/L Potassium 3.9 (3.3-5.1) mmol/L Chloride 110 H (96-108) mmol/L Carbon Dioxide 23 (22-29) mmol/L Anion Gap 11 L (12-20) BUN 18 H (9-16) mg/dL Creatinine 0.96 (0.5-1.4) mg/dL Estim Creat Clear Calc 34.7 Estimated GFR 55 Random Glucose 105 (60-115) mg/dL Calcium 8.6 D (8.4-10.2) mg/dL Total Bilirubin 0.5 (0.0-1.0) mg/dL AST 25 (5-31) U/L ALT 10 (0-31) U/L Alkaline Phosphatase 112 (39-117) U/L B-Natriuretic Peptide 141 H (<100) pg/mL Total Protein 6.7 (6.5-8.0) g/dL Albumin 3.9 (3.5-5.0) g/dL Lipase 27 (8-78) U/L Independent Interpretation I performed an independent interpretation of an: Plain X-Ray and Ultrasound Radiology Impression Discussion of test interpretation with radiology: I have reviewed the radiologist's reading. Radiologist Impression: The lungs are clear. Prominent cardiac silhouette. No acute fracture There is positive occlusive thrombus in the left popliteal vein and posterior tibial vein. Remainder the deep venous structures appear patent. There is no Hope's cyst. Critical Care Time Critical Care Time Critical Care Time: Yes Total Critical Care Time: 45 Attestation: I have personally provided critical care time. Time includes review of lab data, radiology results, discussion with consultants, and monitoring for potential decompensation. Intervention performed as documented. Discharge Plan Discharge Clinical Impression: Acute deep vein thrombosis (DVT) of left lower extremity Patient Disposition: Home, Self-Care Instructions: Deep Vein Thrombosis (ED) Additional Instructions: If you have any worsening or new symptoms including chest pain, shortness of breath, palpitations, worsen leg swelling or pain, passing out or near passing out, please come immediately to the emergency room. Please follow-up with your primary care physician tomorrow. If you have any worsening or new symptoms, please return to the emergency room or call 911 Prescriptions: New Justus DVT-PE Treat 30D Start 5 mg (74 tabs) tablets,dose pack 5 mg PO BID Qty: 74 0RF Rx Instructions: The 1st 7 days, take 10 mg (2 tablets) twice a day. The following weeks, take 1 tablet twice a day No Action metoprolol succinate 25 mg tablet extended release 24 hr 12.5 mg PO DAILY Qty: 45 3RF losartan 100 mg tablet 100 mg PO DAILY Qty: 90 2RF lorazepam 1 mg tablet 1 mg PO DAILY PRN (Reason: anxiety) 90 Days Qty: 90 1RF ergocalciferol (vitamin D2) 1,250 mcg (50,000 unit) capsule 1,250 mcg PO QMONTH chlordiazepoxide-clidinium [Librax (with clidinium)] 5-2.5 mg capsule 1 cap PO DAILY PRN (Reason: anxiety) carboxymethylcellulose sodium 1 % Drops, Liquid Gel 1 drp ophthalmic (eye) NEEDED PRN (Reason: Dry Eye(S)) Rx Instructions: both eyes Vicks Babyrub Ointment See Rx Instructions .ROUTE .COMPLEX PRN (Reason: Congestion) Rx Instructions: apply as needed under nares Systane Nighttime 94-3 % Ointment 1 appl OPHTHALMIC (EYE) BEDTIME Rx Instructions: to both eyes docusate sodium 100 mg capsule 100 mg PO BID Qty: 30 0RF Rx Instructions: Take one capsule twice a day while taking opioids. Take one capsule up to twice daily after that as needed for constipation. aspirin 325 mg capsule 325 mg PO BID Qty: 84 0RF Rx Instructions: Take one capsule twice a day for the next 6 weeks for DVT prevention hydromorphone [Dilaudid] 2 mg tablet 2 mg PO Q8H PRN (Reason: pain, severe) Qty: 15 0RF Rx Instructions: Partial Fill upon patient request. Take one tablet daily up to three times a day for severe pain Prolia 60 mg/mL syringe 60 mg subcut [id number] omeprazole 20 mg capsule,delayed release(DR/EC) 20 mg PO BID (DME) rollator walker See Rx Instructions .Route .MEDSUPPLY Qty: 1 0RF Rx Instructions: As directed (DME) Medical grabber tool See Rx Instructions .Route .MEDSUPPLY Qty: 1 0RF Rx Instructions: As directed (DME) Cotton Compression Stocking See Rx Instructions .Route .MEDSUPPLY Qty: 1 0RF Rx Instructions: As directed; 15-20 mmHg allergy to latex/non cotton material Print Language: Georgian
[2024-12-18 16:56] VITALS: BP 140/87; PULSE 62; RESP 18; TEMP 36.8; O2SAT 96; BMI 26.9
[2024-12-18 17:22] LABS: MANUAL DIFF FLAG NO
[2024-12-18 17:24] LABS: Hematocrit 35.8 % (37.0-47.0); Hemoglobin 11.5 g/dl (12.0-16.0); Imm Gran Abs Auto 0.01 X10*3/uL (0.00-0.03); Imm Gran Pct Auto 0.1 % (0.0-0.4); Lymphocytes Absolute Auto 2.0 X10*3/uL (1.2-4.9); Mean Corpuscular HGB Conc 32.1 g/dl (31.0-35.0); Mean Corpuscular Hemoglobin 29.4 pg (27.0-33.0); Mean Corpuscular Volume 91.6 fL (80.0-98.0); NRBC Abs Auto 0.000 X10*3/uL (0.0-0.012); NRBC Pct Auto 0.0 /100WBC (0.0-0.2); Platelet Count 255 X10*3/uL (160-400); Red Blood Count 3.91 X10*6/uL (4.20-5.50); White Blood Count 7.0 X10*3/uL (4.8-10.8)
[2024-12-18 17:31] LABS: INTERNATIONAL NORM RATIO 1.1 (0.9-1.1); Prothrombin Time 12.2 SEC (10.9-12.4)
[2024-12-18 17:42] LABS: Alanine Aminotransferase 10 U/L (0-31); Albumin Level 3.9 g/dL (3.5-5.0); Alkaline Phosphatase 112 U/L (39-117); Anion Gap 11 (12-20); Aspartate Amino Transferase 25 U/L (5-31); Blood Urea Nitrogen 18 mg/dL (9-16); Calcium 8.6 mg/dL (8.4-10.2); Carbon Dioxide 23 mmol/L (22-29); Chloride 110 mmol/L (96-108); Creatinine Clr Calc Pharmacy 34.7; Estimated Glomerular Filt Rate 55; Lipase 27 U/L (8-78); Potassium 3.9 mmol/L (3.3-5.1); Sodium 140 mmol/L (135-145); Total Protein 6.7 g/dL (6.5-8.0)
[2024-12-18 17:46] LABS: B Type Natriuretic Peptide 141 pg/mL (<100)
[2024-12-18 20:07] VITALS: BP 184/71; PULSE 72; RESP 16; TEMP 36.8; O2SAT 92
--- NOTE | 2024-12-18 21:09 | PC.NURSE ---
+pedal pulses BLE. LLE is swollen compared to RLE, no pitting. pt denies pain at this time. states she takes tylenol throughout the day which helps and 81mg Aspirin in AM & PM. pt denies blood thinners. had hip operation november 14 and was at [place], dc home recently, ambulatory with walker, has been ambulatory since surgery. went to PCP earlier today d/t LLE swelling, had u/s done and was brought to ED d/t +clot. pt denies cp/sob. nephew is at bedside. call perry within reach. awaiting primary eval by ed provider.
--- NOTE | 2024-12-18 21:26 | ECG_ITS ---
Test Reason : DVT Blood Pressure : */* mmHG Vent. Rate : 70 BPM Atrial Rate : 70 BPM P-R Int : 196 ms QRS Dur : 80 ms QT Int : 416 ms P-R-T Axes : 61 -24 25 degrees QTcB Int : 449 ms Normal sinus rhythm Leftward axis Abnormal ECG When compared with ECG of 07-Nov-2024 17:10, No significant change was found Referred By: Promise Bosch Electronically Signed By: MELODIE KENT MD
== END 2024-12-19 04:04 | disposition home or self-care (01) ==
PROVIDERS: Physician Assistant; Emergency Provider Emergency Medicine; PCP Internal Medicine
DX: I82.4Z2 Acute embolism and thrombosis of unspecified deep veins of left distal lower extremity (principal); R60.9 Edema, unspecified; Z79.899 Other long term (current) drug therapy
CPT/HCPCS: 36415; 71046; 80053; 83690; 83880; 85025; 85610; 93005; 96127; 99212; 99284

== ENCOUNTER → 2024-12-18 21:26 | Outpatient (BNV) | payer MEDICARE, SELFPAY | PROVIDERS: Emergency Provider Emergency Medicine; PCP Internal Medicine; Visit Provider Internal Medicine Cardiovascular Disease | DX: R94.31 Abnormal electrocardiogram [ECG] [EKG] (principal); I82.409 Acute embolism and thrombosis of unspecified deep veins of unspecified lower extremity | CPT/HCPCS: 93010 ==

== ENCOUNTER 2024-12-31 09:23 | Outpatient (AMB) | payer MEDICARE, SELFPAY ==
[2024-12-31 09:27] VITALS: BP 152/88; PULSE 62; O2SAT 96; BMI 26.6
--- NOTE | 2024-12-31 09:27 | MHC.PC.OV ---
Vital Signs 12/31/24 09:27 Height 5 ft Weight 136 lb BMI 26.6 BP 152/88 H Blood Pressure Location Lt brachial Position Sitting Pulse 62 Pulse Source Pulse Oximeter Pulse Oximetry (%) 96 Oxygen Delivery Method Room Air Intake Visit Reasons: [facility] 12/19 positive blood clot in lt leg Allergies lansoprazole (From PREVACID) Allergy (Intermediate, Verified 12/31/24 09:28) VOMITING morphine (MORPHINE) Allergy (Intermediate, Verified 12/31/24 09:28) AGITATION risedronate sodium (From ACTONEL) Allergy (Intermediate, Verified 12/31/24 09:28) DYSPNEA alendronate sodium (From Fosamax) Allergy (Mild, Verified 12/31/24 09:28) NAUSEA,SOB azithromycin (AZITHROMYCIN) Allergy (Mild, Verified 12/31/24 09:) NAUSEA/HEADACHE Penicillins Allergy (Mild, Verified 12/31/24 09:) RASH amlodipine Allergy (Unknown, Verified 12/31/24 09:) Unknown Bifidobacterium infantis (Align) Allergy (Unknown, Verified 12/31/24 09:) Unknown cetirizine (From ZYRTEC) Allergy (Unknown, Verified 12/31/24 09:28) UNKNOWN cyanocobalamin (vitamin B12) Allergy (Unknown, Verified 12/31/24 09:28) Unknown enalapril (ENALAPRIL) Allergy (Unknown, Verified 12/31/24 09:28) ABD PAIN, VERY NAUSEOUS, nausea fexofenadine (From MAC) Allergy (Unknown, Verified 12/31/24 09:28) UNKNOWN folic acid Allergy (Unknown, Verified 12/31/24 09:28) unk hydralazine Allergy (Unknown, Verified 12/31/24 09:28) nausea hydrochlorothiazide Allergy (Unknown, Verified 12/31/24 09:28) dry mouth latex (Latex) Allergy (Unknown, Verified 12/31/24 09:28) RASH loratadine (Claritin) Allergy (Unknown, Verified 12/31/24 09:28) Unknown metoclopramide (From REGLAN) Allergy (Unknown, Verified 12/31/24 09:28) JITTERY mometasone furoate (From NASONEX) Allergy (Unknown, Verified 12/31/24 09:28) UNKNOWN montelukast (Singulair) Allergy (Unknown, Verified 12/31/24 09:28) Unknown pantoprazole (From PROTONIX) Allergy (Unknown, Verified 12/31/24 09:28) UNKNOWN penicillin V Allergy (Unknown, Verified 12/31/24 09:28) Unknown polyethylene glycol 3350 (Miralax) Allergy (Unknown, Verified 12/31/24 09:28) Unknown pseudoephedrine (From SUDAFED) Allergy (Unknown, Verified 12/31/24 09:28) HYPER ranitidine (From ZANTAC) Allergy (Unknown, Verified 12/31/24 09:28) UNKNOWN thiamine (vitamin B1) Allergy (Unknown, Verified 12/31/24 09:28) Unknown oxycodone Allergy (Verified 12/31/24 09:28) throwing ascorbic acid (From PreserVision AREDS-2) Adverse Reaction (Intermediate, Verified 12/31/24 09:28) Constipation copper (From PreserVision AREDS-2) Adverse Reaction (Intermediate, Verified 12/31/24 09:28) Constipation lutein (From PreserVision AREDS-2) Adverse Reaction (Intermediate, Verified 12/31/24 09:28) Constipation vitamin E acetate (dl-alpha tocopheryl) (From PreserVision AREDS-2) Adverse Reaction (Intermediate, Verified 12/31/24 09:28) Constipation zeaxanthin (From PreserVision AREDS-2) Adverse Reaction (Intermediate, Verified 12/31/24 09:28) Constipation zinc oxide (From PreserVision AREDS-2) Adverse Reaction (Intermediate, Verified 12/31/24 09:28) Constipation ergocalciferol (vitamin D2) (From CALCIUM CITRATE WITH D) Adverse Reaction (Mild, Verified 12/31/24 09:28) CONSTIPATION Mac-D 12 Hour Allergy (Unknown, Uncoded 12/31/24 09:28) Unknown Calcium Citrate + D Allergy (Unknown, Uncoded 12/31/24 09:28) Unknown Folic + B12 Allergy (Unknown, Uncoded 12/31/24 09:28) Unknown latex Allergy (Unknown, Uncoded 12/31/24 09:28) unknown From CALCIUM CITRATE WITH D Adverse Reaction (Mild, Uncoded 12/31/24 09:28) CONSTIPATION Tobacco use date assessed: 12/18/24 Fall risk assessment: No Falls in past year Last assessed Fall Risk: 12/31/24 Dental Screening Dental Screen Date: 12/18/24 [facility] Medical History Impaired glucose tolerance Macular degeneration Vitamin D deficiency Tubular adenoma of colon Closed left arm fracture Carcinoid tumor Hypertension Osteoporosis Irritable bowel syndrome Obesity (BMI 30-39.9) Hypercholesterolemia GERD (gastroesophageal reflux disease) Degenerative disc disease, lumbar Peripheral vascular disease Surgical History History of surgical procedure on eye proper using laser H/O ventral hernia repair Status post left breast lumpectomy Family History Father Diabetes Stroke Mother Pancreatic cancer Brother Dementia Social History Household Members Other:: family member lives downstairs Housing: House Housing Other:: two family house Do you presently have visiting nurse or other home services: No Alcohol intake: former Patient Tobacco Use Status: Never used Tobacco Tobacco use type: Cigarette e-Cigarette/Vaping Use: Never Used Second Hand Smoke Exposure: No Advance Directives Date on File: 11/14/24 service: No Current occupational status: retired Cognitive needs: No Hearing needs: Yes Vision needs: Yes Questionnaire PHQ-9 Over the last 2 weeks, how often have you been bothered by any of the following problems? 1. Little interest or pleasure in doing things: several days 2. Feeling down, depressed, or hopeless: several days 3. Trouble falling or staying asleep, or sleeping too much: several days 4. Feeling tired or having little energy: several days 5. Poor appetite or overeating: several days 6. Feeling bad about yourself - or that you are a failure or have let yourself or your family down: not at all 7. Trouble concentrating on things, such as reading the newspaper or watching television: not at all 8. Moving or speaking so slowly that other people could have noticed. Or the opposite - being so fidgety or restless that you have been moving around a lot more than usual: not at all 9. Thoughts that you would be better off or of hurting yourself in some way: not at all Total score: 5 Depression Screening Interpretation: Positive Depression Screening Done: Yes Source: Developed by Drs. Tyler Parsons, Grace Greene, David Altman and colleagues, with an educational ina from [employer]. Thrive Questionnaire Date Thrive assessed: 12/18/24 I am a: Parent/Caregiver What is your living situation today?: I have a steady place to live Within the past 12 months, did the food you bought not last and you didn't have the money to get more?: Never true Within the past 12 months, did you worry whether your food would run out before you got money to buy more?: Never true Do you have trouble paying for medicines?: No Do you have trouble getting transportation to medical appointments?: No Do you have trouble paying your heating and electricity bill?: No Do you have trouble taking care of your child, family member or friend?: No Do you have trouble with day-to-day activities such as bathing, preparing meals, shopping, managing finances, etc.?: Yes Are you currently unemployed and looking for a job?: No Are you interested in more education?: No Currently or been in a relationship where the following occur: No concerns reported THRIVE Score: 0 AUDIT C Alcohol Use Questionnaire (AUDIT-C) 1. How often do you have a drink containing alcohol?: Never 3. How often do you have six or more drinks on one occasion?: Never Total Score: 0 KATHIE-7 AMB Questionnaire KATHIE-7 Date KATHIE - 7 assessed: 12/18/24 Source: Developed by Drs. Tyler Parsons, Grcae Greene, David Altman and colleagues, with an educational ina from [employer]. Physical exam (Primary Care) Vital Signs: Last Vital Signs Pulse 62 12/31/24 09:27 BP 152/88 H 12/31/24 09:27 Pulse Ox 96 12/31/24 09:27 Oxygen Delivery Method Room Air 12/31/24 09:27 BMI result Body Mass Index 26.6 Tobacco/Smoking Status: Tobacco use Status Tobacco use date assessed 12/18/24 12/31/24 09:28 Patient Tobacco Use Status Never used Tobacco 12/31/24 09:28 Tobacco use type Cigarette 12/31/24 09:28 e-Cigarette/Vaping Use Never Used 12/31/24 09:28 PHQ-9: PHQ-9 Score PHQ-9: Total score 5 12/31/24 10:23 Depression Screening Interpretation: Positive Thrive Assessment: Date of Thrive Assessment Date Thrive assessed 12/18/24 12/31/24 09:28 Currently or been in a relationship where the following occur: No concerns reported Const General: alert; No acute distress Eyes Conjunctivae: conjunctivae normal Resp Auscultation: clear to auscultation bilaterally Cardio Rate: regular rate Rhythm: regular rhythm GI Inspection: Yes normal to inspection Extrem General: Yes normal to inspection and No edema Coding Level of Care Code Est Pt Level 4 (32725) Complex EM visit Add On G2211 Diagnoses Closed intertrochanteric fracture S72.142A Encounter type: initial encounter Fracture alignment: displaced Laterality: left Deep vein thrombosis of left lower extremity I82.402 Gastroesophageal reflux disease without esophagitis K21.9 Esophagitis presence: without esophagitis Type 2 diabetes mellitus with hyperglycemia, without long-term current use of insulin E11.65 Diabetes mellitus ferry terminal agent insulin use: without detention use Age-related osteoporosis without current pathological fracture M81.0 Osteoporosis type: age-related Presence of current pathological fracture: without current pathological fracture Assessment & Plan Assessment & Plan (1) Closed intertrochanteric fracture: Comment: 10/[address] Navarro Code(s): S72.143A - Displaced intertrochanteric fracture of unspecified femur, initial encounter for closed fracture Category: Medical Qualifiers: Encounter type: initial encounter Fracture alignment: displaced Laterality: left Qualified Code(s): S72.142A - Displaced intertrochanteric fracture of left femur, initial encounter for closed fracture Plan: Patient just recently had IM nailing under Orthopedics October 2024 (2) Deep vein thrombosis of left lower extremity: Code(s): I82.402 - Acute embolism and thrombosis of unspecified deep veins of left lower extremity Category: Medical Plan: Started anticoagulation in November 2024. Will refer to Hematology Oncology. Patient has been started on Eliquis twice a day (3) GERD (gastroesophageal reflux disease): Comment: Hiatal hernia Dr. Correa history of H pylori Code(s): K21.9 - Gastro-esophageal reflux disease without esophagitis Category: Medical Qualifiers: Esophagitis presence: without esophagitis Qualified Code(s): K21.9 - Gastro-esophageal reflux disease without esophagitis Plan: Avoid the foods that causes that usually spicy foods, tomato products, juices, coffee, soda and foods that your sensitive to. After eating do not lie down, allow 3-4 hours before in lie down. And keep the head of bed above 30 degrees to avoid the acid from going up. (4) Type 2 diabetes mellitus with hyperglycemia: Comment: Dr. Dietrich Code(s): E11.65 - Type 2 diabetes mellitus with hyperglycemia Category: Medical Qualifiers: Diabetes mellitus ferry terminal agent insulin use: without detention use Qualified Code(s): E11.65 - Type 2 diabetes mellitus with hyperglycemia Plan: Decrease the amount of carbohydrate intake, pasta, bread, rice and potatoes are all sugar and that is aside from all the sweet stuff, remember that fruits are good but they are Sweet also. (5) Osteoporosis: Comment: DEXA 01/2023: AP Spine 0.2, Left femur neck -2.3, Left femur total -1.4 DEXA 01/2021: AP Spine -0.7, Left femur neck -2.3, Left femur total -1.3 Boniva- [id number] 5 year course. Prolia- ordered October 2016-patient did not start due to her concern for side effects. Prolia started June 2019 to present. Bone density January 2023 osteopenia Code(s): M81.0 - Age-related osteoporosis without current pathological fracture Category: Medical Qualifiers: Osteoporosis type: age-related Presence of current pathological fracture: without current pathological fracture Qualified Code(s): M81.0 - Age-related osteoporosis without current pathological fracture Plan: Discussed about calcium and vitamin-D for osteoporosis. All patient is on Prolia Plan History of Present Illness The patient is an 84-year-old female presenting with management of multiple chronic conditions and recent concerns regarding DVT and anemia. The patient has a history of gastroesophageal reflux disease (GERD) and hypercholesterolemia, which have been managed over the years. She also has generalized anxiety disorder and controlled diabetes mellitus, which are part of her ongoing health management. A right thyroid nodule was previously identified, and she has a history of an intertrochanteric fracture of the left hip. In November, she was seen for left leg swelling and was diagnosed with deep vein thrombosis (DVT), for which she was started on anticoagulation therapy with Eliquis. Her last colonoscopy was in 2012, indicating a gap in routine colorectal cancer screening. Recent blood work revealed anemia with hemoglobin at 11.5 g/dL and hematocrit at 35.8%, while other parameters such as electrolytes, renal function, and liver function were normal. The patient is also on Prolia for osteoporosis management, and discussions included the importance of calcium and vitamin D supplementation. Health Maintenance - Osteoporosis management with Prolia and supplementation with calcium and vitamin D - Routine colorectal cancer screening is overdue, last colonoscopy was in 2012 Social History Review of Systems Physical Exam Results - Labs: Hemoglobin 11.5 g/dL, Hematocrit 35.8%, normal electrolytes, normal renal function, blood sugar 105 mg/dL, normal liver function Plan Patient was informed and verbally consented to the use of an ambient scribe for clinic note documentation during this visit. 1. Deep Vein Thrombosis (Dvt) Of The Left Leg The patient was diagnosed with a deep vein thrombosis in the left leg in November and was started on anticoagulation therapy with Eliquis. Continued monitoring and follow-up with hematology are recommended to manage anticoagulation therapy and assess for any complications. 2. Anemia Recent blood work indicated anemia with hemoglobin at 11.5 g/dL and hematocrit at 35.8%. Further evaluation and management are necessary to determine the underlying cause and appropriate treatment. 3. Osteoporosis The patient is currently on Prolia for osteoporosis management. Supplementation with calcium and vitamin D was discussed to support bone health. Discussion Notes Patient Instructions Orders: Orders Comprehensive Met. Panel Today I82.402 - Acute embolism and thrombosis of unspecified deep veins of left lower extremity Thyroid Stimulating Hormone Today I82.402 - Acute embolism and thrombosis of unspecified deep veins of left lower extremity Lipid Panel Today E78.00 - Pure hypercholesterolemia, unspecified, I82.402 - Acute embolism and thrombosis of unspecified deep veins of left lower extremity Vitamin D 25-OH Total Today I82.402 - Acute embolism and thrombosis of unspecified deep veins of left lower extremity Hemoglobin A1c Today I82.402 - Acute embolism and thrombosis of unspecified deep veins of left lower extremity Complete Blood Count Auto Diff Today I82.402 - Acute embolism and thrombosis of unspecified deep veins of left lower extremity Free T4 (Free Thyroxine) Today I82.402 - Acute embolism and thrombosis of unspecified deep veins of left lower extremity Vitamin B12 and Folate Today I82.402 - Acute embolism and thrombosis of unspecified deep veins of left lower extremity IRON PROFILE Today I82.402 - Acute embolism and thrombosis of unspecified deep veins of left lower extremity Ferritin Today I82.402 - Acute embolism and thrombosis of unspecified deep veins of left lower extremity Reticulocyte Count Today I82.402 - Acute embolism and thrombosis of unspecified deep veins of left lower extremity Referrals Hematology & Oncology Referral I82.402 - Acute embolism and thrombosis of unspecified deep veins of left lower extremity Medications: New apixaban (Eliquis) 5 mg PO BID 180 tabs 0RF I82.402 - Acute embolism and thrombosis of unspecified deep veins of left lower extremity omeprazole 20 mg PO BID 180 caps 1RF I82.402 - Acute embolism and thrombosis of unspecified deep veins of left lower extremity
--- OUTSIDE RECORDS SUMMARY | 2024-12-31 10:19 | XMS_ITS | Patient Health Record ---
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 Name Role Phone Po Jacinda RAMIRES Primary Care Provider [place] Unavailable [phone] Allergies Allergen (clinical drug ingredient) Drug/Non Drug Allergy documented on EMR Reaction Allergy Type Onset Date Status Brianna Unknown Drug Allergy Active risedronate Actonel [...] Calcium Citrate Unknown Drug Allergy A ctive Reason For Referral No Information Medications Medication [...] W/U Status Risk Notes Problem Esophageal reflux (191109815) Esophageal reflux (530.81) Active confirmed Problem Irritable bowel syndrome (39112852) Irritable bowel syndrome (564.1) Active confirmed Problem Anorexia (48942657) Anorexia (783.0) Active confirmed Problem History of polyp of colon (situation) (656114226) Personal history of colonic polyps (V12.72) Active confirmed Problem Constipation (60488357) Constipation (564.00) Active confirmed Problem Colon cancer screening (177329917) Colon cancer screening (V76.51) Active confirmed Problem Gastroesophageal reflux disease (915015152) GERD (gastroesophage al reflux disease) (530.81) Active confirmed Problem History of adenomatous polyp of colon (931635533) History of adenomatous polyp of colon (V12.72) Active confirmed Problem Weight loss (571882700) Weight loss (783.21) Active confirmed Problem Nausea (540034171) Nausea (787.02) Active confi rmed Plan Of Treatment Future Test Test Name Order Date COLONOSCOPY 01/14/2014 Insurance Providers Payer Name Payer Address Payer Phone Subscriber Number Group Number Insured Name Patient Relationship to Insured Coverage Start Date Coverage End Date MEDICARE OF [place] [address] [place] [address] [phone] [id number] MALIHAELENO Self - patient is the [place] [facility] [address] [place], [place] [id number] [phone] [id number] MALIHAELENO STEIN Self - patient is [...] hypertension Carcinoid tumor of the ileum-resected Denies [place],DM,CVA,Lung disease,renal dise ase Negative hemoccults x 3 [...]
== END 2024-12-31 10:42 | disposition home or self-care (01) ==
LOC: HO.HMCH 09:24
PROVIDERS: PCP Internal Medicine; Visit Provider Internal Medicine
DX: S72.142A Displaced intertrochanteric fracture of left femur, initial encounter for closed fracture (principal); I82.402 Acute embolism and thrombosis of unspecified deep veins of left lower extremity; K21.9 Gastro-esophageal reflux disease without esophagitis; E11.65 Type 2 diabetes mellitus with hyperglycemia; M81.0 Age-related osteoporosis without current pathological fracture

== ENCOUNTER → 2024-12-31 09:23 | Outpatient (BNVA) | payer MEDICARE, SELFPAY | PROVIDERS: PCP Internal Medicine; Visit Provider Internal Medicine | DX: I82.402 Acute embolism and thrombosis of unspecified deep veins of left lower extremity (principal); K21.9 Gastro-esophageal reflux disease without esophagitis; E11.65 Type 2 diabetes mellitus with hyperglycemia; M81.0 Age-related osteoporosis without current pathological fracture; D64.9 Anemia, unspecified; S72.142A Displaced intertrochanteric fracture of left femur, initial encounter for closed fracture; X58.XXXA Exposure to other specified factors, initial encounter; Y93.9 Activity, unspecified; Y92.9 Unspecified place or not applicable; Y99.9 Unspecified external cause status | CPT/HCPCS: 99212 ==

== ENCOUNTER → 2025-01-02 23:59 | Outpatient (BNV) | payer MEDICARE, SELFPAY | PROVIDERS: PCP Internal Medicine; Visit Provider Internal Medicine | DX: I73.9 Peripheral vascular disease, unspecified (principal); I10 Essential (primary) hypertension; E78.00 Pure hypercholesterolemia, unspecified | CPT/HCPCS: G0180 ==

== ENCOUNTER 2025-01-03 08:29 | Outpatient (REF) | payer MEDICARE, SELFPAY ==
--- NOTE | ~2025-01-03 | XR_ITS ---
EXAMINATION: XR HIP 2 OR MORE VIEWS LEFT HISTORY: M25.552 - Pain in left hip COMPARISON: Comparison is made with the prior examination dated 11/29/2024. FINDINGS: A single AP view of the pelvis and three views of the left hip are submitted. The patient is again noted to be status post internal fixation of a comminuted intertrochanteric fracture with a compression screw and intramedullary werner. The hardware is intact. The fracture lines remain visible. There is mild narrowing of the joint space. There are vascular calcifications. XR/XR hip LT min 2V IMPRESSION: Internal fixation of a comminuted intertrochanteric fracture of the left femur without change. Electronically signed by: Tyler Smallwood MD 01/03/2025 09:39 AM EDT
--- NOTE | ~2025-01-03 | XR_ITS ---
EXAMINATION: XR KNEE 3 VIEWS LEFT HISTORY: M25.562 - Pain in left knee COMPARISON: There are no prior studies available for comparison. FINDINGS: Standing AP views of both knees and additional lateral and sunrise patellar views of the left knee are submitted. Osseous mineralization is normal. A portion of an intramedullary werner is seen in the distal left femur. No acute fracture or dislocation is seen. There is severe osteoarthritis of the lateral compartment, with joint space narrowing and osteophyte formation. The soft tissues are unremarkable. There is no joint effusion. XR/XR knee LT 3V IMPRESSION: Severe osteoarthritis of the lateral compartment. Electronically signed by: Tyler Smallwood MD 01/03/2025 10:11 AM EDT
--- OUTSIDE RECORDS SUMMARY | 2025-01-03 08:55 | XMS_ITS | Patient Health Record ---
Author Organization [facility] Address [address] [place] [address] Care Team Providers Care Mushroom Grower Name Role Phone Po Jacinda RAMIRES Primary Care Provider [place] Unavailable [phone] Allergies Allergen (clinical drug ingredient) Drug/Non Drug [...] W/U Status Risk Notes Problem Esophageal reflux (983980007) Esophageal reflux (530.81) Active confirmed Problem Irritable bowel syndrome (52289136) Irritable bowel syndrome (564.1) Active confirmed Problem Anorexia (02163358) Anorexia (783.0) Active confirmed Problem History of polyp of colon (situation) (491455202) Personal history of colonic polyps (V12.72) Active confirmed Problem Constipation (26046621) Constipation (564.00) Active confirmed Problem Colon cancer screening (443391423) Colon cancer screening (V76.51) Active confirmed Problem Gastroesophageal reflux disease (593359923) GERD (gastroesophage al reflux disease) (530.81) Active confirmed Problem History of adenomatous polyp of colon (370554891) History of adenomatous polyp of colon (V12.72) Active confirmed Problem Weight loss (143230940) Weight loss (783.21) Active confirmed Problem Nausea (030160952) Nausea (787.02) Active confi rmed Plan Of Treatment Future Test Test Name Order Date COLONOSCOPY 01/14/2014 Insurance Providers Payer Name Payer Address Payer Phone Subscriber Number Group Number Insured Name Patient Relationship to Insured Coverage Start Date Coverage End Date MEDICARE OF [place] [address] [place] [address] [id number] MALIHAELENO Self - patient is the insured [facility] [address] [place], [place] [id number] MALIHAELENO STEIN Self - patient is [...] hypertension Carcinoid tumor of the ileum-resected Denies [place],DM,CVA,Lung disease,renal dise ase Negative hemoccults x 3 [...]
== END 2025-01-03 08:30 | disposition home or self-care (01) ==
LOC: HO.HOSX 08:29
DX: S72.142D Displaced intertrochanteric fracture of left femur, subsequent encounter for closed fracture with routine healing (principal); X58.XXXD Exposure to other specified factors, subsequent encounter
CPT/HCPCS: 73502; 73562; 99212

== ENCOUNTER 2025-01-03 09:16 | Outpatient (AMB) | payer MEDICARE, SELFPAY ==
--- NOTE | 2025-01-03 09:24 | A.OFFVIS_ITS ---
Vital Signs 01/03/25 09:25 Height 5 ft Weight 136 lb BMI 26.6 Intake Visit Reasons: PO-left hip IM nail-DOS 11/09/24 NE Intake Note: Estephania is an 84 year old female who presents today post-operatively after undergoing a left hip IM nail, DOS: 11/09/[address] Navarro. On 11/29/24 she had her jason removed. Her and family were notified patient can begin showering. She was advised to continue PT and to ambulate as much as possible. Patient states she has been starting on Eliquis as she was found to have a blood clot on her left knee. She is taking Tylenol 500 mg TID for her hip pain with some relief. She shares she tried cutting down on it but has not been successful. She continues using her walker for ambulation. She reports being satisfied with PT and says she feels better than she expected. She is having some soreness with movement however fine at rest. Accompanied by: Brother, Russell Allergies lansoprazole (From PREVACID) Allergy (Intermediate, Verified 01/03/25 10:07) VOMITING morphine (MORPHINE) Allergy (Intermediate, Verified 01/03/25 10:07) AGITATION risedronate sodium (From ACTONEL) Allergy (Intermediate, Verified 01/03/25 10:07) DYSPNEA alendronate sodium (From Fosamax) Allergy (Mild, Verified 01/03/25 10:07) NAUSEA,SOB azithromycin (AZITHROMYCIN) Allergy (Mild, Verified 01/03/25 10:07) NAUSEA/HEADACHE Penicillins Allergy (Mild, Verified 01/03/25 10:07) RASH amlodipine Allergy (Unknown, Verified 01/03/25 10:07) Unknown Bifidobacterium infantis (Align) Allergy (Unknown, Verified 01/03/25 10:07) Unknown cetirizine (From ZYRTEC) Allergy (Unknown, Verified 01/03/25 10:07) UNKNOWN cyanocobalamin (vitamin B12) Allergy (Unknown, Verified 01/03/25 10:07) Unknown enalapril (ENALAPRIL) Allergy (Unknown, Verified 01/03/25 10:07) ABD PAIN, VERY NAUSEOUS, nausea fexofenadine (From MAC) Allergy (Unknown, Verified 01/03/25 10:07) UNKNOWN folic acid Allergy (Unknown, Verified 01/03/25 10:07) unk hydralazine Allergy (Unknown, Verified 01/03/25 10:07) nausea hydrochlorothiazide Allergy (Unknown, Verified 01/03/25 10:07) dry mouth latex (Latex) Allergy (Unknown, Verified 01/03/25 10:07) RASH loratadine (Claritin) Allergy (Unknown, Verified 01/03/25 10:07) Unknown metoclopramide (From REGLAN) Allergy (Unknown, Verified 01/03/25 10:07) JITTERY mometasone furoate (From NASONEX) Allergy (Unknown, Verified 01/03/25 10:07) UNKNOWN montelukast (Singulair) Allergy (Unknown, Verified 01/03/25 10:07) Unknown pantoprazole (From PROTONIX) Allergy (Unknown, Verified 01/03/25 10:07) UNKNOWN penicillin V Allergy (Unknown, Verified 01/03/25 10:07) Unknown polyethylene glycol 3350 (Miralax) Allergy (Unknown, Verified 01/03/25 10:07) Unknown pseudoephedrine (From SUDAFED) Allergy (Unknown, Verified 01/03/25 10:07) HYPER ranitidine (From ZANTAC) Allergy (Unknown, Verified 01/03/25 10:07) UNKNOWN thiamine (vitamin B1) Allergy (Unknown, Verified 01/03/25 10:07) Unknown oxycodone Allergy (Verified 01/03/25 10:07) throwing ascorbic acid (From PreserVision AREDS-2) Adverse Reaction (Intermediate, Verified 01/03/25 10:07) Constipation copper (From PreserVision AREDS-2) Adverse Reaction (Intermediate, Verified 01/03/25 10:07) Constipation lutein (From PreserVision AREDS-2) Adverse Reaction (Intermediate, Verified 01/03/25 10:07) Constipation vitamin E acetate (dl-alpha tocopheryl) (From PreserVision AREDS-2) Adverse Reaction (Intermediate, Verified 01/03/25 10:07) Constipation zeaxanthin (From PreserVision AREDS-2) Adverse Reaction (Intermediate, Verified 01/03/25 10:07) Constipation zinc oxide (From PreserVision AREDS-2) Adverse Reaction (Intermediate, Verified 01/03/25 10:07) Constipation ergocalciferol (vitamin D2) (From CALCIUM CITRATE WITH D) Adverse Reaction (Mild, Verified 01/03/25 10:07) CONSTIPATION Mac-D 12 Hour Allergy (Unknown, Uncoded 01/03/25 10:07) Unknown Calcium Citrate + D Allergy (Unknown, Uncoded 01/03/25 10:07) Unknown Folic + B12 Allergy (Unknown, Uncoded 01/03/25 10:07) Unknown latex Allergy (Unknown, Uncoded 01/03/25 10:07) unknown From CALCIUM CITRATE WITH D Adverse Reaction (Mild, Uncoded 01/03/25 10:07) CONSTIPATION HPI HPI PO-left hip IM nail-DOS 11/09/24 NE: Details: Estephania is an 84 year old female who presents today post-operatively after undergoing a left hip IM nail, DOS: 11/09/[address] Navarro. On 11/29/24 she had her jason removed. Her and family were notified patient can begin showering. She was advised to continue PT and to ambulate as much as possible. Patient states she has been starting on Eliquis as she was found to have a blood clot on her left knee. She is taking Tylenol 500 mg TID for her hip pain with some relief. She shares she tried cutting down on it but has not been successful. She continues using her walker for ambulation. She reports being satisfied with PT and says she feels better than she expected. She is having some soreness with movement however fine at rest. 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 [facility] Medical History Impaired glucose tolerance Macular degeneration Vitamin D deficiency Tubular adenoma of colon Closed left arm fracture Carcinoid tumor Hypertension Osteoporosis Irritable bowel syndrome Obesity (BMI 30-39.9) Hypercholesterolemia GERD (gastroesophageal reflux disease) Degenerative disc disease, lumbar Peripheral vascular disease Surgical History History of surgical procedure on eye proper using laser H/O ventral hernia repair Status post left breast lumpectomy Family History Father Diabetes Stroke Mother Pancreatic cancer Brother Dementia Social History (Reviewed 01/03/25 @ 10:08 by KAVEH Escobar Household Members Other:: family member lives downstairs Housing: House Housing Other:: two family house Do you presently have visiting nurse or other home services: No Alcohol intake: former Patient Tobacco Use Status: Never used Tobacco Tobacco use type: Cigarette e-Cigarette/Vaping Use: Never Used Second Hand Smoke Exposure: No Advance Directives Date on File: 11/14/24 service: No Current occupational status: retired Cognitive needs: No Hearing needs: Yes Vision needs: Yes Review of Systems Const All systems reviewed & are unremarkable except as noted in HPI and below Physical Exam Vital Signs: BMI result Body Mass Index 26.6 Extrem Other: Incision site on the left lower extremity clean, dry, intact, very well healed No evidence of surrounding erythema, ecchymosis No evidence of infection Patient is able to flex and extend the digits of the left foot without difficulty Patient is able to stand and ambulate with a walker Compartments soft, nontender Distal sensation intact Capillary refill brisk Results Reviewed Results Reviewed: X-rays obtained in the office today and independently reviewed by me, Romero Newton PA-C, demonstrate intertrochanteric fracture of the left hip status post left hip IM nail with all orthopedic hardware in place and in satisfactory clinical alignment. Assessment & Plan Assessment & Plan (1) Intertrochanteric fracture of left hip: Code(s): S72.142A - Displaced intertrochanteric fracture of left femur, initial encounter for closed fracture Category: Medical Plan 1. Status post IM nail of the left hip DOS 11/09/2024 Patient appears to be recovering well postoperatively Patient is educated about the typical recovery course Patient may not take a shower Continue working with physical therapy for gait training, strengthening, range of motion of the left hip Patient is told that she should be ambulating as much as possible in order to regain as much function as possible Patient understands this in his amenable to this plan Follow-up in 6 weeks with repeat x-rays for reassessment, sooner with any acute concerns Orders: Orders XR hip LT min 2V 01/03/25 M25.552 - Pain in left hip XR knee LT 3V 01/03/25 M25.562 - Pain in left knee Coding Level of Care Code Global (82605) Diagnoses Intertrochanteric fracture of left hip S72.142A
[2025-01-03 09:25] VITALS: BMI 26.6
== END 2025-01-03 10:14 | disposition home or self-care (01) ==
LOC: HO.HOS 09:17
PROVIDERS: PCP Internal Medicine
DX: S72.142A Displaced intertrochanteric fracture of left femur, initial encounter for closed fracture (principal)
CPT/HCPCS: 99024

== ENCOUNTER → 2025-01-03 09:17 | Outpatient (BNV) | payer MEDICARE, SELFPAY | PROVIDERS: Visit Provider Radiology Diagnostic Radiology | DX: M25.552 Pain in left hip (principal); S72.142D Displaced intertrochanteric fracture of left femur, subsequent encounter for closed fracture with routine healing; M25.562 Pain in left knee; M17.12 Unilateral primary osteoarthritis, left knee | CPT/HCPCS: 73502; 73562 ==

== ENCOUNTER → 2025-01-14 13:33 | Outpatient (BNV) | payer MEDICARE, SELFPAY | PROVIDERS: Visit Provider Internal Medicine Medical Oncology | DX: I82.432 Acute embolism and thrombosis of left popliteal vein (principal); I82.442 Acute embolism and thrombosis of left tibial vein | CPT/HCPCS: 99204 ==

== ENCOUNTER 2025-01-31 07:09 | Outpatient (AMB) | payer OTHER, SELFPAY ==
--- OUTSIDE RECORDS SUMMARY | 2025-01-31 07:13 | XMS_ITS | Patient Health Record ---
Author Organization [facility] Address [address] [place] [address] Care Team Providers Care Solvent Recoverer Name Role Phone Po Jacinda RAMIRES Primary Care Provider [place] Unavailable [phone] Allergies Allergen (clinical drug ingredient) Drug/Non Drug [...] W/U Status Risk Notes Problem Esophageal reflux (514508626) Esophageal reflux (530.81) Active confirmed Problem Irritable bowel syndrome (97655789) Irritable bowel syndrome (564.1) Active confirmed Problem Anorexia (65341444) Anorexia (783.0) Active confirmed Problem History of polyp of colon (situation) (600842194) Personal history of colonic polyps (V12.72) Active confirmed Problem Constipation (33692025) Constipation (564.00) Active confirmed Problem Colon cancer screening (569597803) Colon cancer screening (V76.51) Active confirmed Problem Gastroesophageal reflux disease (873646566) GERD (gastroesophage al reflux disease) (530.81) Active confirmed Problem History of adenomatous polyp of colon (708964187) History of adenomatous polyp of colon (V12.72) Active confirmed Problem Weight loss (199220113) Weight loss (783.21) Active confirmed Problem Nausea (672897265) Nausea (787.02) Active confi rmed Plan Of Treatment Future Test Test Name Order Date COLONOSCOPY 01/14/2014 Insurance Providers Payer Name Payer Address Payer Phone Subscriber Number Group Number Insured Name Patient Relationship to Insured Coverage Start Date Coverage End Date MEDICARE OF [place] [address] [place] [address] [id number] MALIHAELENO Self - patient is the insured [facility] [address] [place], [place] [id number] [phone] [id number] MALIHAELENO STEIN Self - patient is [...]
--- OUTSIDE RECORDS SUMMARY | 2025-01-31 07:13 | XMS_ITS | Data Portability ---
Author Organization 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 Plan of Treatment Reminders Order Date Submit Date Provider Last Modified By Organization Details Last Modified Time Details Appointments None recorded. Lab None recorded. Referral None recorded. Procedures None recorded. Surgeries None recorded. Imaging None recorded. Medication Orders lorazepam 1 mg tablet 2024 025 [facility] , [address] [place] [address], [address], 5 23:35:54 Dilaudid 2 mg tablet 2024 025 [facility] , [address] [place] [address], [address], 5 12:37:22 Patient TargetsNo targets recorded. Patient InstructionsNo instructions recorded. Reason for Referral None Reported. Problems Name Problem SNOMED Code Status Onset Date Resolution Date Notes Provider Name and Address Organization Details Recorded Time Meibomian gland dysfunction 197355571 Active 2024 Jaz Dixon NP [address] [facility], [address], [place], [address], [facility] 5 11:17:08 Vitamin D deficiency 02587504 Active 2024 Jaz Dixon NP [address] [facility], [address], [place], [address], [facility] [employer] 5 11:17:18 Tubular adenomatous polyp of colon 261081347 Active 2024 Jaz Dixon NP [address], [address], [place], [address], [facility] 5 11:17:34 Essential hypertension 25224972 Active 2024 Jaz Dixon NP [address], [address], [place], [address], [facility] 5 11:18:20 Osteoporosis 47211322 Active 2024 Jaz Dixon NP [address], [address], [place], [address], [facility] 5 11:18:35 Irritable bowel syndrome 74791115 Active 2024 Jaz Dixon NP [address], [address], [place], [address], [facility] 5 11:18:48 Obesity 852458890 Active 2024 Jaz Dixon NP [address], [address], [place], [address], [facility] 5 11:19:20 Hypercholester olemia 68428331 Active 2024 Jaz Dixon NP [address], [address], [place], [address], [facility] 5 11:19:31 Gastroesophage al reflux disease without esophagitis 962038923 Active 2024 Jaz Dixon NP [address], [address], [place], [address], [facility] 5 11:19:41 Peripheral vascular disease 905299963 Active 2024 Jaz Dixon NP [address], [address], [place], [address], [facility] 5 11:19:51 History of hip fracture 627747935 Active 2024 Jaz Dixon NP [address], [address], [place], [address], [facility] 5 12:11:29 Anemia 192252289 [facility] 2024 Jaz Dixon NP [address] [facility], [address], [place], [address], [facility] 5 12:17:23 Slow transit constipation 42106540 [facility] 2024 Jaz Dixon NP [address] [facility], [address], [place], [address], [facility] 5 12:18:20 Anxiety 07225685 [facility] 2024 Jaz Dixon NP [address] [facility], [address], [place], [address], [facility] 5 12:19:08 Problem Notes None recorded. Medical Equipment None Reported. Allergies Allergen ID Allergen Name Allergen Category Reaction Reaction Severity Criticality Documentation Date Start Date Code Code System Note Provider Name and Address Organization Details Recorded Time 64302 alendrona te sodium medicatio n nausea mild unabletoasse 11/14/2024 45672 2 RxNorm sob and nause a Jaz Dixon NP [address] [facility], [address], [place], [address], [facility] [employer] [facility] 5 10:49:09 98461 lansopraz ole medicatio n vomiting Not available [facility] 11/14/2024 30959 RxNorm Jaz Dixon NP [address] [facility], [address], [place], [address], [facility] [employer] 5 10:49:56 07385 morphine medicatio n other Not available unabletoasse 11/14/2024 7052 RxNorm agita tion Jaz Dixon NP [address] [facility], [address], [place], [address], [facility] 5 10:50:31 22674 risedrona te sodium medicatio n dyspnea Not available [facility] 11/14/2024 80244 RxNorm Jaz Dixon NP [address] [facility], [address], [place], [address], [facility] 5 10:50:56 04235 azithromy clarence medicatio n nausea Not available [facility] 11/14/2024 90459 RxNorm stauffer Jaz Dixon NP [address] [facility], [address], [place], [address], [facility] 5 10:51:21 71958 Product containin g penicilli n (product) medicatio n rash Not available low 11/14/2024 03628 8001 SNOMED Jaz Dixon NP [address] [facility], [address], [place], [address], [facility] 5 10:51:47 75636 amlodipin e medicatio n other Not available unabletoasse 11/14/2024 05227 RxNorm unkno wn Jaz Dixon NP [address] [facility], [address], [place], [address], [facility] 5 10:52:17 20064 Zyrtec medicatio n other Not available unabletoasse 11/14/2024 06041 RxNorm unkno wn Jza Dixon NP [address] [facility], [address], [place], [address], [facility] 5 10:53:39 10692 vitamin B12 medicatio n other Not available unabletoasse 11/14/2024 89434 RxNorm unkno wn Jaz Dxion NP [address] [facility], [address], [place], [address], [facility] 5 10:54:08 24065 enalapril Not available abdominal pain nausea Not available Not available unabletoasse 11/14/2024 3827 RxNorm Jaz Dixon NP [address] [facility], [address], [place], [address], [facility] 5 10:54:36 61497 Brianna medicatio n other Not available unabletoasse 11/14/2024 74397 6 RxNorm unknw on Jaz Dixon NP [address] [facility], [address], [place], [address], [facility] 5 10:55:03 55005 folic acid medicatio n other Not available unabletoasse 11/14/2024 4511 RxNorm unkno wn Jaz Dixon NP [address] [facility], [address], [place], [address], [facility] 5 10:55:31 54997 hydralazi ne medicatio n other Not available unabletoasse 11/14/2024 5470 RxNorm unkno wn Jaz Dixon NP [address] [facility], [address], [place], [address], [facility] 5 10:56:08 19258 hydrochlo rothiazid e medicatio n dry mouth Not available unabletoasse 11/14/2024 5487 RxNorm dry mouth Jaz Dixon NP [address] [facility], [address], [place], [address], [facility] 5 10:56:38 55532 latex environme nt,medica tion rash Not available unabletoasse 11/14/2024 11342 91 RxNorm Jaz Dixon NP [address] [facility], [address], [place], [address], [facility] 5 10:56:58 76274 Claritin medicatio n other Not available unabletoasse 11/14/2024 38918 6 RxNorm unkno antonio Dixon NP [address] [facility], [address], [place], [address], [facility] 5 10:57:41 53865 Reglan medicatio n other Not available unabletoasse 11/14/2024 9230 RxNorm jitte ry Jaz Dixon NP [address] [facility], [address], [place], [address], [facility] 5 10:58:16 88368 Nasonex medicatio n other Not available unabletoasse 11/14/2024 58553 6 RxNorm unkno wn Jaz Dixon, RICK [address] [facility], [address], [place], [address], [facility] 5 10:58:[address] medicatio n other Not available unabletoasse 11/14/2024 72682 RxNorm unkno wn Jazfrantz Dixon, RICK [address] [facility], [address], [place], [address], [facility] 5 10:59:24 89551 pantopraz ole medicatio n other Not available unabletoasse 11/14/2024 16518 RxNorm unkno wn Jaz RICK Dixon [address] [facility], [address], [place], [address], [facility] 5 10:59:58 94510 polyethyl lydia glycols medicatio n other Not available Not available 11/14/2024 8516 RxNorm unkno wn Jazfrantz Dixon NP [address] [facility], [address], [place], [address], [facility] 5 11:00:29 78282 pseudoeph edrine Not available other Not available unabletoasse 11/14/2024 8896 RxNorm hyper Jaz Destiny, RICK [address] [facility], [address], [place], [address], [facility] 5 11:00:54 90040 ranitidin e Not available other Not available unabletoasse 11/14/2024 9143 RxNorm unkno wn Jaz RICK Dixon [address] [facility], [address], [place], [address], [facility] 5 11:01:26 80242 thiamine medicatio n other Not available unabletoasse 11/14/2024 57898 RxNorm unkno wn Jaz Destiny, RICK [address] [facility], [address], [place], [address], [facility] 5 11:01:54 12120 ascorbic acid medicatio n other Not available unabletoasse 11/14/2024 1151 RxNorm adver se rx const ipati on Jaz Dixon, [employer] [address] [facility], [address], [place], [address], [facility] 5 11:02:37 29241 copper environme nt,medica tion other Not available unabletoasse 11/14/2024 2837 RxNorm from prese rvisi on const ipati on Jaz Dixon, [employer] [address] [facility], [address], [place], [address], [facility] 5 11:03:17 34891 lutein medicatio n other Not available unabletoasse 11/14/2024 08102 RxNorm adver se - const ipati on Jaz Dixon, [employer] [address] [facility], [address], [place], [address], [facility] 5 11:03:45 30096 alpha tocophero l medicatio n other Not available unabletoasse 11/14/2024 82339 9 RxNorm const ipati on Jaz Dixon, [employer] [address] [facility], [address], [place], [address], [facility] 5 11:04:16 04070 ascorbic acid / cuprous oxide / lutein / vitamin E / zinc oxide medicatio n other Not available unabletoasse 11/14/2024 80059 00 RxNorm const ipati on Jaz Dixon, [employer] [address] [facility], [address], [place], [address], [facility] 5 11:04:50 64331 ergocalci ferol medicatio n other Not available unabletoasse 11/14/2024 4018 RxNorm const ipati on, takes at home Jaz Dixon, [employer] [address] [facility], [address], [place], [address], [facility] 5 11:09:18 29273 Brianna-D medicatio n other Not available unabletoasse 11/14/2024 const ipati on Jaz Dixon NP [address] [facility], [address], [place], [address], [employer] 5 11:06:58 15981 calcium medicatio n other Not available unabletoasse ss 11/14/2024 1895 RxNorm unkno wnonl y aller gic to hellen ivey Jaz Dixon NP [address] [facility], [address], [place], [address], [facility] [employer] 5 11:08:19 Medications Name Sig Start Date Stop Date Status Note LastModified by Organization Details LastModified Time Dilaudid 2 mg tablet Take 1 tablet every 8 hours by oral route as needed, for pain. 2024 active Not Available Not Available Not Avai lable omeprazole 20 mg capsule,ja yed release TAKE 1 CAPSULE DAILY active Not Available Not Available No t Available chlordiazepo xide-clidini um 5 mg-2.5 mg capsule TAKE 1 CAPSULE DAILY NEEDED FOR ANXIETY. active Not Available Not Available No t Available metoprolol succinate ER 25 mg tablet,exten ded release 24 hr TAKE 1/2 TABLET DAILY active Not Available Not Available No t Available ergocalcifer ol (vitamin D2) 1,250 mcg (50,000 unit) capsule TAKE 1 CAPSULE EVERY MONTH active Not Available Not Available Not Available lorazepam 1 mg tablet Take 1 tablet twice a day by oral route as needed, for anxiety. 2024 active Not Available Not Available Not Avai lable azelastine 137 mcg (0.1 %) nasal spray TAKE 1 SPRAY INTRANASALL Y 2 TIMES A DAY. ADMINISTER INTO EACH NOSTRIL active Not Available Not Available No t Available losartan 100 mg tablet TAKE 1 TABLET DAILY active Not Available Not Available No t Available Vitals Date Recorded Body weight Heart rate Respiratory rate Body temperature Oxygen saturation Oxygen saturation in Arterial blood by Pulse oximetry Systolic And Diastolic Provider Name and Address Organization Details Last Updated DateTime 5 66135.1 2 g 77 /min 18 /min 98 [degF] 98 % 98 % 144/70 mm[Hg] Jaz Dixon NP [address] [facility], [address], [place], [address], [facility] [employer] 5 11:11:10 Date Recorded Systolic And Diastolic Provider Name and Address Organization Details Last Updated DateTime 11/19/2024 144/70 mm[Hg] Rob Rossi MD [address] [facility], [address], [place], [address], [facility] [employer] 11/19/2024 14:24:14 Social History Question Answer Notes LastModified by [employer] Details LastModified Time Tobacco Smoking Status Never Smoker Jaz Dixon NP [address] [facility], [facility] [address], [place], [address], [facility] [employer] 11/14/2024 11:54:02 Do You Have An Advance Directive? Yes Information not available 11/14/2024 What Is Your Code Status? DNR/DNI Information not available 11/14/2024 [facility] not [facility] 11/14/2024 What Was The Date Of Your Most Recent Tobacco Screening? 11/14/2024 Information not available 11/14/2024 Do You Have An Out Of Hospital DNR? No Information not available 11/14/2024 What Is Your Relationship Status? Single Information not available 11/14/2024 Has Tobacco Cessation Counseling Been Provided? No Information not available 11/14/2024 Do You Have Any Dietary Restrictions? No Information not available 11/14/2024 Sex: Female Functional Status Question Answer Note LastModified by Organizat ion Details LastModified Time Do you use any illicit or recreational drugs? No Information not available 11/14/2024 Do you or have you ever used any other forms of tobacco or nicotine? No Information not available 11/14/2024 What is your level of alcohol consumption? None Information not available 11/14/2024 Mental Status None recorded. Family History Nothing Reported Notes:father: dm/st roke mother pancreatic ca brother demenita Medical History No medical history recorded. Gynecological HistoryNo gynecological history recorded. Obstetrics History GPAL:G 0 P 0 0 0 0 Past Encounters Encounter ID Performer Location Encounter Start Date Encounter Closed Date Diagnosis/Indication Diagnosis SNOMED-CT Code Diagnosis ICD10 Code Diagnosis IMO Codes Diagnosis Note [id number] Jaz Dixon NP [facility] [address] [place] [address] 11/14/2024 10:47:27 11/21/2024 13:14:38 History of hip fracture 652335935 Z87.81 42465422 sp left hip IM nail on 11/09/[address] renopt was prior driving and no assisted devicesasa 325 mg po bid x 6 weeksdilau did 2mg po q 8hrs prn paindocusa te 100 mg po bidtherapy eval and treat gait training, strengthen ing, adlsc/d/i dressing to stay intact-no showering or tub bathsfu with ortho in 2 weeks Anemia 397688809 D64.9 46110505 had post op anemia requiring 1 unit rbcscbc and bmp weekly x 3 weeksmonit or vitals/ s/s of bleeding Gastroesop hageal reflux disease without esophagitis 555799907 K21.9 790065 omeprazole 20 mg po qdmonitor Slow trans it constipation 24336378 K59.01 8838 chronic constipati on now on opiodsdocu sate 100m gpo bidadd senna qdmom prn qdhouse bm protocolmo nitor Anxiety 60167546 F41.9 41842 has chronic anxietylor azepam 1 mg po qhs prn - will increase to bid prn for notable anxiety today heremonito r Irritable bowel syndrome 41859799 K58.9 13928987 hx ofsee above Osteoporosis 78491195 M8 1.0 51939132 hx ofon prolia next due in january Essential hypertension 03215178 I10 40261 metoprolol succ 12. 5 mg po qdlosartan 100 mg po qdmonitor bp vitals Peripheral vascular disease 936711706 I73.9 31319 hx of Hypercholesterolemia 136 06053 E78.00 31831 hx ofnot on meds for this Vitamin D deficiency 347 49185 E55.9 75596 hx ofon prolia next due in january Tubular ad enomatous polyp of colon 035783920 D12.6 619552 hx of benigncarr chris dx Meibomian gland dysfunction 462651231 H02.889 2429000001 hx ofcont eye drops Obesity 248190403 E66.9 5677526095 obesitydie tician consult for education and food choicesmon itor weight Asthenia 71893316 R53.1 78162 therapy to eval and treatmonit or Recurrent falls 40654131 2 R29.6 8037496 hx of 2 falls in one year(seem smechanica l?)therapy to eval and treatmonit or Advance care planning 71 3214151 Z71.89 032322 molst form filled out and wishes clearMOLST : DNR/DNI signed 11/14/24 okay to transfer to hospitalmo nitor for need to change [id number] Rob Rossi MD [facility] [address] 11/19/2024 14:23:17 11/21/2024 14:24:34 Abnormal gait 09022846 R26.81 257456 PT OT eval and treatmonit or fall risk and need for increased support in community Slow trans it constipation 35932785 K59.01 8838 bowel protocol monitor for effect and need to titrate medication s Irritable bowel syndrome 10314738 K58.9 39391775 hx ofsee above Anxiety 59793149 F41.9 37132 appears to be significan t issue for patienthas ativan 1 mg bid prn currentlym onitor utilizatio npsych eval prn Essential hypertension 06396149 I10 05031 metoprolol 12.5 mg qdlosartan 100 mg qdmonitor bp and need to titrate Peripheral vascular disease 195759748 I73.9 43120 currently on asa 325 mg bidadded to PMH Obesity 482519841 E66.9 6045847726 obesitydie tician consult for education and food choicesmon itor weight Asthenia 66523385 R53.1 47320 see above with therapy following and monitor need for increased support in community Closed intertrochanteric fracture 82786450 S72.145D 590647884 see HPI left intertroch anteric fx post fall now s/p nail placementf ollow ortho recs and update with concernsmo nitor for pain controlASA 325 mg bid dvt prophylaxi sice as toleratedd iscussed with nursing Anemia due to blood loss 883932584 D50.0 639472 post op s/p transfusio nmonitor cbc Gastroesop hageal reflux disease without esophagitis 567270248 K21.9 560472 omeprazole 40 mg qd continuedm onitor for effect and need to continue high dose PPI Health Concerns Section Related Observation LastModified by Organization Detai ls LastModified Time None Recorded Concern Status LastModified by Organization Details LastModified Time None Recorded Advance Directives Directive Y: Payers Insurance Date Sequence Insurance Name Policy Number Policy Elam Covered Member ID Elam Member ID Guarantor Name 11/21/2024 1 [facility] (MEDICARE REPLACEMENT/A DVANTAGE - PPO) [id number] Estephania Daryl [id number] Estephania Daryl 11/14/2024 1 [place]IC[place]: [employer] Estephania Drayl [id number] Estephania Daryl Notes Date Note Type Note Provider Name and Address Organization Details Recorded Time 11/14 text/ html Pt is seen for an initial intake. Estephania is an 84 yo female with pmh htn, oa, , hld presented to ED sp mechanical fall dx with left intertrochanteric fx underwendt left hip IM nail on 11/09/24 complicated by anemia and vasovagal episode requiring transfusion recommended for rehab and continued care. She is discharged wt plan for fu in 2 weeks with ortho SADE [place].Keep dressing C/D/I , no showering or tub baths, therapy for gait training, strengthening, ADLs. Con asa for dvt ppx x 6 weeks and dilaudid for pain prn. On exam, Estephania is alert and oriented x 4 and slightly anxious today. She requests all meds be reviewed which is done at this visit and paper printout supplied. She reports some constipation which seems to be a frequent problem for her. Since she is now on dilaudid she is requiring the colace bid and will add the senna qd. Lungs clear and NAD. She does report pain 8/10 to left hip. dressing c/d/i. A dilaudid is given with zofran for nausea. MOLST: DNR/DNI signed 11/14/24 okay to transfer to hospital Jaz Dixon NP [address] [facility], [address], [place], [address], [facility] 5 12:34:57 11/19 text/ html Patient is an 84 yo female admit from hospital presenting after mechanical fall with left hip pain. Imaging positive for left intertrochanteric fracture. Eval by ortho and underwent surgical nail placement. Post op vasovagal episode with found anemia received transfusion. PMH significant forhtnanxietyPVDobesityconstipationgerdhldIB Sgait instability admit to facility for continued care and therapy eval and treat Rob Rossi MD [address] [place] [address], [address], [place], [address] [facility] 5 14:56:19 OBGyn Episode No OBEpisode recorded.
--- NOTE | 2025-01-31 07:34 | MHC.OFFVIS ---
Vital Signs 01/31/25 07:45 Height 5 ft Weight 132 lb 11.492 oz BMI 25.9 BP 130/80 Blood Pressure Location Lt brachial Position Sitting Pulse 52 Pulse Source Pulse Oximeter Pulse Oximetry (%) 98 Oxygen Delivery Method Room Air Intake Visit Reasons: Osteoporosis follow up & Prolia Intake Note: Patient presents for osteoporosis follow up and Prolia injection. Patient stated Doctor Po found a blood clot by LT knee. Allergies lansoprazole (From PREVACID) Allergy (Intermediate, Verified 01/31/25 07:41) VOMITING morphine (MORPHINE) Allergy (Intermediate, Verified 01/31/25 07:41) AGITATION risedronate sodium (From ACTONEL) Allergy (Intermediate, Verified 01/31/25 07:41) DYSPNEA alendronate sodium (From Fosamax) Allergy (Mild, Verified 01/31/25 07:41) NAUSEA,SOB azithromycin (AZITHROMYCIN) Allergy (Mild, Verified 01/31/25 07:41) NAUSEA/HEADACHE Penicillins Allergy (Mild, Verified 01/31/25 07:41) RASH amlodipine Allergy (Unknown, Verified 01/31/25 07:41) Unknown Bifidobacterium infantis (Align) Allergy (Unknown, Verified 01/31/25 07:41) Unknown cetirizine (From ZYRTEC) Allergy (Unknown, Verified 01/31/25 07:41) UNKNOWN cyanocobalamin (vitamin B12) Allergy (Unknown, Verified 01/31/25 07:41) Unknown enalapril (ENALAPRIL) Allergy (Unknown, Verified 01/31/25 07:41) ABD PAIN, VERY NAUSEOUS, nausea fexofenadine (From MAC) Allergy (Unknown, Verified 01/31/25 07:41) UNKNOWN folic acid Allergy (Unknown, Verified 01/31/25 07:41) unk hydralazine Allergy (Unknown, Verified 01/31/25 07:41) nausea hydrochlorothiazide Allergy (Unknown, Verified 01/31/25 07:41) dry mouth latex (Latex) Allergy (Unknown, Verified 01/31/25 07:41) RASH loratadine (Claritin) Allergy (Unknown, Verified 01/31/25 07:41) Unknown metoclopramide (From REGLAN) Allergy (Unknown, Verified 01/31/25 07:41) JITTERY mometasone furoate (From NASONEX) Allergy (Unknown, Verified 01/31/25 07:41) UNKNOWN montelukast (Singulair) Allergy (Unknown, Verified 01/31/25 07:41) Unknown pantoprazole (From PROTONIX) Allergy (Unknown, Verified 01/31/25 07:41) UNKNOWN penicillin V Allergy (Unknown, Verified 01/31/25 07:41) Unknown polyethylene glycol 3350 (Miralax) Allergy (Unknown, Verified 01/31/25 07:41) Unknown pseudoephedrine (From SUDAFED) Allergy (Unknown, Verified 01/31/25 07:41) HYPER ranitidine (From ZANTAC) Allergy (Unknown, Verified 01/31/25 07:41) UNKNOWN thiamine (vitamin B1) Allergy (Unknown, Verified 01/31/25 07:41) Unknown oxycodone Allergy (Verified 01/31/25 07:41) throwing ascorbic acid (From PreserVision AREDS-2) Adverse Reaction (Intermediate, Verified 01/31/25 07:41) Constipation copper (From PreserVision AREDS-2) Adverse Reaction (Intermediate, Verified 01/31/25 07:41) Constipation lutein (From PreserVision AREDS-2) Adverse Reaction (Intermediate, Verified 01/31/25 07:41) Constipation vitamin E acetate (dl-alpha tocopheryl) (From PreserVision AREDS-2) Adverse Reaction (Intermediate, Verified 01/31/25 07:41) Constipation zeaxanthin (From PreserVision AREDS-2) Adverse Reaction (Intermediate, Verified 01/31/25 07:41) Constipation zinc oxide (From PreserVision AREDS-2) Adverse Reaction (Intermediate, Verified 01/31/25 07:41) Constipation ergocalciferol (vitamin D2) (From CALCIUM CITRATE WITH D) Adverse Reaction (Mild, Verified 01/31/25 07:41) CONSTIPATION Mac-D 12 Hour Allergy (Unknown, Uncoded 01/14/25 14:11) Unknown Calcium Citrate + D Allergy (Unknown, Uncoded 01/14/25 14:11) Unknown Folic + B12 Allergy (Unknown, Uncoded 01/14/25 14:11) Unknown latex Allergy (Unknown, Uncoded 01/14/25 14:11) unknown From CALCIUM CITRATE WITH D Adverse Reaction (Mild, Uncoded 01/14/25 14:11) CONSTIPATION Medication List - Last Reconciled 01/31/25 by Melissa Cannon MD apixaban (Eliquis) 5 mg PO BID carboxymethylcellulose sodium 1% 1 drp ophthalmic (eye) NEEDED PRN chlordiazepoxide-clidinium 5-2.5 mg (Librax (with clidinium)) 1 cap PO DAILY PRN [Cotton Compression Stocking As directed; 15-20 mmHg allergy to latex/non cotton material ] denosumab (Prolia) 60 mg subcut [id number] docusate sodium 100 mg PO BID ergocalciferol (vitamin D2) 1,250 mcg PO QMONTH euc acg-rsyn-fvl,rosem oils-pt (Vicks Babyrub topical ointment) apply as needed under nares lorazepam 1 mg PO DAILY PRN 90 days losartan 100 mg PO DAILY [Medical grabber tool As directed] metoprolol succinate ER 12.5 mg (1/2 x 25 mg) PO DAILY omeprazole 20 mg PO BID [rollator walker As directed] white petrolatum-mineral oil 94-3 % (Systane Nighttime) 1 appl ophthalmic (eye) BEDTIME HPI Comments Details: Patient is an 84 y.o. female with hypertension, diabetes, generalized anxiety disorder, hyperlipidemia, GERD, polyarticular OA and osteoporosis here today for follow up Interval History: Patient last seen 08/01/24 with va - On Prolia 60mg SC every 6 months and Vit D analogue - Doing well overall - Her hip pain that she had at the last visit improved on its own - Had a mechanical fall with trauma to her head on the stairs requiring 5 stitches but no loss of consciousness Today - On Prolia 60mg SC every 6 months and Vit D every month - Had a mechanical fall in October leading to left femur fracture, s/p ORIF with rods - Course complicated by left leg DVT, currently on AC - Complaining of left knee pain Rheumatologic History: Boniva- [id number] 5 year course. Prolia- ordered October 2016-patient did not start due to her concern for side effects. Prolia started June 2019 to present. Bone density January 2023 osteopenia Current Rheumatology Medication(s): Prolia 60mg SC every 6 months Vitamin D 1250mcg every month [facility] Medical History Impaired glucose tolerance Macular degeneration Vitamin D deficiency Tubular adenoma of colon Closed left arm fracture Carcinoid tumor Hypertension Osteoporosis Irritable bowel syndrome Obesity (BMI 30-39.9) Hypercholesterolemia GERD (gastroesophageal reflux disease) Degenerative disc disease, lumbar Peripheral vascular disease Surgical History History of surgical procedure on eye proper using laser H/O ventral hernia repair Status post left breast lumpectomy Family History Father Diabetes Stroke Mother Pancreatic cancer Brother Dementia Social History Household Members Other:: family member lives downstairs Housing: House Housing Other:: two family house Do you presently have visiting nurse or other home services: No Alcohol intake: former Patient Tobacco Use Status: Never used Tobacco Tobacco use type: Cigarette e-Cigarette/Vaping Use: Never Used Second Hand Smoke Exposure: No Advance Directives Date on File: 11/14/24 service: No Current occupational status: retired Cognitive needs: No Hearing needs: Yes Vision needs: Yes Review of Systems Const Details: Review of Systems Constitutional: Denies fever, chills, weight loss ENT: Denies vision changes, eye pain or eye redness, dental caries, dry mouth GI: Denies nausea, vomiting, diarrhea, abdominal pain, change in BM Pulm: Denies SOB, IVY, hemoptysis, wheezing Cards: Denies chest pain, palpitations Skin: Denies Raynaud's, rash, nail changes, photosensitivity, AUTOMOBILE BRAKE BONDER: Denies headaches, weakness, paresthesias, recurrent falls MSK: as per HPI All other systems reviewed and are unremarkable except noted above Physical Exam Exam Exam: Vital signs reviewed Physical Examination CONSTITUITIONAL Patient alert and cooperative. Well appearing and in no apparent painful distress MSK Hands Right Hand: Able to make a fist. No swelling or tenderness to palpation of the MCPs, PIPs or DIPs. Left Hand: Able to make a fist. No swelling or tenderness to palpation of the MCPs, PIPs or DIPs. Herbedens nodes noted bilaterally with deformities Wrists Right Wrist: Full ROM to flexion and extension. No swelling or TTP Left Wrist: Full ROM to flexion and extension. No swelling or TTP Elbows Right Elbow: Decreased ROM. No swelling or TTP. No TTP of the medial epicondyle. No TTP of the lateral epicondyle Left Elbow: Decreased ROM. No swelling or TTP. No TTP of the medial epicondyle. No TTP of the lateral epicondyle Shoulders Right shoulder: Decreased ROM. No swelling noted. No TTP of the AC joint. No TTP of the subacromial bursa. No TTP of the posterior shoulder Left shoulder: Decreased ROM. No swelling noted. No TTP of the AC joint. No TTP of the subacromial bursa. No TTP of the posterior shoulder Knees Right knee: Decreased ROM. No swelling noted. No TTP of the knee joint line. No TTP of pes anserine bursa Left knee: Decreased ROM. No swelling noted. TTP of the knee joint line. TTP of pes anserine bursa. Ankles Right ankle: Good ankle dorsiflexion and plantar flexion. Swelling noted. No TTP of the ankle joint Left ankle: Good ankle dorsiflexion and plantar flexion. Swelling noted. No TTP of the ankle joint Feet Right foot: Negative squeeze test Left foot: Negative squeeze test Tender points? No tenderness to palpation of the bilateral trapezius, supraspinatus, anterior costochondral junctions, bilateral suboccipital muscle insertions SKIN Dry scaly skin Vital Signs: Last Vital Signs Pulse 52 01/31/25 07:45 BP 130/80 01/31/25 07:45 Pulse Ox 98 01/31/25 07:45 Oxygen Delivery Method Room Air 01/31/25 07:45 BMI result Body Mass Index 25.9 Office Meds Prolia 60 mg/mL subcutaneous syringe Performing Provider: Melissa Cannon MD Performing Location[place] [facility] [place] [facility] Administered by: Jennifer Villanueva RN on 01/31/25 07:53 Dose Route Admin Location Dispensed Lot Number Expiration Date NDC Embedded Hardware Engineer 60 mg subcut left upper arm 1 mL [id number] 12/29/26 96865-801-59 AMGEN Total Dispensed Waste 1 mL 0 % Results Reviewed Results Reviewed: Laboratory Tests 07/22/24 09/16/24 01/14/25 08:45 07:23 15:16 WBC 7.1 RBC 4.26 Hgb 12.4 Hct 37.5 Plt Count 248 Sodium 139 Potassium 3.8 Chloride 107 Carbon Dioxide 24 BUN 20 H Creatinine 0.89 AST 23 ALT 12 25-OH Vitamin D Total 44 28.8 L 24 L DEXA 01/2023 FINDINGS: LEFT FEMUR, NECK: Current: BMD 0.724 g/cm2, Z-score 0.0, T-score -2.3, osteopenia. Prior: BMD 0.722 g/cm2. Baseline: BMD 0.786 g/cm2. LEFT FEMUR, TOTAL: Current: BMD 0.831 g/cm2, Z-score 0.7, T-score -1.4, osteopenia, 1.3% decrease from previous, 0.8% increase from baseline (<5% change is not significant). Prior: BMD 0.842 g/cm2. Baseline: BMD 0.824 g/cm2. AP SPINE L1-L4: Current: BMD 1.200 g/cm2, Z-score 1.9, T-score 0.2, normal, 5.0% increase from previous, 39.5% increase from baseline (<5% change is not significant). Prior: BMD 1.143 g/cm2. Baseline: BMD 0.860 g/cm2. Assessment & Plan Assessment & Plan (1) Osteoporosis: Comment: DEXA 01/2023: AP Spine 0.2, Left femur neck -2.3, Left femur total -1.4 DEXA 01/2021: AP Spine -0.7, Left femur neck -2.3, Left femur total -1.3 Boniva- [id number] 5 year course. Prolia- ordered October 2016-patient did not start due to her concern for side effects. Prolia started June 2019 to present. Bone density January 2023 osteopenia Code(s): M81.0 - Age-related osteoporosis without current pathological fracture Category: Medical Qualifiers: Osteoporosis type: age-related Presence of current pathological fracture: without current pathological fracture Qualified Code(s): M81.0 - Age-related osteoporosis without current pathological fracture Plan: #Osteoporosis Patient is an 84 y.o. female with osteoporosis here today for her prolia injection Vitamin D at goal Plan - s/p Prolia injection today - Repeat DEXA - Increase Vitamin D to 2500mcg once a month, cannot increase frequency due to worsening constipation - RTC 6 months - Labs before visit: CMP, Vit D (2) Polyarticular osteoarthritis: Code(s): M15.9 - Polyosteoarthritis, unspecified Plan: #Polyarticular OA Worsening knee OA after fall Plan - Topical diclofenac 1% tid (3) Encounter for monitoring denosumab therapy: Code(s): Z51.81 - Encounter for therapeutic drug level monitoring; Z79.620 - intermediate (current) use of immunosuppressive biologic Plan: #Long-term use of Denosumab Discussed with patient the risks and benefits of denosumab (Prolia) for the management of their osteoporosis Benefits include improved bone density, decreased fracture risk Risks include rapid bone loss if denosumab stopped, osteonecrosis of the jaw especially in patients with poor oral hygiene/diabetes/use of glucocorticoids/age greater than 65 years, atypical femoral fractures, injection site reactions. Mild increased risk of infections due to RANKL on T helper cells, increased risk of hypocalcemia especially in CKD patients Keep vitamin-D at least 35 ng/mL Advised to delay non emergent dental procedures to toward the end of the 6 month cycle and if they plan to stop denosumab would need to continue antiresorptive to maintain the effects of denosumabe Plan I spent 20 minutes reviewing the record and labs, taking a history, examining the patient, discussing the treatment plan, ordering diagnostic work up and documenting in the medical record Orders: Orders AMB Denosumab Injection Practice Supplied Today M81.0 - Age-related osteoporosis without current pathological fracture Vitamin D 25-OH Total 6 Months Z79.899 - Other ad terminal makeup operator (current) drug therapy Comprehensive Met. Panel 6 Months Z79.899 - Other detention (current) drug therapy Medications: New diclofenac sodium 1% (Voltaren Arthritis Pain) apply to bilateral knees 4 grams topical QID 100 grams 5RF M17.0 - Bilateral primary osteoarthritis of knee white petrolatum 41% (Aquaphor Healing) 1 appl topical BID PRN 396 grams 1RF dry skin L85.3 - Xerosis cutis Changed From ergocalciferol (vitamin D2) 1,250 mcg PO QMONTH E55.9 - Vitamin D deficiency, unspecified To ergocalciferol (vitamin D2) 2,500 mcg (2 x 1,250 mcg (50,000 unit)) PO QMONTH 6 caps 1RF 90 days E55.9 - Vitamin D deficiency, unspecified Coding Level of Care Code Est Pt Level 3 (61595) Complex EM visit Add On G2211 Diagnoses Age-related osteoporosis without current pathological fracture M81.0 Osteoporosis type: age-related Presence of current pathological fracture: without current pathological fracture Polyarticular osteoarthritis M15.9 Encounter for monitoring denosumab therapy Z51.81; Z79.620
[2025-01-31 07:45] VITALS: BP 130/80; PULSE 52; O2SAT 98; BMI 25.9
== END 2025-01-31 08:22 | disposition home or self-care (01) ==
PROVIDERS: PCP Internal Medicine; Visit Provider Student in an Organized Health Care Education/Training Program
DX: M81.0 Age-related osteoporosis without current pathological fracture (principal); M15.9 Polyosteoarthritis, unspecified; Z51.81 Encounter for therapeutic drug level monitoring; Z79.620 Long term (current) use of immunosuppressive biologic
CPT/HCPCS: 99213

== ENCOUNTER → 2025-01-31 07:09 | Outpatient (BNVA) | payer MEDICARE, SELFPAY | PROVIDERS: PCP Internal Medicine; Visit Provider Student in an Organized Health Care Education/Training Program | DX: M81.0 Age-related osteoporosis without current pathological fracture (principal); M15.9 Polyosteoarthritis, unspecified; Z79.899 Other long term (current) drug therapy; Z51.81 Encounter for therapeutic drug level monitoring; Z79.620 Long term (current) use of immunosuppressive biologic | CPT/HCPCS: 96372; J0897 ==

== ENCOUNTER 2025-03-13 08:50 | Outpatient (AMB) | payer MEDICARE, SELFPAY ==
--- NOTE | 2025-03-13 09:03 | A.OFFPC_ITS ---
Vital Signs 03/13/25 09:04 Height 5 ft Weight 134 lb BMI 26.2 BP 110/62 Blood Pressure Location Lt brachial Position Sitting Pulse 65 Pulse Source Pulse Oximeter Pulse Oximetry (%) 97 Oxygen Delivery Method Room Air Intake Visit Reasons: Annual PE - see comments Allergies lansoprazole (From PREVACID) Allergy (Intermediate, Verified 03/13/25 09:04) VOMITING morphine (MORPHINE) Allergy (Intermediate, Verified 03/13/25 09:04) AGITATION risedronate sodium (From ACTONEL) Allergy (Intermediate, Verified 03/13/25 09:04) DYSPNEA alendronate sodium (From Fosamax) Allergy (Mild, Verified 03/13/25 09:04) NAUSEA,SOB azithromycin (AZITHROMYCIN) Allergy (Mild, Verified 03/13/25 09:04) NAUSEA/HEADACHE Penicillins Allergy (Mild, Verified 03/13/25 09:04) RASH amlodipine Allergy (Unknown, Verified 03/13/25 09:04) Unknown Bifidobacterium infantis (Align) Allergy (Unknown, Verified 03/13/25 09:04) Unknown cetirizine (From ZYRTEC) Allergy (Unknown, Verified 03/13/25 09:04) UNKNOWN cyanocobalamin (vitamin B12) Allergy (Unknown, Verified 03/13/25 09:04) Unknown enalapril (ENALAPRIL) Allergy (Unknown, Verified 03/13/25 09:04) ABD PAIN, VERY NAUSEOUS, nausea fexofenadine (From MAC) Allergy (Unknown, Verified 03/13/25 09:04) UNKNOWN folic acid Allergy (Unknown, Verified 03/13/25 09:04) unk hydralazine Allergy (Unknown, Verified 03/13/25 09:04) nausea hydrochlorothiazide Allergy (Unknown, Verified 03/13/25 09:04) dry mouth latex (Latex) Allergy (Unknown, Verified 03/13/25 09:04) RASH loratadine (Claritin) Allergy (Unknown, Verified 03/13/25 09:04) Unknown metoclopramide (From REGLAN) Allergy (Unknown, Verified 03/13/25 09:04) JITTERY mometasone furoate (From NASONEX) Allergy (Unknown, Verified 03/13/25 09:04) UNKNOWN montelukast (Singulair) Allergy (Unknown, Verified 03/13/25 09:04) Unknown pantoprazole (From PROTONIX) Allergy (Unknown, Verified 03/13/25 09:04) UNKNOWN penicillin V Allergy (Unknown, Verified 03/13/25 09:04) Unknown polyethylene glycol 3350 (Miralax) Allergy (Unknown, Verified 03/13/25 09:04) Unknown pseudoephedrine (From SUDAFED) Allergy (Unknown, Verified 03/13/25 09:04) HYPER ranitidine (From ZANTAC) Allergy (Unknown, Verified 03/13/25 09:04) UNKNOWN thiamine (vitamin B1) Allergy (Unknown, Verified 03/13/25 09:04) Unknown oxycodone Allergy (Verified 03/13/25 09:04) throwing ascorbic acid (From PreserVision AREDS-2) Adverse Reaction (Intermediate, Verified 03/13/25 09:04) Constipation copper (From PreserVision AREDS-2) Adverse Reaction (Intermediate, Verified 03/13/25 09:04) Constipation lutein (From PreserVision AREDS-2) Adverse Reaction (Intermediate, Verified 03/13/25 09:04) Constipation vitamin E acetate (dl-alpha tocopheryl) (From PreserVision AREDS-2) Adverse Reaction (Intermediate, Verified 03/13/25 09:04) Constipation zeaxanthin (From PreserVision AREDS-2) Adverse Reaction (Intermediate, Verified 03/13/25 09:04) Constipation zinc oxide (From PreserVision AREDS-2) Adverse Reaction (Intermediate, Verified 03/13/25 09:04) Constipation ergocalciferol (vitamin D2) (From CALCIUM CITRATE WITH D) Adverse Reaction (Mild, Verified 03/13/25 09:04) CONSTIPATION Mac-D 12 Hour Allergy (Unknown, Uncoded 03/13/25 09:04) Unknown Calcium Citrate + D Allergy (Unknown, Uncoded 03/13/25 09:04) Unknown Folic + B12 Allergy (Unknown, Uncoded 03/13/25 09:04) Unknown latex Allergy (Unknown, Uncoded 03/13/25 09:04) unknown From CALCIUM CITRATE WITH D Adverse Reaction (Mild, Uncoded 03/13/25 09:04) CONSTIPATION Medication List - Last Reconciled 03/13/25 by Jacinda Rooney Po, apixaban (Eliquis) 5 mg PO BID carboxymethylcellulose sodium 1% 1 drp ophthalmic (eye) NEEDED PRN [Cotton Compression Stocking As directed; 15-20 mmHg allergy to latex/non cotton material ] denosumab (Prolia) 60 mg subcut [id number] diclofenac sodium 1% (Voltaren Arthritis Pain) 4 grams topical QID ergocalciferol (vitamin D2) 2,500 mcg (2 x 1,250 mcg (50,000 unit)) PO QMONTH 90 days euc rax-aasl-tub,rosem oils-pt (Vicks Babyrub topical ointment) apply as needed under nares lorazepam 1 mg PO DAILY PRN 90 days losartan 100 mg PO DAILY [Medical grabber tool As directed] metoprolol succinate ER 12.5 mg (1/2 x 25 mg) PO DAILY omeprazole 20 mg PO .QD [rollator walker As directed] white petrolatum 41% (Aquaphor Healing) 1 appl topical BID PRN white petrolatum-mineral oil 94-3 % (Systane Nighttime) 1 appl ophthalmic (eye) BEDTIME Tobacco use date assessed: 12/18/24 Fall risk assessment: No Falls in past year Last assessed Fall Risk: 03/13/25 Dental Screening Dental Screen Date: 12/18/24 HPI Annual PE - see comments HPI Details [place] of Care: Rheumatology [facility], Hematology-Oncology [facility] Orthopedics [facility] [place] [facility], Gastroenterology Dr. Correa [facility] Medical History Impaired glucose tolerance Macular degeneration Vitamin D deficiency Tubular adenoma of colon Closed left arm fracture Carcinoid tumor Hypertension Osteoporosis Irritable bowel syndrome Obesity (BMI 30-39.9) Hypercholesterolemia GERD (gastroesophageal reflux disease) Degenerative disc disease, lumbar Peripheral vascular disease Surgical History History of surgical procedure on eye proper using laser H/O ventral hernia repair Status post left breast lumpectomy Family History Father Diabetes Stroke Mother Pancreatic cancer Brother Dementia Social History Household Members Other:: family member lives downstairs Housing: House Housing Other:: two family house Do you presently have visiting nurse or other home services: No Alcohol intake: former Patient Tobacco Use Status: Never used Tobacco Tobacco use type: Cigarette e-Cigarette/Vaping Use: Never Used Second Hand Smoke Exposure: No Advance Directives Date on File: 11/14/24 service: No Current occupational status: retired Cognitive needs: No Hearing needs: Yes Vision needs: Yes Questionnaire PHQ-9 Over the last 2 weeks, how often have you been bothered by any of the following problems? 1. Little interest or pleasure in doing things: several days 2. Feeling down, depressed, or hopeless: several days 3. Trouble falling or staying asleep, or sleeping too much: several days 4. Feeling tired or having little energy: several days 5. Poor appetite or overeating: several days 6. Feeling bad about yourself - or that you are a failure or have let yourself or your family down: not at all 7. Trouble concentrating on things, such as reading the newspaper or watching television: not at all 8. Moving or speaking so slowly that other people could have noticed. Or the opposite - being so fidgety or restless that you have been moving around a lot more than usual: not at all 9. Thoughts that you would be better off or of hurting yourself in some way: not at all Total score: 5 Depression Screening Interpretation: Positive Depression Screening Done: Yes Source: Developed by Drs. Tyler Parsons, Grace Greene, David Altman and colleagues, with an educational ina from [employer] Thrive Questionnaire Date Thrive assessed: 12/18/24 I am a: Parent/Caregiver What is your living situation today?: I have a steady place to live Within the past 12 months, did the food you bought not last and you didn't have the money to get more?: Never true Within the past 12 months, did you worry whether your food would run out before you got money to buy more?: Never true Do you have trouble paying for medicines?: No Do you have trouble getting transportation to medical appointments?: No Do you have trouble paying your heating and electricity bill?: No Do you have trouble taking care of your child, family member or friend?: No Do you have trouble with day-to-day activities such as bathing, preparing meals, shopping, managing finances, etc.?: Yes Are you currently unemployed and looking for a job?: No Are you interested in more education?: No Currently or been in a relationship where the following occur: No concerns reported THRIVE Score: 0 AUDIT C Alcohol Use Questionnaire (AUDIT-C) 1. How often do you have a drink containing alcohol?: Never 3. How often do you have six or more drinks on one occasion?: Never Total Score: 0 KATHIE-7 AMB Questionnaire KATHIE-7 Date KATHIE - 7 assessed: 12/18/24 Source: Developed by Drs. Tyler Parsons, Grace Greene, David Altman and colleagues, with an educational ina from [employer]). Review of Systems Const Denies poor appetite and Denies weakness Eyes Denies no additional complaints ENT Reports Normal hearing present, Denies dizziness, Denies nasal congestion, Denies tinnitus and Denies sore throat Card Denies chest pain, Denies syncope, Denies rapid heart rate and Denies dyspnea Resp Denies cough and Denies dyspnea GI Denies change in stool character, Reports constipation, Denies diarrhea, Denies nausea and Denies vomiting Denies urinary frequency, Denies difficulty voiding and Denies dysuria Neuro Reports Normal hearing present, Denies confusion, Denies dizziness, Denies syncope and Denies weakness Psych Denies confusion Physical exam (Primary Care) Vital Signs: Last Vital Signs Pulse 65 03/13/25 09:04 BP 110/62 03/13/25 09:04 Pulse Ox 97 03/13/25 09:04 Oxygen Delivery Method Room Air 03/13/25 09:04 BMI result Body Mass Index 26.2 Tobacco/Smoking Status: Tobacco use Status Tobacco use date assessed 12/18/24 03/13/25 09:07 Patient Tobacco Use Status Never used Tobacco 03/13/25 09:07 Tobacco use type Cigarette 03/13/25 09:07 e-Cigarette/Vaping Use Never Used 03/13/25 09:07 PHQ-9: PHQ-9 Score PHQ-9: Total score 5 03/13/25 09:32 Depression Screening Interpretation: Positive Thrive Assessment: Date of Thrive Assessment Date Thrive assessed 12/18/24 03/13/25 09:07 Currently or been in a relationship where the following occur: No concerns reported Const General: No confusion Orientation/consciousness: No confusion HENMT Head: Yes normocephalic Ears: external ears normal and TM's normal bilaterally Face and sinus: Yes normal facial exam Mouth: moist mucous membranes Throat: Yes tonsils normal Eyes Conjunctivae: conjunctivae normal Pupils: Equal, round and reactive pupils present and Pupil accommodation reflex normal Direct Ophthalmoscopy: normal light reflex Neck Neck: No lymphadenopathy Thyroid: Thyroid normal Chest Chest palpation & inspection: normal inspection of the chest Resp Effort & Inspection: normal respiratory effort and no audible wheezes Auscultation: clear to auscultation bilaterally, no crackles, no wheezes and lung sounds not diminished Cardio Rate: regular rate Rhythm: regular rhythm Peripheral pulses: radial pulses present and dorsalis pedis present GI Other: declined Palpation (GI): no masses Auscultation: normal bowel sounds and normoactive bowel sounds Rectal Exam - Female: deferred Skin General skin exam: no rashes or lesions noted Rashes: no rashes Neuro General: No confusion Cranial nerves: Yes Equal, round and reactive pupils present and Yes Normal hearing present Cognition (Neuro): normal cognition Gait exam (Neuro): Normal gait present Motor exam (neuro): 5/5 motor strength present throughout Deep tendon reflexes (DTR's): Right brachioradialis reflex intensity grade: 2+, Left brachioradialis reflex intensity grade: 2+, Right patellar reflex intensity grade: 2+ and Left patellar reflex intensity grade: 2+ Extrem General: No edema Results AMB Hemoglobin A1c AMB Hemoglobin A1c 5.6 % Last Edit by Siobhan Valdivia CMA on 03/13/25 09 :29 Results Reviewed Results Reviewed: Laboratory Last Values Hgb A1c (Clinic) 5.6 % (4.0-6.0) 03/13/25 09:07 Coding Level of Care Code Est Pt Prev Care >65y(70929) Diagnoses Medicare annual wellness visit, initial Z00.00 Type 2 diabetes mellitus with hyperglycemia, without long-term current use of insulin E11.65 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: without alf use Hypercholesterolemia E78.00 Age-related osteoporosis without current pathological fracture M81.0 Osteoporosis type: age-related Presence of current pathological fracture: without current pathological fracture Obesity (BMI 30-39.9) E66.9 Gastroesophageal reflux disease without esophagitis K21.9 Esophagitis presence: without esophagitis Closed intertrochanteric fracture S72.142A Encounter type: initial encounter Fracture alignment: displaced Laterality: left Deep vein thrombosis of left lower extremity I82.402 Generalized anxiety disorder F41.1 Assessment & Plan Assessment & Plan (1) Medicare annual wellness visit, initial: Code(s): Z00.00 - Encounter for general adult medical examination without abnormal findings Category: Medical Plan: Patient is advised to eat healthy, keep well hydrated, keep active and have adequate sleep. (2) Type 2 diabetes mellitus with hyperglycemia: Comment: Dr. 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 Hemoglobin A1c goal of less than 7.0 patient is controlling with diet (3) Hypercholesterolemia: Code(s): E78.00 - Pure hypercholesterolemia, unspecified Category: Medical Plan: Avoid fried foods, chicken skin, eggs, butter margarine, pastries and meat. Be it pork or beef they have a lot of cholesterol LDL goal of less than 100 and triglyceride of less than 150 advised to have blood work done for cholesterol (4) Osteoporosis: Comment: DEXA 01/2023: AP Spine 0.2, Left femur neck -2.3, Left femur total -1.4 DEXA 01/2021: AP Spine -0.7, Left femur neck -2.3, Left femur total -1.3 Boniva- [id number] 5 year course. Prolia- ordered October 2016-patient did not start due to her concern for side effects. Prolia started June 2019 to present. Bone density January 2023 osteopenia Code(s): M81.0 - Age-related osteoporosis without current pathological fracture Category: Medical Qualifiers: Osteoporosis type: age-related Presence of current pathological fracture: without current pathological fracture Qualified Code(s): M81.0 - Age- related osteoporosis without current pathological fracture Plan: On Prolia January 2025 last injection follows up with Rheumatology due for bone density this year (5) Obesity (BMI 30-39.9): Code(s): E66.9 - Obesity, unspecified Category: Medical Plan: Diet and exercise (6) GERD (gastroesophageal reflux disease): Comment: Hiatal hernia Dr. Correa history of H pylori Code(s): K21.9 - Gastro-esophageal reflux disease without esophagitis Category: Medical Qualifiers: Esophagitis presence: without esophagitis Qualified Code(s): K21.9 - Gastro-esophageal reflux disease without esophagitis Plan: Avoid the foods that causes that usually spicy foods, tomato products, juices, coffee, soda and foods that your sensitive to. After eating do not lie down, allow 3-4 hours before in lie down. And keep the head of bed above 30 degrees to avoid the acid from going up. (7) Closed intertrochanteric fracture: Comment: 10/[address] Navarro Code(s): S72.143A - Displaced intertrochanteric fracture of unspecified femur, initial encounter for closed fracture Category: Medical Qualifiers: Encounter type: initial encounter Fracture alignment: displaced Laterality: left Qualified Code(s): S72.142A - Displaced intertrochanteric fracture of left femur, initial encounter for closed fracture Plan: Continue to follow-up with orthopedics advised physical therapy (8) Deep vein thrombosis of left lower extremity: Comment: November 2024 Code(s): I82.402 - Acute embolism and thrombosis of unspecified deep veins of left lower extremity Category: Medical Plan: November 2024, provoked/fall seen Hematology-Oncology ultrasound requested of the lower extremity and referral to vascular. (9) Generalized anxiety disorder: Code(s): F41.1 - Generalized anxiety disorder Category: Medical Plan: Continue with present medication Plan History of Present Illness The patient is an 84-year-old female presenting for an annual wellness visit. Her medical history includes hypercholesterolemia, GERD, osteoporosis, anxiety disorder, and diabetes mellitus. The patient has a history of a left hip fracture, for which she underwent intramedullary nail placement in October 2024. She has completed physical therapy but continues to perform exercises twice a day at home. Following a fall, she developed a provoked DVT and has been on Eliquis 5 mg twice a day since November 2024. She follows up with hematology and oncology for this condition and has an upcoming leg ultrasound scheduled. For her osteoporosis, she follows up with rheumatology and receives Prolia injections, with the last one administered in January 2025. Her last bone density test was in January 2023, and another is due this year. The patient also has severe osteoarthritis of the left knee, confirmed by imaging, for which she uses topical Voltaren gel and Tylenol as needed for pain. Her diabetes is managed with diet. December 2023 blood work showed a blood sugar of 155, and a separate December lab noted it at 126. Her last cholesterol test was in November 2023 with an LDL of 123. Her vitamin D level was 24.7. The patient's GERD is controlled with omeprazole once daily. She reports no longer taking Librax or docusate, as she is no longer constipated. Her other chronic medications include lorazepam, losartan, and metoprolol. She has a history of skin cancer and macular degeneration. She denies any alcohol use. Health Maintenance - Vaccinations: The patient reports she has received her flu and COVID-19 shots. - Bone Density Screening: A bone density scan is due this year; her last one was in January 2023. - Ophthalmology Exam: The patient is overdue for an eye exam, having canceled her last appointment due to her accident. - Colon Cancer Screening: The patient declined a rectal exam. - Diet and Exercise: The patient is managing her diabetes with diet and performs her physical therapy exercises twice daily. Social History - Alcohol Use: The patient denies drinking alcohol. - Functional Status: The patient has completed formal physical therapy but continues with home exercises twice a day. - She uses a walker but occasionally walks short distances without it. - Transportation: The patient reports difficulty getting rides to appointments, particularly those in [place]. - Healthcare Access: The patient expressed frustration with coordinating durable medical equipment (a rollator) and feels there are communication issues with the office's answering service. Review of Systems - Musculoskeletal: Reports pain in the left knee due to arthritis. - Reports pain in a muscle near her hip when walking. - Denies soreness when sleeping on her post-operative hip. - Cardiovascular: Reports occasional leg swelling, which she associates with high salt intake. - Gastrointestinal: Denies constipation and reports having daily bowel movements. - Allergic/Immunologic: Denies any new medication allergies. - Constitutional: Denies any new diagnoses or surgeries since her recent fracture. Physical Exam General: Cooperative, healthy appearing, comfortable, no acute distress and well developed Orientation: Patient oriented x3 Limitations: No limitations Head: Normal to inspection Ears: Hearing grossly normal bilaterally, slight ear wax present Nose: Normal external nose present Face and sinus: Normal facial exam Eyes: Appearance normal, both eyes and all related structures Neck: Normal visual inspection and Yes full ROM Respiratory: Normal respiratory effort and able to speak in complete sentences. Clear to auscultation bilaterally Cardiovascular: Regular rate and rhythm. Normal S1 and S2 GI: Normal to inspection. Soft to palpation and nontender Skin: No rashes or lesions noted Neuro: Patient oriented x3 Extremities: Normal to inspection, some swelling noted in legs, severe osteoarthritis in left knee Results - Labs (December 2023): Blood sugar 155 mg/dL; Creatinine 0.94; Normal blood count, electrolytes, and liver function. - An alternate blood sugar reading was 126 mg/dL. - Vitamin D 24.7 ng/mL. - Labs (November 2023): Last cholesterol test showed an LDL of 123 mg/dL. - Imaging: Left knee X-ray (date unspecified) showed severe osteoarthritis. - Last bone density test was in January 2023. Plan Patient was informed and verbally consented to the use of an ambient scribe for clinic note documentation during this visit. 1. Annual Wellness Visit Wellness blood work will be ordered. Patient has received flu and COVID-19 vaccines. Follow-up scheduled in three months. 2. Diabetes Mellitus The patient's blood sugar is elevated based on recent labs (126-155 mg/dL). The plan is to continue management with diet, with a hemoglobin A1c goal of less than 7.0. 3. Hypercholesterolemia The last available cholesterol test from November 2023 showed an LDL of 123. The treatment goals are an LDL less than 100 mg/dL and triglycerides less than 150 mg/dL. Staff will contact the home health agency to obtain results from a more recent cholesterol test that the patient reports having had done. 4. Osteoporosis The patient follows with rheumatology and is on Prolia, with her last injection in January 2025. A bone density scan is due this year and should be scheduled. The possibility of administering Prolia injections in this office was discussed to reduce the patient's travel burden. Continue to follow up with rheumatology. 5. History Of Provoked Deep Vein Thrombosis The DVT was provoked by a fall. Patient to continue Eliquis (apixaban) as prescribed. The patient has a lower extremity ultrasound scheduled for April 03 and a follow-up appointment with hematology on April 10. 6. History Of Left Hip Fracture The patient is status post intramedullary nail fixation in October 2024 and follows up with orthopedics. She has been advised to go to therapy and is currently performing home exercises twice daily. The importance of continued movement and strengthening exercises was emphasized for recovery. 7. Osteoarthritis Of Left Knee The patient has severe osteoarthritis of the left knee. For pain management, she can use Voltaren gel up to four times a day and Tylenol 1000 mg up to three times a day as needed. 8. Gastroesophageal Reflux Disease The patient's symptoms are well-controlled on omeprazole once daily. She has discontinued Librax as it is no longer covered by her insurance and she feels she does not need it. The plan is to continue omeprazole once daily. Discussion Notes I reviewed the patient's extensive medical history and current medications. We discussed discontinuing Librax and docusate, as she has not been taking them and feels they are unnecessary. We reviewed the plan for her provoked DVT, and I confirmed that she should continue Eliquis and attend her upcoming ultrasound and hematology appointments. I advised her on managing her knee arthritis pain with topical Voltaren and scheduled doses of Tylenol as needed. We discussed her osteoporosis management, including the need for a bone density scan this year. I acknowledged her request to potentially receive her Prolia injections in our office to reduce her travel burden and will look into this possibility. I emphasized the importance of continuing her home exercises and increasing her general mobility to aid in her recovery from her hip fracture, while also cautioning her against sudden moves to prevent falls. Regarding her cholesterol, I will have my staff attempt to track down the recent lab results from her home health agency. I recommended she schedule a follow-up appointment in three months. Patient Instructions - Continue to take your medications as prescribed, especially your Eliquis (blood thinner). - You can stop taking Librax and the stool softener (docusate). - For your knee pain, you may use Voltaren gel up to four times a day and take two 500 mg Tylenol tablets up to three times per day when it hurts. - Continue doing your physical therapy exercises twice a day to strengthen your leg. - It is very important to avoid falls, so move carefully and do not make sudden movements. - Please attend your scheduled leg ultrasound on April 03 and your follow-up with the blood specialist on April 10. - You are due for a bone density scan this year. - You are up-to-date on your flu and COVID shots. - Please schedule a follow-up appointment in this office in three months. Orders: Orders AMB Hemoglobin A1c Today Z13.9 - Encounter for screening, unspecified
[2025-03-13 09:04] VITALS: BP 110/62; PULSE 65; O2SAT 97; BMI 26.2
--- OUTSIDE RECORDS SUMMARY | 2025-03-13 09:24 | XMS_ITS | Data Portability ---
Author Organization [facility], Main Office Address [address], [address] [place] [address] Care Team Providers Care Buyer Internship Name Role Phone MOHIT RICKS - 2ND FLOOR OTHER PO, DORIS Primary Care Provider Assessment No assessment recorded. Plan of Treatment Reminders Order Date Submit Date Provider Last Modified By Organization Details Last Modified Time Details Appointments None recorded. Lab None recorded. Referral None recorded. Procedures None recorded. Surgeries None recorded. Imaging None recorded. Medication Orders lorazepam 1 mg tablet 2024 025 [facility] , [address] [place] [address], [address], 5 23:35:54 Dilaudid 2 mg tablet 2024 025 [facility] , [address] [place] [address], [address], 5 12:37:22 Patient TargetsNo targets recorded. Patient InstructionsNo instructions recorded. Reason for Referral None Reported. Problems Name Problem SNOMED Code Status Onset Date Resolution Date Notes Provider Name and Address Organization Details Recorded Time Meibomian gland dysfunction 777257870 Active 2024 Jaz Dixon NP [address], [address], [place], [address], [facility] 5 11:17:08 Vitamin D deficiency 92867531 Active 2024 Jaz Dixon NP [address], [address], [place], [address], [facility] 5 11:17:18 Tubular adenomatous polyp of colon 407867914 Active 2024 Jaz Dixon NP [address], [address], [place], [address], [facility] 5 11:17:34 Essential hypertension 48504782 Active 2024 Jaz Dixon NP [address], [address], [place], [address], [facility] 5 11:18:20 Osteoporosis 89603695 Active 2024 Jaz Dixon NP [address], [address], [place], [address], [facility] 5 11:18:35 Irritable bowel syndrome 78198721 Active 2024 Jaz Dixon NP [address], [address], [place], [address], [facility] 5 11:18:48 Obesity 479566972 Active 2024 Jaz Dixon NP [address], [address], [place], [address], [facility] 5 11:19:20 Hypercholester olemia 31203363 Active 2024 Jaz Dixon NP [address], [address], [place], [address], [facility] 5 11:19:31 Gastroesophage al reflux disease without esophagitis 909070633 Active 2024 Jaz Dixon NP [address], [address], [place], [address], [facility] 5 11:19:41 Peripheral vascular disease 370319717 Active 2024 Jaz Dixon NP [address], [address], [place], [address], [facility] 5 11:19:51 History of hip fracture 503909141 Active 2024 Jaz Dixon NP [address], [address], [place], [address], [facility] 5 12:11:29 Anemia 773502098 [facility] 2024 Jaz Dixon NP [address], [address], [place], [address], [facility] 5 12:17:23 Slow transit constipation 43807010 [facility] 2024 Jaz Dixon NP [address], [address], [place], [address], [facility] 5 12:18:20 Anxiety 13761900 [facility] 2024 Jaz Dixon NP [address], [address], [place], [address], [facility] 5 12:19:08 Problem Notes None recorded. Medical Equipment None Reported. Allergies Allergen ID Allergen Name Allergen Category Reaction Reaction Severity Criticality Documentation Date Start Date Code Code System Note Provider Name and Address Organization Details Recorded Time 57965 alendrona te sodium medicatio n nausea mild unabletoasse 11/14/2024 12880 2 RxNorm sob and nause a Jaz Dixon NP [address], [address], [place], [address], [facility] [employer] [facility] 5 10:49:09 07106 lansopraz ole medicatio n vomiting Not available [facility] 11/14/2024 20673 RxNorm Jaz Dixon NP [address], [address], [place], [address], [facility] 5 10:49:56 77324 morphine medicatio n other Not available unabletoasse 11/14/2024 7052 RxNorm agita tion Jaz Dixon NP [address], [address], [place], [address], [facility] 5 10:50:31 60658 risedrona te sodium medicatio n dyspnea Not available [facility] 11/14/2024 26462 RxNorm Jaz Dixon NP [address], [address], [place], [address], [facility] 5 10:50:56 82304 azithromy clarence medicatio n nausea Not available [facility] 11/14/2024 98439 RxNorm stauffer Jaz Dixon NP [address], [address], [place], [address], [facility] 5 10:51:21 52864 Product containin g penicilli n (product) medicatio n rash Not available low 11/14/2024 28814 8001 SNOMED Jaz Dixon NP [address], [address], [place], [address], [facility] 5 10:51:47 53455 amlodipin e medicatio n other Not available unabletoasse 11/14/2024 84115 RxNorm unkno wn Jaz Dixon NP [address], [address], [place], [address], [facility] 5 10:52:17 87786 Zyrtec medicatio n other Not available unabletoasse 11/14/2024 90035 RxNorm unkno wn Jaz Dixon NP [address], [address], [place], [address], [facility] 5 10:53:39 61183 vitamin B12 medicatio n other Not available unabletoasse 11/14/2024 08728 RxNorm unkno wn Jaz Dixon NP [address], [address], [place], [address], [facility] 5 10:54:08 47135 enalapril Not available abdominal pain nausea Not available Not available unabletoasse 11/14/2024 3827 RxNorm Jaz Dixon NP [address], [address], [place], [address], [facility] 5 10:54:36 74335 Brianna medicatio n other Not available unabletoasse 11/14/2024 43717 6 RxNorm unknw on Jaz Dixon NP [address], [address], [place], [address], [facility] 5 10:55:03 10013 folic acid medicatio n other Not available unabletoasse 11/14/2024 4511 RxNorm unkno wn Jaz Dixon NP [address], [address], [place], [address], [facility] 5 10:55:31 08473 hydralazi ne medicatio n other Not available unabletoasse 11/14/2024 5470 RxNorm unkno wn Jaz Dixon NP [address], [address], [place], [address], [facility] 5 10:56:08 31709 hydrochlo rothiazid e medicatio n dry mouth Not available unabletoasse 11/14/2024 5487 RxNorm dry mouth Jaz Dixon NP [address], [address], [place], [address], [facility] 5 10:56:38 16083 latex environme nt,medica tion rash Not available unabletoasse 11/14/2024 09170 91 RxNorm Jaz Dixon NP [address], [address], [place], [address], [facility] 5 10:56:58 64565 Claritin medicatio n other Not available unabletoasse 11/14/2024 01652 6 RxNorm unkno antonio Dixon NP [address], [address], [place], [address], [facility] 5 10:57:41 91544 Reglan medicatio n other Not available unabletoasse 11/14/2024 9230 RxNorm jitte ry Jaz Dixon NP [address], [address], [place], [address], [facility] 5 10:58:16 44142 Nasonex medicatio n other Not available unabletoasse 11/14/2024 16012 6 RxNorm unkno wn Jaz Dixon, RICK [address], [address], [place], [address], [facility] 5 10:58:[address] medicatio n other Not available unabletoasse 11/14/2024 02172 RxNorm unkno wn Jazfrantz Dixon, RICK [address], [address], [place], [address], [facility] 5 10:59:24 32860 pantopraz ole medicatio n other Not available unabletoasse 11/14/2024 74511 RxNorm unkno wn Jaz RICK Dixon [address], [address], [place], [address], [facility] 5 10:59:58 14494 polyethyl lydia glycols medicatio n other Not available Not available 11/14/2024 8516 RxNorm unkno wn Jazfrantz Dixon NP [address], [address], [place], [address], [facility] 5 11:00:29 09324 pseudoeph edrine Not available other Not available unabletoasse 11/14/2024 8896 RxNorm hyper Jaz Destiny, RICK [address], [address], [place], [address], [facility] 5 11:00:54 97274 ranitidin e Not available other Not available unabletoasse 11/14/2024 9143 RxNorm unkno wn Jaz RICK Dixon [address], [address], [place], [address], [facility] 5 11:01:26 57893 thiamine medicatio n other Not available unabletoasse 11/14/2024 07153 RxNorm unkno wn Jaz Destiny, RICK [address], [address], [place], [address], [facility] 5 11:01:54 39557 ascorbic acid medicatio n other Not available unabletoasse 11/14/2024 1151 RxNorm adver se rx const ipati on Jaz Dixon, RN REHAB [address], [address], [place], [address], [facility] 5 11:02:37 10945 copper environme nt,medica tion other Not available unabletoasse 11/14/2024 2837 RxNorm from prese rvisi on const ipati on Jaz Dixon, RN REHAB [address], [address], [place], [address], [facility] 5 11:03:17 91929 lutein medicatio n other Not available unabletoasse 11/14/2024 74108 RxNorm adver se - const ipati on Jaz Dixon, RN REHAB [address], [address], [place], [address], [facility] 5 11:03:45 04730 alpha tocophero l medicatio n other Not available unabletoasse 11/14/2024 43840 9 RxNorm const ipati on Jaz Dixon, RN REHAB [address], [address], [place], [address], [facility] 5 11:04:16 33358 ascorbic acid / cuprous oxide / lutein / vitamin E / zinc oxide medicatio n other Not available unabletoasse 11/14/2024 87117 00 RxNorm const ipati on Jaz Dixon, RN REHAB [address], [address], [place], [address], [facility] 5 11:04:50 90745 ergocalci ferol medicatio n other Not available unabletoasse 11/14/2024 4018 RxNorm const ipati on, takes at home Jaz Dixon, RN REHAB [address], [address], [place], [address], [facility] 5 11:09:18 31979 Brianna-D medicatio n other Not available unabletoasse 11/14/2024 const ipati on Jaz Dixon NP [address], [address], [place], [address], [employer] [facility] 5 11:06:58 51277 calcium medicatio n other Not available unabletoasse ss 11/14/2024 1895 RxNorm unkno wnonl y aller gic to hellen ivey Jaz Dixon NP [address], [address], [place], [address], [facility] 5 11:08:19 Medications Name Sig Start Date [...] Address Organization Details Last Updated DateTime 5 08119.1 2 g 77 /min 18 /min 98 [degF] 98 % 98 % 144/70 mm[Hg] Jaz Dixon NP [address], [address], [place], [address], [facility] 5 11:11:10 Date Recorded Systolic And Diastolic Provider Name and Address Organization Details Last Updated DateTime 11/19/2024 144/70 mm[Hg] Rob Rossi MD [address], [address], [place], [address], [facility] 11/19/2024 14:24:14 Social History Question Answer Notes LastModified by [employer] Details LastModified Time Tobacco Smoking Status Never Smoker Jaz Dixon NP [address], [facility] [address], [place], [address], [facility] 11/14/2024 11:54:02 Do You Have An Advance Directive? Yes Information not available 11/14/2024 What Is Your Code Status? DNR/DNI Information not available 11/14/2024 [facility] Information not available 11/14/2024 What Was The [...] ICD10 Code Diagnosis IMO Codes Diagnosis Note [id number] [facility] [address] [place] [address] 11/14/2024 10:47:27 11/21/2024 13:14:38 History of hip fracture 597276842 Z87.81 75364435 sp left hip IM nail on 11/09/[address] renopt was prior driving and no assisted devicesasa 325 mg po bid x 6 weeksdilau did 2mg po q 8hrs prn paindocusa te 100 mg po bidtherapy eval and treat gait training, strengthen ing, adlsc/d/i dressing to stay intact-no showering or tub bathsfu with ortho in 2 weeks Anemia 122989575 D64.9 47326460 had post op anemia requiring 1 unit rbcscbc and bmp weekly x 3 weeksmonit or vitals/ s/s of bleeding Gastroesop hageal reflux disease without esophagitis 848547933 K21.9 909557 omeprazole 20 mg po qdmonitor Slow trans it constipation 38532287 K59.01 8838 chronic constipati on now on opiodsdocu sate 100m gpo bidadd senna qdmom prn qdhouse bm protocolmo nitor Anxiety 52722589 F41.9 62466 has chronic anxietylor azepam 1 mg po qhs prn - will increase to bid prn for notable anxiety today heremonito r Irritable bowel syndrome 54741830 K58.9 94633341 hx ofsee above Osteoporosis 03612147 M8 1.0 91207038 hx ofon prolia next due in january Essential hypertension 40524448 I10 09479 metoprolol succ 12. 5 mg po qdlosartan 100 mg po qdmonitor bp vitals Peripheral vascular disease 870529552 I73.9 58788 hx of Hypercholesterolemia 136 14464 E78.00 83939 hx ofnot on meds for this Vitamin D deficiency 347 24046 E55.9 62371 hx ofon prolia next due in january Tubular ad enomatous polyp of colon 566566719 D12.6 739175 hx of benigncarr chris dx Meibomian gland dysfunction 833331438 H02.889 5451682140 hx ofcont eye drops Obesity 944037044 E66.9 3417538022 obesitydie tician consult for education and food choicesmon itor weight Asthenia 64169953 R53.1 45995 therapy to eval and treatmonit or Recurrent falls 02990702 2 R29.6 9877926 hx of 2 falls in one year(seem smechanica l?)therapy to eval and treatmonit or Advance care planning 71 3625046 Z71.89 216978 molst form filled out and wishes clearMOLST : DNR/DNI signed 11/14/24 okay to transfer to hospitalmo nitor for need to change [id number] Rob Rossi MD [facility] [address] 11/19/2024 14:23:17 11/21/2024 14:24:34 Abnormal gait 42798895 R26.81 556330 PT OT eval and treatmonit or fall risk and need for increased support in community Slow trans it constipation 38105708 K59.01 8838 bowel protocol monitor for effect and need to titrate medication s Irritable bowel syndrome 78460540 K58.9 17601834 hx ofsee above Anxiety 69309426 F41.9 61211 appears to be significan t issue for patienthas ativan 1 mg bid prn currentlym onitor utilizatio npsych eval prn Essential hypertension 72332682 I10 12414 metoprolol 12.5 mg qdlosartan 100 mg qdmonitor bp and need to titrate Peripheral vascular disease 856474669 I73.9 48715 currently on asa 325 mg bidadded to PMH Obesity 947389714 E66.9 0706127700 obesitydie tician consult for education and food choicesmon itor weight Asthenia 36059948 R53.1 67354 see above with therapy following and monitor need for increased support in community Closed intertrochanteric fracture 67404073 S72.145D 234012421 see HPI left intertroch anteric fx post fall now s/p nail placementf ollow ortho recs and update with concernsmo nitor for pain controlASA 325 mg bid dvt prophylaxi sice as toleratedd iscussed with nursing Anemia due to blood loss 812885087 D50.0 620017 post op s/p transfusio nmonitor cbc Gastroesop hageal reflux disease without esophagitis 232905000 K21.9 235836 omeprazole 40 mg qd continuedm onitor for [...] ID Guarantor Name 11/21/2024 1 [facility] (MEDICARE REPLACEMENT/A DVANTAGE - PPO) [id number] Estephania Daryl [id number] Estephania Daryl 11/14/2024 1 MEDICARE B-[place]: [email or web address] Estephania Daryl [id number] Estephania Daryl Notes Date Note Type Note [...] transfer to hospital Jaz Dixon NP [address], [address], [place], [address], [facility] 5 12:34:57 11/19 text/ html Patient is [...] therapy eval and treat Rob Rossi MD [address] [place] [address], [address], [place], [address] , [facility] 5 14:56:19 OBGyn Episode No OBEpisode recorded.
== END 2025-03-13 09:52 | disposition home or self-care (01) ==
LOC: HO.HMCH 08:51
PROVIDERS: PCP Internal Medicine; Visit Provider Internal Medicine
DX: Z00.00 Encounter for general adult medical examination without abnormal findings (principal); E11.65 Type 2 diabetes mellitus with hyperglycemia; E78.00 Pure hypercholesterolemia, unspecified; M81.0 Age-related osteoporosis without current pathological fracture; E66.9 Obesity, unspecified; K21.9 Gastro-esophageal reflux disease without esophagitis; S72.142A Displaced intertrochanteric fracture of left femur, initial encounter for closed fracture; I82.402 Acute embolism and thrombosis of unspecified deep veins of left lower extremity; F41.1 Generalized anxiety disorder; Z13.9 Encounter for screening, unspecified

== ENCOUNTER → 2025-03-13 08:50 | Outpatient (BNVA) | payer MEDICARE, SELFPAY | PROVIDERS: PCP Internal Medicine; Visit Provider Internal Medicine | DX: Z00.00 Encounter for general adult medical examination without abnormal findings (principal); E11.65 Type 2 diabetes mellitus with hyperglycemia; E78.00 Pure hypercholesterolemia, unspecified; M81.0 Age-related osteoporosis without current pathological fracture; E66.9 Obesity, unspecified; K21.9 Gastro-esophageal reflux disease without esophagitis; I82.402 Acute embolism and thrombosis of unspecified deep veins of left lower extremity; F41.1 Generalized anxiety disorder; M17.12 Unilateral primary osteoarthritis, left knee; S72.142D Displaced intertrochanteric fracture of left femur, subsequent encounter for closed fracture with routine healing; X58.XXXD Exposure to other specified factors, subsequent encounter | CPT/HCPCS: 83036; 96127; 99397 ==

== ENCOUNTER 2025-04-03 09:35 | Outpatient (REF) | payer MEDICARE, SELFPAY ==
--- NOTE | ~2025-04-03 | US_ITS ---
EXAMINATION: US TRIPLEX LOWER EXTREMITY, LEFT CLINICAL INFORMATION: Follow-up left lower extremity DVT. COMPARISON: November 2024 TECHNIQUE: Color-flow triplex imaging with spectral analysis and compression Doppler were performed on the left lower extremity. FINDINGS: Respiratory variation, normal compression and augmented flow are noted throughout the left lower extremity. The visualized common femoral vein, superficial femoral vein, profunda femoral vein, popliteal vein and midcalf peroneal and posterior tibial venous segments show no evidence of deep venous thrombosis. Pleura has reconstituted within the left popliteal when compared to the prior. Venous waveform is documented. There is reconstituted flow in the posterior tibial vein as well. There is mildly echogenic material within the gastrocnemius vein which is minimally compressible. There is central flow on color Doppler and peripheral thrombus. This vessel was not imaged on the prior. US/US venous duplex LE IMPRESSION: Interval resolution of deep vein thrombus within the popliteal and posterior tibial veins. Partially occlusive deep thrombus is demonstrated in the left gastrocnemius vein. This vein was not imaged on the prior. Electronically signed by: Isaac Bishop MD 04/03/2025 10:44 AM EST
--- OUTSIDE RECORDS SUMMARY | 2025-04-03 10:54 | XMS_ITS | Patient Health Record ---
Author Organization [facility] Address [address] [place] [address] Care Team Providers Care Slitter Helper Name Role Phone Po Jacinda RAMIRES Primary Care Provider [place] Unavailable [phone] Allergies Allergen (clinical drug ingredient) Drug/Non Drug Allergy documented on EMR Reaction Allergy Type Onset Date Status clariden (uncoded) Unknown Allergy A ctive Latex Latex (uncoded) Unknown Allergy Acti ve azithromycin ZPack (uncoded) Unknown Allergy A ctive risedronate Actonel Unknown Drug Allergy Activ e Brianna Unknown Drug Allergy Active calcium citrate Calcium Citrate Unknown Drug Allergy Active Caltrate 600 Unknown Drug Allergy Acti ve alendronate Fosamax Unknown Drug Allergy Activ e mometasone Nasonex Unknown Drug Allergy Active lansoprazole Prevacid Unknown Drug Allergy Acti ve pantoprazole Protonix Unknown Drug Allergy Acti ve metoclopramide Reglan Unknown Drug Allergy Ac tive Sudafed Unknown Drug Allergy Active Zantac Unknown Drug Allergy Active Zyrtec Allergy Unknown Drug Allergy Ac tive Penicillin Unknown Drug Allergy Active Reason For Referral No Information Medications Medication SIG (Take, Route, Frequency, Duration) Notes Start Date End Date Status Aspir-81 81mg Active Omeprazole 20 MG Capsule Delayed Release 1 capsule Orally 1 capsule 30-60 minutes before breakfast and supper Active LORazepam 1mg QHS Active Vitamin D 5000 Activ e Librax prn Active Promethazine HCl Act mariza Simethicone-80 Activ e Stool Softener Activ e Social History Social History Additional Details Category Social Info Options Details Miscellaneous: Marital status: single Occupation: retired Section Notes: Nonsmoker; no alcohol Nonsmoker; no alcohol Nonsmoker; no alcohol Nonsmoker; no alcohol Problems Problem Type SNOMED Code ICD Code Onset Dates Problem Status W/U Status Risk Notes Problem Esophageal reflux (191875222) Esophageal reflux (530.81) Active confirmed Problem Irritable bowel syndrome (55169101) Irritable bowel syndrome (564.1) Active confirmed Problem Anorexia (31927373) Anorexia (783.0) Active confirmed Problem History of polyp of colon (situation) (389819365) Personal history of colonic polyps (V12.72) Active confirmed Problem Constipation (72959686) Constipation (564.00) Active confirmed Problem Colon cancer screening (371948705) Colon cancer screening (V76.51) Active confirmed Problem Gastroesophageal reflux disease (186944573) GERD (gastroesophage al reflux disease) (530.81) Active confirmed Problem History of adenomatous polyp of colon (843753286) History of adenomatous polyp of colon (V12.72) Active confirmed Problem Weight loss (407009982) Weight loss (783.21) Active confirmed Problem Nausea (247438200) Nausea (787.02) Active confi rmed Plan Of Treatment Future Test Test Name Order Date COLONOSCOPY 01/14/2014 Insurance Providers Payer Name Payer Address Payer Phone Subscriber Number Group Number Insured Name Patient Relationship to Insured Coverage Start Date Coverage End Date MEDICARE OF [place] [address] [facility] [place] [address] [id number] MALIHAELENO Self - patient is the insured [facility] [address] [place], [place] [id number] ELENO JETT Self - patient is the insured Medical [...] hypertension Carcinoid tumor of the ileum-resected Denies TN,DM,CVA,Lung disease,renal dise ase Negative hemoccults x 3 in 2008 Anxiety EGD in 1995 for nausea and anorexia -ga stritis with H.pylori--not treated EGD in 08/2012 with mild jaquelin ritis and rare H.pylori-Bx neg for celiac disease-no esophagitis, small HH Surgical History Surgery Date(Month/Year) Right colectomy by Dr. Loretta balbuena in 2001 for a flat tubular adenoma, and a carcinoid tumor of the ileum Abdominal wall hernias x 3 Benign breast biopsies cataract-lens implants-bilateral cyst removal-elbow
== END 2025-04-03 09:36 | disposition home or self-care (01) ==
LOC: HO.HMGCX 09:35
PROVIDERS: PCP Internal Medicine; Visit Provider Internal Medicine Medical Oncology
DX: I82.402 Acute embolism and thrombosis of unspecified deep veins of left lower extremity (principal)
CPT/HCPCS: 73502; 93971

== ENCOUNTER → 2025-04-03 09:49 | Outpatient (BNV) | payer MEDICARE, SELFPAY | PROVIDERS: PCP Internal Medicine; Visit Provider Radiology Diagnostic Radiology | DX: I82.432 Acute embolism and thrombosis of left popliteal vein (principal); I82.442 Acute embolism and thrombosis of left tibial vein; I82.462 Acute embolism and thrombosis of left calf muscular vein | CPT/HCPCS: 93971 ==

== ENCOUNTER 2025-04-04 09:17 | Outpatient (AMB) | payer MEDICARE, SELFPAY ==
[2025-04-04 09:44] VITALS: BMI 26.2
--- NOTE | 2025-04-04 09:44 | A.OFFVIS_ITS ---
Vital Signs 04/04/25 09:44 Height 5 ft Weight 134 lb BMI 26.2 Intake Visit Reasons: OV-left hip IM nail-DOS 11/09/24 NE Intake Note: Estephania is an 84 year old female who presents today for Follow Up after undergoing a Left Hip IM Nail, DOS: 11/09/[address] Navarro. At her last visit she was notified she could now take a shower. She was also advised to continue working with physical therapy for gait training, strengthening, ROM of the left hip. Allergies lansoprazole (From PREVACID) Allergy (Intermediate, Verified 04/04/25 09:44) VOMITING morphine (MORPHINE) Allergy (Intermediate, Verified 04/04/25 09:44) AGITATION risedronate sodium (From ACTONEL) Allergy (Intermediate, Verified 04/04/25 09:44) DYSPNEA alendronate sodium (From Fosamax) Allergy (Mild, Verified 04/04/25 09:44) NAUSEA,SOB azithromycin (AZITHROMYCIN) Allergy (Mild, Verified 04/04/25 09:44) NAUSEA/HEADACHE Penicillins Allergy (Mild, Verified 04/04/25 09:44) RASH amlodipine Allergy (Unknown, Verified 04/04/25 09:44) Unknown Bifidobacterium infantis (Align) Allergy (Unknown, Verified 04/04/25 09:44) Unknown cetirizine (From ZYRTEC) Allergy (Unknown, Verified 04/04/25 09:44) UNKNOWN cyanocobalamin (vitamin B12) Allergy (Unknown, Verified 04/04/25 09:44) Unknown enalapril (ENALAPRIL) Allergy (Unknown, Verified 04/04/25 09:44) ABD PAIN, VERY NAUSEOUS, nausea fexofenadine (From MAC) Allergy (Unknown, Verified 04/04/25 09:44) UNKNOWN folic acid Allergy (Unknown, Verified 04/04/25 09:44) unk hydralazine Allergy (Unknown, Verified 04/04/25 09:44) nausea hydrochlorothiazide Allergy (Unknown, Verified 04/04/25 09:44) dry mouth latex (Latex) Allergy (Unknown, Verified 04/04/25 09:44) RASH loratadine (Claritin) Allergy (Unknown, Verified 04/04/25 09:44) Unknown metoclopramide (From REGLAN) Allergy (Unknown, Verified 04/04/25 09:44) JITTERY mometasone furoate (From NASONEX) Allergy (Unknown, Verified 04/04/25 09:44) UNKNOWN montelukast (Singulair) Allergy (Unknown, Verified 04/04/25 09:44) Unknown pantoprazole (From PROTONIX) Allergy (Unknown, Verified 04/04/25 09:44) UNKNOWN penicillin V Allergy (Unknown, Verified 04/04/25 09:44) Unknown polyethylene glycol 3350 (Miralax) Allergy (Unknown, Verified 04/04/25 09:44) Unknown pseudoephedrine (From SUDAFED) Allergy (Unknown, Verified 04/04/25:44) HYPER ranitidine (From ZANTAC) Allergy (Unknown, Verified 04/04/25:44) UNKNOWN thiamine (vitamin B1) Allergy (Unknown, Verified 04/04/25 09:44) Unknown oxycodone Allergy (Verified 04/04/25 09:44) throwing ascorbic acid (From PreserVision AREDS-2) Adverse Reaction (Intermediate, Verified 04/04/25 09:44) Constipation copper (From PreserVision AREDS-2) Adverse Reaction (Intermediate, Verified 04/04/25 09:44) Constipation lutein (From PreserVision AREDS-2) Adverse Reaction (Intermediate, Verified 04/04/25 09:44) Constipation vitamin E acetate (dl-alpha tocopheryl) (From PreserVision AREDS-2) Adverse Reaction (Intermediate, Verified 04/04/25 09:44) Constipation zeaxanthin (From PreserVision AREDS-2) Adverse Reaction (Intermediate, Verified 04/04/25 09:44) Constipation zinc oxide (From PreserVision AREDS-2) Adverse Reaction (Intermediate, Verified 04/04/25 09:44) Constipation ergocalciferol (vitamin D2) (From CALCIUM CITRATE WITH D) Adverse Reaction (Mild, Verified 04/04/25 09:44) CONSTIPATION Mac-D 12 Hour Allergy (Unknown, Uncoded 04/04/25 09:44) Unknown Calcium Citrate + D Allergy (Unknown, Uncoded 04/04/25 09:44) Unknown Folic + B12 Allergy (Unknown, Uncoded 04/04/25 09:44) Unknown latex Allergy (Unknown, Uncoded 04/04/25 09:44) unknown From CALCIUM CITRATE WITH D Adverse Reaction (Mild, Uncoded 04/04/25 09:44) CONSTIPATION HPI HPI OV-left hip IM nail-DOS 11/09/24 NE: Details: Estephania is an 84 year old female who presents today for Follow Up after undergoing a Left Hip IM Nail, DOS: 11/09/[address] Navarro. At her last visit she was notified she could now take a shower. She was also advised to continue working with physical therapy for gait training, strengthening, ROM of the left hip. Today, the patient states that she is feeling very well, experiences no pain in the left hip, and the only pain she experiences is in the left lower extremity in her knee, where she has known osteoarthritis. No other acute complaints or concerns at this time [facility] Medical History Impaired glucose tolerance Macular degeneration Vitamin D deficiency Tubular adenoma of colon Closed left arm fracture Carcinoid tumor Hypertension Osteoporosis Irritable bowel syndrome Obesity (BMI 30-39.9) Hypercholesterolemia GERD (gastroesophageal reflux disease) Degenerative disc disease, lumbar Peripheral vascular disease Surgical History History of surgical procedure on eye proper using laser H/O ventral hernia repair Status post left breast lumpectomy Family History Father Diabetes Stroke Mother Pancreatic cancer Brother Dementia Social History Household Members Other:: family member lives downstairs Housing: House Housing Other:: two family house Do you presently have visiting nurse or other home services: No Alcohol intake: former Patient Tobacco Use Status: Never used Tobacco Tobacco use type: Cigarette e-Cigarette/Vaping Use: Never Used Second Hand Smoke Exposure: No Advance Directives Date on File: 11/14/24 service: No Current occupational status: retired Cognitive needs: No Hearing needs: Yes Vision needs: Yes Review of Systems Const All systems reviewed & are unremarkable except as noted in HPI and below Physical Exam Vital Signs: BMI result Body Mass Index 26.2 Extrem Other: Incision site on the left lower extremity clean, dry, intact, very well healed No evidence of surrounding erythema, ecchymosis No evidence of infection Patient is able to flex and extend the digits of the left foot without difficulty Patient is able to stand and ambulate with a walker Compartments soft, nontender Distal sensation intact Capillary refill brisk Results Reviewed Results Reviewed: X-rays obtained in the office today and independently reviewed by me, Romero Newton PA-C, demonstrate intertrochanteric fracture of the left hip status post left hip IM nail with all orthopedic hardware in place and in satisfactory clinical alignment with evidence of good interval bony healing. Assessment & Plan Assessment & Plan (1) Intertrochanteric fracture of left hip: Code(s): S72.142A - Displaced intertrochanteric fracture of left femur, initial encounter for closed fracture Category: Medical Plan 1. Status post IM nail of the left hip DOS 11/09/2024 Patient appears to be recovering well postoperatively Patient is educated about the typical recovery course Patient may shower at this time Continue working with physical therapy exercises provided, does not require any further organized physical therapy at this time Patient is told that she should be ambulating as much as possible in order to regain as much function as possible Patient understands this in his amenable to this plan Follow-up in 6 months with repeat x-rays for reassessment, sooner with any acute concerns Orders: Orders XR hip LT min 2V Today M25.552 - Pain in left hip Coding Level of Care Code Est Pt Level 3 (97510) Diagnoses Intertrochanteric fracture of left hip S72.142A
== END 2025-04-04 10:11 | disposition home or self-care (01) ==
LOC: HO.HOS 09:18
DX: S72.142A Displaced intertrochanteric fracture of left femur, initial encounter for closed fracture (principal)
CPT/HCPCS: 99213

== ENCOUNTER → 2025-04-04 09:17 | Outpatient (BNVA) | payer MEDICARE, SELFPAY | DX: S72.142D Displaced intertrochanteric fracture of left femur, subsequent encounter for closed fracture with routine healing (principal); M25.552 Pain in left hip; Z98.890 Other specified postprocedural states | CPT/HCPCS: 99212 ==

== ENCOUNTER → 2025-04-04 09:20 | Outpatient (BNV) | payer MEDICARE, SELFPAY | PROVIDERS: Visit Provider Radiology Diagnostic Radiology | DX: M25.552 Pain in left hip (principal) | CPT/HCPCS: 73502 ==